=== PATIENT | male | born 1945 | race African-American/Black ===

== ENCOUNTER 2016-09-11 10:28 | Emergency (ER) | payer MEDICARE, OTHER ==
[~2016-09-11] VITALS: Ht 182.9 cm; Wt 79.4 kg
[~2016-09-11 10:28] MED LIST: AMLO5TAB2 PO; NAPR-243 PO; TRM50T PO
--- NOTE | 2016-09-11 12:51 | Diagnostic Imaging Report ---
COMPARISON: None. INDICATION: Right testicular swelling and pain. TECHNIQUE: Real-time ultrasound is performed. Color Doppler is also performed. FINDINGS: RIGHT TESTICLE: The right testicle measures 4.3 cm x 2.7 cm x 3.9 cm and appears fairly homogenous without focal mass. Doppler imaging demonstrates normal blood flow to the right testicle. The right epididymis is enlarged, heterogeneous and hypervascular consistent with epididymitis. There is a 10 mm simple extratesticular cyst likely benign. There is a small right hydrocele. LEFT TESTICLE: Left testicle measures 5.1 cm x 2.8 cm x 2.9 cm and is slightly heterogeneous, however, no focal mass is seen. Doppler imaging demonstrates normal blood flow to the left testicle. There is a small left hydrocele. ADDITIONAL FINDINGS: None. IMPRESSION: Small bilateral hydroceles. There are findings consistent with right epididymitis. There is no evidence of testicular torsion or intratesticular abnormality. Dictated by: Dictated on workstation # [id number]
--- NOTE | 2016-09-11 13:20 | ED GU-Male ---
General Chief Complaint: -Male Stated Complaint: GENITAL PAIN Nursing Triage Note: pt c/o testicle pain starting 2-3 days ago. swelling starting yesterday. Source: patient Exam Limitations: no limitations History of Present Illness Time seen by provider: 13:09 Initial Comments 71-year-old male patient presents to the emergency department complains of right testicular pain for approximately 2-3 days. Reports increased swelling and pain today. Denies fever, difficulty with urination, or blood in the urine. Timing/Duration: getting worse, other (2-3 days) Severity/Quality: throbbing Location: scrotal (right testicle) Radiation: none Activities at Onset: none Prior Genitourinary Problems: none Modifying Factors: Worsens With Movement, Worsens With Palpation Allergies and Home Medications Allergies Coded Allergies: NKANo Known Allergies (Unverified Allergy, Mild, 03/14/09) Home Medications Amlodipine Besylate 5 Mg Tab, 10 MG PO DAILY, (Reported) Hydrocodone/Acetaminophen 1 Each Tablet, 1 EACH PO Q4H PRN for PAIN, #14 Ref 0 Prescribed by: MARIA M BALDERAS on 09/11/16 1329 Levofloxacin 500 Mg Tablet, 500 MG PO DAILY, #10 Ref 0 Prescribed by: MARIA M BALDERAS on 09/11/16 1329 Constitutional: No chills, No fever, No malaise Respiratory: no symptoms reported Cardiovascular: no symptoms reported Gastrointestinal: No abdominal pain, No constipation, No diarrhea, No loss of appetite, No nausea, No vomiting Genitourinary: see HPI, denies burning, denies discharge, denies dysuria, denies frequency, denies flank pain, denies hematuria, pain (right testicular pain and swelling) Musculoskeletal: no symptoms reported Skin: no symptoms reported Psychiatric/Neurological: No Symptoms Reported All Other Systemes Reviewed Negative Unless Noted: Yes (Negative excepted noted.) Past Imrhjtu-Fifawf-Fkftbd Hx Patient Social History Alcohol Use: Denies Use Recreational Drug Use: No Smoking Status: Never a Smoker 2nd Hand Smoke Exposure: No Recent Foreign Travel: No Contact w/Someone Who Travel: No Recent Infectious Disease Expo: No Recent Hopitalizations: No Immunizations Up To Date Tetanus Booster (TDap): Unknown Seasonal Allergies Seasonal Allergies: No Surgeries HX Surgeries: Yes (HAND) Surgeries: Orthopedic Respiratory Hx Respiratory Disorders: No Cardiovascular Hx Cardiac Disorders: Yes Cardiac Disorders: Hypertension Neurological Hx Neurological Disorders: No Genitourinary Hx Genitourinary Disorders: No Gastrointestinal Hx Gastrointestinal Disorders: No Musculoskeletal Hx Musculoskeletal Disorders: No Endocrine Hx Endocrine Disorders: No HEENT HX ENT Disorders: No Cancer Hx Cancer: No Psychosocial Hx Psychiatric Problems: No Reviewed Nursing Assessment Reviewed/Agree w Nursing PMH: Yes Family Medical History Significant Family History: No Pertinent Family Hx Physical Exam Vital Signs Vital Sign - Last 12Hours 09/11/16 09/11/16 10:50 13:36 Temp 97.8 Pulse 57 Resp 18 B/P (MAP) 113/58 Pulse Ox 99 Capillary Refill : Less Than 3 Seconds General Appearance: WD/WN, no apparent distress HEENT: PERRL/EOMI, pharynx normal Neck: supple, normal inspection Cardiovascular: regular rate, rhythm, no murmur Respiratory: lungs clear, normal breath sounds, no respiratory distress Gastrointestinal: normal bowel sounds, non tender, soft, no organomegaly, No distended Male: no hernia, No erythema, No inguinal tenderness, testicular tenderness ( right testicular swelling. tenderness over the right epididymis) Back: normal inspection, no CVA tenderness Extremities: no pedal edema, normal capillary refill Neurologic/Psychiatric: alert, normal mood/affect, oriented x 3 Skin: normal color, warm/dry Progress/Results/Core Measures Results/Orders My Orders Orders - MARIA M BALDERAS Us Scrotum (Testicle) [id number] (09/11/16 12:04) Vital Signs/I&O Vital Sign - Last 12Hours 09/11/16 09/11/16 10:50 13:36 Temp 97.8 98.0 Pulse 57 56 Resp 18 18 B/P (MAP) 113/58 Pulse Ox 99 Blood Pressure Mean: 76 Diagnostic Imaging Diagonstic Imaging: Ultrasound Plain Films/CT/US/NM/MRI: other (scrotal) Comments US SCROTUM (Testicle) [id number] COMPARISON: None. INDICATION: Right testicular swelling and pain. TECHNIQUE: Real-time ultrasound is performed. Color Doppler is also performed. FINDINGS: RIGHT TESTICLE: The right testicle measures 4.3 cm x 2.7 cm x 3.9 cm and appears fairly homogenous without focal mass. Doppler imaging demonstrates normal blood flow to the right testicle. The right epididymis is enlarged, heterogeneous and hypervascular consistent with epididymitis. There is a 10 mm simple extratesticular cyst likely benign. There is a small right hydrocele. LEFT TESTICLE: Left testicle measures 5.1 cm x 2.8 cm x 2.9 cm and is slightly heterogeneous, however, no focal mass is seen. Doppler imaging demonstrates normal blood flow to the left testicle. There is a small left hydrocele. ADDITIONAL FINDINGS: None. IMPRESSION: Small bilateral hydroceles. There are findings consistent with right epididymitis. There is no evidence of testicular torsion or intratesticular abnormality. Dictated by: Dictated on workstation # [id number] Reviewed: Reviewed by Me (radiology report reviewed by me) Departure Communication Progress Notes Diagnostic findings discussed with the patient. Plan for discharge to home. Patient follow-up with his primary care physician this week for recheck. All return precautions were discussed with the patient as described in the discharge instructions of this report. Patient voices understanding and agrees with the treatment plan. Impression Impression: Primary Impression: Acute epididymitis Disposition: HOME, SELF-CARE Condition: Improved Departure-Patient Inst. Decision time for Depature: 13:28 Referrals: LEONEL ORTEZ APRN (PCP) Primary Care Physician Patient Instructions: Epididymitis (DC) Add. Discharge Instructions: All discharge instructions reviewed with patient and/or family. Voiced understanding. Medications as instructed. Ibuprofen 800 mg by mouth every 8 hours as needed for pain. Follow-up with your family practitioner for recheck call for appointment time to see morning. Return to the emergency department for worsened pain, swelling, fever, inability to urinate, blood in the urine, or any other concerns. Scripts Levofloxacin (Levofloxacin) 500 Mg Tablet 500 MG PO DAILY, #10 TAB 0 Refills Prov: MARIA M BALDERAS 09/11/16 Hydrocodone/Acetaminophen (Hydrocodon -Acetaminophen 5-325) 1 Each Tablet 1 EACH PO Q4H Y for PAIN, #14 TAB 0 Refills Prov: MARIA M BALDERAS 09/11/16 MARIA M BALDERAS September 11, 2016 13:20
[2016-09-11] MEDS ORDERED: LEVO500T80 PO (13:29)
[2016-09-11] MEDS ORDERED: HYDR-3812 PO (13:29)
[2016-09-11 13:36] VITALS: BP 111/56
== END 2016-09-11 13:36 | disposition home or self-care (01) ==
LOC: EDUNIT# 10:28 → ER 10:31
DX: N45.1 Epididymitis (principal); N43.3 Hydrocele, unspecified; I10 Essential (primary) hypertension; Z79.899 Other long term (current) drug therapy
CPT/HCPCS: 76870; 99282

== ENCOUNTER → 2016-11-15 | Outpatient (CLI) | payer MEDICARE, OTHER ==
[~2016-11-15] MED LIST changes: +AMLO10TA2 PO; +DOCU-143 PO; +HYDR-3812 PO; +LEVO500T80 PO
--- NOTE | 2016-11-15 11:51 | Diagnostic Imaging Report ---
EXAM: LUMBAR SPINE - 2-3 VIEWS. INDICATION: Low back pain with lt leg radiculopathy. COMPARISON: None. FINDINGS: There are five lumbar type vertebral bodies. There is mild left apex lumbar curvature. The alignment is otherwise unremarkable. The vertebral body heights are maintained. There are moderate to advanced degenerative endplate changes, most marked from L3 through L5. There is mild lower lumbar facet arthropathy with a nonspecific bowel gas pattern. IMPRESSION: Moderate to advanced spondylotic changes in the lumbar spine. No acute radiographic findings. Dictated by: Dictated on workstation # [id number]
== END ==
LOC: RAD 11:16
PROVIDERS: ATTEND Family Medicine
DX: M47.816 Spondylosis without myelopathy or radiculopathy, lumbar region (principal)
CPT/HCPCS: 72100

== ENCOUNTER 2016-11-21 11:13 | Inpatient (IN) | payer MEDICARE, OTHER ==
[~2016-11-21] VITALS: Ht 182.9 cm; Wt 73.5 kg
[~2016-11-21 11:13] MED LIST changes: -AMLO10TA2 PO; -DOCU-143 PO
[2016-11-21] MEDS ORDERED: ONDANSETRON 4 MG/2 ML (SDV) Z0FRAN IVP ONE (12:00)
[2016-11-21] MEDS ORDERED: NS IV 1000 ML 1,000 ML IV ONE (12:00)
--- NOTE | 2016-11-21 12:16 | ED Abdominal Pain ---
General Chief Complaint: Abdominal/GI Problems Stated Complaint: STOMACH PAIN Nursing Triage Note: AMB TO ROOM REPORTS ONSET OF ABD CRAMPING SINCE YESTERDAY. LAST BM TUESDAY ABD DISTENDED. VOMITING GREEN BROWN EMESIS PER . Sepsis Screen: No Definite Risk History of Present Illness Time Seen By Provider: 12:00 Initial Comments Patient has been vomiting since yesterday. Last bowel movement 11/19/16. No history of previous abdominal problems. Unable to keep any liquid or solid foods in. Mild nausea and no diarrhea. Timing/Duration: 12-24 Hours Severity/Quality: Mild Location: Generalized Abdomen Radiation: No Radiation Activities at Onset: None Modifying Factors: Improves With Vomiting Associated Symptoms: No Back Pain, No Chest Pain, No Fever/Chills, Fatigue, No Headache, Heartburn, Nausea/Vomiting, No Rash, No Shortness of Air, Swelling/ Mass in Abdomen, No Syncope, Weakness Allergies and Home Medications Allergies Coded Allergies: NKANo Known Allergies (Unverified Allergy, Mild, 03/14/09) Home Medications Amlodipine Besylate 5 Mg Tab, 10 MG PO DAILY, (Reported) Review of Systems Constitutional: no symptoms reported, see HPI Respiratory: No Symptoms Reported, See HPI Cardiovascular: No Symptoms Reported, See HPI Gastrointestinal: See HPI, Abdomen Distended, Abdominal Pain, Nausea, Poor Appetite, Poor Fluid Intake, Vomiting Genitourinary: No Symptoms Reported, See HPI All Other Systems Reviewed Negative Unless Noted: Yes Past Ifymvlm-Byxjjl-Jeykav Hx Patient Social History Alcohol Use: Denies Use Recreational Drug Use: No Smoking Status: Current Everyday Smoker 2nd Hand Smoke Exposure: No Recent Foreign Travel: No Contact w/Someone Who Travel: No Recent Infectious Disease Expo: No Recent Hopitalizations: No Immunizations Up To Date Tetanus Booster (TDap): Unknown Seasonal Allergies Seasonal Allergies: No Surgeries HX Surgeries: Yes (HAND) Surgeries: Orthopedic Respiratory Hx Respiratory Disorders: No Cardiovascular Hx Cardiac Disorders: Yes Cardiac Disorders: Hypertension Neurological Hx Neurological Disorders: No Genitourinary Hx Genitourinary Disorders: No Gastrointestinal Hx Gastrointestinal Disorders: No Musculoskeletal Hx Musculoskeletal Disorders: No Endocrine Hx Endocrine Disorders: No HEENT HX ENT Disorders: No Cancer Hx Cancer: No Psychosocial Hx Psychiatric Problems: No Reviewed Nursing Assessment Reviewed/Agree w Nursing PMH: Yes Family Medical History Significant Family History: No Pertinent Family Hx Physical Exam Vital Signs VS - Last 72 Hours, by Label 11/21/16 11:15 Temp 96.9 Pulse 68 Resp 18 B/P (MAP) 154/68 Pulse Ox 97 Capillary Refill : Less Than 3 Seconds General Appearance: WD/WN, no apparent distress HEENT: normal ENT inspection, TMs normal, pharynx normal Neck: non-tender, full range of motion, supple, normal inspection Respiratory: chest non-tender, lungs clear, normal breath sounds Cardiovascular: normal peripheral pulses, regular rate, rhythm Gastrointestinal: abnormal bowel sounds (hypoactive, present on right upper and lower quadrant. Absent on left upper and lower quadrant.), distended, No rebound, tenderness (generalized) Back: no CVA tenderness, no vertebral tenderness Neurologic/Psychiatric: no motor/sensory deficits, alert, normal mood/affect, oriented x 3 Skin: normal color, warm/dry, No jaundice Lymphatic: no adenopathy Focused Exam Lactic Acid Level Laboratory Tests Test 11/21/16 14:10 Lactic Acid Level 1.68 MMOL/L (0.50-2.00) Progress/Results/Core Measures Results/Orders Lab Results Laboratory Tests Test 11/21/16 12:15 11/21/16 13:15 11/21/16 14:10 Range/Units White Blood Count 11.5 H 4.3-11.0 10^3/uL Red Blood Count 6.44 H 4.35-5.85 10^6/uL Hemoglobin 19.0 H 13.3-17.7 G/DL Hematocrit 55 H 40-54 % Mean Corpuscular Volume 86 80-99 FL Mean Corpuscular Hemoglobin 30 25-34 PG Mean Corpuscular Hemoglobin Concent 34 32-36 G/DL Red Cell Distribution Width 14.5 10.0-14.5 % Platelet Count 222 130-400 10^3/uL Mean Platelet Volume 10.1 7.4-10.4 FL Neutrophils (%) (Auto) 76 H 42-75 % Lymphocytes (%) (Auto) 16 12-44 % Monocytes (%) (Auto) 8 0-12 % Eosinophils (%) (Auto) 0 0-10 % Basophils (%) (Auto) 0 0-10 % Neutrophils # (Auto) 8.7 H 1.8-7.8 X 10^3 Lymphocytes # (Auto) 1.9 1.0-4.0 X 10^3 Monocytes # (Auto) 0.9 0.0-1.0 X 10^3 Eosinophils # (Auto) 0.0 0.0-0.3 10^3/uL Basophils # (Auto) 0.0 0.0-0.1 10^3/uL Sodium Level 141 135-145 MMOL/L Potassium Level 3.9 3.6-5.0 MMOL/L Chloride Level 97 L 98-107 MMOL/L Carbon Dioxide Level 25 21-32 MMOL/L Anion Gap 19 H 5-14 MMOL/L Blood Urea Nitrogen 17 7-18 MG/DL Creatinine 1.19 0.60-1.30 MG/DL Estimat Glomerular Filtration Rate > 60 BUN/Creatinine Ratio 14 Glucose Level 140 H 70-105 MG/DL Calcium Level 10.1 8.5-10.1 MG/DL Total Bilirubin 1.2 H 0.1-1.0 MG/DL Aspartate Amino Transf (AST/SGOT) 14 5-34 U/L Alanine Aminotransferase (ALT/SGPT) 13 0-55 U/L Alkaline Phosphatase 80 40-136 U/L Total Protein 8.5 H 6.4-8.2 GM/DL Albumin 4.6 H 3.2-4.5 GM/DL Amylase Level 39 25-125 U/L Lipase 8 8-78 U/L Serum Alcohol < 10 <10 MG/DL Urine Color ELIGIO H Urine Clarity SLIGHTLY CLOUDY Urine pH 5 5-9 Urine Specific [place] 1.025 H 1.016-1.022 Urine Protein 3+ H NEGATIVE Urine Glucose (UA) 1+ H NEGATIVE Urine Ketones 2+ H NEGATIVE Urine Nitrite POSITIVE H NEGATIVE Urine Bilirubin 2+ H NEGATIVE Urine Urobilinogen 4 H NORMAL MG/DL Urine Leukocyte Esterase 2+ H NEGATIVE Urine RBC (Auto) 2+ H NEGATIVE Urine RBC 2-5 H /HPF Urine WBC 2-5 /HPF Urine Squamous Epithelial Cells 10-25 H /HPF Urine Crystals NONE /LPF Urine Bacteria NEGATIVE /HPF Urine Casts PRESENT /LPF Urine Hyaline Casts 5-10 H /LPF Urine Mucus LARGE H /LPF Urine Culture Indicated YES Urine Opiates Screen NEGATIVE NEGATIVE Urine Oxycodone Screen NEGATIVE NEGATIVE Urine Methadone Screen NEGATIVE NEGATIVE Urine Propoxyphene Screen NEGATIVE NEGATIVE Urine Barbiturates Screen NEGATIVE NEGATIVE Ur Tricyclic Antidepressants Screen NEGATIVE NEGATIVE Urine Phencyclidine Screen NEGATIVE NEGATIVE Urine Amphetamines Screen NEGATIVE NEGATIVE Urine Methamphetamines Screen NEGATIVE NEGATIVE Urine Benzodiazepines Screen NEGATIVE NEGATIVE Urine Cocaine Screen POSITIVE H NEGATIVE Urine Cannabinoids Screen NEGATIVE NEGATIVE Lactic Acid Level 1.68 0.50-2.00 MMOL/L My Orders Orders - SYLWIA TREVINO Cbc With Automated Diff (11/21/16 11:59) Comprehensive Metabolic Panel (11/21/16 11:59) Ua Culture If Indicated (11/21/16 11:59) Abdomen/Kub 1view (11/21/16 11:59) Saline Lock/Iv-Start (11/21/16 12:00) Ns Iv 1000 Ml (Sodium Chloride 0.9%) (11/21/16 12:00) Ondansetron Injection (Zofran Injectio (11/21/16 12:00) Alcohol (11/21/16 12:18) Drug Screen Stat (Urine) (11/21/16 12:18) Amylase (11/21/16 12:18) Lipase (11/21/16 12:18) Lactic Acid Analyzer (11/21/16 12:23) Ct Abdomen/Pelvis W (11/21/16 13:17) Urine Culture (11/21/16 13:15) Medications Given in ED Current Medications Medications Dose Ordered Sig/Erwin Route Start Time Stop Time Status Last Admin Dose Admin Ondansetron HCl 4 mg ONCE ONCE IVP 11/21/16 12:00 11/21/16 12:01 DC 11/21/16 13:16 4 MG Sodium Chloride 1,000 ml @ 0 mls/hr Q0M ONCE IV 11/21/16 12:00 11/21/16 12:01 DC 11/21/16 13:16 1,000 MLS/HR Vital Signs/I&O Vital Sign - Last 12Hours 11/21/16 11:15 Temp 96.9 Pulse 68 Resp 18 B/P (MAP) 154/68 Pulse Ox 97 Blood Pressure Mean: 96 Progress Note : Time: 12:00 Progress Note Initial evaluation completed, will obtain labs, KUB, normal saline 1 L IV and Zofran 4 mg IV. Instructed patient to remain nothing by mouth. 1300 patient reports improvement in his nausea. KUB inconclusive with possibility of bowel obstruction present, recommended CT abdomen and pelvis. 1400 CT results discussed with patient and his . Discussed results with Dr. ELIZONDO, agreed with plans for admission. Will begin Rocephin 1 g IV every [address] Zavaleta for bowel obstruction, recommended ice chips otherwise nothing by mouth. No injury at this time indicated. He will reevaluate the patient. Discussed plans for admission with the patient and his , they agreed with this. Diagnostic Imaging Diagonstic Imaging: CT Plain Films/CT/US/NM/MRI: abdomen, pelvis Comments NAME: DEEDEE [facility]ISHOL[facility] REC#: [id number] PT STATUS: REG ER : 1945 PHYSICIAN: SYLWIA TREVINO ADMIT DATE: 11/21/16/ER Draft Date of Exam:11/21/16 CT ABDOMEN/PELVIS W PROCEDURE: CT abdomen and pelvis with contrast. TECHNIQUE: Multiple contiguous axial images were obtained through the abdomen and pelvis after administration of intravenous contrast. INDICATION: Abdominal pain. There are no previous CT examinations available for comparison. The plain film examination of the abdomen performed earlier today did note a few dilated segments of small bowel present. On this study there are numerous dilated fluid-filled segments of small bowel. This appearance does suggest a small bowel obstruction. There are a few nondilated portions of the ileum identified, and I suspect that the obstruction is in the proximal ileum. The stomach is also markedly distended by fluid and gas. There is no mass, abscess, or pneumoperitoneum identified; however, there is a small amount of free fluid about both the liver and spleen. The fluid about the liver measures approximately 2.0 cm in maximum depth. The fluid about the spleen measures only 0.8 cm. The liver does not appear to be enlarged. The spleen, pancreas, adrenals, kidneys, gallbladder, aorta, and inferior vena cava show no sign of an acute abnormality. The appendix was visualized and is not abnormally thickened. The urinary bladder is only partially filled and consequently difficult to assess. The prostate gland is enlarged measuring 5.5 cm maximum transverse diameter (normal 5.0 cm or less.) As noted on the plain film exam there are numerous phleboliths low in the pelvis. The bone windows show no sign of a fracture or of a destructive lesion. The lung bases are clear. IMPRESSION: 1. The findings do suggest a small bowel obstruction. The stomach is also distended by fluid and gas. There is also a small amount of fluid about the liver and the spleen. 2. There is no acute abnormality of the abdomen and pelvis otherwise. 3. The prostate gland is enlarged. 4. These results were discussed with BETY Womack, at time of dictation. CRITICAL FINDINGS. Dictated on workstation # [id number] Dict: 11/21/16 1354 Trans: 11/21/16 1408 [id number] Interpreted by: CRYSTAL ALAN MD Electronically signed by: Departure Impression Impression: Primary Impression: Small bowel obstruction Additional Impressions: Urinary tract infection Qualified Codes: N30.01 - Acute cystitis with hematuria Abdominal pain Qualified Codes: R10.84 - Generalized abdominal pain Disposition: ADMITTED INPATIENT Condition: Stable Decision to Admit Reason: Admit from ER (General) Decision to Admit/Date: Nov 21, 2016 Time/Decision to Admit Time: 14:00 Departure-Patient Inst. Referrals: BRETT ELIZONDO DO (PCP/Family) Primary Care Physician Copy Copies To 1: BRETT ELIZONDO DO Copies To 2: ZACARIAS ZAVALETA MD, AMY ARNP Nov 21, 2016 12:16
[2016-11-21 12:20] LABS: BASOPHILS % (AUTO) 0 % (0-10); EOSINOPHILS % (AUTO) 0 % (0-10); LYMPHOCYTES # (AUTO) 1.9 X 10^3 (1.0-4.0); LYMPHOCYTES % (AUTO) 16 % (12-44); MEAN CORPUSCULAR HEMOGLOBIN 30 PG (25-34); MEAN CORPUSCULAR HGB CONC 34 G/DL (32-36); MEAN CORPUSCULAR VOLUME 86 FL (80-99); MEAN PLATELET VOLUME 10.1 FL (7.4-10.4); MONOCYTES # (AUTO) 0.9 X 10^3 (0.0-1.0); MONOCYTES % (AUTO) 8 % (0-12); NEUTROPHILS # (AUTO) 8.7 X 10^3 (1.8-7.8); NEUTROPHILS % (AUTO) 76 % (42-75); PLATELET COUNT 222 10^3/uL (130-400); RED BLOOD COUNT 6.44 10^6/uL (4.35-5.85); RED CELL DISTRIBUTION WIDTH 14.5 % (10.0-14.5); WHITE BLOOD COUNT 11.5 10^3/uL (4.3-11.0)
[2016-11-21 12:38] LABS: ALANINE AMINOTRANSFERASE 13 U/L (0-55); ALBUMIN 4.6 GM/DL (3.2-4.5); ANION GAP 19 MMOL/L (5-14); ASPARTATE AMINO TRANSFERASE 14 U/L (5-34); BILIRUBIN,TOTAL 1.2 MG/DL (0.1-1.0); BLOOD UREA NITROGEN 17 MG/DL (7-18); BUN/CREATININE RATIO 14; CALCIUM 10.1 MG/DL (8.5-10.1); CARBON DIOXIDE 25 MMOL/L (21-32); CHLORIDE 97 MMOL/L (98-107); CREATININE SERUM 1.19 MG/DL (0.60-1.30); GFR ESTIMATED > 60; GLUCOSE 140 MG/DL (70-105); POTASSIUM 3.9 MMOL/L (3.6-5.0); SODIUM 141 MMOL/L (135-145); TOTAL PROTEIN 8.5 GM/DL (6.4-8.2)
[2016-11-21 12:41] LABS: ALCOHOL < 10 MG/DL (<10); AMYLASE 39 U/L (25-125); LIPASE 8 U/L (8-78)
--- NOTE | 2016-11-21 13:13 | Diagnostic Imaging Report ---
Abdomen supine at 1:05 PM. INDICATION: Abdominal pain. Single supine view of the abdomen and pelvis was obtained. There is gas in both the large and small bowel. This appearance is nonspecific but similar to the lumbar spine exam of 11/15/2016. There are few dilated gas-filled segments of small bowel near midline. The possibility of partial small bowel obstruction should be considered. There is a moderate amount of fecal material throughout the colon. The numerous phleboliths on each side of the pelvis seen previously are again evident and no different. There is no mass or organomegaly appreciated. The osseous structures are intact. IMPRESSION: 1. The bowel gas pattern is nonspecific but similar to the prior exam. The possibility of partial small bowel obstruction should be considered. 2. If further study is desired, then CT of the abdomen and pelvis would be recommended. Dictated by: Dictated on workstation # [id number]
[2016-11-21 13:26] LABS: KETONES,URINE 2+ (NEGATIVE); LEUKOCYTE ESTERASE ,URINE 2+ (NEGATIVE); NITRITE,URINE POSITIVE (NEGATIVE); PH,URINE 5 (5-9); PROTEIN,URINE 3+ (NEGATIVE); UROBILINOGEN,URINE 4 MG/DL (NORMAL)
[2016-11-21] MEDS ORDERED: IOHEXOL 350 MG/ML 100 ML (OMNIPAQUE 350) VIAL IV ONE (13:30)
[2016-11-21 13:46] LABS: BILIRUBIN,URINE 2+ (NEGATIVE)
--- NOTE | 2016-11-21 14:08 | Diagnostic Imaging Report ---
PROCEDURE: CT abdomen and pelvis with contrast. TECHNIQUE: Multiple contiguous axial images were obtained through the abdomen and pelvis after administration of intravenous contrast. INDICATION: Abdominal pain. There are no previous CT examinations available for comparison. The plain film examination of the abdomen performed earlier today did note a few dilated segments of small bowel present. On this study there are numerous dilated fluid-filled segments of small bowel. This appearance does suggest a small bowel obstruction. There are a few nondilated portions of the ileum identified, and I suspect that the obstruction is in the proximal ileum. The stomach is also markedly distended by fluid and gas. There is no mass, abscess, or pneumoperitoneum identified; however, there is a small amount of free fluid about both the liver and spleen. The fluid about the liver measures approximately 2.0 cm in maximum depth. The fluid about the spleen measures only 0.8 cm. The liver does not appear to be enlarged. The spleen, pancreas, adrenals, kidneys, gallbladder, aorta, and inferior vena cava show no sign of an acute abnormality. The appendix was visualized and is not abnormally thickened. The urinary bladder is only partially filled and consequently difficult to assess. The prostate gland is enlarged measuring 5.5 cm maximum transverse diameter (normal 5.0 cm or less.) As noted on the plain film exam there are numerous phleboliths low in the pelvis. The bone windows show no sign of a fracture or of a destructive lesion. The lung bases are clear. IMPRESSION: 1. The findings do suggest a small bowel obstruction. The stomach is also distended by fluid and gas. There is a small amount of fluid about the liver and the spleen, as well. 2. There is no acute abnormality of the abdomen and pelvis otherwise. 3. The prostate gland is enlarged. 4. These results were discussed with BETY Womack, at time of dictation. CRITICAL FINDINGS. Dictated by: Dictated on workstation # [id number]
[2016-11-21] MEDS ORDERED: ONDANSETRON 4 MG/2 ML (SDV) Z0FRAN IV PRN (15:45)
[2016-11-21] MEDS ORDERED: CATHETER FLUSH 10 ML SYR IV PRN (15:45)
[2016-11-21] MEDS: NS IV 1000 ML 1,000 ML IV SCH (16:11)
[2016-11-21] MEDS: cefTRIAXone 1 GM/NS 50 ML IVPB IV SCH ×2 (16:11)
[2016-11-21 16:37] VITALS: BP 144/81
[2016-11-21] MEDS ORDERED: RT-ALBUTEROL SULF 2.5 MG/3 ML PRE-MIX VIAL IH PRN (17:00)
[2016-11-21 20:31] VITALS: BP 135/69
[2016-11-21] MEDS: fentaNYL INJECTION 100 MCG/2 ML AMP IVP PRN (21:36)
[2016-11-21] MEDS: HYDROcodone/APAP 7.5 MG/325 MG (LORTAB, LORCET PLUS) TABLET PO PRN (22:01)
[2016-11-22] VITALS (8 sets, daily range): BP systolic 140–182; BP diastolic 71–84
[2016-11-22] MEDS: NS IV 1000 ML 1,000 ML IV SCH ×2 (05:14→18:11)
[2016-11-22 05:29] LABS: BASOPHILS % (AUTO) 0 % (0-10); EOSINOPHILS # (AUTO) 0.1 10^3/uL (0.0-0.3); EOSINOPHILS % (AUTO) 2 % (0-10); LYMPHOCYTES # (AUTO) 2.1 X 10^3 (1.0-4.0); LYMPHOCYTES % (AUTO) 30 % (12-44); MEAN CORPUSCULAR HEMOGLOBIN 30 PG (25-34); MEAN CORPUSCULAR HGB CONC 34 G/DL (32-36); MEAN CORPUSCULAR VOLUME 88 FL (80-99); MEAN PLATELET VOLUME 10.5 FL (7.4-10.4); MONOCYTES % (AUTO) 14 % (0-12); NEUTROPHILS # (AUTO) 3.9 X 10^3 (1.8-7.8); NEUTROPHILS % (AUTO) 55 % (42-75); PLATELET COUNT 230 10^3/uL (130-400); RED BLOOD COUNT 5.21 10^6/uL (4.35-5.85); RED CELL DISTRIBUTION WIDTH 13.8 % (10.0-14.5); WHITE BLOOD COUNT 7.1 10^3/uL (4.3-11.0)
[2016-11-22 06:04] LABS: ALANINE AMINOTRANSFERASE 12 U/L (0-55); ALBUMIN 3.3 GM/DL (3.2-4.5); ANION GAP 11 MMOL/L (5-14); ASPARTATE AMINO TRANSFERASE 13 U/L (5-34); BILIRUBIN,TOTAL 0.8 MG/DL (0.1-1.0); BLOOD UREA NITROGEN 23 MG/DL (7-18); BUN/CREATININE RATIO 21; CALCIUM 8.5 MG/DL (8.5-10.1); CARBON DIOXIDE 26 MMOL/L (21-32); CHLORIDE 103 MMOL/L (98-107); CREATININE SERUM 1.07 MG/DL (0.60-1.30); GFR ESTIMATED > 60; GLUCOSE 103 MG/DL (70-105); SODIUM 140 MMOL/L (135-145)
[2016-11-22] MEDS ORDERED: PANTOPRAZOLE 40 MG/10 ML (PROTONIX) VIAL IV NR (10:45)
[2016-11-22] MEDS ORDERED: AMLO10TA2 PO (10:48)
[2016-11-22] MEDS ORDERED: DIATRIZOATE MEGLUM/SODIUM 37% 120 ML (GASTROGRAFIN) PO ONE (11:30)
[2016-11-22] MEDS: meTOprolol 5 MG/5 ML (LOPRESSOR) VIAL IV SCH ×2 (14:06→18:11)
--- NOTE | 2016-11-22 15:30 | History & Physicial ---
History of Present Illness History of Present Illness Reason for visit/HPI This is a 71 year old male who presented to the emergency room with a 2 day history of abdominal cramping. He started having greenish brown emesis the day of presentation. He was found to have a proximal small bowel obstruction as well as a UTI. Zofran did control his nausea in the emergency room so it was decided to hold on inserting an NG tube per surgery. He will be admitted to the medical floor with IVF, gut rest, pain control, antiemetics, surgical consult and rocephin for his UTI. Date of Admission Nov 22, 2016 at 10:34 am Date Seen by Provider: Nov 22, 2016 Time Seen by Provider: 10:30 I consulted on this patient on 11/22/16 15:24 Attending Physician Carolina Arredondo DO Admitting Physician Carolina Arredondo DO Consult Allergies and Home Medications Allergies Coded Allergies: NKANo Known Allergies (Unverified Allergy, Mild, 03/14/09) Home Medications Amlodipine Besylate 10 Mg Tablet, 10 MG PO DAILY, (Reported) Past Tqzfdkk-Uhhulj-Trzybw Hx Patient Social History Alcohol Use: Regular Use Recreational Drug Use: No Smoking Status: Current Everyday Smoker Type Used: Cigars 2nd Hand Smoke Exposure: No Physical Abuse Screen: No Sexual Abuse: No Recent Foreign Travel: No Contact w/other who traveled: No Recent Hopitalizations: No Recent Infectious Disease Expo: No Immunizations Up To Date Tetanus Booster (TDap): Unknown Seasonal Allergies Seasonal Allergies: No Surgeries HX Surgeries: Yes (HAND) Surgeries: Orthopedic Respiratory Hx Respiratory Disorders: No Cardiovascular Hx Cardiovascular Disorders: Yes Cardiac Disorders: Hypertension Neurological Hx Neurological Disorders: No Genitourinary Hx Genitourinary Disorders: No Gastrointestinal Hx Gastrointestinal Disorders: No Musculoskeletal Hx Musculoskeletal Disorders: No Musculoskeletal Disorders: Arthritis, Chronic Back Pain Endocrine Hx Endocrine Disorders: No HEENT HX ENT Disorders: No Loss of Vision: Denies Hearing Impairment: Denies Cancer Hx Cancer: No Psychosocial Hx Psychiatric Problems: No Blood Transfusions Adverse Reaction to a Blood Tr: No Reviewed Nursing Assessment Reviewed/Agree w Nursing PMH: Yes Family Medical History Significant Family History: No Pertinent Family Hx Family Hx: Hypertension 19 MOTHER Neoplasm 19 FATHER Constitutional: No no symptoms reported, No see HPI, No chills, No diaphoresis , No dizziness, No fever, No malaise, No weakness, No weight gain, No weight loss, No other EENTM: No blurred vision, No dental problems, No double vision, No ear discharge, No ear pain, No epistaxis, No eye pain, No hearing loss, No hoarseness, No mouth pain, No mouth swelling, No no symptoms reported, No nose congestion, No nose pain, No other, No see HPI, No tearing, No throat pain, No throat swelling, No vision loss Respiratory: No no symptoms reported, No see HPI, No cough, No dyspnea on exertion, No hemoptysis, No orthopnea, No phlegm, No short of breath, No stridor , No wheezing, No other Cardiovascular: No no symptoms reported, No see HPI, No chest pain, No edema, No Hx of Intervention, No palpitations, No syncope, No vascular heart diseas, No other Gastrointestinal: abdominal pain, loss of appetite, nausea, vomiting Genitourinary: No no symptoms reported, No see HPI, No decreased output, No discharge, No dysuria, No frequency, No hematuria, No hesitancy, No incontinence , No nocturia, No pain, No other Musculoskeletal: back pain Skin: No no symptoms reported, No see HPI, No change in color, No change in hair/nails, No dryness, No hx of skin cancer, No lesions, No lumps, No pruritus , No rash, No other Psychiatric/Neurological: Numbness (recent left leg sciatica) Physical Exam Vital Signs Vital Sign - Last 12Hours 11/21/16 11/21/16 11/21/16 11:15 16:37 18:47 Temp 96.9 Pulse 68 Resp 18 B/P (MAP) 154/68 Pulse Ox 97 O2 Delivery Room Air FiO2 0 Capillary Refill : Less Than 3 SecondsLess Than 3 Seconds General Appearance: No Apparent Distress HEENT: Normal ENT Inspection Neck: Supple Respiratory: Lungs Clear Cardiovascular: Regular Rate, Rhythm, Systolic Murmur Gastrointestinal: Soft, Abnormal Bowel Sounds (hypoactive), Distended, Tenderness (generalized) Rectal: Deferred Back: No CVA Tenderness Extremity: Non Tender, No Calf Tenderness, No Pedal Edema Neurologic/Psychiatric: Alert, Oriented x3 Skin: Normal Color Comments Laboratory Tests 11/22/16 04:58: White Blood Count 7.1, Red Blood Count 5.21, Hemoglobin 15.6, Hematocrit 46, Mean Corpuscular Volume 88, Mean Corpuscular Hemoglobin 30, Mean Corpuscular Hemoglobin Concent 34, Red Cell Distribution Width 13.8, Platelet Count 230, Mean Platelet Volume 10.5H, Neutrophils (%) (Auto) 55, Lymphocytes (%) (Auto) 30 , Monocytes (%) (Auto) 14H, Eosinophils (%) (Auto) 2, Basophils (%) (Auto) 0, Neutrophils # (Auto) 3.9, Lymphocytes # (Auto) 2.1, Monocytes # (Auto) 1.0, Eosinophils # (Auto) 0.1, Basophils # (Auto) 0.0, Sodium Level 140, Potassium Level 4.0, Chloride Level 103, Carbon Dioxide Level 26, Anion Gap 11, Blood Urea Nitrogen 23H, Creatinine 1.07, Estimat Glomerular Filtration Rate > 60, BUN /Creatinine Ratio 21, Glucose Level 103, Calcium Level 8.5, Total Bilirubin 0.8 , Aspartate Amino Transf (AST/SGOT) 13, Alanine Aminotransferase (ALT/SGPT) 12, Alkaline Phosphatase 54, Total Protein 6.0L, Albumin 3.3 Microbiology 11/21/16 Urine Culture - Preliminary, Resulted Assessment/Plan Assessment and Plan 1. Small Bowel Obstruction--admit for pain control, IV antiemetics, IVF, gut rest, surgical consultation 2. Hypertension--cover with lopressor IV 3. Lumbar Herniated Disc with left leg radiculopathy--stable 4. Positive drug screen for cocaine Problems: Clinical Quality Measures DVT/VTE Risk/Contraindication: Risk Factor Score Per Nursin RFS Level Per Nursing on Admit: 4+=Very High CAROLINA ARREDONDO DO Nov 22, 2016 3:30 pm
[2016-11-22] MEDS: cefTRIAXone 1 GM/NS 50 ML IVPB IV SCH ×2 (15:58)
[2016-11-22] MEDS: fentaNYL INJECTION 100 MCG/2 ML AMP IVP PRN (15:58)
--- NOTE | 2016-11-22 16:55 | Diagnostic Imaging Report ---
EXAMINATION: Gastrografin small bowel follow through. INDICATION: Small bowel obstruction. TECHNIQUE: Hairspring Adjuster image of the abdomen was performed. Subsequently, the patient was given Gastrografin orally and serial images of the abdomen were obtained. FINDINGS: Hairspring Adjuster image of the abdomen demonstrates small amount of fecal material in the rectum and the mildly dilated small bowel loops. There is prompt gastric emptying into the small bowel loops which are mildly dilated. There is a transient time through the small bowel of 4 hours and 30 minutes hours. The small bowel fold pattern and thickness are normal. The terminal ileum appears normal. There are no filling defects seen. IMPRESSION: Mildly dilated small bowel loops with transient time to the colon of 4-1/2 hours. This is suggestive of low-grade partial small bowel obstruction. Dictated by: Dictated on workstation # [id number]
[2016-11-23] MEDS: meTOprolol 5 MG/5 ML (LOPRESSOR) VIAL IV SCH ×4 (00:09→17:44)
[2016-11-23] MEDS: fentaNYL INJECTION 100 MCG/2 ML AMP IVP PRN (00:09)
[2016-11-23 05:10] LABS: BASOPHILS % (AUTO) 0 % (0-10); EOSINOPHILS # (AUTO) 0.2 10^3/uL (0.0-0.3); EOSINOPHILS % (AUTO) 2 % (0-10); LYMPHOCYTES # (AUTO) 1.9 X 10^3 (1.0-4.0); LYMPHOCYTES % (AUTO) 22 % (12-44); MEAN CORPUSCULAR HEMOGLOBIN 30 PG (25-34); MEAN CORPUSCULAR HGB CONC 34 G/DL (32-36); MEAN CORPUSCULAR VOLUME 89 FL (80-99); MONOCYTES # (AUTO) 0.8 X 10^3 (0.0-1.0); MONOCYTES % (AUTO) 9 % (0-12); NEUTROPHILS # (AUTO) 5.6 X 10^3 (1.8-7.8); NEUTROPHILS % (AUTO) 67 % (42-75); PLATELET COUNT 210 10^3/uL (130-400); RED BLOOD COUNT 5.08 10^6/uL (4.35-5.85); RED CELL DISTRIBUTION WIDTH 13.7 % (10.0-14.5); WHITE BLOOD COUNT 8.5 10^3/uL (4.3-11.0)
[2016-11-23 05:27] LABS: ALANINE AMINOTRANSFERASE 11 U/L (0-55); ALBUMIN 3.7 GM/DL (3.2-4.5); ANION GAP 14 MMOL/L (5-14); ASPARTATE AMINO TRANSFERASE 15 U/L (5-34); BILIRUBIN,TOTAL 0.8 MG/DL (0.1-1.0); BLOOD UREA NITROGEN 20 MG/DL (7-18); BUN/CREATININE RATIO 24; CALCIUM 8.9 MG/DL (8.5-10.1); CARBON DIOXIDE 25 MMOL/L (21-32); CHLORIDE 102 MMOL/L (98-107); CREATININE SERUM 0.83 MG/DL (0.60-1.30); GFR ESTIMATED > 60; GLUCOSE 73 MG/DL (70-105); POTASSIUM 3.8 MMOL/L (3.6-5.0); SODIUM 141 MMOL/L (135-145); TOTAL PROTEIN 6.7 GM/DL (6.4-8.2)
[2016-11-23 05:45] VITALS: BP 142/66
[2016-11-23 07:30] VITALS: BP 155/76
[2016-11-23] MEDS: PANTOPRAZOLE 40 MG/10 ML (PROTONIX) VIAL IV SCH (08:41)
[2016-11-23] MEDS: NS IV 1000 ML 1,000 ML IV SCH ×2 (08:41→12:04)
[2016-11-23 11:44] VITALS: BP 176/99
[2016-11-23] MEDS: HYDROcodone/APAP 7.5 MG/325 MG (LORTAB, LORCET PLUS) TABLET PO PRN ×2 (12:23→20:35)
--- NOTE | 2016-11-23 12:35 | CONSULTATION REPORT ---
DATE OF SERVICE: 11/22/2016 ATTENDING PHYSICIAN: Carolina Arredondo DO HISTORY OF PRESENT ILLNESS: The patient is a 71-year-old male who presented to [facility] Emergency Department yesterday afternoon for crampy abdominal pain, nausea and vomiting. He reported that this had occurred the day before and persisted and decided to come to the Emergency Department. He does not report ever having these symptoms before in the past. A CT scan was performed, which did show dilated loops of small bowel consistent with a small bowel obstruction. Upon further questioning, he reports again that he has not had these types of symptoms before. He also has not had any previous surgeries in the past. Upon examination of the abdomen, there were no hernias palpable. Since being admitted and placed on IV fluids as well as antiemetics, he states he has not had any issues with nausea or vomiting. An upper GI contrast and small bowel follow through is in process right now. PAST MEDICAL HISTORY: Hypertension and degenerative joint disease. PAST SURGICAL HISTORY: Hand surgery. ALLERGIES: No known drug allergies. MEDICATIONS: Amlodipine 10 mg daily. SOCIAL HISTORY: Positive smoker, [id number]. He does drink alcohol on a daily basis and states anywhere from 3-6 beers daily. FAMILY HISTORY: Mother hypertension, father some form of neoplasm. VITAL SIGNS: Temperature 97.4, blood pressure 173/84, pulse 75, respirations 20, pulse ox 92% on room air. REVIEW OF SYSTEMS: This is a well-nourished male currently in no acute distress. He is not experiencing shortness of breath or difficulty breathing. No chest pain, palpitations or diaphoresis. Previous nausea and vomiting; however, none since admission with a slightly distended abdomen. Mild discomfort in the upper abdominal quadrant upon deep palpation, no peritoneal signs. Has not had any bowel function since admission; however, states that his bowel movements were normal before. No red blood per rectum, no dark tarry stools. No fever or chills. No recent inadvertent weight loss. All other review of systems negative. PHYSICAL EXAMINATION: CHEST: Scattered wheezes bilaterally with good breath sounds. HEART: Regular. No murmurs. EXTREMITIES: No lower extremity edema. Negative Homans sign. HEENT: No scleral icterus. NECK: No cervical lymphadenopathy. ABDOMEN: Soft with yxid-mg-ojlfsbry distention and mild discomfort in the upper abdominal quadrant upon deep palpation. No peritoneal signs. SKIN: Warm and dry. ASSESSMENT AND PLAN: A 71-year-old male with a small bowel obstruction of unknown etiology. He does have some ctgq-jy-tpwaitlb risk factors including alcohol consumption, enlarged prostate identified on CT scan as well as age. He has not had any previous surgeries or any hernias identified by physical examination nor CT scan. There is some fluid within the abdomen, which may indicate some level of ascites due to his potential underlying liver disease and mild ascites. We will continue conservative management for now with bowel rest, IV fluids as well as to follow the results of the upper GI contrast study with small bowel follow through. Job ID: [id number] DocumentID: [id number] Dictated Date: 11/22/2016 16:35:25 Gun Numberer Date: 11/23/2016 01:40:27 Dictated By: ZACARIAS BAPTISTE MD
--- NOTE | 2016-11-23 12:48 | Progress Note (SOAP) ---
Subjective Date Seen by Provider: Nov 23, 2016 Time Seen by Provider: 12:45 Subjective/Events-last exam Fwup small bowel obstruction, hypertension. SBFT showed partial small bowel obstruction. Is passing some flatus and had small BM this AM. No further nausea. Abdomen little more distended today. Objective Exam Vital Signs Date Time Temp Pulse Resp B/P (MAP) Pulse Ox O2 Delivery O2 Flow Rate FiO2 11/23/16 12:27 60 11/23/16 11:44 97.8 58 20 176/99 94 Room Air 11/23/16 07:42 89 Room Air 11/23/16 07:30 98.2 59 22 155/76 91 Room Air 11/23/16 07:00 58 11/23/16 05:45 97.6 56 20 142/66 Nasal Cannula 2.00 11/23/16 01:00 55 11/22/16 23:50 98.1 64 18 182/80 96 Room Air 11/22/16 20:33 88 Room Air 11/22/16 20:18 97.6 64 20 155/79 92 Room Air 11/22/16 19:00 62 11/22/16 18:16 63 165/81 11/22/16 16:55 99.1 72 20 153/75 91 Room Air I & O 11/23/16 07:00 Intake Total 0 ml Output Total 650 ml Balance -650 ml Capillary Refill : Less Than 3 SecondsLess Than 3 Seconds General Appearance: No Apparent Distress Neck: Supple Respiratory: Lungs Clear Cardiovascular: Regular Rate, Rhythm Gastrointestinal: soft, abnormal bowel sounds, distended, tenderness ( generalized) Extremity: Non Tender, No Calf Tenderness, No Pedal Edema Neurologic/Psychiatric: Alert, Oriented x3 Results Lab Laboratory Tests 11/23/16 04:34: White Blood Count 8.5, Red Blood Count 5.08, Hemoglobin 15.2, Hematocrit 45, Mean Corpuscular Volume 89, Mean Corpuscular Hemoglobin 30, Mean Corpuscular Hemoglobin Concent 34, Red Cell Distribution Width 13.7, Platelet Count 210, Mean Platelet Volume 10.0, Neutrophils (%) (Auto) 67, Lymphocytes (%) (Auto) 22 , Monocytes (%) (Auto) 9, Eosinophils (%) (Auto) 2, Basophils (%) (Auto) 0, Neutrophils # (Auto) 5.6, Lymphocytes # (Auto) 1.9, Monocytes # (Auto) 0.8, Eosinophils # (Auto) 0.2, Basophils # (Auto) 0.0, Sodium Level 141, Potassium Level 3.8, Chloride Level 102, Carbon Dioxide Level 25, Anion Gap 14, Blood Urea Nitrogen 20H, Creatinine 0.83, Estimat Glomerular Filtration Rate > 60, BUN /Creatinine Ratio 24, Glucose Level 73, Calcium Level 8.9, Total Bilirubin 0.8, Aspartate Amino Transf (AST/SGOT) 15, Alanine Aminotransferase (ALT/SGPT) 11, Alkaline Phosphatase 55, Total Protein 6.7, Albumin 3.7 Microbiology 11/21/16 Urine Culture - Final, Complete Assessment/Plan Assessment/Plan Assess & Plan/Chief Complaint 1. Partial Small Bowel Obstruction--increase activity, up to chair and ambulate , on clear liquids, await surgery recommendations 2. Hypertension--on lopressor, will restart lisinopril Clinical Quality Measures DVT/VTE Risk/Contraindication: Risk Factor Score Per Nursin RFS Level Per Nursing on Admit: 4+=Very High BRETT ELIZONDO DO Nov 23, 2016 12:48
--- NOTE | 2016-11-23 13:51 | Progress Note (SOAP) ---
Subjective Date Seen by Provider: Nov 23, 2016 Time Seen by Provider: 13:00 Subjective/Events-last exam doing better. large bowel movement today. less abd distention. Objective Exam Vital Signs Date Time Temp Pulse Resp B/P (MAP) Pulse Ox O2 Delivery O2 Flow Rate FiO2 11/23/16 12:27 60 11/23/16 11:44 97.8 58 20 176/99 94 Room Air 11/23/16 07:42 89 Room Air 11/23/16 07:30 98.2 59 22 155/76 91 Room Air 11/23/16 07:00 58 11/23/16 05:45 97.6 56 20 142/66 Nasal Cannula 2.00 11/23/16 01:00 55 11/22/16 23:50 98.1 64 18 182/80 96 Room Air 11/22/16 20:33 88 Room Air 11/22/16 20:18 97.6 64 20 155/79 92 Room Air 11/22/16 19:00 62 11/22/16 18:16 63 165/81 11/22/16 16:55 99.1 72 20 153/75 91 Room Air I & O 11/23/16 07:00 Intake Total 0 ml Output Total 650 ml Balance -650 ml Capillary Refill : Less Than 3 SecondsLess Than 3 Seconds General Appearance: No Apparent Distress HEENT: PERRL/EOMI Neck: Full Range of Motion Respiratory: Chest Non Tender, Lungs Clear Cardiovascular: Regular Rate, Rhythm Gastrointestinal: normal bowel sounds Extremity: Normal Capillary Refill Neurologic/Psychiatric: Alert, Oriented x3 Skin: Normal Color Lymphatic: No Adenopathy Results Lab Laboratory Tests 11/23/16 04:34: White Blood Count 8.5, Red Blood Count 5.08, Hemoglobin 15.2, Hematocrit 45, Mean Corpuscular Volume 89, Mean Corpuscular Hemoglobin 30, Mean Corpuscular Hemoglobin Concent 34, Red Cell Distribution Width 13.7, Platelet Count 210, Mean Platelet Volume 10.0, Neutrophils (%) (Auto) 67, Lymphocytes (%) (Auto) 22 , Monocytes (%) (Auto) 9, Eosinophils (%) (Auto) 2, Basophils (%) (Auto) 0, Neutrophils # (Auto) 5.6, Lymphocytes # (Auto) 1.9, Monocytes # (Auto) 0.8, Eosinophils # (Auto) 0.2, Basophils # (Auto) 0.0, Sodium Level 141, Potassium Level 3.8, Chloride Level 102, Carbon Dioxide Level 25, Anion Gap 14, Blood Urea Nitrogen 20H, Creatinine 0.83, Estimat Glomerular Filtration Rate > 60, BUN /Creatinine Ratio 24, Glucose Level 73, Calcium Level 8.9, Total Bilirubin 0.8, Aspartate Amino Transf (AST/SGOT) 15, Alanine Aminotransferase (ALT/SGPT) 11, Alkaline Phosphatase 55, Total Protein 6.7, Albumin 3.7 Microbiology 11/21/16 Urine Culture - Final, Complete Assessment/Plan Assessment/Plan Assess & Plan/Chief Complaint PSBO. resolving. continue ambulation. advance to DYS3 diet. Clinical Quality Measures DVT/VTE Risk/Contraindication: Risk Factor Score Per Nursin RFS Level Per Nursing on Admit: 4+=Very High ZACARIAS BAPTISTE MD Nov 23, 2016 1:50 pm
[2016-11-23 15:30] VITALS: BP 103/64
[2016-11-23] MEDS: cefTRIAXone 1 GM/NS 50 ML IVPB IV SCH ×2 (16:07)
[2016-11-23 20:20] VITALS: BP 153/80
[2016-11-24] MEDS: meTOprolol 5 MG/5 ML (LOPRESSOR) VIAL IV SCH ×3 (00:17→11:34)
[2016-11-24 00:33] VITALS: BP 151/72
[2016-11-24] MEDS: NS IV 1000 ML 1,000 ML IV SCH (02:54)
[2016-11-24 04:30] VITALS: BP 132/71
[2016-11-24 07:12] VITALS: BP 132/71
[2016-11-24] MEDS: PANTOPRAZOLE 40 MG/10 ML (PROTONIX) VIAL IV SCH (07:21)
[2016-11-24] MEDS: HYDROcodone/APAP 7.5 MG/325 MG (LORTAB, LORCET PLUS) TABLET PO PRN (07:22)
[2016-11-24 08:00] VITALS: BP 135/74
[2016-11-24] MEDS ORDERED: amLODIPine 10 MG (NORVASC) TAB PO SCH (09:00)
[2016-11-24 11:30] VITALS: BP 105/69
[2016-11-24] MEDS ORDERED: DOCU-143 PO (12:49)
--- NOTE | 2016-11-24 12:52 | Discharge Inst-Simple/Standard ---
Discharge Inst-Standard Discharge Medications New, Converted or Re-Newed RX: Transmitted to Pharmacy Patient Instructions/Follow Up Plan of Care/Instructions/FU: Fwup 2 weeks Activity as Tolerated: Yes Discharge Diet: Low Residue Planned Outpatient Orders/Ref. Pneu Vac Indicated: Yes BRETT ELIZONDO DO Nov 24, 2016 12:52 pm
[2016-11-25] MEDS ORDERED: PANTOPRAZOLE 40 MG (PROTONIX) TAB PO SCH (07:00)
== END 2016-11-24 16:18 | disposition home or self-care (01) | DRG 389 ==
LOC: EDUNIT# 11:13 → ER 11:14 → 4TH 14:50 → UNDOADMOB 14:50 → 4TH 15:35 → OBSVTOIN 11-22 09:59 → INTOOBSV 11-22 09:59 → OBSVTOIN 11-22 10:34 → INTOOBSV 11-22 10:34 → UNDOADMOB 11-22 10:34 → 4TH 11-22 10:34 → UNDODISIN 11-24 16:18
PROVIDERS: ADMIT Family Medicine; ATTEND Family Medicine
DX: K56.60 Unspecified intestinal obstruction (principal); N39.0 Urinary tract infection, site not specified; I10 Essential (primary) hypertension; F17.290 Nicotine dependence, other tobacco product, uncomplicated; M19.91 Primary osteoarthritis, unspecified site; M54.9 Dorsalgia, unspecified; M51.16 Intervertebral disc disorders with radiculopathy, lumbar region; R78.2 Finding of cocaine in blood; N40.0 Benign prostatic hyperplasia without lower urinary tract symptoms
CPT/HCPCS: 36415; 74000; 74177; 74250; 80053; 80306; 80320; 81000; 82150; 83605; 83690; 85025; 87088; 94760; 94761; 96361; 96374; G0378

== ENCOUNTER → 2018-04-22 | Outpatient (CLI) | payer MEDICARE, OTHER ==
[~2018-04-22] MED LIST changes: +ACHD5005 PO; +AMLO10TA6 PO; +DOCU-143 PO; -HYDR-3812 PO
[2018-04-22 09:42] LABS: BASOPHILS % (AUTO) 0 % (0-10); EOSINOPHILS % (AUTO) 0 % (0-10); HEMATOCRIT 42 % (40-54); HEMOGLOBIN 14.2 G/DL (13.3-17.7); LYMPHOCYTES # (AUTO) 2.3 X 10^3 (1.0-4.0); LYMPHOCYTES % (AUTO) 35 % (12-44); MEAN CORPUSCULAR HEMOGLOBIN 29 PG (25-34); MEAN CORPUSCULAR HGB CONC 34 G/DL (32-36); MEAN CORPUSCULAR VOLUME 86 FL (80-99); MEAN PLATELET VOLUME 9.7 FL (7.4-10.4); MONOCYTES # (AUTO) 0.4 X 10^3 (0.0-1.0); MONOCYTES % (AUTO) 6 % (0-12); NEUTROPHILS % (AUTO) 59 % (42-75); PLATELET COUNT 213 10^3/uL (130-400); RED BLOOD COUNT 4.86 10^6/uL (4.35-5.85); RED CELL DISTRIBUTION WIDTH 13.1 % (10.0-14.5); WHITE BLOOD COUNT 6.7 10^3/uL (4.3-11.0)
[2018-04-22 10:05] LABS: ALANINE AMINOTRANSFERASE 10 U/L (0-55); ALBUMIN 4.4 GM/DL (3.2-4.5); ALKALINE PHOSPHATASE 76 U/L (40-136); BILIRUBIN,TOTAL 0.4 MG/DL (0.1-1.0); BUN/CREATININE RATIO 12; CALCIUM 9.2 MG/DL (8.5-10.1); CARBON DIOXIDE 25 MMOL/L (21-32); CHLORIDE 104 MMOL/L (98-107); CREATININE SERUM 0.99 MG/DL (0.60-1.30); GFR ESTIMATED > 60; GLUCOSE 114 MG/DL (70-105); POTASSIUM 4.2 MMOL/L (3.6-5.0); SODIUM 137 MMOL/L (135-145); TOTAL PROTEIN 7.6 GM/DL (6.4-8.2)
== END ==
LOC: LAB 09:14
PROVIDERS: ATTEND Family Medicine
DX: I10 Essential (primary) hypertension (principal); R53.83 Other fatigue; M89.9 Disorder of bone, unspecified
CPT/HCPCS: 36415; 80053; 83883; 84155; 84165; 84166; 84443; 85025

== ENCOUNTER → 2018-04-27 | Outpatient (CLI) | payer OTHER, MEDICARE ==
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
== END ==
LOC: RAD 08:16
PROVIDERS: ATTEND Family Medicine
DX: M48.061 Spinal stenosis, lumbar region without neurogenic claudication (principal); M47.27 Other spondylosis with radiculopathy, lumbosacral region; M51.17 Intervertebral disc disorders with radiculopathy, lumbosacral region; M25.78 Osteophyte, vertebrae; M89.9 Disorder of bone, unspecified; V89.0XXA Person injured in unspecified motor-vehicle accident, nontraffic, initial encounter
CPT/HCPCS: 72148

== ENCOUNTER 2018-05-25 20:39 | Emergency (ER) | payer MEDICARE, OTHER ==
[~2018-05-25] VITALS: Ht 182.9 cm; Wt 74.8 kg
[~2018-05-25 20:39] MED LIST changes: -AMLO10TA6 PO; +AMLO10TA7 PO
--- OUTSIDE RECORDS SUMMARY | 2018-05-25 20:44 | XMS REPORT | Clinical Summary ---
Author Author [facility] Organization [facility] Address Unknown Phone Unavailable Care Team Providers Care Interior Plant Caretaker Name Role Phone Prasanna Sullivan MD PCP Allergies No Known Allergies Current Medications Prescription Sig. Disp. Refills Start End Date Status Date amLODIPine (NORVASC) 10 Take 10 mg by mouth Active MG tablet daily. dorzolamide-timolol Instill one drop into the 10 mL 20 Active (COSOPT) 22.3-6.8 mg/mL left eye 2 (two) times a 15 ophthalmic solution day. apraclonidine (IOPIDINE) Instill one drop into the 10 mL 0 10/20 Active 0.5 % ophthalmic solution left eye 4 (four) times a 15 day. Active Problems Not on file Resolved Problems Problem Noted Date Resolved Date Recent retinal detachment of left eye with multiple defects 10/23/201401/2015 Social History Tobacco Use Types Packs/Day Years Used Date Current Every Day Smoker Cigarettes 1 40 Smokeless Tobacco: Never Used Alcohol Use Drinks/Week oz/Week Comments No Sex Assigned at Date Recorded Not on file Last Filed Vital Signs Vital Sign Reading Time Taken Blood Pressure 132/78 10/25/2014 7:32 AM CDT Pulse 51 10/25/2014 7:32 AM CDT Temperature 36.7 C (98 F) 10/25/2014 7:32 AM CDT Respiratory Rate 18 10/25/2014 7:32 AM CDT Oxygen Saturation 95% 10/25/2014 7:32 AM CDT Inhaled Oxygen - - Concentration Weight 79.4 kg (175 lb) 10/23/2014 12:43 PM CDT Height 172.7 cm (5' 8") 10/23/2014 12:43 PM CDT Body Mass Index 26.61 10/23/2014 12:43 PM CDT Plan of Treatment Not on file Implants Implanted Type Area Pig Breeder Device Expiration Model / Identifier Date Serial / Lot Implant Eye Scleral Buckle Band Non-Tissue Left: Eye HONDURAN 2018 92-09 / Silicone Style 41 92-09 - Implant OPHTHALMIC / [id number] Implanted: Qty: 1 on 10/24/2014 by Ti Ceballos MD Results Not on filefrom Last 3 Months
--- OUTSIDE RECORDS SUMMARY | 2018-05-25 20:45 | XMS REPORT | Continuity of Care Document ---
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 08:16:00 04/27/2018 23:59:59 [facility] Outpatient BRETT ARREDONDO DO [facility] RAD LUMBAR DEG DISEASE [id number] 04/22/2018 09:14:00 04/22/2018 23:59:59 [facility] Outpatient BRETT ARREDONDO DO [facility] LAB HTN,FATIGUE,L ILIAC BONE LESIONS [id number] 11/24/2016 09:29:00 11/24/2016 23:59:59 CLS Preadmit VANDA ARREDONDO DOQUELINE S [facility] REHAB LUMBAR SPINE NARROWING ARTHRITIS [id number] 11/22/2016 09:59:00 11/24/2016 16:18:00 DIS Inpatient VANDA ARREDONDO DOQUELINE S [facility] 4TH SMALL BOWEL OBSTRUCTION, N/V, DEHYDRATION, UTI [id number] 11/15/2016 11:16:00 11/15/2016 23:59:59 CLS Outpatient BRETT ARREDONDO DO S [facility] RAD LOW BACK PAIN [id number] 09/11/2016 10:31:00 09/11/2016 13:36:00 DIS Emergency MARIA M SIM [facility] ER GENITAL PAIN [id number] 04/02/2014 07:48:00 04/02/2014 10:55:00 DIS Outpatient JEFRY FREIDMAN MD [facility] SDC SCREENING CONSTIPATION [id number] 03/27/2014 06:12:00 03/27/2014 23:59:59 CLS Outpatient JEFRY FRIEDMAN MD [facility] PREOP SCREENING CONSTIPATION [id number] 03/01/2014 09:34:00 03/01/2014 11:50:00 DIS Emergency JANEE MCKEON IVORY POLISHER [facility] ER CONSTIPATION [id number] 06/02/2018 10:21:00 PEN Preadmit LESVIA SIDDIQI MD [facility] ONC [id number] 05/25/2018 20:40:00 ACT Emergency POLO GARCES MD [facility] ER ABD PAIN [id number] 05/25/2018 09:46:00 ACT Outpatient BRETT ARREDONDO DO S [facility] REHAB LUMBAR DDD; CERVICAL DDD [id number] 12/23/2009 13:07:00 Document Registration [id number] 01/30/2016 09:53:27 01/30/2016 23:59:59 CLS Outpatient 01/201705/24/2018 13:26:50 ACT Outpatient Brett Arredondo
--- NOTE | 2018-05-25 20:55 | ED General ---
General Stated Complaint: ABD PAIN Source of Information: Patient Exam Limitations: No Limitations History of Present Illness Date Seen by Provider: May 25, 2018 Time Seen by Provider: 20:53 Initial Comments To ER with reports of rectal pain and inability to have a bowel movement. He denies nausea or vomiting or actual abdominal pain. He states that the pain that he's having his very low abdomen and he believes that he has a fecal impaction. He's not had a bowel movement in 3-4 days. He has been passing gas. Timing/Duration: 1-2 Days Severity: Moderate Associated Systoms: No Nausea/Vomiting Allergies and Home Medications Allergies Coded Allergies: NKANo Known Allergies (Unverified Allergy, Mild, 03/14/09) Home Medications Amlodipine Besylate 10 Mg Tablet, 10 MG PO DAILY, (Reported) Docusate Sodium 100 Mg Capsule, 100 MG PO BID Prescribed by: BRETT ELIZONDO on 11/24/16 1249 Patient Home Medication List Home Medication List Reviewed: Yes Review of Systems Review of Systems Constitutional: see HPI EENTM: see HPI Respiratory: no symptoms reported Cardiovascular: no symptoms reported Genitourinary: no symptoms reported Musculoskeletal: no symptoms reported Skin: no symptoms reported Psychiatric/Neurological: No Symptoms Reported Hematologic/Lymphatic: No Symptoms Reported (when I look) Past Lkcqdph-Efmfdc-Apiepz Hx Patient Social History Alcohol Beverage of Choice: Beer Type Used: Cigars 2nd Hand Smoke Exposure: No Recent Foreign Travel: No Contact w/Someone Who Travel: No Recent Hopitalizations: No Immunizations Up To Date Tetanus Booster (TDap): Unknown Seasonal Allergies Seasonal Allergies: No Past Medical History Surgeries: Yes (HAND) Orthopedic Respiratory: No Currently Using CPAP: No Currently Using BIPAP: No Cardiac: Yes Hypertension Neurological: No Genitourinary: No Gastrointestinal: No Musculoskeletal: No Arthritis, Chronic Back Pain Endocrine: No HEENT: No Loss of Vision: Denies Hearing Impairment: Denies Cancer: No Psychosocial: No Integumentary: No Blood Disorders: No Adverse Reaction/Blood Tranf: No Family Medical History Hypertension 19 MOTHER Neoplasm 19 FATHER No Pertinent Family Hx Physical Exam Vital Signs Vital Signs - First Documented 05/25/18 20:48 Temp 96.5 Pulse 51 Resp 16 B/P (MAP) 153/85 (107) Pulse Ox 98 O2 Delivery Room Air Capillary Refill : Height, Weight, BMI Height: 6'0.00" Weight: 162lbs. 1.0oz. 73.405640yb; 22.0 BMI Method:Stated General Appearance: No Apparent Distress, WD/WN Eyes: Bilateral Eye Normal Inspection, Bilateral Eye PERRL, Bilateral Eye EOMI HEENT: PERRL/EOMI, TMs Normal Respiratory: No Accessory Muscle Use, No Respiratory Distress Gastrointestinal: Normal Bowel Sounds, Non Tender, Soft; No Tenderness Extremity: Normal Capillary Refill, Normal Inspection Neurologic/Psychiatric: Alert, Oriented x3, No Motor/Sensory Deficits Skin: Normal Color, Warm/Dry Progress/Results/Core Measures Suspected Sepsis SIRS Temperature: Pulse: Respiratory Rate: Laboratory Tests 05/25/18 20:55: White Blood Count 6.8 Blood Pressure / Mean: Laboratory Tests 05/25/18 20:55: Creatinine 1.03, Platelet Count 215, Total Bilirubin 0.4 Results/Orders Lab Results Laboratory Tests Test 05/25/18 20:55 Range/Units White Blood Count 6.8 4.3-11.0 10^3/uL Red Blood Count 5.04 4.35-5.85 10^6/uL Hemoglobin 14.9 13.3-17.7 G/DL Hematocrit 43 40-54 % Mean Corpuscular Volume 86 80-99 FL Mean Corpuscular Hemoglobin 30 25-34 PG Mean Corpuscular Hemoglobin Concent 35 32-36 G/DL Red Cell Distribution Width 13.6 10.0-14.5 % Platelet Count 215 130-400 10^3/uL Mean Platelet Volume 9.4 7.4-10.4 FL Neutrophils (%) (Auto) 43 42-75 % Lymphocytes (%) (Auto) 45 H 12-44 % Monocytes (%) (Auto) 5 0-12 % Eosinophils (%) (Auto) 6 0-10 % Basophils (%) (Auto) 0 0-10 % Neutrophils # (Auto) 2.9 1.8-7.8 X 10^3 Lymphocytes # (Auto) 3.1 1.0-4.0 X 10^3 Monocytes # (Auto) 0.4 0.0-1.0 X 10^3 Eosinophils # (Auto) 0.4 H 0.0-0.3 10^3/uL Basophils # (Auto) 0.0 0.0-0.1 10^3/uL Sodium Level 138 135-145 MMOL/L Potassium Level 4.4 3.6-5.0 MMOL/L Chloride Level 101 98-107 MMOL/L Carbon Dioxide Level 27 21-32 MMOL/L Anion Gap 10 5-14 MMOL/L Blood Urea Nitrogen 15 7-18 MG/DL Creatinine 1.03 0.60-1.30 MG/DL Estimat Glomerular Filtration Rate > 60 BUN/Creatinine Ratio 15 Glucose Level 107 H 70-105 MG/DL Calcium Level 9.3 8.5-10.1 MG/DL Corrected Calcium 9.0 8.5-10.1 MG/DL Total Bilirubin 0.4 0.1-1.0 MG/DL Aspartate Amino Transf (AST/SGOT) 17 5-34 U/L Alanine Aminotransferase (ALT/SGPT) 12 0-55 U/L Alkaline Phosphatase 70 40-136 U/L Total Protein 7.6 6.4-8.2 GM/DL Albumin 4.4 3.2-4.5 GM/DL Lipase 39 8-78 U/L My Orders Orders - JANEE MCKEON FISHER EEL SPEAR Cbc With Automated Diff (05/25/18 20:45) Comprehensive Metabolic Panel (05/25/18 20:45) Lipase (05/25/18 20:45) Ua Culture If Indicated (05/25/18 20:45) Iv Heplock-Insert (Order) (05/25/18 20:45) Ct Abdomen/Pelvis Wo (05/25/18 20:52) Na Phos/Na Biphos Enema (Fleet Enema Ramon (05/25/18 21:24) Medications Given in ED Current Medications Medications Dose Ordered Sig/Erwin Route Start Time Stop Time Status Last Admin Dose Admin Sodium Biphosphate/ Sodium Phosphate 1 ea STK-MED ONCE .ROUTE 05/25/18 21:24 05/25/18 21:29 DC 05/25/18 21:35 1 EA Vital Signs/I&O 05/25/18 20:48 Temp 96.5 Pulse 51 Resp 16 B/P (MAP) 153/85 (107) Pulse Ox 98 O2 Delivery Room Air Capillary Refill : Diagnostic Imaging Diagonstic Imaging: CT Comments NAME: DEEDEE CHISHOLM Jovan MED REC#: [id number] PT STATUS: REG ER : 1945 PHYSICIAN: JANEE MCKEON APRN ADMIT DATE: 05/25/18/ER Draft Date of Exam:05/25/18 CT ABDOMEN/PELVIS WO PROCEDURE: CT abdomen and pelvis without contrast. TECHNIQUE: Multiple contiguous axial images were obtained through the abdomen and pelvis without the use of intravenous contrast. INDICATION: Rectal pain. FINDINGS: The previous CT abdomen/pelvis exam of 11/21/2016 noted a small bowel obstruction. On this study, there is gas in both large and small bowel in a nonspecific fashion. There is no evidence for a recurrent small bowel obstruction. However, in the interval since the prior study, a fecal impaction has developed. There is a considerable amount of fecal material throughout the rectosigmoid portion of the colon. There is also moderate amount of fecal material throughout the remainder of the colon. The appendix was visualized and is not abnormally thickened. There is no pelvic mass or free fluid collection noted. The prostate gland is enlarged and similar to the prior study. The urinary bladder is grossly unremarkable. There is diverticulosis of the sigmoid and descending colon but there is no sign of acute diverticulitis. The liver, spleen, pancreas, adrenals, kidneys, gallbladder, aorta and inferior vena cava are unremarkable for an acute abnormality. The stomach is filled with particulate matter and difficult to assess. The lung bases are clear. The bone windows show no sign of a fracture or destructive lesion. IMPRESSION: 1. There is gas in both large and small bowel in a nonspecific fashion. There is no evidence for recurrent bowel obstruction. 2. In the interval since the prior study, a fecal impaction has developed. There is a considerable amount of fecal material throughout the rectosigmoid portion of the colon. 3. There is no acute abnormality of the abdomen or pelvis noted otherwise. 4. There is persistent enlargement of prostate gland. Dictated on workstation # [id number] Dict: 05/25/182127 Trans: 05/25/182135 [id number] Interpreted by: CRYSTAL ALAN MD Electronically signed by: Departure Communication (Admissions) 2137-attempted digital disimpaction. Was able to get a small amount of stool out , then gave a fleets enema. 2210- he had a large bowel movement. States he feels "100% better". We will discharge to home. I discussed with him the need to take either Colace or MiraLAX daily Impression Primary Impression: Fecal impaction in rectum Disposition: ADMITTED INPATIENT Condition: Stable Admissions Decision to Admit Reason: Admit from ER (General) Decision to Admit/Date: May 25, 2018 Time/Decision to Admit Time: 22:12 Departure-Patient Inst. Decision time for Depature: 22:11 Referrals: BRETT ELIZONDO DO (PCP/Family) Primary Care Physician Patient Instructions: Fecal Impaction Add. Discharge Instructions: 1. Take either one cap full of MiraLAX daily or 1 packet of MiraLAX daily depending on which type U by. Or you may take the Colace stool softener daily. You should also increase your activity and increase fiber intake and increase water intake. These things will help to prevent constipation and future episodes like this. Return to ER for any concerns. JANEE MCKEON APRN May 25, 2018 20:55
[2018-05-25 21:04] LABS: BASOPHILS % (AUTO) 0 % (0-10); EOSINOPHILS # (AUTO) 0.4 10^3/uL (0.0-0.3); EOSINOPHILS % (AUTO) 6 % (0-10); HEMATOCRIT 43 % (40-54); HEMOGLOBIN 14.9 G/DL (13.3-17.7); LYMPHOCYTES # (AUTO) 3.1 X 10^3 (1.0-4.0); LYMPHOCYTES % (AUTO) 45 % (12-44); MEAN CORPUSCULAR HEMOGLOBIN 30 PG (25-34); MEAN CORPUSCULAR HGB CONC 35 G/DL (32-36); MEAN CORPUSCULAR VOLUME 86 FL (80-99); MEAN PLATELET VOLUME 9.4 FL (7.4-10.4); MONOCYTES # (AUTO) 0.4 X 10^3 (0.0-1.0); MONOCYTES % (AUTO) 5 % (0-12); NEUTROPHILS # (AUTO) 2.9 X 10^3 (1.8-7.8); NEUTROPHILS % (AUTO) 43 % (42-75); PLATELET COUNT 215 10^3/uL (130-400); RED CELL DISTRIBUTION WIDTH 13.6 % (10.0-14.5); WHITE BLOOD COUNT 6.8 10^3/uL (4.3-11.0)
[2018-05-25 21:24] LABS: ALANINE AMINOTRANSFERASE 12 U/L (0-55); ALBUMIN 4.4 GM/DL (3.2-4.5); ALKALINE PHOSPHATASE 70 U/L (40-136); BILIRUBIN,TOTAL 0.4 MG/DL (0.1-1.0); BUN/CREATININE RATIO 15; CALCIUM 9.3 MG/DL (8.5-10.1); CARBON DIOXIDE 27 MMOL/L (21-32); CHLORIDE 101 MMOL/L (98-107); CREATININE SERUM 1.03 MG/DL (0.60-1.30); GFR ESTIMATED > 60; GLUCOSE 107 MG/DL (70-105); LIPASE 39 U/L (8-78); POTASSIUM 4.4 MMOL/L (3.6-5.0); SODIUM 138 MMOL/L (135-145); TOTAL PROTEIN 7.6 GM/DL (6.4-8.2)
[2018-05-25] MEDS ORDERED: FLEET ENEMA ADULT 1 EA BTL ONE (21:24)
--- NOTE | 2018-05-25 21:35 | NUR ---
JERSON [facility]OTEN ADM BY JANEE MCKEON APRN.
--- NOTE | 2018-05-25 21:36 | Diagnostic Imaging Report ---
PROCEDURE: CT abdomen and pelvis without contrast. TECHNIQUE: Multiple contiguous axial images were obtained through the abdomen and pelvis without the use of intravenous contrast. INDICATION: Rectal pain. FINDINGS: The previous CT abdomen/pelvis exam of 11/21/2016 noted a small bowel obstruction. On this study, there is gas in both large and small bowel in a nonspecific fashion. There is no evidence for a recurrent small bowel obstruction. However, in the interval since the prior study, a fecal impaction has developed. There is a considerable amount of fecal material throughout the rectosigmoid portion of the colon. There is also moderate amount of fecal material throughout the remainder of the colon. The appendix was visualized and is not abnormally thickened. There is no pelvic mass or free fluid collection noted. The prostate gland is enlarged and similar to the prior study. The urinary bladder is grossly unremarkable. There is diverticulosis of the sigmoid and descending colon but there is no sign of acute diverticulitis. The liver, spleen, pancreas, adrenals, kidneys, gallbladder, aorta and inferior vena cava are unremarkable for an acute abnormality. The stomach is filled with particulate matter and difficult to assess. The lung bases are clear. The bone windows show no sign of a fracture or destructive lesion. IMPRESSION: 1. There is gas in both large and small bowel in a nonspecific fashion. There is no evidence for recurrent bowel obstruction. 2. In the interval since the prior study, a fecal impaction has developed. There is now a considerable amount of fecal material throughout the rectosigmoid portion of the colon. 3. There is no acute abnormality of the abdomen or pelvis noted otherwise. 4. There is persistent enlargement of prostate gland. Dictated by: Dictated on workstation # [id number]
[2018-05-25 22:28] VITALS: BP 122/101
== END 2018-05-25 22:28 | disposition other institution (70) ==
LOC: EDUNIT# 20:39 → ER 20:40
DX: K56.41 Fecal impaction (principal); I10 Essential (primary) hypertension; Z82.49 Family history of ischemic heart disease and other diseases of the circulatory system
CPT/HCPCS: 36415; 74176; 80053; 83690; 85025

== ENCOUNTER 2018-06-22 10:27 | Outpatient (RCR) | payer MEDICARE, OTHER ==
[2018-06-08 09:12] LABS: ABSOLUTE RETIC # 29 10e9/L (24-90); BASOPHILS % (AUTO) 1 % (0-10); EOSINOPHILS # (AUTO) 0.5 10^3/uL (0.0-0.3); EOSINOPHILS % (AUTO) 8 % (0-10); HEMATOCRIT 41 % (40-54); HEMOGLOBIN 14.2 G/DL (13.3-17.7); LYMPHOCYTES # (AUTO) 3.5 X 10^3 (1.0-4.0); LYMPHOCYTES % (AUTO) 53 % (12-44); MEAN CORPUSCULAR HEMOGLOBIN 30 PG (25-34); MEAN CORPUSCULAR HGB CONC 35 G/DL (32-36); MEAN CORPUSCULAR VOLUME 85 FL (80-99); MEAN PLATELET VOLUME 9.3 FL (7.4-10.4); MONOCYTES # (AUTO) 0.4 X 10^3 (0.0-1.0); MONOCYTES % (AUTO) 6 % (0-12); NEUTROPHILS # (AUTO) 2.2 X 10^3 (1.8-7.8); NEUTROPHILS % (AUTO) 34 % (42-75); PLATELET COUNT 214 10^3/uL (130-400); RED CELL DISTRIBUTION WIDTH 13.3 % (10.0-14.5); RETICULOCYTE % 0.61 % (0.50-2.40); WHITE BLOOD COUNT 6.6 10^3/uL (4.3-11.0)
[2018-06-08 09:54] LABS: BAND NEUTROPHILS 0 %; BASOPHILS % (MANUAL) 0 %; EOSINOPHILS % (MANUAL) 5 %; LYMPHOCYTES % (MANUAL) 54 %; MONOCYTES % (MANUAL) 5 %; NEUTROPHILS % (MANUAL) 36 %; RBC MORPH NORMAL
[~2018-06-22 10:27] MED LIST changes: +LIDOCAINE 1% 20 ML (XYLOCAINE) VIAL CANCER CTR ONE
== END 2018-08-31 | disposition home or self-care (01) ==
LOC: ONC 10:27
PROVIDERS: ATTEND Internal Medicine Hematology & Oncology
DX: D47.2 Monoclonal gammopathy (principal); I10 Essential (primary) hypertension; Z79.899 Other long term (current) drug therapy
CPT/HCPCS: 36415; 38221; 85007; 85027; 85045; 88184; 88185; 88305; 88313; 99213; 99214

== ENCOUNTER 2018-07-20 12:49 | Outpatient (RCR) | payer OTHER, MEDICARE ==
[~2018-07-20 12:49] MED LIST changes: -LIDOCAINE 1% 20 ML (XYLOCAINE) VIAL CANCER CTR ONE
== END 2018-08-08 | disposition home or self-care (01) ==
PROVIDERS: ATTEND Family Medicine
DX: M51.36 Other intervertebral disc degeneration, lumbar region (principal); M50.30 Other cervical disc degeneration, unspecified cervical region

== ENCOUNTER 2018-12-21 10:22 | Outpatient (RCR) | payer OTHER, MEDICARE ==
[2018-12-14 10:31] LABS: BASOPHILS % (AUTO) 0 % (0-10); EOSINOPHILS # (AUTO) 0.2 10^3/uL (0.0-0.3); EOSINOPHILS % (AUTO) 3 % (0-10); HEMATOCRIT 46 % (40-54); HEMOGLOBIN 15.3 G/DL (13.3-17.7); LYMPHOCYTES # (AUTO) 3.2 X 10^3 (1.0-4.0); LYMPHOCYTES % (AUTO) 40 % (12-44); MEAN CORPUSCULAR HEMOGLOBIN 30 PG (25-34); MEAN CORPUSCULAR HGB CONC 34 G/DL (32-36); MEAN CORPUSCULAR VOLUME 90 FL (80-99); MEAN PLATELET VOLUME 9.5 FL (7.4-10.4); MONOCYTES # (AUTO) 0.6 X 10^3 (0.0-1.0); MONOCYTES % (AUTO) 8 % (0-12); NEUTROPHILS # (AUTO) 3.9 X 10^3 (1.8-7.8); NEUTROPHILS % (AUTO) 49 % (42-75); PLATELET COUNT 205 10^3/uL (130-400)
[2018-12-14 10:48] LABS: ALANINE AMINOTRANSFERASE 11 U/L (0-55); ALBUMIN 4.2 GM/DL (3.2-4.5); ALKALINE PHOSPHATASE 63 U/L (40-136); BILIRUBIN,TOTAL 0.8 MG/DL (0.1-1.0); BUN/CREATININE RATIO 11; CALCIUM 9.4 MG/DL (8.5-10.1); CARBON DIOXIDE 27 MMOL/L (21-32); CHLORIDE 102 MMOL/L (98-107); CREATININE SERUM 1.05 MG/DL (0.60-1.30); GFR ESTIMATED > 60; GLUCOSE 119 MG/DL (70-105); POTASSIUM 4.4 MMOL/L (3.6-5.0); SODIUM 140 MMOL/L (135-145); TOTAL PROTEIN 7.3 GM/DL (6.4-8.2)
== END 2019-03-14 | disposition home or self-care (01) ==
LOC: ONC 10:22
PROVIDERS: ATTEND Internal Medicine Hematology & Oncology
DX: D47.2 Monoclonal gammopathy (principal); I10 Essential (primary) hypertension; Z79.899 Other long term (current) drug therapy
CPT/HCPCS: 36415; 80053; 82784; 83883; 84155; 84165; 84166; 85025; 99213

== ENCOUNTER → 2019-02-09 | Outpatient (CLI) | payer MEDICARE, OTHER ==
--- NOTE | 2019-02-09 17:38 | Diagnostic Imaging Report ---
INDICATION: Neck mass. FINDINGS: Sonographic interrogation of area of palpable abnormality in the posterior neck was performed. There is a circumscribed ovoid hyperechoic mass measuring 2.7 x 0.9 x 2.4 cm. No internal vascularity is seen. Features are most consistent with a lipoma. IMPRESSION: Probable lipoma at the area of palpable abnormality in the posterior neck. Dictated by: Dictated on workstation # [id number]
== END ==
LOC: RAD 13:34
PROVIDERS: ATTEND Nurse Practitioner Family
DX: R22.1 Localized swelling, mass and lump, neck (principal)
CPT/HCPCS: 76999

== ENCOUNTER 2019-03-25 01:14 | Emergency (ER) | payer MEDICARE, OTHER ==
[~2019-03-25] VITALS: Ht 167.7 cm; Wt 77.2 kg
--- NOTE | 2019-03-25 02:11 | ED General ---
General Chief Complaint: General Problems/Pain Stated Complaint: BOWEL PROBLEMS Nursing Triage Note: AMBULATORY TO ED ROOM 10 WITH C/O CONSTIPATION. HX OF CONSTIPATION, TAKES MIRALAX PRN BUT DID NOT TAKE ANY MIRALAX AFTER CURRENT CONSTIPATION SYMPTOMS. Nursing Sepsis Screen: No Definite Risk Source of Information: Patient Exam Limitations: No Limitations (FARHAT DELAROSA MED STUDENT) History of Present Illness Date Seen by Provider: Mar 25, 2019 Time Seen by Provider: 01:58 Initial Comments Pt complains of 2 days of constipation that was not relieved with his usually routine of miralax and coffee. Denies any abdominal pain but thinks feels like there is an obstruction preventing forward flow. States he normally is regular with his bowel movements but occasionally comes into the ED to get "cleaned out." Denies fever, chills, nausea, vomiting. Timing/Duration: 1-2 Days Severity: Mild Modifying Factors: worse with Eating Associated Systoms: Denies Symptoms; No Chest Pain, No Cough, No Fever/Chills, No Loss of Appetite, No Nausea/Vomiting, No Shortness of Air, No Syncope (FAHRAT DELAROSA MED STUDENT) Allergies and Home Medications Allergies Coded Allergies: NKANo Known Allergies (Unverified Allergy, Mild, 03/14/09) Home Medications Amlodipine Besylate 10 Mg Tablet, 10 MG PO DAILY, (Reported) Docusate Sodium 100 Mg Capsule, 100 MG PO BID Prescribed by: BRETT ELIZONDO on 11/24/16 1249 Patient Home Medication List Home Medication List Reviewed: Yes (FARHAT DELAROSA MED STUDENT) Home Medication List Reviewed: Yes (EJ KAY MD) Review of Systems Review of Systems Constitutional: No chills, No diaphoresis, No malaise, No weakness EENTM: No hearing loss, No ear pain, No eye pain, No vision loss, No mouth pain, No nose pain, No throat pain Respiratory: No cough, No dyspnea on exertion, No short of breath Cardiovascular: No chest pain, No edema Gastrointestinal: see HPI; No abdominal pain; constipation; No diarrhea, No dysphagia, No loss of appetite, No melena, No nausea, No vomiting Genitourinary: decreased output, other ( dribbles, retention ) Musculoskeletal: No back pain, No joint pain Skin: No lesions, No lumps, No rash (FARHAT DELAROSA MED STUDENT) All Other Systems Reviewed Negative Unless Noted: Yes (EJ KAY MD) Past Fsosugf-Htpmrr-Jlqosn Hx Past Med/Social Hx: Reviewed Nursing Past Med/Soc Hx (EJ KAY MD) Patient Social History Alcohol Use: Denies Use Number of Drinks Today: AA Alcohol Beverage of Choice: Beer Recreational Drug Use: No Smoking Status: Current Everyday Smoker Type Used: Cigars 2nd Hand Smoke Exposure: No Recent Foreign Travel: No Contact w/Someone Who Travel: No Recent Infectious Disease Expo: No Recent Hopitalizations: No Physical Abuse: No Sexual Abuse: No Mistreated: No Fear: No (FARHAT DELAROSA MED STUDENT) Immunizations Up To Date Tetanus Booster (TDap): Unknown (FARHAT DELAROSA MED STUDENT) Seasonal Allergies Seasonal Allergies: No (FARHAT DELAROSA MED STUDENT) Past Medical History Surgeries: Yes (HAND) Orthopedic Respiratory: No Currently Using CPAP: No Currently Using BIPAP: No Cardiac: Yes Hypertension Neurological: No Genitourinary: No Gastrointestinal: No Musculoskeletal: No Arthritis, Chronic Back Pain Endocrine: No HEENT: No Loss of Vision: Denies Hearing Impairment: Denies Cancer: No Psychosocial: No Integumentary: No Blood Disorders: No Adverse Reaction/Blood Tranf: No (FARHAT DELAROSA MED STUDENT) Family Medical History Reviewed Nursing Family Hx (EJ KAY MD) Hypertension 19 MOTHER Neoplasm 19 FATHER Cancer (father), CAD Over 55 Years Old (mother) (FARHAT DELAROSA MED STUDENT) Physical Exam Vital Signs Vital Signs - First Documented 03/25/19 01:44 Temp 36.3 Pulse 60 Resp 24 B/P (MAP) 135/81 (99) (EJ KAY MD) Vital Signs Capillary Refill : Less Than 3 Seconds (FARHAT DELAROSA MED STUDENT) Height, Weight, BMI Height: 6'0" Weight: 165lbs. 1.0oz. 74.081920nl; 27.00 BMI Method:Stated General Appearance: No Apparent Distress, WD/WN Eyes: Bilateral Eye Normal Inspection, Bilateral Eye PERRL, Bilateral Eye EOMI HEENT: TMs Normal, Normal ENT Inspection, Pharynx Normal Neck: Non Tender, Supple Respiratory: Chest Non Tender, Lungs Clear, Normal Breath Sounds, No Accessory Muscle Use, No Respiratory Distress Cardiovascular: Regular Rate, Rhythm, No Edema, No Gallop, No JVD, No Murmur, Normal Peripheral Pulses Gastrointestinal: Distended (states this is his norm ), Guarding (voluntary to deep palpation ), Tenderness (suprabupic, LLQ, RLQ with palpation) Back: No CVA Tenderness, No Vertebral Tenderness Extremity: Non Tender, No Calf Tenderness, No Pedal Edema Neurologic/Psychiatric: Alert, Oriented x3 Skin: Normal Color, Warm/Dry (FARHAT DELAROSA,MED STUDENT) General Appearance: No Apparent Distress, WD/WN Neck: Non Tender, Supple Respiratory: Lungs Clear, Normal Breath Sounds Cardiovascular: Regular Rate, Rhythm, No Murmur Gastrointestinal: Soft, Other (mild left lateral tenderness but otherwise no significant tenderness to palpation.) Back: No CVA Tenderness, No Vertebral Tenderness Neurologic/Psychiatric: Alert, Oriented x3 Skin: Normal Color, Warm/Dry (EJ KAY MD) Progress/Results/Core Measures Suspected Sepsis Recent Fever Within 48 Hours: No Infection Criteria Present: None New/Unexplained Altered Menta: No Sepsis Screen: No Definite Risk SIRS Temperature: Pulse: 60 Respiratory Rate: 24 Blood Pressure 135 /81 Mean: 99 (FARHAT DELAROSA,MED STUDENT) Results/Orders My Orders Orders - EJ KAY MD Acute Abd Series (03/25/19 02:03) Bisacodyl Suppository (Dulcolax Supposit (03/25/19 02:45) Glycerin Adult Suppository (Glycerin Ramon (03/25/19 02:45) (EJ KAY MD) Medications Given in ED Current Medications Medications Dose Ordered Sig/Erwin Route Start Time Stop Time Status Last Admin Dose Admin Bisacodyl [address] 03/25/19 02:45 03/25/19 02:46 DC 03/25/19 02:54 20 MG Glycerin [address] 03/25/19 02:45 03/25/19 02:46 DC 03/25/19 02:54 1 EA (EJ KAY MD) Vital Signs/I&O 03/25/19 01:44 Temp 36.3 Pulse 60 Resp 24 B/P (MAP) 135/81 (99) (EJ KAY MD) Vital Signs/I&O Capillary Refill : Less Than 3 Seconds (FARHAT DELAROSAMED STUDENT) Blood Pressure Mean: 99 POS Progress Note : Time: 02:15 Progress Note Seen and evaluated. Will evaluate potential obstruction with KUB xray before administering doculax suppositories. Pt agrees with this plan. (FARHAT DELAROSA MED STUDENT) Progress Note : Progress Note Seen and evaluated patient and agree with above except as indicated. I have directed the plan of care. Patient is here with lower abdominal discomfort and constipation and states that he has problems with constipation. Last bowel movement 2 days ago. He feels impacted states when he feels like this he usually has to get cleaned out. Rectal exam performed by me Didn't show distal stool ball. This was done after x-ray. Glycerin suppository placed. We will place Dulcolax suppository 2 and see if we can get reasonable bowel movement. Monitor patient. 0415: Patient had large bowel movement and feels much better. Discharged home with return precautions. Patient verbalize understanding instructions and agreement with plan. (EJ KAY MD) Diagnostic Imaging Diagonstic Imaging: Xray Plain Films/CT/US/NM/MRI: chest, abdomen Comments Moderate constipation noted. (EJ KAY MD) Departure Impression Primary Impression: Constipation Qualified Codes: K59.00 - Constipation, unspecified Additional Impression: Fecal impaction in rectum Disposition: ADMITTED INPATIENT Condition: Stable Departure-Patient Inst. Decision time for Depature: 04:22 (EJ KAY MD) Referrals: BRETT ELIZONDO DO (PCP/Family) Primary Care Physician Patient Instructions: Constipation, Adult (DC) Add. Discharge Instructions: All discharge instructions reviewed with patient and/or family. Voiced understanding. You should take MiraLAX or the generic one capful daily. You may increase or decrease the dose to keep stools soft and a normal range. Increase fiber in your diet. Return for worse pain, swelling, weakness, breathing problems or other concerns as needed. FARHAT DELAROSA MED STUDENT Mar 25, 2019 02:11 EJ RINCON MD Mar 25, 2019 03:27 POS
[2019-03-25] MEDS ORDERED: BISACODYL 10 MG SUPP (DULCOLAX) PR ONE (02:45)
[2019-03-25] MEDS ORDERED: GLYCERIN ADULT SUPPOSITORY PR ONE (02:45)
[2019-03-25 04:28] VITALS: BP 130/80
--- NOTE | 2019-03-25 06:50 | Diagnostic Imaging Report ---
Clinical indication: Patient with constipation. EXAMS: X-ray of the chest PA view and x-ray of the abdomen supine and upright views. COMPARISONS: Small bowel follow-through study dated 11/22/2016. FINDINGS: LUNGS/ PLEURA: Lungs are clear. There is no pneumothorax. There is no pleural effusion. MEDIASTINUM: Unremarkable. PULMONARY VASCULATURE: Unremarkable. HEART: Unremarkable. BONES/ EXTRATHORACIC SOFT TISSUE: There are degenerative spurs involving the visualized thoracic and lumbar spine. There is spurring in both hips. ABDOMEN AND PELVIS: Unremarkable x-ray of the abdomen with nonobstructed bowel gas pattern. There is no evidence of abdominal free air. There is a small to moderate amount of stool involving the right colon and small amount of stool in the left colon. There is moderate amount of stool in the rectum. Multiple phleboliths are again seen overlying the pelvis. IMPRESSION: 1: There is no radiographic evidence of acute cardiopulmonary process. 2: There is a small to moderate amount of stool within the colon with most noted in the rectum region. 3: Nonobstructive bowel gas pattern. Dictated by: Dictated on workstation # [id number]
--- OUTSIDE RECORDS SUMMARY | 2019-04-19 16:32 | XMS REPORT | Clinical Summary ---
Author Author [facility] Organization [facility] Address Unknown Phone Unavailable Care Team Providers Care Sash Repairer Name Role Phone Prasanna Sullivan PCP Allergies No Known Allergies Medications End Date Status Medication Sig Dispensed Refills Start Date Active amLODIPine (NORVASC) 10 Take 10 mg by 0 MG tablet mouth daily. Active dorzolamide-timolol Instill one 10 mL 0 (COSOPT) 22.3-6.8 mg/mL drop into the 5 ophthalmic solution left eye 2 (two) times a day. Active apraclonidine (IOPIDINE) Instill one 10 mL 0 0 0.5 % ophthalmic solution drop into the 5 left eye 4 (four) times a day. 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 Last Filed Vital Signs Reading Time Taken Comments Vital Sign 132/78 10/25/2014 7:32 AM CDT Blood Pressure 51 10/25/2014 7:32 AM CDT Pulse 36.7 C (98 F) 10/25/2014 7:32 AM CDT Temperature 18 10/25/2014 7:32 AM CDT Respiratory Rate 95% 10/25/2014 7:32 AM CDT Oxygen Saturation - - Inhaled Oxygen Concentration 79.4 kg (175 lb) 10/23/2014 12:43 PM CDT Weight 172.7 cm (5' 8") 10/23/2014 12:43 PM CDT Height 26.61 10/23/2014 12:43 PM CDT Body Mass Index Plan of Treatment Not on file Implants Device Identifier Shelf Expiration Date Model / Serial / L ot Implanted Type Area Manufactur er 04/17/2019 92-09 / / [id number] Implant Eye Scleral Buckle Band Non-Tissue Left: Eye GABONESE Silicone Style 41 92-09 - Implant OPHTHALMIC [id number] Implanted: Qty: 1 on 10/24/2014 by Ti Ceballos MD at [facility] Results Not on filefrom Last 3 Months Advance Directives For more information, please contact: [phone] Date Inactivated Comments Code Status Date Activated 10/25/2014 12:03 PM Full Code 10/24/2014 6:50 PM
--- OUTSIDE RECORDS SUMMARY | 2019-04-19 16:32 | XMS REPORT | Encounter Summary ---
Author Author [facility] Organization [facility] Address Unknown Phone Unavailable Care Team Providers Care [employer] Science Teacher Name Role Phone Prasanna Sullivan PCP Encounter Details Care Team Description [place] [address] [address] [phone] VITRECTOMY EYE 20 GAUGE, SCLERAL BUCKLE, MEMBRANE PEELING,ENDOLASER, RETINAL CRYOPEXY, AIR- FLUID- GAS EXCHANGE, SUBCONJUNCTIVAL INJECTION OS 10/24/2014 Surgery [facility] [address] [place] [address] Social History Date Tobacco Use Types Packs/Day Years Used Current Every Day Smoker Cigarettes 1 40 Smokeless Tobacco: Never Used Drinks/Week oz/Week Comments Alcohol Use No Sex Assigned at Date Recorded Not on file Industry Job Start Date Occupation Not on file Not on file Not on file Travel End Travel History Travel Start No recent travel history available. documented as of this encounter Last Filed Vital Signs Reading Time Taken [...] 10/23/2014 12:43 PM CDT Body Mass Index documented in this encounter Medications at Time of Discharge Start Date End Date Medication Sig Dispensed Refills amLODIPine (NORVASC) 10 Take 10 mg by 0 MG tablet mouth daily. 10/25/2014 apraclonidine (IOPIDINE) Instill one 10 mL 0 0.5 % ophthalmic solution drop into the left eye 4 (four) times a day. 10/25/2014 dorzolamide-timolol Instill one 10 mL 0 (COSOPT) 22.3-6.8 mg/mL drop into the ophthalmic solution left eye 2 (two) times a day. 10/25/2014 10/28/2014 homatropine (ISOPTO Instill one 15 mL 0 HOMATROPINE) 5 % drop into the ophthalmic solution left eye 2 (two) times a day. 10/25/2014 11/04/2014 ofloxacin (OCUFLOX) 0.3 % Instill one 5 mL 0 ophthalmic solution drop into the left eye 4 (four) times a day. 10/25/2014 11/04/2014 prednisoLONE acetate Instill one 5 mL 0 (PRED FORTE) 1 % drop into the ophthalmic suspension left eye 4 (four) times a day. documented as of this encounter Progress Notes * Yojana Seals RN - 10/25/2014 9:39 AM CDT Pt d/c home self care with . To family vehicle via w/c and pt transport. 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 Social History Main Topics Smoking status: Never Smoker Smokeless tobacco: Never Used Alcohol Use: No Drug Use: No Sexual Activity: Not on file Other Topics Concern Not on file Social History Narrative No narrative on file Family History: History reviewed. No pertinent family history. No Known Allergies Medications: No current facility-administered medications for this encounter. OCULAR EXAMINATION: VISUAL ACUITY: with correction OD: 20/25 OS: 20/100 APPLANATION TONOMETRY: OD: 13 mmHg OS: 15 mmHg LIDS: ? 1+ blepharoptosis OU SLIT-LAMP BIOMICROSCOPY: ? Conjunctiva/Sclera o Nasal and temporal pinguecula, 2+ injection OU ? Cornea o Clear OU o Peripheral arcus senilis 2+ OU ? Anterior Chamber o Deep and quiet OU ? Iris o Normal contours and configurations OU ? Lens o PCIOL open capsule OU ? Anterior Vitreous o Clear OD o 2+ Strand OS FUNDUS BIOMICROSCOPY: ? Optic Nerve o Cup-to-disc ratio of 0.2 OD o Cup-to-disc ratio of 0.3 OS ? Vascular o Normal OU ? Macula o Dry OD o Shallow macular off retinal detachment OS ? Periphery o No holes or tears OD o Inferior retinal detachment with vitreous organization OS Impressions: Patient Active Problem List Diagnosis SNOMED CT(R) Recent retinal detachment of left eye with multiple defects PARTIAL RECENT R ETINAL DETACHMENT WITH MULTIPLE DEFECTS Plan: Mr. Chisholm will undergo a 20 gauge vitrectomy, scleral buckle, endolaser, cryope xy, air fluid gas exchange OS under general anesthesia. 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 STATES HE UNDER STANDS PREOP INSTRUCTIONS, BUT IT SEEMS QUESTIONABLE. WHEN ASKED PT FOR HIS 'S CELL NUMBER, PT GAVE AN INCORRECT NUMBER. CALLED DR CEBALLOS'S OFFICE FOR MO RE INFORMATION AND RECEIVED PHONE NUMBER FOR REFERRING OPTHAMOLOGIST. REFERRING DR DID HAVE THE NAME OF [facility] FOR OUR RECORDS. documented in this encounter Miscellaneous Notes * Operative Note - iT Ceballos MD - 06/02/2015 5:30 PM HEDDLER Name: DEEDEE CHISHOLM _[id number] Date of : 1945 Attending Physician: Ti Ceballos MD Date of Procedure: 10/24/2014 PREOPERATIVE DIAGNOSIS: 1. Recent retinal detachment, left eye. POSTOPERATIVE DIAGNOSES: 1. Recent retinal detachment with multiple defects, left eye. 2. Proliferative vitreoretinopathy, left eye. 3. Vitreous membranes and strands, left eye. 4. Retinal edema, left eye. OPERATIVE PROCEDURES: 1. A 20-gauge pars plana vitrectomy. 2. Scleral buckle. 3. Membrane peeling. 4. Endolaser photocoagulation. 5. Retinal cryopexy. 6. Air-fluid gas exchange. 7. Subconjunctival injection, all left eye. SURGEON: Ti Ceballos MD ANESTHESIA: General endotracheal. COMPLICATIONS: None. OPERATIVE PROCEDURE IN DETAIL: After obtaining the proper informed consent, the patient was premedicated and was transported to the operating room. The patient was placed in the supine position and with the appropriate cardiac monitoring and intravenous infusion lines, a general endotracheal anesthetic was induced by the department of anesthesia without difficulty. The patient was then prepped and draped in the usual sterile fashion for vitreoretinal surgery. Sendy lid sp eculums were inserted in left eye, and with loupe magnification, a 360-degree co njunctival peritomy was created with Angelica scissors and careful blunt and sha rp dissection. Blunt dissection in each of the 4 oblique quadrants was carried out with Yoder tenotomy scissors. Relaxing incisions were then created in the inferotemporal and superonasal quadrants. The relaxing incisions were marked w ith 6-0 silk suture material. Nato muscle hooks were then used to identify a nd isolate the horizontal and vertical recti muscles. A 2-0 silk sutures were p assed beneath the muscles with Milagros muscle hooks for traction purposes. Careful inspection of the globe demonstrated healthy sclera throughout. A #41 silicone band was then passed circumferentially about the eye beneath the recti muscles and was tied in the superonasal quadrant with 4-0 green Mersilene suture materia l. A 5-0 Dacron mattress sutures were positioned about the encircling element w ith one suture per quadrant at the equatorial zone. Following completion of scl eral buckling, attention was directed to the intraocular component of the proced ure. The operative microscope was positioned above the patient's left eye. Residual Tenon's fascia was removed with Angelica scissors. Hemostasis was maintained wi th the Wet-Field bipolar cautery. A jacob was then positioned exactly 3.5 mm pos terior to the corneoscleral limbus in the inferior temporal quadrant. A 5-0 Bg ryl suture material was placed about the jacob in mattress fashion. The anterior vitreous cavity was then incised with a 20-gauge MVR blade. A 4.0 mm cannulated infusion was placed in the inferior temporal sclerotomy site and was secured w ith the preplaced 5-0 Vicryl suture. Appropriate placement of the cannula in th e vitreous cavity was confirmed by direct observation prior to opening the infus ion line at 30 mmHg pressure. Similar sclerotomies were then created in the sup erior nasal and superotemporal quadrants exactly 3.5 mm posterior to the corneos cleral limbus with the same 20-gauge MVR blade. The BIOM wide field microscopic viewing system was then rotated into position. With the intraocular light pipe in superior temporal sclerotomy site and the high-speed vitrectomy instrument in the superior nasal site, a central core vitrectomy was initiated. The vitrect nicole was carried posteriorly until the posterior hyaloidal face was identified salgado perior to the optic nerve. The hyaloid was engaged and was carefully delaminate d to the mid vitreous cavity. Peripheral vitrectomy was then accomplished using extensive 360-degree scleral depression. It was noted that multiple peripheral retinal tears were present. Preretinal fibrotic membrane was identified operator and truck driver iorly. At completion of vitrectomy, the end gripping intraocular forceps were i ntroduced via the superior nasal sclerotomy site. Delamination of preretinal fi brotic membranes was then performed. The fixed retinal folds were mobilized and no residual vitreoretinal traction was evident. A spike cautery was introduced and a posterior retinotomy was created. Air-fluid exchange via the retinotomy site was carried out. The retina flattened in its entirety and good scleral buc kle was noted. The directional endolaser probe was introduced and a total of 55 1 applications were delivered with good uptake. It was felt that additional ret inopexy would be required at the superior quadrants. Therefore, the intraocular instruments were removed and the superior sclerotomies were plugged. Using ind irect ophthalmoscopic control, retinal cryopexy was delivered with good retinal uptake. The scleral buckle was then tightened and tied in permanent position an d a 4-0 green Mersilene tie was placed about the encircling element in the super onasal quadrant. The operating microscope was then again positioned above the p atient's left eye. The superior sclerotomies were sutured with 6-0 Vicryl sutur e material. The superior temporal site was left slightly open. Air gas exchang e using 15% perfluoropropane (C3F8) gas was delivered. The superior temporal si te was then closed securely and the infusion cannula was removed as the preplace d 5-0 Vicryl suture was closed inferotemporally. Indirect ophthalmoscopy showed good optic nerve perfusion with early laser and cryo reaction. The eye was then cultured and copiously irrigated with Garamycin and Neosporin ophthalmic solut ions. The traction marking sutures were removed and the conjunctiva was reappro ximated and was sutured with 7-0 Vicryl suture material. Depo-Medrol 40 mg per mL was injected in the subconjunctival space. The eye was then patched with top ical apraclonidine solution and TobraDex ointment. The anesthetic agent was rev ersed without difficulty, and the patient was extubated and was transported to [facility] recovery room in good condition. Ti Ceballos [place] [id number] CC: LER * Plan of Care - Yojana Seals RN - 10/25/2014 9:06 AM CDT Problem: Knowledge Deficit Goal: Patient/family/caregiver demonstrates understanding of disease process, tr eatment plan, medications, and discharge instructions Outcome: Progressing Goal: Patient/Family/Caregiver sets realistic goals Outcome: Progressing Problem: Pain Goal: Patients pain/discomfort is manageable Outcome: Progressing Problem: Skin Integrity Goal: Skin integrity is maintained or improved Outcome: Progressing Problem: Safety Goal: Patient will be injury free during hospitalization Outcome: Progressing Problem: Nutrition Goal: Patients nutritional intake is adequate Outcome: Progressing Problem: Risk for Falls Goal: Patient will not fall during their Inpatient stay Outcome: Progressing * Discharge Planning - Ti Ceballos MD - 10/25/2014 8:09 AM CDT [facility] DISCHARGE NOTE Patient: Deedee Chisholm : 1945 Age: 69 y.o. SUBJECTIVE: Patient comfortable. EXAM: Vital signs stable, afebrile IOP: 17 Lids: 1-2+ edema Conjunctiva: 3+ injection Cornea: 1+ endothelial striae Anterior Chamber: Quiet \\ Lens: PICOL, in good position Media: Gas fill Optic Nerve - Cup-to-disc: Good perfusion Macula: Retina attached Peripheral Retina: Retina in good position Procedure(s): VITRECTOMY EYE 20 GAUGE, SCLERAL BUCKLE, MEMBRANE PEELING,ENDOLASER, RETINAL CRY OPEXY, AIR- FLUID- GAS EXCHANGE, SUBCONJUNCTIVAL INJECTION OS FINAL DIAGNOSIS: Post-Op Diagnosis Codes: * Proliferative vitreoretinopathy of left eye [362.29] * Vitreous membranes and strands of left eye [379.25] * Retinal edema [362.83] * Recent retinal detachment of left eye with multiple defects [361.02] ASSESSMENT: Stable. PLAN: Discharge and follow as an outpatient. Electronically signed by: Ti Ceballos 10/25/2014 8:09 AM * Plan of Care - Felisha Verdin RN - 10/25/2014 2:45 AM CDT Problem: Knowledge Deficit Goal: Patient/family/caregiver demonstrates understanding of disease process, tr eatment plan, medications, and discharge instructions Outcome: Progressing Goal: Patient/Family/Caregiver sets realistic goals Outcome: Progressing Problem: Pain Goal: Patients pain/discomfort is manageable Outcome: Progressing Problem: Skin Integrity Goal: Skin integrity is maintained or improved Outcome: Progressing Problem: Safety Goal: Patient will be injury free during hospitalization Outcome: Progressing Problem: Nutrition Goal: Patients nutritional intake is adequate Outcome: Progressing Problem: Risk for Falls Goal: Patient will not fall during their Inpatient stay Outcome: Progressing * Brief Operative Note - Ti Ceballos MD - 10/24/2014 6:39 PM CDT VITRECTOMY EYE 20 GAUGE, SCLERAL BUCKLE, MEMBRANE PEELING,ENDOLASER, RETINAL CRY OPEXY, AIR- FLUID- GAS EXCHANGE, SUBCONJUNCTIVAL INJECTION OS Procedure Note Deedee Aldana Julito 10/24/2014 Pre-op Diagnosis: RECENT RETINAL DETACHMENT 361.032 MULTIPLE DEFECTS Post-op Diagnosis: Post-Op Diagnosis Codes: * Proliferative vitreoretinopathy of left eye [362.29] * Vitreous membranes and strands of left eye [379.25] * Retinal edema [362.83] * Recent retinal detachment of left eye with multiple defects [361.02] Procedure(s): VITRECTOMY EYE 20 GAUGE, SCLERAL BUCKLE, MEMBRANE PEELING,ENDOLASER, RETINAL CRY OPEXY, AIR- FLUID- GAS EXCHANGE, SUBCONJUNCTIVAL INJECTION OS Surgeon(s) and Role: * Ti Ceballos MD - Primary Anesthesia Type: General Staff: Salesperson Automobiles: Damaris Gan RN Relief Salesperson Automobiles: Estrella Curiel RN Scrub Person: Dorie Aragon Anesthesiologist: Sirena Cuellar MD; Theresa Burton MD SENIOR FINANCIAL ACCOUNTANT: Richard Das RN SENIOR FINANCIAL ACCOUNTANT; Sabrina Richardson RN SENIOR FINANCIAL ACCOUNTANT Anesthesiologist Technical Analyst: BRENDA Coleman Stove Refinisher: Darya Velazquez MD Findings: Macula off retinal detachment with multiple peripheral tears, Endolase r # [id number] Conditions: Good Estimated Blood Loss: Minimal Specimens: Order Name Source Comment Collection Info Order Time CULTURE, EYE Left Eye B. INTRAOCULAR SOLUTION 10/24/2014 5:42 PM CULTURE, EYE Left Eye A. LEFT EYE AND ORBIT 10/24/2014 5:42 PM OR SPECIMEN LABEL Left Eye Collected By: Ti Ceballos MD 10/24/2014 5:48 PM Implants: Implant Name Type Inv. Item Serial No. Laboratory Specialist Lot No. LRB No. Used Action IMPLANT EYE SCLERAL BUCKLE BAND SILICONE STYLE 41 92-09 - [id number] Non-Tissue Implant IMPLANT EYE SCLERAL BUCKLE BAND SILICONE STYLE 41 92- [facility] [id number] Left 1 Implanted Complications: None Disposition: To PACU in good condition Ti Ceballos Date: 10/24/2014 Time: 6:39 PM documented in this encounter Plan of Treatment Not on filedocumented as of this encounter Procedures Comments Procedure Name Priority Date/Time Associated Diag nosis LAB SUMMARY 11/09/2014 2:25 AM CDT LAB SUMMARY 11/04/2014 2:20 AM CDT LAB SUMMARY 11/03/2014 2:36 AM CDT LAB SUMMARY 11/02/2014 2:40 AM CDT LAB SUMMARY 11/01/2014 2:40 AM CDT LAB SUMMARY 10/31/2014 2:40 AM CDT LAB SUMMARY 10/30/2014 2:30 AM CDT LAB SUMMARY 10/29/2014 2:30 AM CDT LAB SUMMARY 10/28/2014 2:21 AM CDT LAB SUMMARY 10/27/2014 2:20 AM CDT LAB SUMMARY 10/26/2014 2:36 AM CDT CULTURE, EYE Routine 10/24/2014 5:38 PM CDT CULTURE, EYE Routine 10/24/2014 5:37 PM CDT VITRECTOMY, USING 20 10/24/2014 Proliferative GAUGE CUTTER SYSTEM 3:22 PM CDT vitreoretinopathy of left eye Vitreous membranes and strands of left eye Retinal edema Recent retinal detachment of left eye with multiple defects Special Needs IRIS [employer] documented in this encounter Results * LAB SUMMARY (11/09/2014 2:25 AM CDT) Only the most recent of 11 results within the time period is included. Narrative Performed At This result has an attachment that is n ot available. Ordered by an unspecified provider. * Culture, Eye (10/24/2014 5:38 PM CDT) Only the most recent of 2 results within the time period is included. Culture Result No growth at 2 weeks [facility] Specimen Left Eye Performing Organization Address City/State/Zipcode Ph one Number [facility] [address] [place] [address] [facility] documented in this encounter Visit Diagnoses Diagnosis Proliferative vitreoretinopathy of left eye Other nondiabetic proliferative retinop athy Vitreous membranes and strands of left eye Retinal edema Recent retinal detachment of left eye w ith multiple defects documented in this encounter Administered Medications Action Date Dose Rate Site Medication Order MAR Action 10/25/2014 6:27 AM CDT 2 tablets acetaminophen-codeine (TYLENOL #3) Given 300-30 mg per tablet 1-2 tablet 1-2 tablet, Oral, Every 4 hours PRN, moderate pain (pain score 4-6), Startin g Sayda 10/24/14 at 2020, Do not exceed 4 GM/DAY of acetaminophen. If 65 or olde r do not exceed 3 GM/DAY. If chronic alcoholic do not exceed 2 GM/DAY. , 2 tablets Given 10/24/2014 8:36 PM CDT 10/25/2014 6:22 AM CDT 250 mg acetaZOLAMIDE (DIAMOX) injection 250 mg Given 250 mg, Intravenous, Every 6 hours, First dose on Tue10/24/14 at 2044, switc h to 250 mg immediate release tablets PO q. 6 hrs when tolerating fluids well (Avoid acetazolamide if patient allergi c to sulfa) Dilute with 5 mL sterile wate r for injection, 250 mg Given 10/25/2014 12:37 AM CDT 10/25/2014 8:59 AM CDT 10 mg amLODIPine (NORVASC) tablet 10 mg Given 10 mg, Oral, Daily, First dose on Sayda 10/24/14 at 2044 10 mg Given 10/24/2014 8:36 PM CDT 10/25/2014 9:00 AM CDT 1 drop apraclonidine (IOPIDINE) 0.5 % Given ophthalmic solution 1 drop 1 drop, Left Eye, 4 times daily, First dose on Tue10/25/14 at 0030 1 drop Given 10/25/2014 12:37 AM CDT 10/24/2014 5:54 PM CDT 1 drop apraclonidine (IOPIDINE) 0.5 % Given ophthalmic solution As needed, Starting Sayda 10/24/14 at 1754, Intra-op 10/24/2014 4:19 PM CDT 15 mL balanced salt irrig (BSS) solution Given As needed, Starting Sayda 10/24/14 at 1619, Intra-op 10/24/2014 4:20 PM CDT BSS PLUS intraocular solution (500 mL) Given w/epinephrine 0.3 mg and dextrose 50% 3 mL Left Eye, As Needed in OR, per intra op , Starting Sayda 10/24/14 at 1425, Intra-op 10/24/2014 5:54 PM CDT 1.5 mL carbachol (MIOSTAT) 0.01 % ophthalmic Given solution As needed, Starting Sayda 10/24/14 at 1754, Intra-op 10/25/2014 9:00 AM CDT 1 drop dorzolamide-timolol (COSOPT) 22.3-6.8 Given mg/mL ophthalmic solution 1 drop 1 drop, Left Eye, 2 times daily, First dose on Tue10/25/14 at 0030 1 drop Given 10/25/2014 12:35 AM CDT 10/24/2014 7:27 PM CDT 50 mcg fentaNYL (SUBLIMAZE) 50 mcg/mL injection Given 25-50 mcg 25-50 mcg, Intravenous, Every 5 min PRN , pain, Starting Sayda 10/24/14 at 1839, PACU (only), Give only if RR is greater than 8 breaths/min. Maximum of 200 mcg in 2 hours., 10/24/2014 1:36 PM CDT 1 drop flurbiprofen (OCUFEN) 0.03 % ophthalmic Given solution 1 drop 1 drop, Left Eye, Every 5 min, First dose on Sayda 10/24/14 at 1330, For 3 doses , Pre-op, Start medications in Pre-op Admissions 45 minutes prior to surgery, 1 drop Given 10/24/2014 1:29 PM CDT 1 drop Given 10/24/2014 1:24 PM CDT 10/24/2014 3:57 PM CDT 2 drops gentamicin (GARAMYCIN) 0.3 % ophthalmic Given solution As needed, Starting Sayda 10/24/14 at 1557, Intra-op 10/24/2014 1:36 PM CDT 1 drop homatropine (ISOPTO HOMATROPINE) 5 % Given ophthalmic solution 1 drop 1 drop, Both Eyes, Every 5 min, First dose on Sayda 10/24/14 at 1330, For 3 doses , Pre-op, Start medications in Pre-op Admissions 45 minutes prior to surgery, 1 drop Given 10/24/2014 1:28 PM CDT 1 drop Given 10/24/2014 1:23 PM CDT 10/24/2014 4:45 PM CDT 1 drop hydroxypropyl methylcellulose (GONAK) Given 2.5 % ophthalmic solution As needed, Starting Sayda 10/24/14 at 1645, Intra-op 10/24/2014 6:40 PM CDT lactated ringers infusion New Bag 50 mL/hr, Intravenous, Continuous, Starting Sayda 10/24/14 at 1315 New Bag 10/24/2014 3:55 PM CDT 50 mL/hr 50 mL/hr New Bag 10/24/2014 1:23 PM CDT 10/24/2014 6:13 PM CDT 40 mg Left Eye methylPREDNISolone acetate (DEPO-MEDROL) Given 40 mg/mL injection As needed, Starting Sayda 10/24/14 at 1813, Intra-op 10/24/2014 4:18 PM CDT 1,000 mL multiple electrolyte (pH 7.4) (NORMOSOL) Given solution As needed, Starting Sayda 10/24/14 at 1618, Intra-op 10/24/2014 6:13 PM CDT 1 drop jpegammh-pnxpsdoof-jepcmrvbst Given (NEOSPORIN) ophthalmic solution As needed, Starting Sayda 10/24/14 at 1813, Intra-op 10/24/2014 1:36 PM CDT 1 drop ofloxacin (OCUFLOX) 0.3 % ophthalmic Given solution 1 drop 1 drop, Left Eye, Every 5 min, First dose on Sayda 10/24/14 at 1330, For 3 doses , Pre-op, Number of drops 3 spaced 5 minutes apart., 1 drop Given 10/24/2014 1:29 PM CDT 1 drop Given 10/24/2014 1:23 PM CDT 10/25/2014 9:00 AM CDT 1 drop ofloxacin (OCUFLOX) 0.3 % ophthalmic Given solution 1 drop 1 drop, Left Eye, 4 times daily, First dose on Tue10/25/14 at 0030 1 drop Given 10/25/2014 12:39 AM CDT 10/24/2014 1:36 PM CDT 1 drop phenylephrine (MYDFRIN) 2.5 % ophthalmic Given solution 1 drop 1 drop, Both Eyes, Every 5 min, First dose on Tue10/24/14 at 1330, For 3 doses , Pre-op, Start medications in Pre-op Admissions 45 minutes prior to surgery, 1 drop Given 10/24/2014 1:28 PM CDT 1 drop Given 10/24/2014 1:23 PM CDT 10/25/2014 9:00 AM CDT 1 drop prednisoLONE acetate (PRED FORTE) 1 % Given ophthalmic suspension 1 drop 1 drop, Left Eye, 4 times daily, First dose on Tue10/25/14 at 0030, SHAKE WELL BEFORE USING, 1 drop Given 10/25/2014 12:43 AM CDT 10/24/2014 5:11 PM CDT 0.4 mL sodium hyaluronate (PROVISC) ophthalmic Given injection As needed, Starting Tue10/24/14 at 1711, Intra-op 10/24/2014 4:17 PM CDT 1,000 mL sterile water irrigation irrigation Given solution As needed, Starting Tue10/24/14 at 1617, Intra-op 10/24/2014 3:55 PM CDT 1 application tobramycin-dexamethasone (TOBRADEX) Given ophthalmic ointment As needed, Starting Tue10/24/14 at 1555, Intra-op 10/24/2014 1:36 PM CDT 1 drop tropicamide (MYDRIACYL) 1 % ophthalmic Given solution 1 drop 1 drop, Both Eyes, Every 5 min, First dose on Tue10/24/14 at 1330, For 3 doses , Pre-op, Start medications in Pre-op Admissions 45 minutes prior to surgery, 1 drop Given 10/24/2014 1:28 PM CDT 1 drop Given 10/24/2014 1:23 PM CDT documented in this encounter
--- OUTSIDE RECORDS SUMMARY | 2019-04-19 16:32 | XMS REPORT | Encounter Summary ---
Author Author [facility] Organization [facility] Address Unknown Phone Unavailable Care Team Providers Care Stem Shaper Name Role Phone Prasanna Sullivan PCP Encounter Details Care Team Description Date Type Department Theresa Burton MD [address] [place] [address] [phone] Mary Kay Zavala DO [address] [place] [address] [phone] 10/24/2014 [facility] [address] [place] [address] Anesthesia Record Responsible Anesthesiologist Anesthesia Start Time Anesthesi a Stop Time Procedure Name Theresa Burton MD 10/24/14 1522 10/24/14 1849 VITRECTOMY EYE 20 GAUGE, SCLERAL BUCKLE, MEMBRANE PEELING,ENDOLASER, RETINAL CRYOPEXY, AIR- FLUID- GAS EXCHANGE, SUBCONJUNCTIVAL INJECTION OS (Left ) Date Time Event Comment 1303 AN Equip Check 2015 1311 1522 In room 1522 An Start 1522 An Start Data 1522 Pt eval immediately prior to anesthesia 1522 Preoxygenated Prior to Induction 1527 An Induction 1529 An Intubation 1529 Atraumatic intubation/LMA 1530 ETCO2 wavefrom present 1530 Bilat/= breath sounds 1532 Anesthesia Ready 1545 PreOp Abx complete 1559 Time out complete 1600 Procedure start - Primary Case 1612 Anesthesiologis t Present 1745 Anesthesiologis t Present 1827 Anesthesiologis t Present 1832 Procedure stop - Primary case 1836 Spontaneous respirations 183 Adequate Tidal Volume 183 FiO2 to 100% Prior to Suctioning 183 Suction 183 An Extubation 183 Oxygen per nasal cannula 184 an stop data 1841 Transported with O2 184 Out of Room 184 Handoff I completed my SBAR handoff to the receiving nurse in the PACU. Pt awake, talking, airway patent, vss, report giv en to GIACOMO Gonzalez. 184 An Stop Meds Name Total midazolam 1mg/mL 2 mg fentaNYL (SUBLIMAZE) injection 50 mcg/mL 175 mcg lidocaine 2% (PF) 80 mg propofol 10mg/mL 200 mg rocuronium 10mg/mL 40 mg ondansetron 2mg/mL 4 mg ephedrine 10mg/mL 25 mg neostigmine 0.5mg/mL 3 mg glycopyrrolate 0.2mg/mL 0.6 mg ceFAZolin (ANCEF) injection 1 g 2 g labetalol 5mg/mL 5 mg lactated ringers infusion 2,300 mL * Name O2 N2O Air EtSEVO EtN2O * No blood administrations on file. Removal Type Details Placement 10/25/14910 by Yojana Seals RN Peripheral Date: 10/24/14; Time: 1344; Size 10/24 1344 by Brianna Dunbar IV (gauge): 20 G; Orientation: Right; Janki pacheco RN Location: Arm; Site Prep: Chlorhexidine ; Local Anesthetic: Intradermal; Insertio n Attempts: 1; Removal Date: 10/25/14; Removal Time: 91010/24/14 183 by Sabrina Richardson RN ADDRESSER Non-Surgic Date: 10/24/14; Time: 1529; Placed By: 10/24/14 1529 by Darshan barroso Airway Automobile Brake Bonder; Site: Oral; Device: ETT - Thiago ADDRESSER Cuffed; Size: 7.5; Units: Centimeters; Method: Laryngoscope; Blade Type: MAC; Blade Size: 3; Attempts: 1; Grade View: II; Misc: External Laryngeal Manipulation; Cuff Volume: 7; Placement Verified By: Ausculation, Capnometry; Removal Date: 10/24/14; Removal Time: 183511/05/18 0836 by User [email or web address] (Retired 10/24/14; 1641; Eye; Left; tobradex 0 10/24/14 1641 by Damaris 05/10/18; ointment, benzoin; 11/05/18 (This LDA GIACOMO Gan search has been removed & complete d via "wound" if automated utility); 0836 (T his LDA has placing been removed & completed vi a automated new) utility) Wound - Incision Assessment documented in this encounter Social History Date Tobacco Use Types Packs/Day [...] history available. documented as of this encounter Miscellaneous Notes * Anesthesia Postprocedure Evaluation - Sirena Oquendo MD - 10/24/2014 8:09 PM CDT Patient: Girma Aldana Julito Procedure(s): VITRECTOMY EYE 20 GAUGE, SCLERAL BUCKLE, MEMBRANE PEELING,ENDOLASER, RETINAL CRY OPEXY, AIR- FLUID- GAS EXCHANGE, SUBCONJUNCTIVAL INJECTION OS Final Anesthesia Type Performed: general *Block Type (if peripheral regional or epidural used): No value filed. Patient location: PACU Last Vitals: ANE Post Eval Vitals Most Recent Value BP 158/77 mmHg Pulse 61 Temp 36.8 C (98.2 F) Resp 19 SpO2 97 % Level of consciousness: awake, alert and oriented Post-anesthesia pain: adequate analgesia Airway patency: patent Respiratory: unassisted Cardiovascular: stable and blood pressure at baseline Hydration: adequate PostOp Nausea/Vomiting: controlled Difficult Airway: no Anesthetic complications: no Discharge from anesthesia care: Appropriate for discharge from anesthesia care, no apparent anesthesia related complications * Anesthesia Preprocedure Evaluation - Theresa Burton MD - 10/24/2014 12:46 PM CDT Anesthesia Evaluation History of tobacco (Patient smokes 1-1.5 pack per day) use. Airway Mallampati: III TM distance: >3 FB Neck ROM: full Dental Comment: Very poor dentition Pulmonary breath sounds clear to auscultation Cardiovascular Exercise tolerance: good (+) hypertension, Rhythm: regular Rate: normal Neuro/Psych (+) CVA (Patient notes stroke several years ago, no residual weakness), GI/Hepatic/Renal Endo/Other Abdominal Obstetrics HEENT HEENT comment: Retinal detachment Musculoskeletal Anesthesia Plan ASA 2 Type: general () Plan to include: ETT ETT: oral Anesthetic plan and risks discussed with patient. Plan discussed with ADDRESSER. Post-operative analgesia: routine analgesia and antiemetics Recovery plan: PACU PONV risk level: low Notes 69 yo male with retinal detachment scheduled to undergo vitrectomy documented in this encounter Plan of Treatment Not on filedocumented as of this encounter Visit Diagnoses Not on filedocumented in this encounter Administered Medications Action Date Dose Rate Site Medication Order MAR Action 10/24/2014 3:41 PM CDT 2 g ceFAZolin (ANCEF) injection Given As needed, Starting Sayda 10/24/14 at 1541, Anesthesia Intra-op 10/24/2014 3:56 PM CDT 10 mg EPHEDrine 10 mg/mL syringe Given As needed, Starting Sayda 10/24/14 at 1547, Anesthesia Intra-op 15 mg Given 10/24/2014 3:47 PM CDT 10/24/2014 5:29 PM CDT 25 mcg fentaNYL (SUBLIMAZE) injection Given As needed, Starting Sayda 10/24/14 at 1525, Anesthesia Intra-op 50 mcg Given 10/24/2014 4:02 PM CDT 100 mcg Given 10/24/2014 3:25 PM CDT 10/24/2014 6:26 PM CDT 0.4 mg glycopyrrolate (ROBINUL) injection Given As needed, secretions, Starting Sayda 10/24/14 at 1557, Anesthesia Intra-op 0.2 mg Given 10/24/2014 3:57 PM CDT 10/24/2014 6:38 PM CDT 5 mg labetalol (NORMODYNE,TRANDATE) injection Given As needed, Starting Sayda 10/24/14 at 1838, Anesthesia Intra-op 10/24/2014 6:40 PM CDT lactated ringers infusion New Bag 50 mL/hr, Intravenous, Continuous, Starting Sayda 10/24/14 at 1315 New Bag 10/24/2014 3:55 PM CDT 50 mL/hr 50 mL/hr New Bag 10/24/2014 1:23 PM CDT 10/24/2014 3:26 PM CDT 80 mg lidocaine (pf) (XYLOCAINE-MPF) 20 mg/mL Given (2 %) injection As needed, Starting Sayda 10/24/14 at 1526, Anesthesia Intra-op 10/24/2014 3:22 PM CDT 2 mg midazolam (VERSED) injection Given As needed, Starting Sayda 10/24/14 at 1522, Anesthesia Intra-op 10/24/2014 6:26 PM CDT 3 mg neostigmine (PROSTIGMIN) injection Given As needed, Starting Sayda 10/24/14 at 1826, Anesthesia Intra-op 10/24/2014 6:24 PM CDT 4 mg ondansetron (ZOFRAN) 4 mg/2 mL injection Given As needed, nausea, vomiting, Starting Sayda 10/24/14 at 1824, Anesthesia Intra-op 10/24/2014 4:02 PM CDT 20 mg propofol (DIPRIVAN) injection Given As needed, Starting Sayda 10/24/14 at 1527, Anesthesia Intra-op 180 mg Given 10/24/2014 3:27 PM CDT 10/24/2014 3:27 PM CDT 40 mg rocuronium (ZEMURON) injection Given As needed, Starting Sayda 10/24/14 at 1527, Anesthesia Intra-op documented in this encounter
--- OUTSIDE RECORDS SUMMARY | 2019-04-19 16:32 | XMS REPORT | Encounter Summary ---
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; Retinal edema; Recent [facility] with multiple [facility] [address] 10/25/2014 [place] [address] Social History Date Tobacco Use Types Packs/Day [...] Ceballos MD - 10/23/2014 9:49 AM CDT [facility] History & Physical Date: 10/24/2014 PCP: Prasanna Sullivan MD (General) HPI: recent retinal detachment with multiple defects OS Past Medical History: Past Medical History Diagnosis Date Visual impairment WEARS READING GLASSES HL (hearing loss) LEFT EAR [place]/LEFT EAR HEARING AIDE Exercise tolerance finding ABLE [...] encounter Miscellaneous Notes * Operative Note - Ti Ceballos MD - 06/02/2015 5:30 PM PURCHASING SPECIALIST Name: DEEDEE CHISHOLM _[id number] Date of : [...] were present. Preretinal fibrotic membrane was identified counselling psychologist iorly. At completion of vitrectomy, the end [...] patient was extubated and was transported to [facility] recovery room in good condition. Ti Ceballos MD [id number] CC: HASING SPECIALIST * Plan of Care - Yojana Seals [...] Ceballos MD - 10/25/2014 8:09 AM CDT [facility] DISCHARGE NOTE Patient: Deedee Chisholm : 1945 [...] MD - Primary Anesthesia Type: General Staff: Channel Sales Manager: Damaris Gan RN Relief Channel Sales Manager: Estrella Curiel RN Scrub Person: Dorie Aragon Anesthesiologist: Sirena Cuellar MD; Theresa Burton MD GAS COMBUSTION ENGINEER: Richard Das RN GAS COMBUSTION ENGINEER; Sabrina Richardson RN GAS COMBUSTION ENGINEER Anesthesiologist Weaving Supervisor: BRENDA Coleman Chief Embalmer: Darya Velazquez MD Findings: Macula off retinal [...] Implant Name Type Inv. Item Serial No. Automobile Assembly Supervisor Lot No. LRB No. Used Action IMPLANT EYE SCLERAL BUCKLE BAND SILICONE STYLE 41 - [id number] Non-Tissue Implant IMPLANT EYE SCLERAL BUCKLE BAND SILICONE STYLE 41 [facility] [id number] Left 1 Implanted Complications: None Disposition: To [...] Culture Result No growth at 2 weeks [facility] Specimen Left Eye Performing Organization Address City/State/Zipcode Ph one Number [facility] [address] [place] [address] LABOR[facility]IES documented in this encounter Visit Diagnoses [...] moderate pain (pain score 4-6), Startin g Tue10/24/14 at 2020, Do not exceed 4 GM/DAY [...] 10 mg, Oral, Daily, First dose on Tue10/24/14 at 2044 10 mg Given 10/24/2014 8:36 PM CDT 10/25/2014 9:00 AM CDT 1 drop apraclonidine (IOPIDINE) 0.5 % Given ophthalmic solution 1 drop 1 drop, Left Eye, 4 times daily, First dose on Tue10/25/14 at 0030 1 drop Given 10/25/2014 12:37 AM CDT 10/25/2014 9:00 AM CDT 1 drop dorzolamide-timolol [...] drop Given 10/24/2014 1:24 PM CDT 10/24/2014 1:36 PM CDT 1 drop homatropine (ISOPTO HOMATROPINE) 5 % Given ophthalmic solution 1 drop 1 drop, Both Eyes, Every 5 min, First dose on Sayda 10/24/14 at 1330, For 3 doses , Pre-op, Start medications in Pre-op Admissions 45 minutes prior to surgery, 1 drop Given 10/24/2014 1:28 PM CDT 1 drop Given 10/24/2014 1:23 PM CDT 10/24/2014 6:40 PM CDT lactated ringers infusion New Bag 50 mL/hr, Intravenous, Continuous, Starting Sayda 10/24/14 at 1315 New Bag 10/24/2014 3:55 PM CDT 50 mL/hr 50 mL/hr New Bag 10/24/2014 1:23 PM CDT 10/24/2014 1:36 PM CDT 1 drop ofloxacin (OCUFLOX) 0.3 % ophthalmic Given solution 1 drop 1 drop, Left Eye, Every 5 min, First dose on Tue10/24/14 [...] drop Given 10/25/2014 12:43 AM CDT 10/24/2014 1:36 PM CDT 1 drop tropicamide [...]
--- OUTSIDE RECORDS SUMMARY | 2019-04-19 16:33 | XMS REPORT | CCD ---
Author Author Girma Cantu Organization BRETT ARREDONDO DO [facility] Address [address] [place] [address] Phone Unavailable Care Team Providers Care Family Centered Specialist Name Role Phone Brett Arredondo D.O., PP Unavailable CCM Unavailable Summary Purpose Interface Exchange Insurance Providers Payer name Policy type / Coverage type Covered libertarian ID Effective Begin Date Effective End Date WPS MEDIC[place] Medicare Part B [id number] Unknown [place] Medicare Part B [id number] 2018 200 Unknown Family History Family History data not found Social History Social History Element Codes Description Effective Dates Marital status Unknown 02/02/2016 Number of children Unknown 4 02/02/2016 Employment Unknown Currently employed [employer] 02/02/[address]: 79855548 Current every day smoker Number of cigarettes/day Unknown 20 (One Pack) [address]: 092189 Currently drinks alcohol 02/01 Frequency of drinks SNOMED CT: 798333945 7 drinks per week 02/01 Allergies, Adverse Reactions, Alerts Substance Reaction Codes Entered Date Inactivated Date Status * NO KNOWN ENVIRONMENTAL ALLERGIES Unknown 02/02/2016 N o Inactive Date Active * NO KNOWN FOOD ALLERGIES Unknown 02/02/2016 No Inactiv e Date Active * NO KNOWN DRUG ALLERGIES Unknown 02/02/2016 No Inactiv e Date Active Problems Condition Codes Effective Dates Condition Status Constipation ICD-9: 564.00 ICD-10: K59.00 03/27/2019 Active Mass of right side of neck ICD-9: 784.2 ICD-10: R22.1 02/07/2019 Active URI, ACUTE ICD-9: 465.9 ICD-10: J06.9 10/24/2018 Active Intervertebral disc disorders with myelopathy, lumbar region ICD-9: 722.73 ICD-10: M51.06 04/26/2018 Active Lumbago with sciatica, left side ICD-9: 724.3 ICD-10: M54.42 04/18/2016 Active Cervical disc disorder with myelopathy, unspecified ce rvical region ICD-9: 722.71 ICD-10: M50.00 04/26/2018 Active Slow transit constipation ICD-9: 564.01 ICD-10: K59.01 05/30/2018 Active Abnormality of plasma protein, unspecified ICD-9: 790. 99 ICD-10: R77.9 05/10/2018 Active Essential (primary) hypertension ICD-9: 401.9 ICD-10: I10 02/05/2016 Active Other fatigue ICD-9: 780.79 ICD-10: R53.83 02/05/2016 Active Hypertension Unknown 12/14/2016 Active Other intestinal obstruction ICD-9: 560.9 ICD-10: K56.69 12/14/2016 Active Epididymitis ICD-9: 604.99 ICD-10: N45.1 09/27/2016 Active Encounter for screening for malignant neoplasm of pros [place] ICD-9: V76.44 ICD-10: Z12.5 02/05/2016 Active FLU VACCINE ICD-9: V04.81 ICD-10: Z23 02/01/2016 Active Medications Medication Codes Instructions Start Date Stop Date Status Fill Instructions amlodipine 10 mg tablet RxNorm: 060370 1 Tablet(s) Oral QD 03/27/20 19 03/27/2019 Inactive amlodipine 10 mg tablet RxNorm: 235812 1 Tablet(s) Oral QD 02/02/20 19 02/01/2019 Inactive prednisone 20 mg tablet RxNorm: 459299 1 Tablet(s) PO BID 11/23/2018 12/06/2018 Inactive amlodipine 10 mg tablet RxNorm: 537071 1 Tablet(s) PO QD 11/20/2018 0 11/19/2018 Inactive doxycycline hyclate 100 mg capsule RxNorm: 3922218 1 Capsule(s) PO BID 10/24/2018 10/30/2018 Inactive prednisone 20 mg tablet RxNorm: 740871 1 Tablet(s) PO BID 10/24/2018 10/30/2018 Inactive diclofenac ER 100 mg tablet,extended release 24 hr RxNorm: 8 25909 1 Tablet(s) PO BID for back pain 09/27/2018 10/23/2018 Inactive famotidine 20 mg tablet RxNorm: 795624 1 Tablet(s) PO QHS for s tomach 09/27/2018 10/23/2018 Inactive Celebrex 200 mg capsule RxNorm: 537170 1 Capsule(s) PO BID 09/14/19 19 09/26/2018 Inactive Lyrica 50 mg capsule RxNorm: 422209 1 Capsule(s) PO QHS 09/13/2018 Inactive Ultram 50 mg tablet RxNorm: 313868 1 Tablet(s) PO TID t linda with 1 extra strength Tylenol as needed for pain 07/25/2018 No Stop Date Active Mobic 7.5 mg tablet RxNorm: 621899 1 Tablet(s) PO QD for neck/b ack pain 07/25/2018 08/23/2018 Inactive meloxicam 7.5 mg tablet RxNorm: 071519 1 Tablet(s) PO QD in AM for pain 07/25/2018 09/12/2018 Inactive baclofen 10 mg tablet RxNorm: 091836 1 Tablet(s) PO QHS for spasm 0 07/25/2018 09/22/2018 Inactive Miralax 17 gram oral powder packet RxNorm: 174058 1 Uni t Dose PO QD for constipation 05/30/2018 No Stop Date Active Mobic 7.5 mg tablet RxNorm: 573913 1 Tablet(s) PO QD for neck/b ack pain 05/24/2018 07/22/2018 Inactive Ultram 50 mg tablet RxNorm: 945061 1 Tablet(s) PO TID t linda with 1 extra strength Tylenol as needed for pain 05/09/2018 07/24/2018 Inactive Ultram 50 mg tablet RxNorm: 259500 1 Tablet(s) PO TID t linda with 1 extra strength Tylenol as needed for pain 04/26/2018 05/08/2018 Inactive Mobic 7.5 mg tablet RxNorm: 960559 1 Tablet(s) PO QD for neck/b ack pain 04/26/2018 05/23/2018 Inactive amlodipine 10 mg tablet RxNorm: 227748 TAKE 1 TABLET BY MOUTH O NCE DAILY 04/25/2018 11/20/2018 Inactive prednisone 20 mg tablet RxNorm: 984135 1 Tablet(s) PO B ID for 4 days then 1 po daily for 4 days 04/19/2018 04/25/2018 Inactive amlodipine 10 mg tablet RxNorm: 714043 1 Tablet(s) PO QD 09/26/2017 1 05/25/2017 Inactive prednisone 20 mg tablet RxNorm: 148727 1 Tablet(s) PO BID 06/23/2017 06/29/2017 Inactive amlodipine 10 mg tablet RxNorm: 804699 1 Tablet(s) PO QD 02/28/2017 0 09/26/2017 Inactive Cipro 500 mg tablet RxNorm: 437312 1 Tablet(s) PO BID 09/27/201609/17 Inactive amlodipine 10 mg tablet RxNorm: 603071 1 Tablet(s) PO QD 08/02/2016 1 Inactive Mobic 7.5 mg tablet RxNorm: 777635 1 Tablet(s) PO QD fo r 2weeks with food then go to every other day for 2 weeks then stop 04/19/2016 11/14/2016 Inac tive prednisone 20 mg tablet RxNorm: 606829 1 Tablet(s) PO BID 04/05/2016 04/11/2016 Inactive amlodipine 10 mg tablet RxNorm: 508452 1 Tablet(s) PO QD 02/02/2016 0 08/02/2016 Inactive Ultram 50 mg tablet RxNorm: 011888 1 Tablet(s) PO TID t linda with 1 extra strength Tylenol as needed for pain No Start Date 04/25/2018 Inactive amlodipine 10 mg tablet RxNorm: 642051 1 Tablet(s) PO QD No Start D ate 02/01/2016 Inactive meloxicam 7.5 mg tablet RxNorm: 336726 1 Tablet(s) PO QD No Start D ate 07/24/2018 Inactive tramadol 50 mg tablet RxNorm: 908464 1 Tablet(s) PO TID as needed for pain (take with one Tylenol Extra Strength) No Start Date 05/09/2018 Inactive Medication Administered No Medication Administered data Immunizations No Immunization data Results Observation Observation Code Item Item Code Result Date S ervice Location CT/GC Urine 85459 Chlamydia Ur Not Detected 09/29/[address]/GC Urine 87737 Gonorrhea Ur Not Detected 09/29/2016 Unknown COMPLETE BLOOD COUNT [id number] WBC 7.7 10e9/L 09/29/19 17 Unknown COMPLETE BLOOD COUNT 8368164 RBC 4.70 10e12/L 2016 Unknown COMPLETE BLOOD COUNT 9290302 HEMOGLOBIN 14.3 g/dL 09/29/19 17 Unknown COMPLETE BLOOD COUNT 4178006 HEMATOCRIT 41.9 % 09/29/19 17 Unknown COMPLETE BLOOD COUNT 9406552 MCV 89.1 fL 7 Unknown COMPLETE BLOOD COUNT 8726992 MCH 30.4 pg 7 Unknown COMPLETE BLOOD COUNT 2437276 MCHC 34.1 g/dL 7 Unknown COMPLETE BLOOD COUNT 4987521 PLATELET COUNT 279 10e9/L Unknown COMPLETE BLOOD COUNT 2469243 Mean Plt Volume 10.6 fL Unknown COMPLETE BLOOD COUNT 3946571 Neut Auto 47.1 % 7 Unknown COMPLETE BLOOD COUNT 7974237 Lymph Auto 40.6 % 09/29/19 17 Unknown COMPLETE BLOOD COUNT 0806954 [place]royo Auto 5.8 % 7 Unknown COMPLETE BLOOD COUNT 2509806 RDW 13.2 % 7 Unknown COMPLETE BLOOD COUNT 7831808 Eos Auto 6.2 % 7 Unknown COMPLETE BLOOD COUNT 6354689 Baso Auto 0.3 % 7 Unknown COMPLETE BLOOD COUNT 2991190 Neutrophil Abs 3.63 10e9/L Unknown COMPLETE BLOOD COUNT 6594147 Lymphocyte Abs 3.13 10e9/L Unknown COMPLETE BLOOD COUNT 1815333 Monocyte Abs 0.45 10e9/L 09/16 Unknown COMPLETE BLOOD COUNT 4434966 Eosinophil Abs 0.48 10e9/L Unknown COMPLETE BLOOD COUNT 3605483 RDW-SD 42.4 fL 7 Unknown COMPLETE BLOOD COUNT 9208240 Basophil Abs 0.02 10e9/L 09/16 Unknown GFR CALC 2890563 GFR Non Afr Amr >60 mL/min 09/28/2016 Un known GFR CALC 4868839 GFR Afr Amr >60 mL/min 09/28/2016 Unknow n COMPREHENSIVE METABOLIC 61482 AST 12 U/L 2016 Unknown COMPREHENSIVE METABOLIC 28744 ALT 8 U/L 2016 Unknown COMPREHENSIVE METABOLIC 13223 BUN 11 mg/dL 2016 Unknown COMPREHENSIVE METABOLIC 90913 ALBUMIN 4.0 g/dL 2016 Unknown COMPREHENSIVE METABOLIC 15343 CHLORIDE 102 mmol/L 09/28 Unknown COMPREHENSIVE METABOLIC 98569 Bili Total 0.3 mg/dL 09/28 Unknown COMPREHENSIVE METABOLIC 77333 ALK PHOS 63 U/L 2016 Unknown COMPREHENSIVE METABOLIC 21622 SODIUM 140 mmol/L 09/28 Unknown COMPREHENSIVE METABOLIC 21818 CREATININE 1.00 mg/dL 09/16 Unknown COMPREHENSIVE METABOLIC 31194 CALCIUM 8.8 mg/dL 2016 Unknown COMPREHENSIVE METABOLIC 56652 POTASSIUM 3.8 mmol/L 09/28 Unknown COMPREHENSIVE METABOLIC 76940 Total Protein 6.9 g/dL Unknown COMPREHENSIVE METABOLIC 41540 Glucose 111 mg/dL 2016 Unknown COMPREHENSIVE METABOLIC 01446 Bicarbonate 29 mmol/L 09/16 Unknown COMPREHENSIVE METABOLIC 03022 AGAP 9 mmol/L 2016 Unknown GC/CHLAMYDIA DNA 12177|74634 Chl trach DNA TNP:Wrong Test 0 09/28/2016 Unknown GC/CHLAMYDIA DNA 26105|82900 GC PROBE TNP:Wrong Test 09/28 Unknown FREE T4 53535 T4 Free 1.34 ng/dL 02/06/2016 Unknown COMPREHENSIVE METABOLIC 16091 AST 14 U/L 2015 Unknown COMPREHENSIVE METABOLIC 79700 ALT 9 U/L 2015 Unknown COMPREHENSIVE METABOLIC 30957 BUN 9 mg/dL 2015 Unknown COMPREHENSIVE METABOLIC 06230 ALBUMIN 4.2 g/dL 2015 Unknown COMPREHENSIVE METABOLIC 85965 CHLORIDE 103 mmol/L 02/05 Unknown COMPREHENSIVE METABOLIC 31457 Bili Total 0.5 mg/dL 02/05 Unknown COMPREHENSIVE METABOLIC 24919 ALK PHOS 51 U/L 2015 Unknown COMPREHENSIVE METABOLIC 10329 SODIUM 140 mmol/L 02/05 Unknown COMPREHENSIVE METABOLIC 86682 CREATININE 0.97 mg/dL 01/17 Unknown COMPREHENSIVE METABOLIC 22846 CALCIUM 9.2 mg/dL 2015 Unknown COMPREHENSIVE METABOLIC 00110 POTASSIUM 4.1 mmol/L 02/05 Unknown COMPREHENSIVE METABOLIC 14836 Total Protein 6.9 g/dL Unknown COMPREHENSIVE METABOLIC 85450 Glucose 97 mg/dL 2015 Unknown COMPREHENSIVE METABOLIC 66122 Bicarbonate 31 mmol/L 01/17 Unknown COMPREHENSIVE METABOLIC 36714 AGAP 6 mmol/L 2015 Unknown PSA EQUIMOLAR MANJEET 21331 PSA Total 2.71 ng/mL 6 Unknown LIPID GROUP 12155 Cholesterol 141 mg/dL 02/06/2016 Unkno wn LIPID GROUP 93059 Triglyceride 81 mg/dL 02/06/2016 Unkn own LIPID GROUP 84612 HDL CHOLESTEROL 59 mg/dL 02/06/2016 U nknown LIPID GROUP 07750 Chol/HDL Ratio 2.39 ratio 02/06/2016 U nknown LIPID GROUP 82593 NON-HDL Chol 82 mg/dL 02/06/2016 Unkn own LIPID GROUP 62671 LDL Cholesterol 66 mg/dL 02/06/2016 U nknown THYROID STIMULATING HORMONE 39044 TSH 1.220 uIU/mL 02/06/2016 Unknown COMPLETE BLOOD COUNT 3440856 WBC 4.2 10e9/L 02/06/20 16 Unknown COMPLETE BLOOD COUNT 8968117 RBC 4.91 10e12/L 2015 Unknown COMPLETE BLOOD COUNT 5126605 HEMOGLOBIN 15.0 g/dL 02/06/20 16 Unknown COMPLETE BLOOD COUNT 4259939 HEMATOCRIT 43.9 % 02/06/20 16 Unknown COMPLETE BLOOD COUNT 8154019 MCV 89.4 fL 6 Unknown COMPLETE BLOOD COUNT 6240019 MCH 30.5 pg 6 Unknown COMPLETE BLOOD COUNT 2826314 MCHC 34.2 g/dL 6 Unknown COMPLETE BLOOD COUNT 2837997 PLATELET COUNT 224 10e9/L Unknown COMPLETE BLOOD COUNT 8480398 Mean Plt Volume 10.1 fL Unknown COMPLETE BLOOD COUNT 7760233 Neut Auto 46.6 % 6 Unknown COMPLETE BLOOD COUNT 5415336 Lymph Auto 39.2 % 02/06/20 16 Unknown COMPLETE BLOOD COUNT 3143237 [place]royo Auto 8.8 % 6 Unknown COMPLETE BLOOD COUNT 6852461 RDW 13.3 % 6 Unknown COMPLETE BLOOD COUNT 6660825 Eos Auto 5.2 % 6 Unknown COMPLETE BLOOD COUNT 3676292 Baso Auto 0.2 % 6 Unknown COMPLETE BLOOD COUNT 3022424 Neutrophil Abs 1.96 10e9/L Unknown COMPLETE BLOOD COUNT 3054487 Lymphocyte Abs 1.65 10e9/L Unknown COMPLETE BLOOD COUNT 4913645 Monocyte Abs 0.37 10e9/L 01/17 Unknown COMPLETE BLOOD COUNT 7103870 Eosinophil Abs 0.22 10e9/L Unknown COMPLETE BLOOD COUNT 9771950 RDW-SD 42.8 fL 6 Unknown COMPLETE BLOOD COUNT 2796634 Basophil Abs 0.01 10e9/L 01/17 Unknown GFR CALC 0658963 GFR Non Afr Amr >60 mL/min 02/06/2016 Un known GFR CALC 3534387 GFR Afr Amr >60 mL/min 02/06/2016 Unknow n Procedures Procedure Codes Date THER/PROPH/DIAG INJ SC/IM CPT-4: 76874 06/23/2017 TRIAMCINOLONE ACET INJ NOS CPT-4: J3301 06/23/2017 DEXAMETHASONE SODIUM PHOS CPT-4: J1100 06/23/2017 URINALYSIS NONAUTO W/O SCOPE CPT-4: 36125 09/27/2016 URINE CULTURE/ COLONY COUNT CPT-4: 25536 09/27/2016 GC/CHLAMYDIA DNA (BD-[employer]) CPT-4: 93845|40181 7 ROUTINE VENIPUNCTURE CPT-4: 11596 09/27/2016 COMPREHEN METABOLIC PANEL CPT-4: 53311 09/27/2016 COMPLETE CBC W/AUTO DIFF WBC CPT-4: 76877 09/27/2016 CEFTRIAXONE SODIUM INJECTION CPT-4: J0696 09/27/2016 THER/PROPH/DIAG INJ SC/IM CPT-4: 61402 09/27/2016 ROUTINE VENIPUNCTURE CPT-4: 91509 02/06/2016 ASSAY OF FREE THYROXINE CPT-4: 27563 02/06/2016 ASSAY THYROID STIM HORMONE CPT-4: 21815 02/06/2016 COMPREHEN METABOLIC PANEL CPT-4: 49683 02/06/2016 COMPLETE CBC W/AUTO DIFF WBC CPT-4: 91413 02/06/2016 LIPID PANEL CPT-4: 57936 02/06/2016 ASSAY OF PSA TOTAL CPT-4: 99865 02/06/2016 ADMIN INFLUENZA VIRUS VAC CPT-4: G0008 02/02/2016 FLUZONE, 5ML (Medicare) CPT-4: Q2038 02/02/2016 CURRENT TOBACCO SMOKER CPT-4: G8455 02/02/2016 TOBACCO USE TXMNT COUNSELING CPT-4: 4000F 02/02/2016 Vital Signs Date Vital 03/27/2019 Blood Pressure 1: 124/70 Code: 8480-6 Heart Rate 1: 60 bpm Respiratory Rate: 16 bpm Temperature: 37.0 (C) / 98.6 (F) Weight: 168 lbs 02/07/2019 Blood Pressure 1: 124/70 Code: 8480-6 Heart Rate 1: 75 bpm SpO2: 100% Temperature: 36.3 (C) / 97.3 (F) Weight: 167 lbs 10/24/2018 Blood Pressure 1: 114/64 Code: 8480-6 Heart Rate 1: 60 bpm Respiratory Rate: 20 bpm SpO2: 94% Temperature: 36.8 (C) / 98.2 (F) We ight: 167 lbs 09/27/2018 Blood Pressure 1: 136/82 Code: 8480-6 Heart Rate 1: 64 bpm Respiratory Rate: 20 bpm Temperature: 36.7 (C) / 98.1 (F) Weight: 166 lbs 09/13/2018 Blood Pressure 1: 142/78 Code: 8480-6 Heart Rate 1: 59 bpm Respiratory Rate: 18 bpm SpO2: 95% Temperature: 36.5 (C) / 97.7 (F) We ight: 165 lbs 07/25/2018 Blood Pressure 1: 126/78 Code: 8480-6 BMI: 22.8 Code: 36574-3 Heart Rate 1: 52 bpm Height: 6' Respiratory Rate: 20 bpm SpO2: 94% Tempera ture: 36.9 (C) / 98.4 (F) Weight: 168 lbs 05/30/2018 Blood Pressure 1: 124/68 Code: 8480-6 BMI: 22.8 Code: 30488-6 Heart Rate 1: 56 bpm Height: 6' Respiratory Rate: 20 bpm SpO2: 94% Tempera ture: 36.7 (C) / 98.0 (F) Weight: 168 lbs 05/10/2018 Blood Pressure 1: 112/60 Code: 8480-6 Heart Rate 1: 56 bpm Height: 6' Respiratory Rate: 20 bpm SpO2: 94% Temperature: 36 .9 (C) / 98.4 (F) 04/26/2018 Blood Pressure 1: 110/68 Code: 8480-6 Heart Rate 1: 55 bpm Respiratory Rate: 20 bpm SpO2: 95% Temperature: 36.8 (C) / 98.2 (F) We ight: 169 lbs 8 oz 04/19/2018 Blood Pressure 1: 126/64 Code: 8480-6 BMI: 23.1 Code: 38848-3 Heart Rate 1: 56 bpm Height: 6' Respiratory Rate: 20 bpm Temperature: 36 .7 (C) / 98.1 (F) Weight: 170 lbs 06/23/2017 Blood Pressure 1: 138/80 Code: 8480-6 BMI: 22.4 Code: 68000-7 Heart Rate 1: 84 bpm Height: 6' Respiratory Rate: 20 bpm Temperature: 37 .2 (C) / 98.9 (F) Weight: 165 lbs 12/14/2016 Blood Pressure 1: 126/80 Code: 8480-6 BMI: 21.4 Code: 92527-3 Heart Rate 1: 72 bpm Height: 6' Respiratory Rate: 20 bpm SpO2: 96% Tempera ture: 37.0 (C) / 98.6 (F) Weight: 158 lbs 11/15/2016 Blood Pressure 1: 122/68 Code: 8480-6 BMI: 22.9 Code: 96048-2 Heart Rate 1: 68 bpm Height: 6' Respiratory Rate: 20 bpm SpO2: 95% Tempera ture: 36.9 (C) / 98.4 (F) Weight: 169 lbs 09/27/2016 Blood Pressure 1: 148/88 Code: 8480-6 BMI: 23.9 Code: 07721-4 Heart Rate 1: 72 bpm Height: 6' Respiratory Rate: 22 bpm SpO2: 98% Tempera ture: 36.7 (C) / 98.0 (F) Weight: 176 lbs 04/19/2016 Blood Pressure 1: 126/58 Code: 8480-6 BMI: 23.9 Code: 68109-2 Heart Rate 1: 80 bpm Height: 6' Respiratory Rate: 20 bpm SpO2: 94% Tempera ture: 36.6 (C) / 97.8 (F) Weight: 176 lbs 04/05/2016 Blood Pressure 1: 126/70 Code: 8480-6 BMI: 23.6 Code: 82366-9 Heart Rate 1: 56 bpm Height: 6' Respiratory Rate: 20 bpm Temperature: 36 .8 (C) / 98.2 (F) Weight: 174 lbs 02/02/2016 Blood Pressure 1: 136/88 Code: 8480-6 BMI: 23.5 Code: 50402-7 Heart Rate 1: 60 bpm Height: 6' Respiratory Rate: 20 bpm SpO2: 96% Tempera ture: 37.0 (C) / 98.6 (F) Weight: 173 lbs Functional Status No Functional Status data Reason For Visit Reason For Visit Effective Dates Notes follow up 03/27/2019 ER fwup neck pain 02/07/2019 cough 10/24/2018 follow up 09/27/2018 low back pain 09/13/2018 back pain 07/25/2018 follow up 05/30/2018 ER fwup follow up 05/10/2018 Discuss recent MRI. Patient had first therapy session this morning follow up 04/26/2018 back pain 04/19/2018 Patient had negative xray and CT scan hip pain 06/23/2017 follow up 12/14/2016 Hospital fwup follow up 11/15/2016 from Urgent Care follow up 09/27/2016 ER Visit from follow up 04/19/2016 leg pain/sciatica 04/05/2016 lab draw 02/06/2016 ~generic 02/02/2016 New Patient----estab lishing visit Encounters Encounter Performer Location Codes Date () OFFICE/OUTPATIENT VISIT EST Diagnosis: Constipation[ICD10: K59.00] Brett WE[facility] S[employer] [facility] [employer] [employer] CPT-4: 31570 03/27/2019 ([id number]) OFFICE/OUTPATIENT VISIT EST Diagnosis: Mass of right side of neck[ICD10: R22.1] Taylor Christian SANDRA [facility] S[employer] CPT-4: 07982 02/07/2019 ([id number]) OFFICE/OUTPATIENT VISIT EST Diagnosis: URI, ACUTE[ICD10: J06.9] Brett WEST S. ONEYDA DOTTY DO [employer] CPT-4: 91991 10/24/2018 ([id number]) OFFICE/OUTPATIENT VISIT EST Diagnosis: Intervertebral disc disorders with myelopathy, 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] Diagnosis: Lumbago with sciatica, left side[ICD10: M54.42] Brett ARREDONDO DO [facility] CPT-4: 11766 09/27/2018 ([id number]) OFFICE/OUTPATIENT VISIT EST Diagnosis: Intervertebral disc disorders with myelopathy, 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] Taylor ARREDONDO DO [facility] CPT-4: 97094 ([id number]) OFFICE/OUTPATIENT VISIT EST Diagnosis: Intervertebral disc disorders with myelopathy, 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] Brett ARREDONDO DO [facility] CPT-4: 17862 07/25/2018 ([id number]) OFFICE/OUTPATIENT VISIT EST Diagnosis: Slow transit constipation[ICD10: K59.01] Brett ARREDONDO DO [facility] CPT-4: 77831 05/30/2018 ([id number]) OFFICE/OUTPATIENT VISIT EST Diagnosis: Intervertebral disc disorders with myelopathy, 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] Diagnosis: Abnormality of plasma protein, unspecified[ICD10: R77.9] Brett ARREDONDO DO [facility] CPT-4: 06934 05/10/2018 ([id number]) OFFICE/OUTPATIENT VISIT EST Diagnosis: Lumbago with sciatica, left side[ICD10: M54.42] Diagnosis: Intervertebral disc disorders with myelopathy, 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] Diagnosis: Cervical disc disorder with myelopathy, unspecified cervical region[ICD10: M50.00] Brett ARREDONDO DO [facility] CPT-4: 63148 04/26/2018 ([id number]) OFFICE/OUTPATIENT VISIT EST Diagnosis: Lumbago with sciatica, left side[ICD10: M54.42] Brett ARREDONDO DO [facility] CPT-4: 79279 04/19/2018 ([id number]) OFFICE/OUTPATIENT VISIT EST Diagnosis: Lumbago with sciatica, left side[ICD10: M54.42] Brett ARREDONDO DO [facility] CPT-4: 72659 06/23/2017 ([id number]) OFFICE/OUTPATIENT VISIT EST Diagnosis: Other intestinal obstruction[ICD10: K56.69] Diagnosis: Essential (primary) hypertension[ICD10: I10] Brett ARREDONDO DO [facility] CPT-4: 00133 12/14/2016 ([id number]) OFFICE/OUTPATIENT VISIT EST Diagnosis: Lumbago with sciatica, left side[ICD10: M54.42] Brett ARREDONDO DO [facility] CPT-4: 48303 11/15/2016 OFFICE/OUTPATIENT VISIT EST Diagnosis: Epididymitis[ICD10: N45.1] Judy SanchezWade BRETT HUI [employer] [facility] CPT-4: 53810 09/27/2016 ([id number]) OFFICE/OUTPATIENT VISIT EST Diagnosis: Lumbago with sciatica, left side[ICD10: M54.42] Brett ARREDONDO DO [facility] CPT-4: 90734 04/19/2016 ([id number]) OFFICE/OUTPATIENT VISIT EST Diagnosis: Lumbago with sciatica, left side[ICD10: M54.42] Brett ARREDONDO DO [facility] CPT-4: 31390 04/05/2016 ([id number]) OFFICE/OUTPATIENT VISIT EST Diagnosis: Essential (primary) hypertension[ICD10: I10] Diagnosis: Encounter for screening for malignant neoplasm of prostate[ICD10: Z12.5] Diagnosis: Other fatigue[ICD10: R53.83] Brett ARREDONDO DO [facility] CPT-4: 82450 02/06/2016 ([id number]) OFFICE/OUTPATIENT VISIT NEW Diagnosis: Essential (primary) hypertension[ICD10: I10] Diagnosis: FLU VACCINE[ICD10: Z23] Rubi ARREDONDO DO [facility] CPT-4: 51710 02/02/2016 Plan of Care Planned Activity Notes Codes Status Date Visit Diagnosis Plan: Constipation Discussion: Continu e miralax at BID and hot coffee ICD-9 : 564.00 ICD-10 : K59.00 03/27/2019 Visit Diagnosis Plan: Mass of right side of neck Discu ssion: ultrasound ordered to rule out lymph node vs cyst. informed patient that if r/t cyst, will refer to surgeon due to size of area. patient verbalized understanding. if lymph node, will proceed with additional testing. ICD-9 : 784.2 ICD-10 : R22.1 02/07/2019 Appointment: Taylor Christian [address] [place], [place] [address] 02/07/2019 Visit Diagnosis Plan: URI, ACUTE Discussion: Doxycycli ne and prednisone Notify if persists/worsening ICD-9 : 465.9 ICD-10 : J06.9 10/24/2018 Appointment: Brett Arredondo WPtel: [address] [place], [place] [id number] 10/24/2018 Patient Education: doxycycline hyclate- [employer] Cou dagmar [phone] https://www.[employer]/resources/getResource/61/[email or web address] Completed 10/24/2018 Patient Education: prednisone- [employer] Coupon [phone] https://www.[employer]/resources/getResource/61/[email or web address]-[email or web address] Completed 10/24/2018 Visit Diagnosis Plan: Intervertebral dis c disorders with myelopathy, lumbar region Discussion: Add lyrica 150mg q HS Add di clofenac ER 100mg po BID and pepcid for stomach protection Does not want surgery Recheck 1month ICD-9 : 722.73 ICD-10 : M51.06 09/27/2018 Appointment: Brett Arredondo WPtel: [address] [place], [place] [phone] FOLLOW UP 09/27/2018 Patient Education: famotidine- [employer] Coupon [phone] https://www.[employer]/resources/getResource/61/[email or web address] Completed 09/27/2018 Visit Diagnosis Plan: Intervertebral dis c disorders with myelopathy, lumbar region Discussion: discussed with patient that pain will not be completely eradicated but other options will be implemented. instructed to dc mobic and gabapentin if he had at home. started on celebrex bid as well as lyrica at hs. instructed to rtc in 2 weeks for medication efficacy but to call before then with any new or worsening issues. ICD-9 : 722.73 ICD-10 : M51.06 09/13/2018 Appointment: Taylor Christian [address] [facility] [place] FOLLOW UP 09/13/2018 Patient Education: Celebrex- [employer] Coupon [phone] [id number] https://www.[employer]/resources/getResource/61/[email or web address] Completed 09/13/2018 Patient Education: Lyrica- [employer] Coupon [phone] https://www.[employer]/resources/getResource/61/[email or web address].pdf Completed 09/13/2018 Visit Diagnosis Plan: Intervertebral dis c disorders with myelopathy, lumbar region Discussion: Proceed with epidural Add lo w dose baclofen q HS for spasm/pain Continue mobic Tramadol prn ICD-9 : 722.73 ICD-10 : M51.06 07/25/2018 Appointment: Brett Arredondo WPtel: [facility] FOLLOW UP 07/25/2018 Patient Education: meloxicam- [employer] Coupon [phone] https://www.[employer]/resources/getResource/61/[email or web address] Completed 07/25/2018 Patient Education: baclofen- [email or web address] [id number] [email or web address] Completed 07/25/2018 Care Plan: Referral Order SNOMED-CT : 30 [id number] Pending 07/25/2018 Visit Diagnosis Plan: Slow transit constipation Discus alverto: Warm prune juice daily Start miralax daily Notify if worsening or above regimen not effective ICD-9 : 564.01 ICD-10 : K59.05/30/2018 Appointment: Brett Arredondo WPtel: [address] [place], [place] [id number] ACUTE ILLNESS 05/30/2018 Visit Diagnosis Plan: Intervertebral dis c disorders with myelopathy, lumbar region Discussion: Started PT this morning Will refill tramadol at 100mg po TID prn with tylenol ICD-9 : 722.73 ICD-10 : M51.06 05/10/2018 Visit Diagnosis Plan: Abnormality of plasma protein, u nspecified Discussion: Referral to oncology for futher workup of abnormal serum electrophoresis ICD-9 : 790.99 ICD-10 : R77.9 05/10/2018 Appointment: Brett Arredondo WPtel: [address] [place] [address] FOLLOW UP 05/10/2018 Visit Diagnosis Plan: Lumbago with sciatica, left side Discussion: Check MRI of L/S spine Start PT Low dose Mobic and tramadol 50mg with tylenol XS TID prn May need PET scan to further assess left iliac lesion--will await MRI results ICD-9 : 724.3 ICD-10 : M54.42 04/26/2018 Appointment: Brett Arredondo WPtel: [address] [place] [address] FOLLOW UP 04/26/2018 Visit Diagnosis Plan: Lumbago with sciatica, left side Discussion: Obtain ER records from [facility] Prednisone taper Topical muscle rub Recheck 1 week May need PT ICD-9 : 724.3 ICD-10 : M54.42 04/19/2018 Appointment: Brett Arredondo WPtel: [address] [place], [place] [id number] ACUTE ILLNESS 04/19/2018 Patient Education: prednisone- [employer] Coupon [id number] [email or web address] Completed 04/19/2018 Visit Diagnosis Plan: Lumbago with sciatica, left side Discussion: Kenalog/Dexamethasone now and then prednisone tomorrow Call in 1 week on how doing Will need MRI of L/S spine if persists or worsens ICD-9 : 724.3 ICD-10 : M54.42 06/23/2017 App[facility]ment[facility] [phone] [id number] [facility] 06/23/2017 Patient Education: Patient Medication Summary Completed 06/23/2017 Visit Diagnosis Plan: Essential (primary) hypertension Discussion: Stable ICD-9 : 401.9 ICD-10 : I10 12/14/2016 Visit Diagnosis Plan: Other intestinal obstruction Dis cussion: Continue on stool softener and observe Will hold on colonoscopy as last one was end of 2013 and normal ICD-9 : 560.9 ICD-10 : K56.69 12/14/2016 Appointment: [facility] [phone] [id number] [facility] Follow UP 12/14/2016 Patient Education: Patient Medication Summary Completed 12/14/2016 Patient Education: Patient Medication Summary Completed 11/17/2016 Visit Diagnosis Plan: Lumbago with sciatica, left side Discussion: Finish prednisone Check L/S spine x-ray Will likely start PT after above results obtained ICD-9 : 724.3 ICD-10 : M54.42 11/15/2016 Appointment: [facility]ondo [facility]el[facility] [phone] [id number] 11/11 confirmed`sl Urgent/Quick Care Follow Up Patient Education: Patient Medication Summary Completed 11/15/2016 Care Plan: X-RAY EXAM L-S SPINE 2/ VWS LOINC : 65514-9 Pending 11/15/2016 Visit Plan: CBC, CMP, UA with C&S and GC /Chlamy Rocephin 500mg IM now, Written Rx for Hydrocodone 5mg with APAP 325mg 1 po q 4-6 hour prn pain #30. Reviewed U/S from ER visit... hold imaging for now since not as bad as when he went to ER Try another quinolone (Cipro) for 14 days. RTC if no improvement or any worsening. Consider urology referral if this does not resolve. 09/27/2016 Appointment: Judy Cheung WPtel: [address] [place] [address] ER Follow UP 09/27/2016 Patient Education: Patient Medication Summary Completed 09/27/2016 Visit Plan: Will do low dose mobic daily for 2 weeks with food then every other day for 2 weeks then stop Continue daily back stretches If pain returns will check L/S spine x-rays 04/19/2016 Appointment: Brett Arredondo WPtel: [address] [place], [place] [id number] 04/15 confirmed `sl FOLLOW UP 04/19/2016 Patient Education: Patient Medication Summary Completed 04/19/2016 Visit Plan: Daily back stretches, moist heat, Biofreeze prn Prednisone Recheck 1 week If pain persists then will need x-rays and PT 04/05/2016 Appointment: Brett Arredondo WPtel: [address] [place] [address] ACUTE ILLNESS 04/05/2016 Patient Education: Patient Medication Summary Completed 04/05/2016 Appointment: Brett Arredondo WPtel: [address] [place] [address] LAB 02/06/2016 Patient Education: Patient Medication Summary Completed 02/06/2016 Visit Plan: Refill given Flu shot update d Will try to find records of other vaccines but likely needs tdap, shingles and pneumonia vaccines as well Records release for colonoscopy to review report Return for routine fasting labs - cbc, cmp, lipids, tsh, free t4, psa Follow up with Dr Arredondo in 3 months 02/02/2016 Appointment: Rubi Cantu [address] [place] [address] 02/01 confirmed ~sl NEW PATIENT 02/02/2016 Patient Education: Patient Medication Summary Completed 02/02/2016 Referral: Cassius Jaquez WPtel: [facility] [address], [id number] Referral Completed Referral: Cassius Jaquez WPtel: [facility] [address] [facility], [facility] [id number] [place] Referral Appointment Requested Referral: Dr. Daryl WPtel: Referral Initiated Referral: Ted Zavaleta [facility]Ptel[facility] [phone] [id number] [place] Referral Initiated Instructions Comment . CBC, CMP, UA with C&S and GC/Chlamy Rocephin 500mg IM now, Written Rx for Hydrocodone 5mg with APAP 325mg 1 po q 4- 6 hour prn pain #30. Reviewed U/S from ER visit... hold imaging for now since not as bad as when he went to ER Try another quinolone (Cipro) for 14 days. RTC if no improvement or any worsening. Consider urology referral if this does not resolve. . Will do low dose mobic daily for 2 wee ks with food then every other day for 2 weeks then stop Continue daily back stretches If pain returns will check L/S spine x-rays . Daily back stretches, moist heat, Biof reeze prn Prednisone Recheck 1 week If pain persists then will need x-rays and PT . Refill given Flu shot updated Will try to find records of other vaccines but likely needs tdap, shingles and pneumonia vaccines as well Records release for colonoscopy to review report Return for routine fasting labs - cbc, cmp, lipids, tsh, free t4, psa Follow up with Dr Arredondo in 3 months Medical Equipment No Medical Equipment data Health Concerns Section Health Concerns data not found Goals Section Goals data not found Interventions Section Interventions data not found Health Status Evaluations/Outcomes Section Health Status Evaluations/Outcomes data not found Advance Directives No Advance Directive data"
--- OUTSIDE RECORDS SUMMARY | 2019-04-19 16:33 | XMS REPORT | CCD ---
Author Author Girma Cantu Organization BRETT ARREDONDO DO [facility] Address [address] [place] [address] Phone Unavailable Care Team Providers Care Sales And Business Development Manager Name Role Phone Brett Arredondo D.O., PP Unavailable CCM Unavailable Summary Purpose Interface Exchange Insurance Providers Payer name Policy type / Coverage type Covered democrat ID Effective Begin Date Effective End Date WPS MEDIC[place] PART B [place] Medicare Part B [id number] Unknown InhibOx Medicare Part B [id number] 2018 200 Unknown Family History Family History data not found Social History Social History Element Codes Description Effective Dates Marital status Unknown 02/02/2016 Number of children Unknown 4 02/02/2016 Employment Unknown Currently employed [employer] 02/02/[address]: 31093102 Current every day smoker Number of cigarettes/day Unknown 20 (One Pack) [address]: 247295 Currently drinks alcohol 02/01 Frequency of drinks SNOMED CT: 070411926 7 drinks per week 02/01 Allergies, Adverse [...] Fill Instructions amlodipine 10 mg tablet RxNorm: 948924 1 Tablet(s) Oral QD 03/27/20 19 03/27/2019 Inactive amlodipine 10 mg tablet RxNorm: 073887 1 Tablet(s) Oral QD 02/02/20 19 02/01/2019 Inactive prednisone 20 mg tablet RxNorm: 742224 1 Tablet(s) PO BID 11/23/2018 12/06/2018 Inactive amlodipine 10 mg tablet RxNorm: 532961 1 Tablet(s) PO QD 11/20/2018 0 11/19/2018 Inactive doxycycline hyclate 100 mg capsule RxNorm: 5169673 1 Capsule(s) PO BID 10/24/2018 10/30/2018 Inactive prednisone 20 mg tablet RxNorm: 123488 1 Tablet(s) PO BID 10/24/2018 10/30/2018 Inactive diclofenac ER 100 mg tablet,extended release 24 hr RxNorm: 8 83121 1 Tablet(s) PO BID for back pain 09/27/2018 10/23/2018 Inactive famotidine 20 mg tablet RxNorm: 035026 1 Tablet(s) PO QHS for s tomach 09/27/2018 10/23/2018 Inactive Celebrex 200 mg capsule RxNorm: 830942 1 Capsule(s) PO BID 09/14/19 19 09/26/2018 Inactive Lyrica 50 mg capsule RxNorm: 696933 1 Capsule(s) PO QHS 09/13/2018 Inactive Ultram 50 mg tablet RxNorm: 845514 1 Tablet(s) PO TID t linda with 1 extra strength Tylenol as needed for pain 07/25/2018 No Stop Date Active Mobic 7.5 mg tablet RxNorm: 990918 1 Tablet(s) PO QD for neck/b ack pain 07/25/2018 08/23/2018 Inactive meloxicam 7.5 mg tablet RxNorm: 681794 1 Tablet(s) PO QD in AM for pain 07/25/2018 09/12/2018 Inactive baclofen 10 mg tablet RxNorm: 624341 1 Tablet(s) PO QHS for spasm 0 07/25/2018 09/22/2018 Inactive Miralax 17 gram oral powder packet RxNorm: 058483 1 Uni t Dose PO QD for constipation 05/30/2018 No Stop Date Active Mobic 7.5 mg tablet RxNorm: 420501 1 Tablet(s) PO QD for neck/b ack pain 05/24/2018 07/22/2018 Inactive Ultram 50 mg tablet RxNorm: 622686 1 Tablet(s) PO TID t linda with 1 extra strength Tylenol as needed for pain 05/09/2018 07/24/2018 Inactive Ultram 50 mg tablet RxNorm: 390930 1 Tablet(s) PO TID t linda with 1 extra strength Tylenol as needed for pain 04/26/2018 05/08/2018 Inactive Mobic 7.5 mg tablet RxNorm: 910081 1 Tablet(s) PO QD for neck/b ack pain 04/26/2018 05/23/2018 Inactive amlodipine 10 mg tablet RxNorm: 277187 TAKE 1 TABLET BY MOUTH O NCE DAILY 04/25/2018 11/20/2018 Inactive prednisone 20 mg tablet RxNorm: 149147 1 Tablet(s) PO B ID for 4 days then 1 po daily for 4 days 04/19/2018 04/25/2018 Inactive amlodipine 10 mg tablet RxNorm: 837389 1 Tablet(s) PO QD 09/26/2017 1 05/25/2017 Inactive prednisone 20 mg tablet RxNorm: 270828 1 Tablet(s) PO BID 06/23/2017 06/29/2017 Inactive amlodipine 10 mg tablet RxNorm: 682625 1 Tablet(s) PO QD 02/28/2017 0 09/26/2017 Inactive Cipro 500 mg tablet RxNorm: 471595 1 Tablet(s) PO BID 09/27/201609/17 Inactive amlodipine 10 mg tablet RxNorm: 505105 1 Tablet(s) PO QD 08/02/2016 1 Inactive Mobic 7.5 mg tablet RxNorm: 521678 1 Tablet(s) PO QD fo r 2weeks with food then go to every other day for 2 weeks then stop 04/19/2016 11/14/2016 Inac tive prednisone 20 mg tablet RxNorm: 472132 1 Tablet(s) PO BID 04/05/2016 04/11/2016 Inactive amlodipine 10 mg tablet RxNorm: 319406 1 Tablet(s) PO QD 02/02/2016 0 08/02/2016 Inactive Ultram 50 mg tablet RxNorm: 455900 1 Tablet(s) PO TID t linda with 1 extra strength Tylenol as needed for pain No Start Date 04/25/2018 Inactive amlodipine 10 mg tablet RxNorm: 675744 1 Tablet(s) PO QD No Start D ate 02/01/2016 Inactive meloxicam 7.5 mg tablet RxNorm: 116211 1 Tablet(s) PO QD No Start D ate 07/24/2018 Inactive tramadol 50 mg tablet RxNorm: 126638 1 Tablet(s) PO TID as needed for pain (take with one Tylenol Extra Strength) No Start Date 05/09/2018 Inactive Medication Administered No Medication Administered data Immunizations No Immunization data Results Observation Observation Code Item Item Code Result Date S ervice Location CT/GC Urine 36568 Chlamydia Ur Not Detected 09/29/[address]/GC Urine 24947 Gonorrhea Ur Not Detected 09/29/2016 Unknown COMPLETE BLOOD COUNT [id number] WBC 7.7 10e9/L 09/29/19 17 Unknown COMPLETE BLOOD COUNT 5610212 RBC 4.70 10e12/L 2016 Unknown COMPLETE BLOOD COUNT 7518056 HEMOGLOBIN 14.3 g/dL 09/29/19 17 Unknown COMPLETE BLOOD COUNT 5106523 HEMATOCRIT 41.9 % 09/29/19 17 Unknown COMPLETE BLOOD COUNT 0744076 MCV 89.1 fL 7 Unknown COMPLETE BLOOD COUNT 6479012 MCH 30.4 pg 7 Unknown COMPLETE BLOOD COUNT 3952221 MCHC 34.1 g/dL 7 Unknown COMPLETE BLOOD COUNT 0112691 PLATELET COUNT 279 10e9/L Unknown COMPLETE BLOOD COUNT 1005756 Mean Plt Volume 10.6 fL Unknown COMPLETE BLOOD COUNT 8693036 Neut Auto 47.1 % 7 Unknown COMPLETE BLOOD COUNT 7195217 Lymph Auto 40.6 % 09/29/19 17 Unknown COMPLETE BLOOD COUNT 4397590 [place] Auto 5.8 % 7 Unknown COMPLETE BLOOD COUNT 2794138 RDW 13.2 % 7 Unknown COMPLETE BLOOD COUNT 6656031 Eos Auto 6.2 % 7 Unknown COMPLETE BLOOD COUNT 3253574 Baso Auto 0.3 % 7 Unknown COMPLETE BLOOD COUNT 9873463 Neutrophil Abs 3.63 10e9/L Unknown COMPLETE BLOOD COUNT 0563542 Lymphocyte Abs 3.13 10e9/L Unknown COMPLETE BLOOD COUNT 3072107 Monocyte Abs 0.45 10e9/L 09/16 Unknown COMPLETE BLOOD COUNT 8880495 Eosinophil Abs 0.48 10e9/L Unknown COMPLETE BLOOD COUNT 0750474 RDW-SD 42.4 fL 7 Unknown COMPLETE BLOOD COUNT 3083023 Basophil Abs 0.02 10e9/L 09/16 Unknown GFR CALC 1016066 GFR Non Afr Amr >60 mL/min 09/28/2016 Un known GFR CALC 0501164 GFR Afr Amr >60 mL/min 09/28/2016 Unknow n COMPREHENSIVE METABOLIC 43676 AST 12 U/L 2016 Unknown COMPREHENSIVE METABOLIC 29997 ALT 8 U/L 2016 Unknown COMPREHENSIVE METABOLIC 81247 BUN 11 mg/dL 2016 Unknown COMPREHENSIVE METABOLIC 63361 ALBUMIN 4.0 g/dL 2016 Unknown COMPREHENSIVE METABOLIC 04368 CHLORIDE 102 mmol/L 09/28 Unknown COMPREHENSIVE METABOLIC 89608 Bili Total 0.3 mg/dL 09/28 Unknown COMPREHENSIVE METABOLIC 68448 ALK PHOS 63 U/L 2016 Unknown COMPREHENSIVE METABOLIC 14355 SODIUM 140 mmol/L 09/28 Unknown COMPREHENSIVE METABOLIC 34952 CREATININE 1.00 mg/dL 09/16 Unknown COMPREHENSIVE METABOLIC 96460 CALCIUM 8.8 mg/dL 2016 Unknown COMPREHENSIVE METABOLIC 39508 POTASSIUM 3.8 mmol/L 09/28 Unknown COMPREHENSIVE METABOLIC 90248 Total Protein 6.9 g/dL Unknown COMPREHENSIVE METABOLIC 42545 Glucose 111 mg/dL 2016 Unknown COMPREHENSIVE METABOLIC 85588 Bicarbonate 29 mmol/L 09/16 Unknown COMPREHENSIVE METABOLIC 90658 AGAP 9 mmol/L 2016 Unknown GC/CHLAMYDIA DNA 67765|87268 Chl trach DNA TNP:Wrong Test 0 09/28/2016 Unknown GC/CHLAMYDIA DNA 13277|97013 GC PROBE TNP:Wrong Test 09/28 Unknown FREE T4 74778 T4 Free 1.34 ng/dL 02/06/2016 Unknown COMPREHENSIVE METABOLIC 11768 AST 14 U/L 2015 Unknown COMPREHENSIVE METABOLIC 54113 ALT 9 U/L 2015 Unknown COMPREHENSIVE METABOLIC 05143 BUN 9 mg/dL 2015 Unknown COMPREHENSIVE METABOLIC 03206 ALBUMIN 4.2 g/dL 2015 Unknown COMPREHENSIVE METABOLIC 46091 CHLORIDE 103 mmol/L 02/05 Unknown COMPREHENSIVE METABOLIC 86883 Bili Total 0.5 mg/dL 02/05 Unknown COMPREHENSIVE METABOLIC 41401 ALK PHOS 51 U/L 2015 Unknown COMPREHENSIVE METABOLIC 98908 SODIUM 140 mmol/L 02/05 Unknown COMPREHENSIVE METABOLIC 39782 CREATININE 0.97 mg/dL 01/17 Unknown COMPREHENSIVE METABOLIC 91123 CALCIUM 9.2 mg/dL 2015 Unknown COMPREHENSIVE METABOLIC 18879 POTASSIUM 4.1 mmol/L 02/05 Unknown COMPREHENSIVE METABOLIC 22918 Total Protein 6.9 g/dL Unknown COMPREHENSIVE METABOLIC 14267 Glucose 97 mg/dL 2015 Unknown COMPREHENSIVE METABOLIC 34552 Bicarbonate 31 mmol/L 01/17 Unknown COMPREHENSIVE METABOLIC 95080 AGAP 6 mmol/L 2015 Unknown PSA EQUIMOLAR MANJEET 27245 PSA Total 2.71 ng/mL 6 Unknown LIPID GROUP 51347 Cholesterol 141 mg/dL 02/06/2016 Unkno wn LIPID GROUP 97003 Triglyceride 81 mg/dL 02/06/2016 Unkn own LIPID GROUP 97577 HDL CHOLESTEROL 59 mg/dL 02/06/2016 U nknown LIPID GROUP 19826 Chol/HDL Ratio 2.39 ratio 02/06/2016 U nknown LIPID GROUP 81908 NON-HDL Chol 82 mg/dL 02/06/2016 Unkn own LIPID GROUP 96327 LDL Cholesterol 66 mg/dL 02/06/2016 U nknown THYROID STIMULATING HORMONE 70335 TSH 1.220 uIU/mL 02/06/2016 Unknown COMPLETE BLOOD COUNT 6892989 WBC 4.2 10e9/L 02/06/20 16 Unknown COMPLETE BLOOD COUNT 4565588 RBC 4.91 10e12/L 2015 Unknown COMPLETE BLOOD COUNT 4899773 HEMOGLOBIN 15.0 g/dL 02/06/20 16 Unknown COMPLETE BLOOD COUNT 1888145 HEMATOCRIT 43.9 % 02/06/20 16 Unknown COMPLETE BLOOD COUNT 7764449 MCV 89.4 fL 6 Unknown COMPLETE BLOOD COUNT 2258739 MCH 30.5 pg 6 Unknown COMPLETE BLOOD COUNT 6188769 MCHC 34.2 g/dL 6 Unknown COMPLETE BLOOD COUNT 1088944 PLATELET COUNT 224 10e9/L Unknown COMPLETE BLOOD COUNT 2299803 Mean Plt Volume 10.1 fL Unknown COMPLETE BLOOD COUNT 0366386 Neut Auto 46.6 % 6 Unknown COMPLETE BLOOD COUNT 0246420 Lymph Auto 39.2 % 02/06/20 16 Unknown COMPLETE BLOOD COUNT 8943738 [place] Auto 8.8 % 6 Unknown COMPLETE BLOOD COUNT 7657975 RDW 13.3 % 6 Unknown COMPLETE BLOOD COUNT 2428875 Eos Auto 5.2 % 6 Unknown COMPLETE BLOOD COUNT 1433568 Baso Auto 0.2 % 6 Unknown COMPLETE BLOOD COUNT 7860741 Neutrophil Abs 1.96 10e9/L Unknown COMPLETE BLOOD COUNT 7667047 Lymphocyte Abs 1.65 10e9/L Unknown COMPLETE BLOOD COUNT 2527854 Monocyte Abs 0.37 10e9/L 01/17 Unknown COMPLETE BLOOD COUNT 6145418 Eosinophil Abs 0.22 10e9/L Unknown COMPLETE BLOOD COUNT 2427814 RDW-SD 42.8 fL 6 Unknown COMPLETE BLOOD COUNT 2158463 Basophil Abs 0.01 10e9/L 01/17 Unknown GFR CALC 7676391 GFR Non Afr Amr >60 mL/min 02/06/2016 Un known GFR CALC 1088255 GFR Afr Amr >60 mL/min 02/06/2016 Unknow n Procedures Procedure Codes Date THER/PROPH/DIAG INJ SC/IM CPT-4: 76187 06/23/2017 TRIAMCINOLONE ACET INJ NOS CPT-4: J3301 06/23/2017 DEXAMETHASONE SODIUM PHOS CPT-4: J1100 06/23/2017 URINALYSIS NONAUTO W/O SCOPE CPT-4: 22560 09/27/2016 URINE CULTURE/ COLONY COUNT CPT-4: 47842 09/27/2016 GC/CHLAMYDIA DNA (BD-ProbeTec) CPT-4: 59855|97854 7 ROUTINE VENIPUNCTURE CPT-4: 92711 09/27/2016 COMPREHEN METABOLIC PANEL CPT-4: 29106 09/27/2016 COMPLETE CBC W/AUTO DIFF WBC CPT-4: 15223 09/27/2016 CEFTRIAXONE SODIUM INJECTION CPT-4: J0696 09/27/2016 THER/PROPH/DIAG INJ SC/IM CPT-4: 90398 09/27/2016 ROUTINE VENIPUNCTURE CPT-4: 69595 02/06/2016 ASSAY OF FREE THYROXINE CPT-4: 26184 02/06/2016 ASSAY THYROID STIM HORMONE CPT-4: 09071 02/06/2016 COMPREHEN METABOLIC PANEL CPT-4: 51528 02/06/2016 COMPLETE CBC W/AUTO DIFF WBC CPT-4: 58527 02/06/2016 LIPID PANEL CPT-4: 04884 02/06/2016 ASSAY OF PSA TOTAL CPT-4: 78634 02/06/2016 ADMIN INFLUENZA VIRUS VAC CPT-4: G0008 [...] 1: 126/78 Code: 8480-6 BMI: 22.8 Code: 75851-0 Heart Rate 1: 52 bpm Height: 6' Respiratory Rate: 20 bpm SpO2: 94% Tempera ture: 36.9 (C) / 98.4 (F) Weight: 168 lbs 05/30/2018 Blood Pressure 1: 124/68 Code: 8480-6 BMI: 22.8 Code: 03730-4 Heart Rate 1: 56 bpm Height: 6' [...] 1: 126/64 Code: 8480-6 BMI: 23.1 Code: 23343-6 Heart Rate 1: 56 bpm Height: 6' Respiratory Rate: 20 bpm Temperature: 36 .7 (C) / 98.1 (F) Weight: 170 lbs 06/23/2017 Blood Pressure 1: 138/80 Code: 8480-6 BMI: 22.4 Code: 64777-4 Heart Rate 1: 84 bpm Height: 6' Respiratory Rate: 20 bpm Temperature: 37 .2 (C) / 98.9 (F) Weight: 165 lbs 12/14/2016 Blood Pressure 1: 126/80 Code: 8480-6 BMI: 21.4 Code: 31163-8 Heart Rate 1: 72 bpm Height: 6' Respiratory Rate: 20 bpm SpO2: 96% Tempera ture: 37.0 (C) / 98.6 (F) Weight: 158 lbs 11/15/2016 Blood Pressure 1: 122/68 Code: 8480-6 BMI: 22.9 Code: 90674-9 Heart Rate 1: 68 bpm Height: 6' Respiratory Rate: 20 bpm SpO2: 95% Tempera ture: 36.9 (C) / 98.4 (F) Weight: 169 lbs 09/27/2016 Blood Pressure 1: 148/88 Code: 8480-6 BMI: 23.9 Code: 20322-9 Heart Rate 1: 72 bpm Height: 6' Respiratory Rate: 22 bpm SpO2: 98% Tempera ture: 36.7 (C) / 98.0 (F) Weight: 176 lbs 04/19/2016 Blood Pressure 1: 126/58 Code: 8480-6 BMI: 23.9 Code: 46781-7 Heart Rate 1: 80 bpm Height: 6' Respiratory Rate: 20 bpm SpO2: 94% Tempera ture: 36.6 (C) / 97.8 (F) Weight: 176 lbs 04/05/2016 Blood Pressure 1: 126/70 Code: 8480-6 BMI: 23.6 Code: 24385-8 Heart Rate 1: 56 bpm Height: 6' Respiratory Rate: 20 bpm Temperature: 36 .8 (C) / 98.2 (F) Weight: 174 lbs 02/02/2016 Blood Pressure 1: 136/88 Code: 8480-6 BMI: 23.5 Code: 95746-1 Heart Rate 1: 60 bpm Height: 6' [...] Constipation[ICD10: K59.00] Brett WEST S. O RENDER [facility] CPT-4: 07212 03/27/2019 ([id number]) OFFICE/OUTPATIENT VISIT EST Diagnosis: Mass of right side of neck[ICD10: R22.1] Taylor Christian SANDRA CHINO S. ORENDER [facility] CPT-4: 27991 02/07/2019 ([id number]) OFFICE/OUTPATIENT VISIT EST Diagnosis: URI, ACUTE[ICD10: J06.9] Brett WEST S. 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] Brett ARREDONDO DO [facility] CPT-4: 44722 07/25/2018 ([id number]) OFFICE/OUTPATIENT VISIT EST Diagnosis: Slow transit constipation[ICD10: K59.01] Brett ARREDONDO DO [facility] CPT-4: 10401 05/30/2018 ([id number]) OFFICE/OUTPATIENT VISIT EST Diagnosis: Intervertebral disc disorders with myelopathy, 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] Diagnosis: Abnormality of plasma protein, unspecified[ICD10: R77.9] Brett ARREDONDO DO [facility] CPT-4: 43584 05/10/2018 ([id number]) OFFICE/OUTPATIENT VISIT EST Diagnosis: Lumbago with sciatica, left side[ICD10: M54.42] Diagnosis: Intervertebral disc disorders with myelopathy, 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] Diagnosis: Cervical disc disorder with myelopathy, unspecified cervical region[ICD10: M50.00] Brett ARREDONDO DO [facility] CPT-4: 05892 04/26/2018 ([id number]) OFFICE/OUTPATIENT VISIT EST Diagnosis: Lumbago with sciatica, left side[ICD10: M54.42] Brett ARREDONDO DO [facility] CPT-4: 57233 04/19/2018 ([id number]) OFFICE/OUTPATIENT VISIT EST Diagnosis: Lumbago with sciatica, left side[ICD10: M54.42] Brett ARREDONDO DO [facility] CPT-4: 94699 06/23/2017 ([id number]) OFFICE/OUTPATIENT VISIT EST Diagnosis: Other intestinal obstruction[ICD10: K56.69] Diagnosis: Essential (primary) hypertension[ICD10: I10] Brett ARREDONDO DO [facility] CPT-4: 98142 12/14/2016 ([id number]) OFFICE/OUTPATIENT VISIT EST Diagnosis: Lumbago with sciatica, left side[ICD10: M54.42] Brett ARREDONDO DO [facility] CPT-4: 50444 11/15/2016 OFFICE/OUTPATIENT VISIT EST Diagnosis: Epididymitis[ICD10: N45.1] Judy SanchezWade BRETT HUI [email or web address] CPT-4: 97645 09/27/2016 ([id number]) OFFICE/OUTPATIENT VISIT EST Diagnosis: Lumbago with sciatica, left side[ICD10: M54.42] Brett ARREDONDO DO [facility] CPT-4: 44660 04/19/2016 ([id number]) OFFICE/OUTPATIENT VISIT EST Diagnosis: Lumbago with sciatica, left side[ICD10: M54.42] Brett ARREDONDO DO [facility] CPT-4: 11540 04/05/2016 ([id number]) OFFICE/OUTPATIENT VISIT EST Diagnosis: Essential (primary) hypertension[ICD10: I10] Diagnosis: Encounter for screening for malignant neoplasm of prostate[ICD10: Z12.5] Diagnosis: Other fatigue[ICD10: R53.83] Brett ARREDONDO DO [facility] CPT-4: 28449 02/06/2016 ([id number]) OFFICE/OUTPATIENT VISIT NEW Diagnosis: Essential (primary) hypertension[ICD10: I10] Diagnosis: FLU VACCINE[ICD10: Z23] Rubi ARREDONDO DO [facility] CPT-4: 46732 02/02/2016 Plan of Care Planned Activity Notes [...] ICD-10 : R22.1 02/07/2019 Appointment: Taylor Christian [address] [place], [place] [address] ACUTE ILLNESS 02/07/2019 Visit Diagnosis Plan: URI, ACUTE Discussion: Doxycycli ne and prednisone Notify if persists/worsening ICD-9 : 465.9 ICD-10 : J06.9 10/24/2018 Appointment: Brett Arredondo WPtel: [address] [place], [place] [address] ACUTE ILLNESS 10/24/2018 Patient Education: doxycycline hyclate- [employer] Cou dagmar [id number] https://www.[employer]/resources/getResource/61/[email or web address]-nt Completed 10/24/2018 Patient Education: prednisone- [employer] Coupon 45013 133 https://www.[employer]/resources/getResource/61/7991j580-p187-1125-0w Completed 10/24/2018 Visit Diagnosis Plan: Intervertebral dis c disorders with myelopathy, lumbar region Discussion: Add lyrica 150mg q HS Add di clofenac ER 100mg po BID and pepcid for stomach protection Does not want surgery Recheck 1month ICD-9 : 722.73 ICD-10 : M51.06 09/27/2018 Appointment: Brett Arredondo WPtel: [address] [place], [place] [phone] FOLLOW UP 09/27/2018 Patient Education: famotidine- [employer] Coupon [id number] https://www.[employer]/resources/getResource/61/[email or web address]-87q7-6sk3-v7 Completed 09/27/2018 Visit Diagnosis Plan: Intervertebral dis [...] : M51.06 09/13/2018 Appointment: Taylor Christian [address] [facility] [place] FOLLOW UP 09/13/2018 Patient Education: Celebrex- [employer] Coupon [id number] https://www.[employer]/resources/getResource/61/04v3mv2g-m240-95h9-o1 Completed 09/13/2018 Patient Education: Lyrica- [employer] Coupon [id number] https://www.[employer]/resources/getResource/61/3m9e5p9s-1rbd-864o-1h [email or web address].pdf Completed 09/13/2018 Visit Diagnosis Plan: Intervertebral dis c disorders with myelopathy, lumbar region Discussion: Proceed with epidural Add lo w dose baclofen q HS for spasm/pain Continue mobic Tramadol prn ICD-9 : 722.73 ICD-10 : M51.06 07/25/2018 Appointment: Brett Arredondo WPtel: [facility] FOLLOW UP 07/25/2018 Patient Education: meloxicam- [employer] Coupon [id number] https://www.[employer]/resources/getResource/61/9951r948-57q2-9u87-y2 Completed 07/25/2018 Patient Education: baclofen- [employer] Coupon [id number] https://www.[employer]/resources/getResource/61/4x641a9q-xov5-7h96-0w Completed 07/25/2018 Care Plan: Referral Order SNOMED-CT : 30 4906826 Pending 07/25/2018 Visit Diagnosis Plan: Slow transit constipation Discus alverto: Warm prune juice daily Start miralax daily Notify if worsening or above regimen not effective ICD-9 : 564.01 ICD-10 : K59.05/30/2018 Appointment: Brett Arredondo WPtel: [address] [place], [place] [phone] ACUTE ILLNESS 05/30/2018 Visit Diagnosis Plan: Intervertebral [...] : R77.9 05/10/2018 Appointment: Brett Arredondo WPtel: [address] [place] [address] FOLLOW UP 05/10/2018 Visit Diagnosis Plan: Lumbago with sciatica, left side Discussion: Check MRI of L/S spine Start PT Low dose Mobic and tramadol 50mg with tylenol XS TID prn May need PET scan to further assess left iliac lesion--will await MRI results ICD-9 : 724.3 ICD-10 : M54.42 04/26/2018 Appointment: Brett Arredondo WPtel: [address] [place] [address] FOLLOW UP 04/26/2018 Visit Diagnosis Plan: Lumbago with sciatica, left side Discussion: Obtain ER records from [facility] Prednisone taper Topical muscle rub Recheck 1 week May need PT ICD-9 : 724.3 ICD-10 : M54.42 04/19/2018 Appointment: Brett Arredondo WPtel: [address] [place], [place] [phone] ACUTE ILLNESS 04/19/2018 Patient Education: prednisone- [employer] Coupon [phone] https://www.[employer].com/samplemd/resources/getResource/61/34634e96-w744-60v8-0o Completed 04/19/2018 Visit Diagnosis Plan: Lumbago with sciatica, left side Discussion: Kenalog/Dexamethasone now and then prednisone tomorrow Call in 1 week on how doing Will need MRI of L/S spine if persists or worsens ICD-9 : 724.3 ICD-10 : M54.42 06/23/2017 Appointment: Brett Arredondo [facility]Ptel[facility] [phone] [facility] [facility] 06/23/2017 Patient Education: Patient Medication [...] K56.69 12/14/2016 Appointment: Brett Arredondo WPtel: [phone] [facility] [place] Follow UP 12/14/2016 Patient Education: Patient Medication Summary Completed 12/14/2016 Patient Education: Patient Medication Summary Completed 11/17/2016 Visit Diagnosis Plan: Lumbago with sciatica, left side Discussion: Finish prednisone Check L/S spine x-ray Will likely start PT after above results obtained ICD-9 : 724.3 ICD-10 : M54.42 11/15/2016 Appointment: Brett Arredondo WPtel: [phone] [facility] 11/11 confirmed`sl Urgent/Quick Care Follow Up Patient Education: Patient Medication Summary Completed 11/15/2016 Care Plan: X-RAY EXAM L-S SPINE 2/ VWS LOINC : 32795-3 Pending 11/15/2016 Visit Plan: CBC, CMP, UA [...] not resolve. 09/27/2016 Appointment: Judy Cheung WPtel: [address] [place] [address] ER Follow UP 09/27/2016 Patient Education: Patient Medication Summary Completed 09/27/2016 Visit Plan: Will do low dose mobic daily for 2 weeks with food then every other day for 2 weeks then stop Continue daily back stretches If pain returns will check L/S spine x-rays 04/19/2016 Appointment: Brett Arredondo WPtel: [address] [place], [place] [address] 04/15 confirmed `sl FOLLOW UP 04/19/2016 Patient Education: Patient Medication Summary Completed 04/19/2016 Visit Plan: Daily back stretches, moist heat, Biofreeze prn Prednisone Recheck 1 week If pain persists then will need x-rays and PT 04/05/2016 Appointment: Brett Arredondo WPtel: [address] [place] [address] ACUTE ILLNESS 04/05/2016 Patient Education: Patient Medication Summary Completed 04/05/2016 Appointment: Brett Arredondo WPtel: [address] [place] [address] LAB 02/06/2016 Patient Education: Patient Medication Summary [...] in 3 months 02/02/2016 Appointment: Rubi Cantu [address] [place] [address] 02/01 confirmed ~sl NEW PATIENT 02/02/2016 Patient Education: Patient Medication Summary Completed 02/02/2016 Referral: Cassius Jaquez WPtel: [facility] [address], [address] Referral Completed Referral: Cassius Jaquez WPtel: [facility] [address] [facility], [facility] [address] [place] [place] Referral Appointment Requested Referral: Dr. Daryl WPtel: Referral Initiated Referral: Ted Zavaleta WPtel: [address] [facility] [place] Referral Initiated Instructions Comment . CBC, [...]
--- OUTSIDE RECORDS SUMMARY | 2019-04-19 16:33 | XMS REPORT | CCD ---
Author Author Girma Cantu Organization BRETT ARREDONDO DO [facility] Address [address] [place] [address] Phone Unavailable Care Team Providers Care Assembler Convertible Top Name Role Phone Brett Arredondo D.O., PP Unavailable CCM Unavailable Summary Purpose Interface Exchange Insurance Providers Payer name Policy type / Coverage type Covered republican ID Effective Begin Date Effective End Date WPS MEDICARE PART B [place] Medicare Part B [id number] Unknown Infor Medicare Part B [id number] 2018 200 Unknown Family History Family History data not found Social History Social History Element Codes Description Effective Dates Marital status Unknown 02/02/2016 Number of children Unknown 4 02/02/2016 Employment Unknown Currently employed [employer] 02/02/[address]: 38303380 Current every day smoker Number of cigarettes/day Unknown 20 (One Pack) [address]: 378429 Currently drinks alcohol 02/01 Frequency of drinks SNOMED CT: 339429272 7 drinks per week 02/01 Allergies, Adverse [...] Fill Instructions amlodipine 10 mg tablet RxNorm: 248724 1 Tablet(s) Oral QD 03/27/20 19 03/27/2019 Inactive amlodipine 10 mg tablet RxNorm: 636196 1 Tablet(s) Oral QD 02/02/20 19 02/01/2019 Inactive prednisone 20 mg tablet RxNorm: 601746 1 Tablet(s) PO BID 11/23/2018 12/06/2018 Inactive amlodipine 10 mg tablet RxNorm: 462864 1 Tablet(s) PO QD 11/20/2018 0 11/19/2018 Inactive doxycycline hyclate 100 mg capsule RxNorm: 1542542 1 Capsule(s) PO BID 10/24/2018 10/30/2018 Inactive prednisone 20 mg tablet RxNorm: 494627 1 Tablet(s) PO BID 10/24/2018 10/30/2018 Inactive diclofenac ER 100 mg tablet,extended release 24 hr RxNorm: 8 40745 1 Tablet(s) PO BID for back pain 09/27/2018 10/23/2018 Inactive famotidine 20 mg tablet RxNorm: 875621 1 Tablet(s) PO QHS for s tomach 09/27/2018 10/23/2018 Inactive Celebrex 200 mg capsule RxNorm: 654133 1 Capsule(s) PO BID 09/14/19 19 09/26/2018 Inactive Lyrica 50 mg capsule RxNorm: 669514 1 Capsule(s) PO QHS 09/13/2018 Inactive Ultram 50 mg tablet RxNorm: 938734 1 Tablet(s) PO TID t linda with 1 extra strength Tylenol as needed for pain 07/25/2018 No Stop Date Active Mobic 7.5 mg tablet RxNorm: 488789 1 Tablet(s) PO QD for neck/b ack pain 07/25/2018 08/23/2018 Inactive meloxicam 7.5 mg tablet RxNorm: 370687 1 Tablet(s) PO QD in AM for pain 07/25/2018 09/12/2018 Inactive baclofen 10 mg tablet RxNorm: 131748 1 Tablet(s) PO QHS for spasm 0 07/25/2018 09/22/2018 Inactive Miralax 17 gram oral powder packet RxNorm: 342822 1 Uni t Dose PO QD for constipation 05/30/2018 No Stop Date Active Mobic 7.5 mg tablet RxNorm: 360929 1 Tablet(s) PO QD for neck/b ack pain 05/24/2018 07/22/2018 Inactive Ultram 50 mg tablet RxNorm: 181748 1 Tablet(s) PO TID t linda with 1 extra strength Tylenol as needed for pain 05/09/2018 07/24/2018 Inactive Ultram 50 mg tablet RxNorm: 212525 1 Tablet(s) PO TID t linda with 1 extra strength Tylenol as needed for pain 04/26/2018 05/08/2018 Inactive Mobic 7.5 mg tablet RxNorm: 362610 1 Tablet(s) PO QD for neck/b ack pain 04/26/2018 05/23/2018 Inactive amlodipine 10 mg tablet RxNorm: 343639 TAKE 1 TABLET BY MOUTH O NCE DAILY 04/25/2018 11/20/2018 Inactive prednisone 20 mg tablet RxNorm: 870523 1 Tablet(s) PO B ID for 4 days then 1 po daily for 4 days 04/19/2018 04/25/2018 Inactive amlodipine 10 mg tablet RxNorm: 311865 1 Tablet(s) PO QD 09/26/2017 1 05/25/2017 Inactive prednisone 20 mg tablet RxNorm: 167223 1 Tablet(s) PO BID 06/23/2017 06/29/2017 Inactive amlodipine 10 mg tablet RxNorm: 392988 1 Tablet(s) PO QD 02/28/2017 0 09/26/2017 Inactive Cipro 500 mg tablet RxNorm: 449888 1 Tablet(s) PO BID 09/27/201609/17 Inactive amlodipine 10 mg tablet RxNorm: 881008 1 Tablet(s) PO QD 08/02/2016 1 Inactive Mobic 7.5 mg tablet RxNorm: 809346 1 Tablet(s) PO QD fo r 2weeks with food then go to every other day for 2 weeks then stop 04/19/2016 11/14/2016 Inac tive prednisone 20 mg tablet RxNorm: 491919 1 Tablet(s) PO BID 04/05/2016 04/11/2016 Inactive amlodipine 10 mg tablet RxNorm: 330782 1 Tablet(s) PO QD 02/02/2016 0 08/02/2016 Inactive Ultram 50 mg tablet RxNorm: 232941 1 Tablet(s) PO TID t linda with 1 extra strength Tylenol as needed for pain No Start Date 04/25/2018 Inactive amlodipine 10 mg tablet RxNorm: 795509 1 Tablet(s) PO QD No Start D ate 02/01/2016 Inactive meloxicam 7.5 mg tablet RxNorm: 923741 1 Tablet(s) PO QD No Start D ate 07/24/2018 Inactive tramadol 50 mg tablet RxNorm: 765965 1 Tablet(s) PO TID as needed for pain (take with one Tylenol Extra Strength) No Start Date 05/09/2018 Inactive Medication Administered No Medication Administered data Immunizations No Immunization data Results Observation Observation Code Item Item Code Result Date S ervice Location CT/GC Urine 99417 Chlamydia Ur Not Detected 09/29/[address]/GC Urine 82820 Gonorrhea Ur Not Detected 09/29/2016 Unknown COMPLETE BLOOD COUNT 6372453 WBC 7.7 10e9/L 09/29/19 17 Unknown COMPLETE BLOOD COUNT 9462442 RBC 4.70 10e12/L 2016 Unknown COMPLETE BLOOD COUNT 3800370 HEMOGLOBIN 14.3 g/dL 09/29/19 17 Unknown COMPLETE BLOOD COUNT 1743101 HEMATOCRIT 41.9 % 09/29/19 17 Unknown COMPLETE BLOOD COUNT 0468780 MCV 89.1 fL 7 Unknown COMPLETE BLOOD COUNT 0286058 MCH 30.4 pg 7 Unknown COMPLETE BLOOD COUNT 0661682 MCHC 34.1 g/dL 7 Unknown COMPLETE BLOOD COUNT 3583413 PLATELET COUNT 279 10e9/L Unknown COMPLETE BLOOD COUNT 0798409 Mean Plt Volume 10.6 fL Unknown COMPLETE BLOOD COUNT 0880771 Neut Auto 47.1 % 7 Unknown COMPLETE BLOOD COUNT 6645376 Lymph Auto 40.6 % 09/29/19 17 Unknown COMPLETE BLOOD COUNT 4248967 Slope Auto 5.8 % 7 Unknown COMPLETE BLOOD COUNT 3235864 RDW 13.2 % 7 Unknown COMPLETE BLOOD COUNT 2487522 Eos Auto 6.2 % 7 Unknown COMPLETE BLOOD COUNT 9181486 Baso Auto 0.3 % 7 Unknown COMPLETE BLOOD COUNT 2306351 Neutrophil Abs 3.63 10e9/L Unknown COMPLETE BLOOD COUNT 6224902 Lymphocyte Abs 3.13 10e9/L Unknown COMPLETE BLOOD COUNT 0574370 Monocyte Abs 0.45 10e9/L 09/16 Unknown COMPLETE BLOOD COUNT 0881955 Eosinophil Abs 0.48 10e9/L Unknown COMPLETE BLOOD COUNT 0885216 RDW-SD 42.4 fL 7 Unknown COMPLETE BLOOD COUNT 7162866 Basophil Abs 0.02 10e9/L 09/16 Unknown GFR CALC 4777570 GFR Non Afr Amr >60 mL/min 09/28/2016 Un known GFR CALC 7456855 GFR Afr Amr >60 mL/min 09/28/2016 Unknow n COMPREHENSIVE METABOLIC 56591 AST 12 U/L 2016 Unknown COMPREHENSIVE METABOLIC 01026 ALT 8 U/L 2016 Unknown COMPREHENSIVE METABOLIC 45165 BUN 11 mg/dL 2016 Unknown COMPREHENSIVE METABOLIC 15635 ALBUMIN 4.0 g/dL 2016 Unknown COMPREHENSIVE METABOLIC 24466 CHLORIDE 102 mmol/L 09/28 Unknown COMPREHENSIVE METABOLIC 32010 Bili Total 0.3 mg/dL 09/28 Unknown COMPREHENSIVE METABOLIC 68041 ALK PHOS 63 U/L 2016 Unknown COMPREHENSIVE METABOLIC 41383 SODIUM 140 mmol/L 09/28 Unknown COMPREHENSIVE METABOLIC 78319 CREATININE 1.00 mg/dL 09/16 Unknown COMPREHENSIVE METABOLIC 97958 CALCIUM 8.8 mg/dL 2016 Unknown COMPREHENSIVE METABOLIC 82759 POTASSIUM 3.8 mmol/L 09/28 Unknown COMPREHENSIVE METABOLIC 34995 Total Protein 6.9 g/dL Unknown COMPREHENSIVE METABOLIC 30645 Glucose 111 mg/dL 2016 Unknown COMPREHENSIVE METABOLIC 07101 Bicarbonate 29 mmol/L 09/16 Unknown COMPREHENSIVE METABOLIC 14351 AGAP 9 mmol/L 2016 Unknown GC/CHLAMYDIA DNA 65091|09677 Chl trach DNA TNP:Wrong Test 0 09/28/2016 Unknown GC/CHLAMYDIA DNA 91921|38878 GC PROBE TNP:Wrong Test 09/28 Unknown FREE T4 28060 T4 Free 1.34 ng/dL 02/06/2016 Unknown COMPREHENSIVE METABOLIC 39731 AST 14 U/L 2015 Unknown COMPREHENSIVE METABOLIC 60281 ALT 9 U/L 2015 Unknown COMPREHENSIVE METABOLIC 23904 BUN 9 mg/dL 2015 Unknown COMPREHENSIVE METABOLIC 92858 ALBUMIN 4.2 g/dL 2015 Unknown COMPREHENSIVE METABOLIC 71938 CHLORIDE 103 mmol/L 02/05 Unknown COMPREHENSIVE METABOLIC 09922 Bili Total 0.5 mg/dL 02/05 Unknown COMPREHENSIVE METABOLIC 84666 ALK PHOS 51 U/L 2015 Unknown COMPREHENSIVE METABOLIC 15701 SODIUM 140 mmol/L 02/05 Unknown COMPREHENSIVE METABOLIC 76650 CREATININE 0.97 mg/dL 01/17 Unknown COMPREHENSIVE METABOLIC 73196 CALCIUM 9.2 mg/dL 2015 Unknown COMPREHENSIVE METABOLIC 06227 POTASSIUM 4.1 mmol/L 02/05 Unknown COMPREHENSIVE METABOLIC 51974 Total Protein 6.9 g/dL Unknown COMPREHENSIVE METABOLIC 82520 Glucose 97 mg/dL 2015 Unknown COMPREHENSIVE METABOLIC 98431 Bicarbonate 31 mmol/L 01/17 Unknown COMPREHENSIVE METABOLIC 20426 AGAP 6 mmol/L 2015 Unknown PSA EQUIMOLAR AMNJEET 63989 PSA Total 2.71 ng/mL 6 Unknown LIPID GROUP 85248 Cholesterol 141 mg/dL 02/06/2016 Unkno wn LIPID GROUP 23368 Triglyceride 81 mg/dL 02/06/2016 Unkn own LIPID GROUP 97748 HDL CHOLESTEROL 59 mg/dL 02/06/2016 U nknown LIPID GROUP 49267 Chol/HDL Ratio 2.39 ratio 02/06/2016 U nknown LIPID GROUP 62718 NON-HDL Chol 82 mg/dL 02/06/2016 Unkn own LIPID GROUP 60675 LDL Cholesterol 66 mg/dL 02/06/2016 U nknown THYROID STIMULATING HORMONE 58559 TSH 1.220 uIU/mL 02/06/2016 Unknown COMPLETE BLOOD COUNT 7379554 WBC 4.2 10e9/L 02/06/20 16 Unknown COMPLETE BLOOD COUNT 1628802 RBC 4.91 10e12/L 2015 Unknown COMPLETE BLOOD COUNT 7817129 HEMOGLOBIN 15.0 g/dL 02/06/20 16 Unknown COMPLETE BLOOD COUNT 4360033 HEMATOCRIT 43.9 % 02/06/20 16 Unknown COMPLETE BLOOD COUNT 5657942 MCV 89.4 fL 6 Unknown COMPLETE BLOOD COUNT 7282557 MCH 30.5 pg 6 Unknown COMPLETE BLOOD COUNT 0558308 MCHC 34.2 g/dL 6 Unknown COMPLETE BLOOD COUNT 3237170 PLATELET COUNT 224 10e9/L Unknown COMPLETE BLOOD COUNT 2328869 Mean Plt Volume 10.1 fL Unknown COMPLETE BLOOD COUNT 0786372 Neut Auto 46.6 % 6 Unknown COMPLETE BLOOD COUNT 4356177 Lymph Auto 39.2 % 02/06/20 16 Unknown COMPLETE BLOOD COUNT 3859781 Slope Auto 8.8 % 6 Unknown COMPLETE BLOOD COUNT 5960908 RDW 13.3 % 6 Unknown COMPLETE BLOOD COUNT 8090273 Eos Auto 5.2 % 6 Unknown COMPLETE BLOOD COUNT 1782777 Baso Auto 0.2 % 6 Unknown COMPLETE BLOOD COUNT 1561852 Neutrophil Abs 1.96 10e9/L Unknown COMPLETE BLOOD COUNT 0671394 Lymphocyte Abs 1.65 10e9/L Unknown COMPLETE BLOOD COUNT 8156615 Monocyte Abs 0.37 10e9/L 01/17 Unknown COMPLETE BLOOD COUNT 6905641 Eosinophil Abs 0.22 10e9/L Unknown COMPLETE BLOOD COUNT 1781544 RDW-SD 42.8 fL 6 Unknown COMPLETE BLOOD COUNT 2191823 Basophil Abs 0.01 10e9/L 01/17 Unknown GFR CALC 9666107 GFR Non Afr Amr >60 mL/min 02/06/2016 Un known GFR CALC 7161997 GFR Afr Amr >60 mL/min 02/06/2016 Unknow n Procedures Procedure Codes Date THER/PROPH/DIAG INJ SC/IM CPT-4: 58612 06/23/2017 TRIAMCINOLONE ACET INJ NOS CPT-4: J3301 06/23/2017 DEXAMETHASONE SODIUM PHOS CPT-4: J1100 06/23/2017 URINALYSIS NONAUTO W/O SCOPE CPT-4: 79517 09/27/2016 URINE CULTURE/ COLONY COUNT CPT-4: 30366 09/27/2016 GC/CHLAMYDIA DNA (BD-ProbeTec) CPT-4: 81954|16754 7 ROUTINE VENIPUNCTURE CPT-4: 38347 09/27/2016 COMPREHEN METABOLIC PANEL CPT-4: 77375 09/27/2016 COMPLETE CBC W/AUTO DIFF WBC CPT-4: 57105 09/27/2016 CEFTRIAXONE SODIUM INJECTION CPT-4: J0696 09/27/2016 THER/PROPH/DIAG INJ SC/IM CPT-4: 88512 09/27/2016 ROUTINE VENIPUNCTURE CPT-4: 62098 02/06/2016 ASSAY OF FREE THYROXINE CPT-4: 09033 02/06/2016 ASSAY THYROID STIM HORMONE CPT-4: 10635 02/06/2016 COMPREHEN METABOLIC PANEL CPT-4: 91161 02/06/2016 COMPLETE CBC W/AUTO DIFF WBC CPT-4: 48658 02/06/2016 LIPID PANEL CPT-4: 87021 02/06/2016 ASSAY OF PSA TOTAL CPT-4: 91872 02/06/2016 ADMIN INFLUENZA VIRUS VAC CPT-4: G0008 [...] 1: 126/78 Code: 8480-6 BMI: 22.8 Code: 84093-9 Heart Rate 1: 52 bpm Height: 6' Respiratory Rate: 20 bpm SpO2: 94% Tempera ture: 36.9 (C) / 98.4 (F) Weight: 168 lbs 05/30/2018 Blood Pressure 1: 124/68 Code: 8480-6 BMI: 22.8 Code: 10197-3 Heart Rate 1: 56 bpm Height: 6' [...] 1: 126/64 Code: 8480-6 BMI: 23.1 Code: 46374-9 Heart Rate 1: 56 bpm Height: 6' Respiratory Rate: 20 bpm Temperature: 36 .7 (C) / 98.1 (F) Weight: 170 lbs 06/23/2017 Blood Pressure 1: 138/80 Code: 8480-6 BMI: 22.4 Code: 28683-4 Heart Rate 1: 84 bpm Height: 6' Respiratory Rate: 20 bpm Temperature: 37 .2 (C) / 98.9 (F) Weight: 165 lbs 12/14/2016 Blood Pressure 1: 126/80 Code: 8480-6 BMI: 21.4 Code: 38621-2 Heart Rate 1: 72 bpm Height: 6' Respiratory Rate: 20 bpm SpO2: 96% Tempera ture: 37.0 (C) / 98.6 (F) Weight: 158 lbs 11/15/2016 Blood Pressure 1: 122/68 Code: 8480-6 BMI: 22.9 Code: 06440-6 Heart Rate 1: 68 bpm Height: 6' Respiratory Rate: 20 bpm SpO2: 95% Tempera ture: 36.9 (C) / 98.4 (F) Weight: 169 lbs 09/27/2016 Blood Pressure 1: 148/88 Code: 8480-6 BMI: 23.9 Code: 23157-7 Heart Rate 1: 72 bpm Height: 6' Respiratory Rate: 22 bpm SpO2: 98% Tempera ture: 36.7 (C) / 98.0 (F) Weight: 176 lbs 04/19/2016 Blood Pressure 1: 126/58 Code: 8480-6 BMI: 23.9 Code: 73140-4 Heart Rate 1: 80 bpm Height: 6' Respiratory Rate: 20 bpm SpO2: 94% Tempera ture: 36.6 (C) / 97.8 (F) Weight: 176 lbs 04/05/2016 Blood Pressure 1: 126/70 Code: 8480-6 BMI: 23.6 Code: 44994-2 Heart Rate 1: 56 bpm Height: 6' Respiratory Rate: 20 bpm Temperature: 36 .8 (C) / 98.2 (F) Weight: 174 lbs 02/02/2016 Blood Pressure 1: 136/88 Code: 8480-6 BMI: 23.5 Code: 83109-3 Heart Rate 1: 60 bpm Height: 6' [...] Constipation[ICD10: K59.00] Brett WEST S. O RENDER Flud CPT-4: 49155 03/27/2019 ([id number]) OFFICE/OUTPATIENT VISIT EST Diagnosis: Mass of right side of neck[ICD10: R22.1] Taylor Christian SANDRA CHINO S. ORENDER Flud CPT-4: 14130 02/07/2019 ([id number]) OFFICE/OUTPATIENT VISIT EST Diagnosis: URI, ACUTE[ICD10: J06.9] Brett WEST S. 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 CPT-4: 71676 07/25/2018 ([id number]) OFFICE/OUTPATIENT VISIT EST Diagnosis: Slow transit constipation[ICD10: K59.01] Brett ARREDONDO DO 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 CPT-4: 13179 04/26/2018 ([id number]) OFFICE/OUTPATIENT VISIT EST Diagnosis: Lumbago with sciatica, left side[ICD10: M54.42] Brett ARREDONDO DO [facility] CPT-4: 56595 04/19/2018 ([id number]) OFFICE/OUTPATIENT VISIT EST Diagnosis: Lumbago with sciatica, left side[ICD10: M54.42] Brett ARREDONDO DO [facility] CPT-4: 63164 06/23/2017 ([id number]) OFFICE/OUTPATIENT VISIT EST Diagnosis: Other intestinal obstruction[ICD10: K56.69] Diagnosis: Essential (primary) hypertension[ICD10: I10] Brett ARREDONDO DO [facility] CPT-4: 42749 12/14/2016 ([id number]) OFFICE/OUTPATIENT VISIT EST Diagnosis: Lumbago with sciatica, left side[ICD10: M54.42] Brett ARREDONDO DO [facility] CPT-4: 84102 11/15/2016 OFFICE/OUTPATIENT VISIT EST Diagnosis: Epididymitis[ICD10: N45.1] Judy SanchezWade BRETT HUI [employer] [facility] CPT-4: 27853 09/27/2016 ([id number]) OFFICE/OUTPATIENT VISIT EST Diagnosis: Lumbago with sciatica, left side[ICD10: M54.42] Brett ARREDONDO DO [facility] CPT-4: 47844 04/19/2016 ([id number]) OFFICE/OUTPATIENT VISIT EST Diagnosis: Lumbago with sciatica, left side[ICD10: M54.42] Brett ARREDONDO DO [facility] CPT-4: 90794 04/05/2016 ([id number]) OFFICE/OUTPATIENT VISIT EST Diagnosis: Essential (primary) hypertension[ICD10: I10] Diagnosis: Encounter for screening for malignant neoplasm of prostate[ICD10: Z12.5] Diagnosis: Other fatigue[ICD10: R53.83] Brett ARREDONDO DO [facility] CPT-4: 40058 02/06/2016 ([id number]) OFFICE/OUTPATIENT VISIT NEW Diagnosis: Essential (primary) hypertension[ICD10: I10] Diagnosis: FLU VACCINE[ICD10: Z23] Rubi ARREDONDO DO [facility] CPT-4: 86066 02/02/2016 Plan of Care Planned Activity Notes [...] ICD-10 : R22.1 02/07/2019 Appointment: Taylor Christian [address] [place], [place] [address] ACUTE ILLNESS 02/07/2019 Visit Diagnosis Plan: URI, ACUTE Discussion: Doxycycli ne and prednisone Notify if persists/worsening ICD-9 : 465.9 ICD-10 : J06.9 10/24/2018 Appointment: Brett Arredondo WPtel: [address] [place], [place] [address] ACUTE ILLNESS 10/24/2018 Patient Education: doxycycline hyclate- [employer] Cou dagmar [id number] https://www.[employer]/resources/getResource/61/[email or web address] Completed 10/24/2018 Patient Education: prednisone- [employer] Coupon [id number] https://www.[employer]/resources/getResource/61/3288b239-[email or web address] Completed 10/24/2018 Visit Diagnosis Plan: Intervertebral dis c disorders with myelopathy, lumbar region Discussion: Add lyrica 150mg q HS Add di clofenac ER 100mg po BID and pepcid for stomach protection Does not want surgery Recheck 1month ICD-9 : 722.73 ICD-10 : M51.06 09/27/2018 Appointment: Brett Arredondo WPtel: [address] [place], [place] [phone] FOLLOW UP 09/27/2018 Patient Education: famotidine- [employer] Coupon [id number] https://www.[employer]/resources/getResource/[email or web address] Completed 09/27/2018 Visit Diagnosis Plan: Intervertebral dis [...] : M51.06 09/13/2018 Appointment: Taylor Christian [address] [facility] [place] FOLLOW UP 09/13/2018 Patient Education: Celebrex- [employer] Coupon [id number] https://www.[employer]/resources/getResource/61/[email or web address] Completed 09/13/2018 Patient Education: Lyrica- [employer] Coupon [id number] https://www.[employer]/resources/getResource/61/[email or web address].pdf Completed 09/13/2018 Visit Diagnosis Plan: Intervertebral dis c disorders with myelopathy, lumbar region Discussion: Proceed with epidural Add lo w dose baclofen q HS for spasm/pain Continue mobic Tramadol prn ICD-9 : 722.73 ICD-10 : M51.06 07/25/2018 Appointment: Brett Arredondo WPtel: [facility] FOLLOW UP 07/25/2018 Patient Education: meloxicam- [employer] Coupon [id number] https://www.[employer]/resources/getResource/61/[email or web address]-[email or web address] Completed 07/25/2018 Patient Education: baclofen- [employer] Coupon [id number] https://www.[employer]/resources/getResource/61/[email or web address] Completed 07/25/2018 Care Plan: Referral Order SNOMED-CT : 30 [id number] Pending 07/25/2018 Visit Diagnosis Plan: Slow transit constipation Discus alverto: Warm prune juice daily Start miralax daily Notify if worsening or above regimen not effective ICD-9 : 564.01 ICD-10 : K59.05/30/2018 Appointment: Brett Arredondo WPtel: [address] [place], [place] [phone] ACUTE ILLNESS 05/30/2018 Visit Diagnosis Plan: Intervertebral [...] : R77.9 05/10/2018 Appointment: Brett Arredondo WPtel: [address] [place] [address] FOLLOW UP 05/10/2018 Visit Diagnosis Plan: Lumbago with sciatica, left side Discussion: Check MRI of L/S spine Start PT Low dose Mobic and tramadol 50mg with tylenol XS TID prn May need PET scan to further assess left iliac lesion--will await MRI results ICD-9 : 724.3 ICD-10 : M54.42 04/26/2018 Appointment: Brett Arredondo WPtel: [address] [place] [address] FOLLOW UP 04/26/2018 Visit Diagnosis Plan: Lumbago with sciatica, left side Discussion: Obtain ER records from [facility] Prednisone taper Topical muscle rub Recheck 1 week May need PT ICD-9 : 724.3 ICD-10 : M54.42 04/19/2018 Appointment: Brett Arredondo WPtel: [address] [place], [place] [phone] ACUTE ILLNESS 04/19/2018 Patient Education: prednisone- [employer] Coupon [id number] https://[email or web address].com/[email or web address]/resources/getResource/61/[email or web address] Completed 04/19/2018 Visit Diagnosis Plan: Lumbago with sciatica, left side Discussion: Kenalog/Dexamethasone now and then prednisone tomorrow Call in 1 week on how doing Will need MRI of L/S spine if persists or worsens ICD-9 : 724.3 ICD-10 : M54.42 06/23/2017 [facility]ment: [facility] [phone] [facility] [facility] 06/23/2017 Patient Education: Patient Medication Summary Completed 06/23/2017 Visit Diagnosis Plan: Other intestinal obstruction Dis cussion: Continue on stool softener and observe Will hold on colonoscopy as last one was end of 2013 and normal ICD-9 : 560.9 ICD-10 : K56.69 12/14/2016 Visit Diagnosis Plan: Essential (primary) hypertension Discussion: Stable ICD-9 : 401.9 ICD-10 : I10 12/14/2016 Appointment: Brett [facility] [phone] [facility] [facility] 12/14/2016 Patient Education: Patient Medication Summary Completed 12/14/2016 Patient Education: Patient Medication Summary Completed 11/17/2016 Visit Diagnosis Plan: Lumbago with sciatica, left side Discussion: Finish prednisone Check L/S spine x-ray Will likely start PT after above results obtained ICD-9 : 724.3 ICD-10 : M54.42 11/15/2016 Appointment: Brett [facility] [phone] [facility] 11/11 confirmed`sl Urgent/Quick Care Follow Up Patient Education: Patient Medication Summary Completed 11/15/2016 Care Plan: X-RAY EXAM L-S SPINE 2/ VWS LOINC : 68516-0 Pending 11/15/2016 Visit Plan: CBC, CMP, UA [...] not resolve. 09/27/2016 Appointment: Judy Cheung WPtel: [address] [place] [address] ER Follow UP 09/27/2016 Patient Education: Patient Medication Summary Completed 09/27/2016 Visit Plan: Will do low dose mobic daily for 2 weeks with food then every other day for 2 weeks then stop Continue daily back stretches If pain returns will check L/S spine x-rays 04/19/2016 Appointment: Brett Arredondo WPtel: [address] [place], [place] [phone] 04/15 confirmed `sl FOLLOW UP 04/19/2016 Patient Education: Patient Medication Summary Completed 04/19/2016 Visit Plan: Daily back stretches, moist heat, Biofreeze prn Prednisone Recheck 1 week If pain persists then will need x-rays and PT 04/05/2016 Appointment: Brett Arredondo WPtel: [address] [place] [address] ACUTE ILLNESS 04/05/2016 Patient Education: Patient Medication Summary Completed 04/05/2016 Appointment: Brett Arredondo WPtel: [address] [place] [address] LAB 02/06/2016 Patient Education: Patient Medication Summary [...] in 3 months 02/02/2016 Appointment: Rubi Cantu [address] [place] [address] 02/01 confirmed ~sl NEW PATIENT 02/02/2016 Patient Education: Patient Medication Summary Completed 02/02/2016 Referral: Cassius Jaquez WPtel: [facility] [address], [address] Referral Completed Referral: Cassius Jaquez WPtel: [facility] [place] [address] [facility], [facility] [address] [id number] [place] Referral Appointment Requested Referral: Dr. Daryl WPtel: Referral Initiated Referral: Ted Zavaleta [facility] [address] [facility] [place] Referral Initiated Instructions Comment . CBC, [...]
--- OUTSIDE RECORDS SUMMARY | 2019-04-19 16:33 | XMS REPORT | CCD ---
Author Author Girma Cantu Organization BRETT ARREDONDO DO [facility] Address [address] [place] [address] Phone Unavailable Care Team Providers Care Media Relations Coordinator Name Role Phone Brett Arredondo D.O., PP Unavailable CCM Unavailable Summary Purpose Interface Exchange Insurance Providers Payer name Policy type / Coverage type Covered libertarian ID Effective Begin Date Effective End Date WPS MEDIC[place] PART [place] Part B [id number] Unknown [place] Medicare Part B [id number] 2018 200 Unknown Family History Family History data not found Social History Social History Element Codes Description Effective Dates Marital status Unknown 02/02/2016 Number of children Unknown 4 02/02/2016 Employment Unknown Currently employed [employer] 02/02/[address]: 00655566 Current every day smoker Number of cigarettes/day Unknown 20 (One Pack) [address]: 023781 Currently drinks alcohol 02/01 Frequency of drinks SNOMED CT: 356917604 7 drinks per week 02/01 Allergies, Adverse [...] Fill Instructions amlodipine 10 mg tablet RxNorm: 240562 1 Tablet(s) Oral QD 03/27/20 19 03/27/2019 Inactive amlodipine 10 mg tablet RxNorm: 380995 1 Tablet(s) Oral QD 02/02/20 19 02/01/2019 Inactive prednisone 20 mg tablet RxNorm: 471691 1 Tablet(s) PO BID 11/23/2018 12/06/2018 Inactive amlodipine 10 mg tablet RxNorm: 583933 1 Tablet(s) PO QD 11/20/2018 0 11/19/2018 Inactive doxycycline hyclate 100 mg capsule RxNorm: 8203475 1 Capsule(s) PO BID 10/24/2018 10/30/2018 Inactive prednisone 20 mg tablet RxNorm: 393777 1 Tablet(s) PO BID 10/24/2018 10/30/2018 Inactive diclofenac ER 100 mg tablet,extended release 24 hr RxNorm: 8 24420 1 Tablet(s) PO BID for back pain 09/27/2018 10/23/2018 Inactive famotidine 20 mg tablet RxNorm: 421765 1 Tablet(s) PO QHS for s tomach 09/27/2018 10/23/2018 Inactive Celebrex 200 mg capsule RxNorm: 393083 1 Capsule(s) PO BID 09/14/19 19 09/26/2018 Inactive Lyrica 50 mg capsule RxNorm: 261432 1 Capsule(s) PO QHS 09/13/2018 Inactive Ultram 50 mg tablet RxNorm: 582544 1 Tablet(s) PO TID t linda with 1 extra strength Tylenol as needed for pain 07/25/2018 No Stop Date Active Mobic 7.5 mg tablet RxNorm: 932089 1 Tablet(s) PO QD for neck/b ack pain 07/25/2018 08/23/2018 Inactive meloxicam 7.5 mg tablet RxNorm: 924789 1 Tablet(s) PO QD in AM for pain 07/25/2018 09/12/2018 Inactive baclofen 10 mg tablet RxNorm: 687776 1 Tablet(s) PO QHS for spasm 0 07/25/2018 09/22/2018 Inactive Miralax 17 gram oral powder packet RxNorm: 204000 1 Uni t Dose PO QD for constipation 05/30/2018 No Stop Date Active Mobic 7.5 mg tablet RxNorm: 183807 1 Tablet(s) PO QD for neck/b ack pain 05/24/2018 07/22/2018 Inactive Ultram 50 mg tablet RxNorm: 627907 1 Tablet(s) PO TID t linda with 1 extra strength Tylenol as needed for pain 05/09/2018 07/24/2018 Inactive Ultram 50 mg tablet RxNorm: 381526 1 Tablet(s) PO TID t linda with 1 extra strength Tylenol as needed for pain 04/26/2018 05/08/2018 Inactive Mobic 7.5 mg tablet RxNorm: 655460 1 Tablet(s) PO QD for neck/b ack pain 04/26/2018 05/23/2018 Inactive amlodipine 10 mg tablet RxNorm: 854756 TAKE 1 TABLET BY MOUTH O NCE DAILY 04/25/2018 11/20/2018 Inactive prednisone 20 mg tablet RxNorm: 052548 1 Tablet(s) PO B ID for 4 days then 1 po daily for 4 days 04/19/2018 04/25/2018 Inactive amlodipine 10 mg tablet RxNorm: 071251 1 Tablet(s) PO QD 09/26/2017 1 05/25/2017 Inactive prednisone 20 mg tablet RxNorm: 154796 1 Tablet(s) PO BID 06/23/2017 06/29/2017 Inactive amlodipine 10 mg tablet RxNorm: 679083 1 Tablet(s) PO QD 02/28/2017 0 09/26/2017 Inactive Cipro 500 mg tablet RxNorm: 445673 1 Tablet(s) PO BID 09/27/201609/17 Inactive amlodipine 10 mg tablet RxNorm: 734836 1 Tablet(s) PO QD 08/02/2016 1 Inactive Mobic 7.5 mg tablet RxNorm: 474836 1 Tablet(s) PO QD fo r 2weeks with food then go to every other day for 2 weeks then stop 04/19/2016 11/14/2016 Inac tive prednisone 20 mg tablet RxNorm: 936485 1 Tablet(s) PO BID 04/05/2016 04/11/2016 Inactive amlodipine 10 mg tablet RxNorm: 573519 1 Tablet(s) PO QD 02/02/2016 0 08/02/2016 Inactive Ultram 50 mg tablet RxNorm: 191334 1 Tablet(s) PO TID t linda with 1 extra strength Tylenol as needed for pain No Start Date 04/25/2018 Inactive amlodipine 10 mg tablet RxNorm: 230467 1 Tablet(s) PO QD No Start D ate 02/01/2016 Inactive meloxicam 7.5 mg tablet RxNorm: 732895 1 Tablet(s) PO QD No Start D ate 07/24/2018 Inactive tramadol 50 mg tablet RxNorm: 955028 1 Tablet(s) PO TID as needed for pain (take with one Tylenol Extra Strength) No Start Date 05/09/2018 Inactive Medication Administered No Medication Administered data Immunizations No Immunization data Results Observation Observation Code Item Item Code Result Date S ervice Location CT/GC Urine 30465 Chlamydia Ur Not Detected 09/29/[address]/GC Urine 78445 Gonorrhea Ur Not Detected 09/29/2016 Unknown COMPLETE BLOOD COUNT 9092255 WBC 7.7 10e9/L 09/29/19 17 Unknown COMPLETE BLOOD COUNT [id number] RBC 4.70 10e12/L 2016 Unknown COMPLETE BLOOD COUNT 6465366 HEMOGLOBIN 14.3 g/dL 09/29/19 17 Unknown COMPLETE BLOOD COUNT 3479418 HEMATOCRIT 41.9 % 09/29/19 17 Unknown COMPLETE BLOOD COUNT [id number] MCV 89.1 fL 7 Unknown COMPLETE BLOOD COUNT 0532548 MCH 30.4 pg 7 Unknown COMPLETE BLOOD COUNT 1116550 MCHC 34.1 g/dL 7 Unknown COMPLETE BLOOD COUNT 7478222 PLATELET COUNT 279 10e9/L Unknown COMPLETE BLOOD COUNT 4510199 Mean Plt Volume 10.6 fL Unknown COMPLETE BLOOD COUNT 5120210 Neut Auto 47.1 % 7 Unknown COMPLETE BLOOD COUNT 6958705 Lymph Auto 40.6 % 09/29/19 17 Unknown COMPLETE BLOOD COUNT 6875477 [place] Auto 5.8 % 7 Unknown COMPLETE BLOOD COUNT 0771447 RDW 13.2 % 7 Unknown COMPLETE BLOOD COUNT 0826343 Eos Auto 6.2 % 7 Unknown COMPLETE BLOOD COUNT 7219282 Baso Auto 0.3 % 7 Unknown COMPLETE BLOOD COUNT 2835134 Neutrophil Abs 3.63 10e9/L Unknown COMPLETE BLOOD COUNT 2765931 Lymphocyte Abs 3.13 10e9/L Unknown COMPLETE BLOOD COUNT 4816993 Monocyte Abs 0.45 10e9/L 09/16 Unknown COMPLETE BLOOD COUNT 5534857 Eosinophil Abs 0.48 10e9/L Unknown COMPLETE BLOOD COUNT 6417105 RDW-SD 42.4 fL 7 Unknown COMPLETE BLOOD COUNT 7543967 Basophil Abs 0.02 10e9/L 09/16 Unknown GFR CALC 0254386 GFR Non Afr Amr >60 mL/min 09/28/2016 Un known GFR CALC 6846709 GFR Afr Amr >60 mL/min 09/28/2016 Unknow n COMPREHENSIVE METABOLIC 80420 AST 12 U/L 2016 Unknown COMPREHENSIVE METABOLIC 78675 ALT 8 U/L 2016 Unknown COMPREHENSIVE METABOLIC 29523 BUN 11 mg/dL 2016 Unknown COMPREHENSIVE METABOLIC 27356 ALBUMIN 4.0 g/dL 2016 Unknown COMPREHENSIVE METABOLIC 46950 CHLORIDE 102 mmol/L 09/28 Unknown COMPREHENSIVE METABOLIC 90636 Bili Total 0.3 mg/dL 09/28 Unknown COMPREHENSIVE METABOLIC 61482 ALK PHOS 63 U/L 2016 Unknown COMPREHENSIVE METABOLIC 74279 SODIUM 140 mmol/L 09/28 Unknown COMPREHENSIVE METABOLIC 86803 CREATININE 1.00 mg/dL 09/16 Unknown COMPREHENSIVE METABOLIC 44550 CALCIUM 8.8 mg/dL 2016 Unknown COMPREHENSIVE METABOLIC 93251 POTASSIUM 3.8 mmol/L 09/28 Unknown COMPREHENSIVE METABOLIC 08491 Total Protein 6.9 g/dL Unknown COMPREHENSIVE METABOLIC 53438 Glucose 111 mg/dL 2016 Unknown COMPREHENSIVE METABOLIC 07465 Bicarbonate 29 mmol/L 09/16 Unknown COMPREHENSIVE METABOLIC 63462 AGAP 9 mmol/L 2016 Unknown GC/CHLAMYDIA DNA 37998|72888 Chl trach DNA TNP:Wrong Test 0 09/28/2016 Unknown GC/CHLAMYDIA DNA 50096|12466 GC PROBE TNP:Wrong Test 09/28 Unknown FREE T4 48512 T4 Free 1.34 ng/dL 02/06/2016 Unknown COMPREHENSIVE METABOLIC 73383 AST 14 U/L 2015 Unknown COMPREHENSIVE METABOLIC 40075 ALT 9 U/L 2015 Unknown COMPREHENSIVE METABOLIC 06798 BUN 9 mg/dL 2015 Unknown COMPREHENSIVE METABOLIC 22554 ALBUMIN 4.2 g/dL 2015 Unknown COMPREHENSIVE METABOLIC 25024 CHLORIDE 103 mmol/L 02/05 Unknown COMPREHENSIVE METABOLIC 84422 Bili Total 0.5 mg/dL 02/05 Unknown COMPREHENSIVE METABOLIC 90371 ALK PHOS 51 U/L 2015 Unknown COMPREHENSIVE METABOLIC 83292 SODIUM 140 mmol/L 02/05 Unknown COMPREHENSIVE METABOLIC 05836 CREATININE 0.97 mg/dL 01/17 Unknown COMPREHENSIVE METABOLIC 47059 CALCIUM 9.2 mg/dL 2015 Unknown COMPREHENSIVE METABOLIC 01506 POTASSIUM 4.1 mmol/L 02/05 Unknown COMPREHENSIVE METABOLIC 90307 Total Protein 6.9 g/dL Unknown COMPREHENSIVE METABOLIC 51840 Glucose 97 mg/dL 2015 Unknown COMPREHENSIVE METABOLIC 89821 Bicarbonate 31 mmol/L 01/17 Unknown COMPREHENSIVE METABOLIC 45546 AGAP 6 mmol/L 2015 Unknown PSA EQUIMOLAR MANJEET 51381 PSA Total 2.71 ng/mL 6 Unknown LIPID GROUP 14563 Cholesterol 141 mg/dL 02/06/2016 Unkno wn LIPID GROUP 08238 Triglyceride 81 mg/dL 02/06/2016 Unkn own LIPID GROUP 68368 HDL CHOLESTEROL 59 mg/dL 02/06/2016 U nknown LIPID GROUP 59542 Chol/HDL Ratio 2.39 ratio 02/06/2016 U nknown LIPID GROUP 11468 NON-HDL Chol 82 mg/dL 02/06/2016 Unkn own LIPID GROUP 10057 LDL Cholesterol 66 mg/dL 02/06/2016 U nknown THYROID STIMULATING HORMONE 01549 TSH 1.220 uIU/mL 02/06/2016 Unknown COMPLETE BLOOD COUNT 0705994 WBC 4.2 10e9/L 02/06/20 16 Unknown COMPLETE BLOOD COUNT 7349682 RBC 4.91 10e12/L 2015 Unknown COMPLETE BLOOD COUNT 4825786 HEMOGLOBIN 15.0 g/dL 02/06/20 16 Unknown COMPLETE BLOOD COUNT 1303963 HEMATOCRIT 43.9 % 02/06/20 16 Unknown COMPLETE BLOOD COUNT 0966815 MCV 89.4 fL 6 Unknown COMPLETE BLOOD COUNT 7826926 MCH 30.5 pg 6 Unknown COMPLETE BLOOD COUNT 2905208 MCHC 34.2 g/dL 6 Unknown COMPLETE BLOOD COUNT 3211781 PLATELET COUNT 224 10e9/L Unknown COMPLETE BLOOD COUNT 9541456 Mean Plt Volume 10.1 fL Unknown COMPLETE BLOOD COUNT 2375282 Neut Auto 46.6 % 6 Unknown COMPLETE BLOOD COUNT 5035209 Lymph Auto 39.2 % 02/06/20 16 Unknown COMPLETE BLOOD COUNT 5598344 [place] Auto 8.8 % 6 Unknown COMPLETE BLOOD COUNT 5424864 RDW 13.3 % 6 Unknown COMPLETE BLOOD COUNT 1948850 Eos Auto 5.2 % 6 Unknown COMPLETE BLOOD COUNT 1160282 Baso Auto 0.2 % 6 Unknown COMPLETE BLOOD COUNT 2508155 Neutrophil Abs 1.96 10e9/L Unknown COMPLETE BLOOD COUNT 7991117 Lymphocyte Abs 1.65 10e9/L Unknown COMPLETE BLOOD COUNT 9386807 Monocyte Abs 0.37 10e9/L 01/17 Unknown COMPLETE BLOOD COUNT 5329754 Eosinophil Abs 0.22 10e9/L Unknown COMPLETE BLOOD COUNT 8784163 RDW-SD 42.8 fL 6 Unknown COMPLETE BLOOD COUNT 9887316 Basophil Abs 0.01 10e9/L 01/17 Unknown GFR CALC 7582944 GFR Non Afr Amr >60 mL/min 02/06/2016 Un known GFR CALC 9394255 GFR Afr Amr >60 mL/min 02/06/2016 Unknow n Procedures Procedure Codes Date THER/PROPH/DIAG INJ SC/IM CPT-4: 25384 06/23/2017 TRIAMCINOLONE ACET INJ NOS CPT-4: J3301 06/23/2017 DEXAMETHASONE SODIUM PHOS CPT-4: J1100 06/23/2017 URINALYSIS NONAUTO W/O SCOPE CPT-4: 18835 09/27/2016 URINE CULTURE/ COLONY COUNT CPT-4: 47639 09/27/2016 GC/CHLAMYDIA DNA (BD-ProbeTec) CPT-4: 73816|72900 7 ROUTINE VENIPUNCTURE CPT-4: 57224 09/27/2016 COMPREHEN METABOLIC PANEL CPT-4: 72122 09/27/2016 COMPLETE CBC W/AUTO DIFF WBC CPT-4: 51826 09/27/2016 CEFTRIAXONE SODIUM INJECTION CPT-4: J0696 09/27/2016 THER/PROPH/DIAG INJ SC/IM CPT-4: 40142 09/27/2016 ROUTINE VENIPUNCTURE CPT-4: 03637 02/06/2016 ASSAY OF FREE THYROXINE CPT-4: 17884 02/06/2016 ASSAY THYROID STIM HORMONE CPT-4: 88233 02/06/2016 COMPREHEN METABOLIC PANEL CPT-4: 08621 02/06/2016 COMPLETE CBC W/AUTO DIFF WBC CPT-4: 38849 02/06/2016 LIPID PANEL CPT-4: 65752 02/06/2016 ASSAY OF PSA TOTAL CPT-4: 23395 02/06/2016 ADMIN INFLUENZA VIRUS VAC CPT-4: G0008 [...] 1: 126/78 Code: 8480-6 BMI: 22.8 Code: 29813-4 Heart Rate 1: 52 bpm Height: 6' Respiratory Rate: 20 bpm SpO2: 94% Tempera ture: 36.9 (C) / 98.4 (F) Weight: 168 lbs 05/30/2018 Blood Pressure 1: 124/68 Code: 8480-6 BMI: 22.8 Code: 73382-1 Heart Rate 1: 56 bpm Height: 6' [...] 1: 126/64 Code: 8480-6 BMI: 23.1 Code: 28070-4 Heart Rate 1: 56 bpm Height: 6' Respiratory Rate: 20 bpm Temperature: 36 .7 (C) / 98.1 (F) Weight: 170 lbs 06/23/2017 Blood Pressure 1: 138/80 Code: 8480-6 BMI: 22.4 Code: 50169-5 Heart Rate 1: 84 bpm Height: 6' Respiratory Rate: 20 bpm Temperature: 37 .2 (C) / 98.9 (F) Weight: 165 lbs 12/14/2016 Blood Pressure 1: 126/80 Code: 8480-6 BMI: 21.4 Code: 41501-0 Heart Rate 1: 72 bpm Height: 6' Respiratory Rate: 20 bpm SpO2: 96% Tempera ture: 37.0 (C) / 98.6 (F) Weight: 158 lbs 11/15/2016 Blood Pressure 1: 122/68 Code: 8480-6 BMI: 22.9 Code: 69983-2 Heart Rate 1: 68 bpm Height: 6' Respiratory Rate: 20 bpm SpO2: 95% Tempera ture: 36.9 (C) / 98.4 (F) Weight: 169 lbs 09/27/2016 Blood Pressure 1: 148/88 Code: 8480-6 BMI: 23.9 Code: 16455-6 Heart Rate 1: 72 bpm Height: 6' Respiratory Rate: 22 bpm SpO2: 98% Tempera ture: 36.7 (C) / 98.0 (F) Weight: 176 lbs 04/19/2016 Blood Pressure 1: 126/58 Code: 8480-6 BMI: 23.9 Code: 85783-2 Heart Rate 1: 80 bpm Height: 6' Respiratory Rate: 20 bpm SpO2: 94% Tempera ture: 36.6 (C) / 97.8 (F) Weight: 176 lbs 04/05/2016 Blood Pressure 1: 126/70 Code: 8480-6 BMI: 23.6 Code: 90607-2 Heart Rate 1: 56 bpm Height: 6' Respiratory Rate: 20 bpm Temperature: 36 .8 (C) / 98.2 (F) Weight: 174 lbs 02/02/2016 Blood Pressure 1: 136/88 Code: 8480-6 BMI: 23.5 Code: 36241-1 Heart Rate 1: 60 bpm Height: 6' [...] Constipation[ICD10: K59.00] Brett WEST S. O RENDER [employer] CPT-4: 81644 03/27/2019 ([id number]) OFFICE/OUTPATIENT VISIT EST Diagnosis: Mass of right side of neck[ICD10: R22.1] Taylor Christian SANDRA CHINO S. ORENDER [employer] CPT-4: 49045 02/07/2019 ([id number]) OFFICE/OUTPATIENT VISIT EST Diagnosis: URI, ACUTE[ICD10: J06.9] Brett WEST S. 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] Brett ARREDONDO DO [facility] CPT-4: 85207 07/25/2018 ([id number]) OFFICE/OUTPATIENT VISIT EST Diagnosis: Slow transit constipation[ICD10: K59.01] Brett ARREDONDO DO [facility] CPT-4: 26593 05/30/2018 ([id number]) OFFICE/OUTPATIENT VISIT EST Diagnosis: Intervertebral disc disorders with myelopathy, 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] Diagnosis: Abnormality of plasma protein, unspecified[ICD10: R77.9] Brett ARREDONDO DO [facility] CPT-4: 70077 05/10/2018 ([id number]) OFFICE/OUTPATIENT VISIT EST Diagnosis: Lumbago with sciatica, left side[ICD10: M54.42] Diagnosis: Intervertebral disc disorders with myelopathy, 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] Diagnosis: Cervical disc disorder with myelopathy, unspecified cervical region[ICD10: M50.00] Brett ARREDONDO DO [facility] CPT-4: 52824 04/26/2018 ([id number]) OFFICE/OUTPATIENT VISIT EST Diagnosis: Lumbago with sciatica, left side[ICD10: M54.42] Brett ARREDONDO DO [facility] CPT-4: 97209 04/19/2018 ([id number]) OFFICE/OUTPATIENT VISIT EST Diagnosis: Lumbago with sciatica, left side[ICD10: M54.42] Brett ARREDONDO DO [facility] CPT-4: 66569 06/23/2017 ([id number]) OFFICE/OUTPATIENT VISIT EST Diagnosis: Other intestinal obstruction[ICD10: K56.69] Diagnosis: Essential (primary) hypertension[ICD10: I10] Brett ARREDONDO DO [facility] CPT-4: 80229 12/14/2016 ([id number]) OFFICE/OUTPATIENT VISIT EST Diagnosis: Lumbago with sciatica, left side[ICD10: M54.42] Brett ARREDONDO DO [facility] CPT-4: 20654 11/15/2016 OFFICE/OUTPATIENT VISIT EST Diagnosis: Epididymitis[ICD10: N45.1] Judy SanchezWade BRETT HUI [employer] [facility] CPT-4: 11456 09/27/2016 ([id number]) OFFICE/OUTPATIENT VISIT EST Diagnosis: Lumbago with sciatica, left side[ICD10: M54.42] Brett ARREDONDO DO [facility] CPT-4: 11043 04/19/2016 ([id number]) OFFICE/OUTPATIENT VISIT EST Diagnosis: Lumbago with sciatica, left side[ICD10: M54.42] Brett ARREDONDO DO [facility] CPT-4: 03779 04/05/2016 ([id number]) OFFICE/OUTPATIENT VISIT EST Diagnosis: Essential (primary) hypertension[ICD10: I10] Diagnosis: Encounter for screening for malignant neoplasm of prostate[ICD10: Z12.5] Diagnosis: Other fatigue[ICD10: R53.83] Brett ARREDONDO DO [facility] CPT-4: 00661 02/06/2016 ([id number]) OFFICE/OUTPATIENT VISIT NEW Diagnosis: Essential (primary) hypertension[ICD10: I10] Diagnosis: FLU VACCINE[ICD10: Z23] Rubi ARREDONDO DO [facility] CPT-4: 83724 02/02/2016 Plan of Care Planned Activity Notes [...] ICD-10 : R22.1 02/07/2019 Appointment: Taylor Christian [address] [place], [place] [phone] ACUTE [facility] 02/07/2019 Visit Diagnosis Plan: URI, ACUTE Discussion: Doxycycli ne and prednisone Notify if persists/worsening ICD-9 : 465.9 ICD-10 : J06.9 10/24/2018 Appointment: Brett Arredondo WPtel: [address] [place], [place] [address] ACUTE [facility] 10/24/2018 Patient Education: doxycycline hyclate- [employer] Cou dagmar [id number] https://www.[employer]/resources/getResource/61/y1g4cng8-0cn2-3e80-dq Completed 10/24/2018 Patient Education: prednisone- [employer] Coupon [id number] https://www.[employer]/resources/getResource/61/7402r981-n528-9763-5i Completed 10/24/2018 Visit Diagnosis Plan: Intervertebral dis c disorders with myelopathy, lumbar region Discussion: Add lyrica 150mg q HS Add di clofenac ER 100mg po BID and pepcid for stomach protection Does not want surgery Recheck 1month ICD-9 : 722.73 ICD-10 : M51.06 09/27/2018 Appointment: Brett Arredondo WPtel: [address] [place], [place] [id number] FOLLOW UP 09/27/2018 Patient Education: famotidine- [employer] Coupon [id number] https://www.[employer]/resources/getResource/61/26b17k0u-77j5-3wb6-s5 Completed 09/27/2018 Visit Diagnosis Plan: Intervertebral dis [...] : M51.06 09/13/2018 Appointment: Taylor Christian [address] [facility] [place] FOLLOW UP 09/13/2018 Patient Education: Celebrex- [employer] Coupon [id number] https://www.[employer]/resources/getResource/61/03x8ux0p-b255-31u8-j0 Completed 09/13/2018 Patient Education: Lyrica- [employer] Coupon [id number] https://www.[employer]/resources/getResource/61/1s3a3e5d-3ion-237h-8n c6-87nt1v2d2j82.pdf Completed 09/13/2018 Visit Diagnosis Plan: Intervertebral dis c disorders with myelopathy, lumbar region Discussion: Proceed with epidural Add lo w dose baclofen q HS for spasm/pain Continue mobic Tramadol prn ICD-9 : 722.73 ICD-10 : M51.06 07/25/2018 Appointment: Brett Arredondo WPtel: [facility] FOLLOW UP 07/25/2018 Patient Education: meloxicam- [employer] Coupon [id number] https://www.[employer]/resources/getResource/61/5400w547-45y1-4n06-f0 Completed 07/25/2018 Patient Education: baclofen- [employer] Coupon [id number] https://www.[employer]/resources/getResource/61/4q824h5j-kfo0-8i69-6r Completed 07/25/2018 Care Plan: Referral Order SNOMED-CT : 30 [id number] Pending 07/25/2018 Visit Diagnosis Plan: Slow transit constipation Discus alverto: Warm prune juice daily Start miralax daily Notify if worsening or above regimen not effective ICD-9 : 564.01 ICD-10 : K59.05/30/2018 Appointment: Brett Arredondo WPtel: [address] [place], [place] [phone] ACUTE ILLNESS 05/30/2018 Visit Diagnosis Plan: Intervertebral [...] : R77.9 05/10/2018 Appointment: Brett Arredondo WPtel: [address] [place] [address] FOLLOW UP 05/10/2018 Visit Diagnosis Plan: Lumbago with sciatica, left side Discussion: Check MRI of L/S spine Start PT Low dose Mobic and tramadol 50mg with tylenol XS TID prn May need PET scan to further assess left iliac lesion--will await MRI results ICD-9 : 724.3 ICD-10 : M54.42 04/26/2018 Appointment: Brett Arredondo WPtel: [address] [place] [address] FOLLOW UP 04/26/2018 Visit Diagnosis Plan: Lumbago with sciatica, left side Discussion: Obtain ER records from [facility] Prednisone taper Topical muscle rub Recheck 1 week May need PT ICD-9 : 724.3 ICD-10 : M54.42 04/19/2018 Appointment: Brett Arredondo WPtel: [address] [place], [place] [phone] ACUTE ILLNESS 04/19/2018 Patient Education: prednisone- [employer] Coupon [phone] https://www.[employer].com/samplemd/resources/getResource/61/25394b16-t720-35i8-8j Completed 04/19/2018 Visit Diagnosis Plan: Lumbago with sciatica, left side Discussion: Kenalog/Dexamethasone now and then prednisone tomorrow Call in 1 week on how doing Will need MRI of L/S spine if persists or worsens ICD-9 : 724.3 ICD-10 : M54.42 06/23/2017 Appointment: Brett Arredondo WPtel[facility] [address] [facility] [place] [facility] 06/23/2017 Patient Education: Patient Medication [...] K56.69 12/14/2016 Appointment: Brett Arredondo WPtel: [address] [facility] [place] [place] Follow UP 12/14/2016 Patient Education: Patient Medication Summary Completed 12/14/2016 Patient Education: Patient Medication Summary Completed 11/17/2016 Visit Diagnosis Plan: Lumbago with sciatica, left side Discussion: Finish prednisone Check L/S spine x-ray Will likely start PT after above results obtained ICD-9 : 724.3 ICD-10 : M54.42 11/15/2016 Appointment: Brett Arredondo WPtel: [address] [facility] [place] 11/11 confirmed`sl Urgent/Quick Care Follow Up Patient Education: Patient Medication Summary Completed 11/15/2016 Care Plan: X-RAY EXAM L-S SPINE 2/ VWS LOINC : 24292-7 Pending 11/15/2016 Visit Plan: CBC, CMP, UA [...] not resolve. 09/27/2016 Appointment: Judy Cheung WPtel: [address] [place] [address] ER Follow UP 09/27/2016 Patient Education: Patient Medication Summary Completed 09/27/2016 Visit Plan: Will do low dose mobic daily for 2 weeks with food then every other day for 2 weeks then stop Continue daily back stretches If pain returns will check L/S spine x-rays 04/19/2016 Appointment: Brett Arredondo WPtel: [address] [place], [place] [phone] 04/15 confirmed `sl FOLLOW UP 04/19/2016 Patient Education: Patient Medication Summary Completed 04/19/2016 Visit Plan: Daily back stretches, moist heat, Biofreeze prn Prednisone Recheck 1 week If pain persists then will need x-rays and PT 04/05/2016 Appointment: Brett Arredondo WPtel: [address] [place] [address] ACUTE ILLNESS 04/05/2016 Patient Education: Patient Medication Summary Completed 04/05/2016 Appointment: Brett Arredondo WPtel: [address] [place] [address] LAB 02/06/2016 Patient Education: Patient Medication Summary [...] in 3 months 02/02/2016 Appointment: Rubi Cantu [address] [place] [address] 02/01 confirmed ~sl NEW PATIENT 02/02/2016 Patient Education: Patient Medication Summary Completed 02/02/2016 Referral: Cassius Jaquez WPtel: [facility] [address], [address] Referral Completed Referral: Cassius Jaquez WPtel: [facility] [place] [address] [facility], [facility] [address] [place] [place] Referral Appointment Requested Referral: Dr. Daryl WPtel: Referral Initiated Referral: Ted Zavaleta [facility]Ptel[facility] [address] [facility] [place] Referral Initiated Instructions Comment . [...]
--- OUTSIDE RECORDS SUMMARY | 2019-04-19 16:34 | XMS REPORT | CCD ---
Author Author Girma Cantu Organization [facility] Address [address] [place] [address] Phone Unavailable Care Team Providers Care Quilt Stuffer Name Role Phone Brett Arredondo D.O., PP Unavailable CCM Unavailable Summary Purpose Interface Exchange Insurance Providers Payer name Policy type / Coverage type Covered green party ID Effective Begin Date Effective End Date WPS MEDICARE [place] Medicare Part B [id number] Unknown [employer] Part B [id number] Unkn own Family History Family History data not found Social History Social History Element Codes Description Effective Dates Marital status Unknown M arried 02/02/2016 Number of children Unknown 4 02/02/2016 Employment Unknown 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 employed [employer] 02/02/[address]: 07179610 Current every day smoker 02/02/2016 Number of cigarettes/day Unknown 20 (One Pack) 02/02/[address]: 183663 Currently drinks alcohol 02/02/2016 Frequency of drinks SNOMED CT: 776129324 7 drinks per week 02/02/2016 Allergies, Adverse Reactions, Alerts Substance Reaction Codes Entered Date Inactivated Date Status * NO KNOWN FOOD MOHINI RGIES Unknown 02/02/2016 No Inactive Date Active * NO KNOWN ENVIRONME NTAL ALLERGIES Unknown 02/02/2016 No Inactive Date Active * NO KNOWN DRUG MOHINI RGIES Unknown 02/02/2016 No Inactive Date Active Past Medical History Illness Codes Condition Status Onset Date Resolved Date URI, ACUTE ICD-9: 465.9 ICD-10: J06.9 Active 10/24/2018 Unknown Intervertebral disc disorders with myelopathy, lumbar region ICD-9: 722.73 ICD-10: M51.06 Active 04/26/2018 Unknown Lumbago with sciatic a, left side ICD-9: 724.3 ICD-10: M54.42 Active 04/18/2016 Unknown Cervical disc disord er with myelopathy, unspecified cervical region ICD-9: 722.71 ICD-10: M50.00 Active 04/26/2018 Unknown Slow transit constip ation ICD-9: 564.01 ICD-10: K59.01 Active 05/30/2018 Unknown Abnormality of plasm a protein, unspecified ICD-9: 790.99 ICD-10: R77.9 Active 05/10/2018 Unknown Essential (primary) hypertension ICD-9: 401.9 ICD-10: I10 Active 02/05/2016 Unknown Other fatigue ICD-9: 780.79 ICD-10: R53.83 Active 02/05/2016 Unknown Hypertension Unknown Active 12/14/2016 Unknow n Other intestinal obs truction ICD-9: 560.9 ICD-10: K56.69 Active 12/14/2016 Unknown Epididymitis ICD-9: 604.99 ICD-10: N45.1 Active 09/27/2016 Unknown Encounter for screen ing for malignant neoplasm of prostate ICD-9: V76.44 ICD-10: Z12.5 Active 02/05/2016 Unknown FLU VACCINE ICD-9: V04.81 ICD-10: Z23 Active 02/01/2016 Unknown Problems Condition Codes Effectiv e Dates Condition Status URI, ACUTE ICD-9: 465.9 ICD-10: J06.9 10/24/2018 Active Intervertebral disc disorders with myelopathy, lumbar region ICD-9: 722.73 ICD-10: M51.06 04/26/2018 Active Lumbago with sciatic a, left side ICD-9: 724.3 ICD-10: M54.42 04/18/2016 Active Cervical disc disord er with myelopathy, unspecified cervical region ICD-9: 722.71 ICD-10: M50.00 04/26/2018 Active Slow transit constip ation ICD-9: 564.01 ICD-10: K59.01 05/30/2018 Active Abnormality of plasm a protein, unspecified ICD-9: 790.99 ICD-10: R77.9 05/10/2018 Active Essential (primary) hypertension ICD-9: 401.9 ICD-10: I10 02/05/2016 Active Other fatigue ICD-9: 780.79 ICD-10: R53.83 02/05/2016 Active Hypertension Unknown 12/14/2016 Active Other intestinal obs truction ICD-9: 560.9 ICD-10: K56.69 12/14/2016 Active Epididymitis ICD-9: 604.99 ICD-10: N45.1 09/27/2016 Active Encounter for screen ing for malignant neoplasm of prostate ICD-9: V76.44 ICD-10: Z12.5 02/05/2016 Active FLU VACCINE ICD-9: V04.81 ICD-10: Z23 02/01/2016 Active Medications Medication Codes Instruc tions Start Date Stop Date Sta tus Fill Instructions prednisone 20 mg tablet RxNorm: 308844 1 Tablet(s) PO BID 11/23/2018 12/06/2018 Active amlodipine 10 mg tablet RxNorm: 720550 1 Tablet(s) PO QD 11/20/2018 11/19/2018 Inactive doxycycline hyclate 100 mg capsule RxNorm: 6836234 1 Capsule(s) PO BID 10/24/2018 10/30/2018 In active prednisone 20 mg tablet RxNorm: 496538 1 Tablet(s) PO BID 10/24/2018 10/30/2018 Inactive diclofenac ER 100 mg tablet,extended release 24 hr RxNorm: 594300 1 Tablet(s) PO BID for back pain 09/27/2018 10/23/2018 Inactive famotidine 20 mg tablet RxNorm: 807964 1 Tablet(s) PO QHS for stomach 09/27/2018 10/23/2018 In active Celebrex 200 mg capsule RxNorm: 689304 1 Capsule(s) PO BID 09/13/2018 09/26/2018 Inactive Lyrica 50 mg capsule RxNorm: 475111 1 Capsule(s) PO QHS 09/13/2018 09/26/2018 Inactive Ultram 50 mg tablet RxNorm: 808211 1 Tablet(s) PO TID take with [address] ength Tylenol as needed for pain 07/25/2018 No Stop Date Active Mobic 7.5 mg tablet RxNorm: 050676 1 Tablet(s) PO QD for neck/back pain 07/25/2018 08/23/2018 In active meloxicam 7.5 mg tablet RxNorm: 717422 1 Tablet(s) PO QD in AM for pain 07/25/2018 09/12/2018 In active baclofen 10 mg tablet RxNorm: 200245 1 Tablet(s) PO QHS for spasm 07/25/2018 09/22/2018 Inactive Miralax 17 gram oral powder packet RxNorm: 421109 1 Unit Dose PO QD for constipation 05/30/2018 No Stop Date Active Mobic 7.5 mg tablet RxNorm: 919195 1 Tablet(s) PO QD for neck/back pain 05/24/2018 07/22/2018 In active Ultram 50 mg tablet RxNorm: 676947 1 Tablet(s) PO TID take with 1 extra [address] ength Tylenol as needed for pain 05/09/2018 07/24/2018 Inactive Ultram 50 mg tablet RxNorm: 054003 1 Tablet(s) PO TID take with 1 extra str ength Tylenol as needed for pain 04/26/2018 05/08/2018 Inactive Mobic 7.5 mg tablet RxNorm: 116576 1 Tablet(s) PO QD for neck/back pain 04/26/2018 05/23/2018 In active amlodipine 10 mg tablet RxNorm: 640570 TAKE 1 TABLET BY MOUTH ONCE DAILY 04/25/2018 11/20/2018 In active prednisone 20 mg tablet RxNorm: 117092 1 Tablet(s) PO BID for 4 days then 1 po daily for 4 days 04/19/2018 04/25/2018 Inactive amlodipine 10 mg tablet RxNorm: 153558 1 Tablet(s) PO QD 09/26/2017 03/24/2018 Inactive prednisone 20 mg tablet RxNorm: 228350 1 Tablet(s) PO BID 06/23/2017 06/29/2017 Inactive amlodipine 10 mg tablet RxNorm: 766783 1 Tablet(s) PO QD 02/28/2017 09/26/2017 Inactive Cipro 500 mg tablet RxNorm: 931954 1 Tablet(s) PO BID 09/27/2016 10/10/2016 Inactive amlodipine 10 mg tablet RxNorm: 404432 1 Tablet(s) PO QD 08/02/2016 01/28/2017 Inactive Mobic 7.5 mg tablet RxNorm: 129174 1 Tablet(s) PO QD for 2weeks with food t hen go to every other day for 2 weeks then stop 04/19/2016 11/14/2016 Inactive prednisone 20 mg tablet RxNorm: 607188 1 Tablet(s) PO BID 04/05/2016 04/11/2016 Inactive amlodipine 10 mg tablet RxNorm: 014237 1 Tablet(s) PO QD 02/02/2016 08/02/2016 Inactive Ultram 50 mg tablet RxNorm: 718438 1 Tablet(s) PO TID take with 1 extra str ength Tylenol as needed for pain No Start Date 04/25/2018 Inactive amlodipine 10 mg tablet RxNorm: 007950 1 Tablet(s) PO QD No Start Date 02/01/2016 Inactive meloxicam 7.5 mg tablet RxNorm: 215354 1 Tablet(s) PO QD No Start Date 07/24/2018 Inactive tramadol 50 mg tablet RxNorm: 088022 1 Tablet(s) PO TID as needed for pain (t linda with one Tylenol Extra Strength) No Start Date 05/09/2018 Inactive Medication Administered No Medication Administered data Immunizations No Immunization data Assessments Condition Codes Effectiv e Dates URI, ACUTE ICD-10: J06.9 ICD-9: 465.9 10/24/2018 Intervertebral disc disorders with myelopathy, lumbar region ICD-10: M51.06 ICD-9: 722.73 09/27/2018 Lumbago with sciatica, left side ICD -10: M54.42 ICD-9: 724.3 09/27/2018 Slow transit constipation ICD-10: K5 9.01 ICD-9: 564.01 05/30/2018 Abnormality of plasma protein, unspecified ICD-10: R77.9 ICD-9: 790.99 05/10/2018 Cervical disc disorder with myelopathy, unspecified cervical region ICD-10: M50.00 ICD-9: 722.71 04/26/2018 Essential (primary) hypertension ICD -10: I10 ICD-9: 401.9 04/21/2018 Other fatigue ICD-10: R53.83 ICD-9: 780.79 04/21/2018 Other intestinal obstruction ICD-10: K56.69 ICD-9: 560.9 12/14/2016 Epididymitis ICD-10: N45.1 ICD-9: 604.99 09/27/2016 Encounter for screening for malignant neoplasm of pros [place] ICD-10: Z12.5 ICD-9: V76.44 02/06/2016 FLU VACCINE ICD-10: Z23 ICD-9: V04.81 02/02/2016 Reason For Visit Reason For Visit Effective Dates Notes cough 10/24/2018 follow up 09/27/2018 low back pain 09/13/2018 back pain 07/25/2018 follow up 05/30/2018 ER fwup follow up 05/10/2018 Dis cuss recent MRI. Patient had first therapy session this morning follow up 04/26/2018 back pain 04/19/2018 Pat ient had negative xray and CT scan hip pain 06/23/2017 follow up 12/14/2016 Hos pital fwup follow up 11/15/2016 fro m Urgent Care follow up 09/27/2016 ER Visit from 09/11/16 follow up 04/19/2016 leg pain/sciatica 04/05/2016 lab draw 02/06/2016 ~generic 02/02/2016 New Patient----establishing visit Results Observation Observation Code Item Item Code Result Date CT/GC Urine 96891 Chlamy baldemar Ur Not Detected 09/30/19 CT/GC Urine 27497 Gonorr hea Ur Not Detected 09/30/19 17 COMPLETE BLOOD COUNT 2745437 WBC 7.7 10e9/L 09/28/2016 COMPLETE BLOOD COUNT 5399546 RBC 4.70 10e12/L 7 COMPLETE BLOOD COUNT 2202945 HEMOGLOBIN 14.3 g/dL 09/28/2016 COMPLETE BLOOD COUNT 0885369 HEMATOCRIT 41.9 % 09/28/2016 COMPLETE BLOOD COUNT 7931575 MCV 89.1 fL 09/28/2016 COMPLETE BLOOD COUNT 0471987 MCH 30.4 pg 09/28/2016 COMPLETE BLOOD COUNT 8972783 MCHC 34.1 g/dL 09/28/2016 COMPLETE BLOOD COUNT 4337185 PLATELET COUNT 279 10e9/L 09/28/2016 COMPLETE BLOOD COUNT 7025339 Mean Plt Volume 10.6 fL 09/28/2016 COMPLETE BLOOD COUNT 4315779 Neut Auto 47.1 % 09/28/2016 COMPLETE BLOOD COUNT 1217727 Lymph Auto 40.6 % 09/28/2016 COMPLETE BLOOD COUNT 0860412 Burnett Auto 5.8 % 09/28/2016 COMPLETE BLOOD COUNT 7262523 Eos Auto 6.2 % 09/28/2016 COMPLETE BLOOD COUNT 1088948 RDW 13.2 % 09/28/2016 COMPLETE BLOOD COUNT 4854434 Baso Auto 0.3 % 09/28/2016 COMPLETE BLOOD COUNT 5758929 Neutrophil Abs 3.63 10e9/L 09/28/2016 COMPLETE BLOOD COUNT 1962153 Lymphocyte Abs 3.13 10e9/L 09/28/2016 COMPLETE BLOOD COUNT 1447048 Monocyte Abs 0.45 10e9/L 09/28/2016 COMPLETE BLOOD COUNT 6888162 Eosinophil Abs 0.48 10e9/L 09/28/2016 COMPLETE BLOOD COUNT 0824632 RDW-SD 42.4 fL 09/28/2016 COMPLETE BLOOD COUNT 4619243 Basophil Abs 0.02 10e9/L 09/28/2016 GFR CALC 1910167 GFR Non Afr Amr >60 mL/min 09/28/2016 GFR CALC 0587380 GFR Afr Amr >60 mL/min 09/28/2016 COMPREHENSIVE METABOLIC 04194 AST 12 U/L 09/28/2016 COMPREHENSIVE METABOLIC 81195 ALT 8 U/L 09/28/2016 COMPREHENSIVE METABOLIC 88839 BUN 11 mg/dL 09/28/2016 COMPREHENSIVE METABOLIC 12531 ALBUMIN 4.0 g/dL 09/28/2016 COMPREHENSIVE METABOLIC 70087 CHLORIDE 102 mmol/L 09/28/2016 COMPREHENSIVE METABOLIC 90492 Bili Total 0.3 mg/dL 09/28/2016 COMPREHENSIVE METABOLIC 00079 ALK PHOS 63 U/L 09/28/2016 COMPREHENSIVE METABOLIC 78978 SODIUM 140 mmol/L 09/28/2016 COMPREHENSIVE METABOLIC 76797 CREATININE 1.00 mg/dL 09/28/2016 COMPREHENSIVE METABOLIC 52566 CALCIUM 8.8 mg/dL 09/28/2016 COMPREHENSIVE METABOLIC 23464 POTASSIUM 3.8 mmol/L 09/28/2016 COMPREHENSIVE METABOLIC 65096 Total Protein 6.9 g/dL 09/28/2016 COMPREHENSIVE METABOLIC 04133 Glucose 111 mg/dL 09/28/2016 COMPREHENSIVE METABOLIC 12350 Bicarbonate 29 mmol/L 09/28/2016 COMPREHENSIVE METABOLIC 64412 AGAP 9 mmol/L 09/28/2016 GC/CHLAMYDIA DNA 17551|83460 Chl trach DNA TNP:Wrong Test 2016 GC/CHLAMYDIA DNA 48152|77238 GC PROBE TNP:Wrong Test 2016 FREE T4 59238 T4 Free 1.34 ng/dL 02/06/2016 COMPREHENSIVE METABOLIC 51432 AST 14 U/L 02/06/2016 COMPREHENSIVE METABOLIC 35825 ALT 9 U/L 02/06/2016 COMPREHENSIVE METABOLIC 41292 BUN 9 mg/dL 02/06/2016 COMPREHENSIVE METABOLIC 20939 ALBUMIN 4.2 g/dL 02/06/2016 COMPREHENSIVE METABOLIC 09706 CHLORIDE 103 mmol/L 02/06/2016 COMPREHENSIVE METABOLIC 27842 Bili Total 0.5 mg/dL 02/06/2016 COMPREHENSIVE METABOLIC 05977 ALK PHOS 51 U/L 02/06/2016 COMPREHENSIVE METABOLIC 38962 SODIUM 140 mmol/L 02/06/2016 COMPREHENSIVE METABOLIC 62346 CREATININE 0.97 mg/dL 02/06/2016 COMPREHENSIVE METABOLIC 83737 CALCIUM 9.2 mg/dL 02/06/2016 COMPREHENSIVE METABOLIC 00498 POTASSIUM 4.1 mmol/L 02/06/2016 COMPREHENSIVE METABOLIC 05623 Total Protein 6.9 g/dL 02/06/2016 COMPREHENSIVE METABOLIC 98971 Glucose 97 mg/dL 02/06/2016 COMPREHENSIVE METABOLIC 12174 Bicarbonate 31 mmol/L 02/06/2016 COMPREHENSIVE METABOLIC 39373 AGAP 6 mmol/L 02/06/2016 PSA EQUIMOLAR MANJEET 44211 PSA Total 2.71 ng/mL 02/06/2016 LIPID GROUP 26843 Choles terol 141 mg/dL 02/06/2016 LIPID GROUP 16958 Trigly ceride 81 mg/dL 02/06/2016 LIPID GROUP 57233 HDL CH OLESTEROL 59 mg/dL 02/06/2016 LIPID GROUP 21846 Chol/H DL Ratio 2.39 ratio 02/06/2016 LIPID GROUP 16841 NON-HD L Chol 82 mg/dL 02/06/2016 LIPID GROUP 38056 LDL Ch olesterol 66 mg/dL 02/06/2016 THYROID STIMULATING HORMONE 88112 TSH 1.220 uIU/mL 6 COMPLETE BLOOD COUNT 6192634 WBC 4.2 10e9/L 02/06/2016 COMPLETE BLOOD COUNT 3029749 RBC 4.91 10e12/L 6 COMPLETE BLOOD COUNT 6585308 HEMOGLOBIN 15.0 g/dL 02/06/2016 COMPLETE BLOOD COUNT 7328115 HEMATOCRIT 43.9 % 02/06/2016 COMPLETE BLOOD COUNT 2093802 MCV 89.4 fL 02/06/2016 COMPLETE BLOOD COUNT 0873915 MCH 30.5 pg 02/06/2016 COMPLETE BLOOD COUNT 6834619 MCHC 34.2 g/dL 02/06/2016 COMPLETE BLOOD COUNT 2485080 PLATELET COUNT 224 10e9/L 02/06/2016 COMPLETE BLOOD COUNT 1611465 Mean Plt Volume 10.1 fL 02/06/2016 COMPLETE BLOOD COUNT 4073577 Neut Auto 46.6 % 02/06/2016 COMPLETE BLOOD COUNT 4205947 Lymph Auto 39.2 % 02/06/2016 COMPLETE BLOOD COUNT 9399842 Burnett Auto 8.8 % 02/06/2016 COMPLETE BLOOD COUNT 8896413 Eos Auto 5.2 % 02/06/2016 COMPLETE BLOOD COUNT 6245398 RDW 13.3 % 02/06/2016 COMPLETE BLOOD COUNT 9797690 Baso Auto 0.2 % 02/06/2016 COMPLETE BLOOD COUNT 6382174 Neutrophil Abs 1.96 10e9/L 02/06/2016 COMPLETE BLOOD COUNT 6958358 Lymphocyte Abs 1.65 10e9/L 02/06/2016 COMPLETE BLOOD COUNT 4852591 Monocyte Abs 0.37 10e9/L 02/06/2016 COMPLETE BLOOD COUNT 7104121 Eosinophil Abs 0.22 10e9/L 02/06/2016 COMPLETE BLOOD COUNT 9966511 Basophil Abs 0.01 10e9/L 02/06/2016 COMPLETE BLOOD COUNT 1878449 RDW-SD 42.8 fL 02/06/2016 GFR CALC 9606426 GFR Afr Amr >60 mL/min 02/06/2016 GFR CALC 4864490 GFR Non Afr Amr >60 mL/min 02/06/2016 Review of Systems System Result Effective Dates Respiratory cough 2018 Constitutional No night sweats 10/24/2018 Constitutional No fatigue 10/24/2018 Constitutional No fever 10/24/2018 Constitutional No insomnia 10/24/2018 Constitutional No weight loss 10/24/2018 Musculoskeletal back pain 10/24/2018 Musculoskeletal back pain 09/27/2018 Constitutional No fatigue 09/13/2018 Constitutional No fever 09/13/2018 Gastrointestinal No abdominal pain 09/13/2018 Gastrointestinal No constipation 09/13/2018 Gastrointestinal No diarrhea 09/13/2018 Gastrointestinal No nausea 09/13/2018 Genitourinary/Nephrology No dysuria 09/13/2018 Musculoskeletal low back pain 09/13/2018 Musculoskeletal back pain 07/25/2018 Musculoskeletal bone pain 07/25/2018 Gastrointestinal No hemorrhoids 05/30/2018 Gastrointestinal No hepatitis 05/30/2018 Gastrointestinal abdominal pain 05/30/2018 Gastrointestinal constipation 05/30/2018 Gastrointestinal No diarrhea 05/30/2018 Gastrointestinal No gastroesophageal reflu x 05/30/2018 Gastrointestinal No melena 05/30/2018 Gastrointestinal No nausea 05/30/2018 Gastrointestinal No vomiting 05/30/2018 Constitutional fatigue 0 05/10/2018 Musculoskeletal low back pain 05/10/2018 Constitutional diaphoresis 05/10/2018 Musculoskeletal low back pain 04/26/2018 Musculoskeletal neck pain 04/26/2018 Musculoskeletal No muscle weakness 04/19/2018 Musculoskeletal No myalgias 04/19/2018 Musculoskeletal No stiffness 04/19/2018 Musculoskeletal No swelling 04/19/2018 Musculoskeletal low back pain 04/19/2018 Neurologic pain, limb Cardiovascular No arrhythmia 12/14/2016 Cardiovascular No chest pain/pressure 12/14/2016 Cardiovascular No edema 12/14/2016 Cardiovascular No exercise intolerance 12/14/2016 Cardiovascular No orthopnea 12/14/2016 Cardiovascular No palpitations 12/14/2016 Respiratory No asthma Respiratory No cough Respiratory No dyspnea 0 12/14/2016 Respiratory No pleuritic pain 12/14/2016 Respiratory No productive sputum 12/14/2016 Respiratory No wheezing 12/14/2016 Gastrointestinal No hemorrhoids 12/14/2016 Gastrointestinal No hepatitis 12/14/2016 Gastrointestinal No abdominal pain 12/14/2016 Gastrointestinal No constipation 12/14/2016 Gastrointestinal No diarrhea 12/14/2016 Gastrointestinal No gastroesophageal reflu x 12/14/2016 Gastrointestinal No melena 12/14/2016 Gastrointestinal No nausea 12/14/2016 Gastrointestinal No vomiting 12/14/2016 Musculoskeletal No muscle weakness 12/14/2016 Musculoskeletal No myalgias 12/14/2016 Musculoskeletal No stiffness 12/14/2016 Musculoskeletal No swelling 12/14/2016 Musculoskeletal low back pain 11/15/2016 Musculoskeletal sciatica 11/15/2016 Constitutional No anorexia 09/27/2016 Constitutional No fever 09/27/2016 Constitutional No fatigue 09/27/2016 Constitutional No weight loss 09/27/2016 Gastrointestinal No constipation 09/27/2016 Gastrointestinal No diarrhea 09/27/2016 Genitourinary/Nephrology No dysuria 09/27/2016 Genitourinary/Nephrology testicular mass 09/27/2016 Musculoskeletal No low back pain 04/19/2016 Musculoskeletal No sciatica 04/19/2016 Musculoskeletal joint complaint 04/19/2016 Musculoskeletal No arthralgia(s) 04/19/2016 Musculoskeletal back pain 04/05/2016 Musculoskeletal sciatica 04/05/2016 Neurologic pain, limb Neurologic paresthesia 1 06/06/2015 Constitutional No night sweats 02/02/2016 Constitutional No recent illness 02/02/2016 Constitutional No fatigue 02/02/2016 Constitutional No fever 02/02/2016 Constitutional No insomnia 02/02/2016 Constitutional No weight loss 02/02/2016 Ears/Nose/Throat/Neck No hearing loss 02/02/2016 Ears/Nose/Throat/Neck No nasal discharge 02/02/2016 Ears/Nose/Throat/Neck No sinus congestion 02/02/2016 Ears/Nose/Throat/Neck No sore throat 02/02/2016 Cardiovascular No arrhythmia 02/02/2016 Cardiovascular No chest pain/pressure 02/02/2016 Cardiovascular No edema 02/02/2016 Cardiovascular No exercise intolerance 02/02/2016 Cardiovascular No orthopnea 02/02/2016 Cardiovascular No palpitations 02/02/2016 Respiratory No asthma Respiratory No cough Respiratory No dyspnea 1 Respiratory No pleuritic pain 02/02/2016 Respiratory No productive sputum 02/02/2016 Respiratory No wheezing 02/02/2016 Gastrointestinal No hemorrhoids 02/02/2016 Gastrointestinal No hepatitis 02/02/2016 Gastrointestinal No abdominal pain 02/02/2016 Gastrointestinal No constipation 02/02/2016 Gastrointestinal No diarrhea 02/02/2016 Gastrointestinal No gastroesophageal reflu x 02/02/2016 Gastrointestinal No melena 02/02/2016 Gastrointestinal No nausea 02/02/2016 Gastrointestinal No vomiting 02/02/2016 Genitourinary/Nephrology No dysuria 02/02/2016 Genitourinary/Nephrology No nocturia 02/02/2016 Genitourinary/Nephrology No urinary incontinence 02/02/2016 Dermatologic No rash Dermatologic No scar Psychiatric No anxiety 1 Psychiatric No depression 02/02/2016 Hematologic/Lymphatic No abnormal ec chymoses 02/02/2016 Hematologic/Lymphatic No petechiae 02/02/2016 Hematologic/Lymphatic No abnormal bl eeding and bruising 02/02/2016 Hematologic/Lymphatic No anemia 02/02/2016 Hematologic/Lymphatic No lymph node enlargement/mass 02/02/2016 Physical Exam Exam Name System Name It em Name Status Result Effective Dates Notes Full Exam - General Constitutional general appearance Overall: well nourished 10/24/2018 None Full Exam - General Constitutional general appearance Overall: well developed 10/24/2018 None Full Exam - General Constitutional general appearance Overall: in no acute distress 10/24/2018 None Full Exam - General Neurologic mental status Overall: alert 9 None Full Exam - General Neurologic mental status Overall: oriented 10/24/2018 None Full Exam - General Psychiatric mood and affect Overall: normal mood and affect 10/24/2018 None Full Exam - General Respiratory auscultation Basilar: diminished 10/24/2018 None Full Exam - General Respiratory auscultation Apical: clear 10/24/2018 None Full Exam - General Cardiovascular auscultation of heart Overall: regular rate 10/24/2018 None Full Exam - General Cardiovascular auscultation of heart Overall: normal heart sounds 10/24/2018 None Full Exam - General Constitutional general appearance Overall: well nourished 09/27/2018 None Full Exam - General Constitutional general appearance Overall: well developed 09/27/2018 None Full Exam - General Constitutional general appearance Overall: in no acute distress 09/27/2018 None Full Exam - General Neurologic mental status Overall: alert 9 None Full Exam - General Neurologic mental status Overall: oriented 09/27/2018 None Full Exam - General Psychiatric mood and affect Overall: normal mood and affect 09/27/2018 None Full Exam - General Musculoskeletal spine, ribs and pelvis Spine: tender @ lumbar spin e 09/27/2018 None Full Exam - General Constitutional general appearance Overall: well nourished 09/13/2018 None Full Exam - General Musculoskeletal gait and station Gait: antalgic 09/13/2018 None Full Exam - General Musculoskeletal spine, ribs and pelvis Spine: normal straight leg raise 09/13/2018 None Full Exam - General Musculoskeletal spine, ribs and pelvis Sacroiliac joints: tender right sacroiliac joint 09/13/2018 None Full Exam - General Musculoskeletal spine, ribs and pelvis Sacroiliac joints: tender left sacroiliac joint 09/13/2018 None Full Exam - General Constitutional general appearance Evidence of Distress: in distress secondary to pain 09/13/2018 acute. Full Exam - General Constitutional general appearance Overall: well nourished 07/25/2018 None Full Exam - General Constitutional general appearance Overall: well developed 07/25/2018 None Full Exam - General Constitutional general appearance Overall: in no acute distress 07/25/2018 None Full Exam - General Neurologic mental status Overall: alert 9 None Full Exam - General Neurologic mental status Overall: oriented 07/25/2018 None Full Exam - General Psychiatric mood and affect Overall: normal mood and affect 07/25/2018 None Full Exam - General Musculoskeletal spine, ribs and pelvis Spine: tender @ lumbar spin e 07/25/2018 None Full Exam - General Constitutional general appearance Overall: well nourished 05/30/2018 None Full Exam - General Constitutional general appearance Overall: well developed 05/30/2018 None Full Exam - General Constitutional general appearance Overall: in no acute distress 05/30/2018 None Full Exam - General Neurologic mental status Overall: alert 9 None Full Exam - General Neurologic mental status Overall: oriented 05/30/2018 None Full Exam - General Psychiatric mood and affect Overall: normal mood and affect 05/30/2018 None Full Exam - General Abdomen abdominal exam Overall: no masses 05/30/2018 None Full Exam - General Abdomen abdominal exam Overall: normal bowel sounds 05/30/2018 None Full Exam - General Abdomen abdominal exam Overall: soft 05/30/2018 None Full Exam - General Abdomen abdominal exam Left lower quadrant: tender to palpa tion 05/30/2018 None Full Exam - General Abdomen abdominal exam Right lower quadrant: tender to palp ation 05/30/2018 None Full Exam - General Constitutional general appearance Overall: well nourished 05/10/2018 None Full Exam - General Constitutional general appearance Overall: well developed 05/10/2018 None Full Exam - General Constitutional general appearance Overall: in no acute distress 05/10/2018 None Full Exam - General Neurologic mental status Overall: alert 9 None Full Exam - General Neurologic mental status Overall: oriented 05/10/2018 None Full Exam - General Psychiatric mood and affect Overall: normal mood and affect 05/10/2018 None Full Exam - General Constitutional general appearance Overall: well nourished 04/26/2018 None Full Exam - General Constitutional general appearance Overall: well developed 04/26/2018 None Full Exam - General Constitutional general appearance Overall: in no acute distress 04/26/2018 None Full Exam - General Neurologic mental status Overall: alert 9 None Full Exam - General Neurologic mental status Overall: oriented 04/26/2018 None Full Exam - General Psychiatric mood and affect Overall: normal mood and affect 04/26/2018 None Full Exam - General Musculoskeletal gait and station Gait: antalgic 04/26/2018 None Full Exam - General Musculoskeletal spine, ribs and pelvis Spine: tender @ lumbar spin e 04/26/2018 None Full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 Kenalog/Dexamethasone now and then prednisone tomorrow Call in 1 week on how doing Will need MRI of L/S spine if persists or worsens ICD-9 : 724.3 ICD-10 : M54.42 06/23/2017 Appointment: [id number] [facility] 06/23/2017 Patient Education: Patient Medication Summary Completed 06/23/2017 Visit Diagnosis Plan: Other intestinal obstruction Discussion: Continue on stool softener and observe Will hold on colonoscopy as last one was end of 2013 and normal ICD-9 : 560.9 ICD-10 : K56.69 12/14/2016 Visit Diagnosis Plan: Essential (primary) hypertension Discussion: Stable ICD-9 : 401.9 ICD-10 : I10 12/14/2016 Appointment: Brett Arredondo WPtel: [facility] ER Follow UP 12/14/2016 Patient Education: Patient Medication Summary Completed 12/14/2016 Patient Education: Patient Medication Summary Completed 11/17/2016 Visit Diagnosis Plan: Lumbago with sciatica, left side Discussion: Finish prednisone Check L/S spine x-ray Will likely start PT after above results obtained ICD-9 : 724.3 ICD-10 : M54.42 11/15/2016 Appointment: Brett Arredondo WPtel: [address] [place], [place] [id number] 11/11 confirmed`sl Urgent/Quick Care Follow Up 11/15/2016 Patient Education: Patient Medication Summary Completed 11/15/2016 Care Plan: X-RAY EXAM L-S SPINE 2/3 VWS LOINC : 97018-3 Pending 11/15/2016 Visit Plan: CBC, CMP, UA with C&S a nd GC/Chlamy Rocephin 500mg IM now, Written Rx for Hydrocodone 5mg with APAP 325mg 1 po q 4-6 hour prn pain #30. Reviewed U/S from ER visit... hold imaging for now since not as bad as when he went to ER Try another quinolone (Cipro) for 14 days. RTC if no improvement or any worsening. Consider urology referral if this does not resolve. 09/27/2016 Visit Plan: CBC, CMP, UA with C&S a nd GC/Chlamy Rocephin 500mg IM now, Written Rx for Hydrocodone 5mg with APAP 325mg 1 po q 4-6 hour prn pain #30. Reviewed U/S from ER visit... hold imaging for now since not as bad as when he went to ER Try another quinolone (Cipro) for 14 days. RTC if no improvement or any worsening. Consider urology referral if this does not resolve. 09/27/2016 Visit Plan: CBC, CMP, UA with C&S a nd GC/Chlamy Rocephin 500mg IM now, Written Rx [...] not resolve. 09/27/2016 Appointment: Judy Cheung WPtel: [address] [place] [address] ER Follow UP 09/27/2016 Patient Education: Patient Medication Summary Completed 09/27/2016 Visit Plan: Will do low dose mobic daily for 2 weeks with food then every other day for 2 weeks then stop Continue daily back stretches If pain returns will check L/S spine x-rays 04/19/2016 Appointment: Brett Arredondo WPtel: [address] [place], [place] [email or web address] 04/15 confirmed `sl FOLLOW UP 04/19/2016 Patient Education: Patient Medication Summary Completed 04/19/2016 Visit Plan: Daily back stretches, m oist heat, Biofreeze prn Prednisone Recheck 1 week If pain persists then will need x-rays and PT 04/05/2016 Appointment: Brett Arredondo WPtel: [address] [place] [address] ACUTE ILLNESS 04/05/2016 Patient Education: Patient Medication Summary Completed 04/05/2016 Appointment: Brett Arredondo WPtel: [address] [place] [address] LAB 02/06/2016 Patient Education: Patient Medication Summary Completed 02/06/2016 Visit Plan: Refill given Flu shot u pdated Will try to find records of other vaccines but likely needs tdap, shingles and pneumonia vaccines as well Records release for colonoscopy to review report Return for routine fasting labs - cbc, cmp, lipids, tsh, free t4, psa Follow up with Dr Arredondo in 3 months 02/02/2016 Visit Plan: Refill given Flu shot u pdated Will try to find records of other vaccines but likely needs tdap, shingles and pneumonia vaccines as well Records release for colonoscopy to review report Return for routine fasting labs - cbc, cmp, lipids, tsh, free t4, psa Follow up with Dr Arredondo in 3 months 02/02/2016 Visit Plan: Refill given Flu shot u pdated Will try to find records of other vaccines but likely needs tdap, shingles and pneumonia vaccines as well Records release for colonoscopy to review report Return for routine fasting labs - cbc, cmp, lipids, tsh, free t4, psa Follow up with Dr Arredondo in 3 months 02/02/2016 Visit Plan: Refill given Flu shot u pdated Will try to find records of other vaccines but likely needs tdap, shingles and pneumonia vaccines as well Records release for colonoscopy to review report Return for routine fasting labs - cbc, cmp, lipids, tsh, free t4, psa Follow up with Dr Arredondo in 3 months 02/02/2016 Appointment: Rubi Cantu [address] [place], [place] [id number] 02/01 confirmed ~sl NEW PATIENT 02/02/2016 Patient Education: Patient Medication Summary Completed 02/02/2016 Referral: Cassius Jaquez WPtel: [facility] [address] Referral Completed Referral: Cassius Jaquez WPtel: [facility] [address] Referral Appointment Requested Referral: Dr. Daryl WPtel: Referral Initiated Instructions Comment . CBC, CMP, [...] referral if this does not resolve. . CBC, CMP, UA with C&S and [...] referral if this does not resolve. . CBC, CMP, UA with C&S and [...] referral if this does not resolve. . Daily back stretch es, moist heat, Biofreeze prn Prednisone Recheck 1 [...] up with Dr Arredondo in 3 months . Refill given Flu shot updated Will try to find records of other vaccines but likely needs tdap, shingles and pneumonia vaccines as well Records release for colonoscopy to review report Return for routine fasting labs - cbc, cmp, lipids, tsh, free t4, psa Follow up with Dr Arredondo in 3 months . Refill given Flu shot updated Will try to find records of other vaccines but likely needs tdap, shingles and pneumonia vaccines as well Records release for colonoscopy to review report Return for routine fasting labs - cbc, cmp, lipids, tsh, free t4, psa Follow up with Dr Arredondo in 3 months . Refill given Flu shot updated Will try to find records of other vaccines but likely needs tdap, shingles and pneumonia vaccines as well Records release for colonoscopy to review report Return for routine fasting labs - cbc, cmp, lipids, tsh, free t4, psa Follow up with Dr Arredondo in 3 months . Will do low dose m obic daily for 2 weeks with food then every other day for 2 weeks then stop Continue daily back stretches If pain returns will check L/S spine x-rays"
--- OUTSIDE RECORDS SUMMARY | 2019-04-19 16:35 | XMS REPORT | CCD ---
Author Author Girma Cantu Organization BRETT ARREDONDO DO [facility] Address [address] [place] [address] Phone Unavailable Care Team Providers Care Fare Enforcement Officer Name Role Phone Brett Arredondo D.O., PP Unavailable CCM Unavailable Summary Purpose Interface Exchange Insurance Providers Payer name Policy type / Coverage type Covered libertarian ID Effective Begin Date Effective End Date WPS MEDICARE PART B [place] Medicare Part B [id number] Unknown [employer] Part B [id number] Unkn own Family History Family History data not found Social History Social History Element Codes Description Effective Dates Marital status Unknown M arried 02/02/2016 Number of children Unknown 4 02/02/2016 Employment Unknown 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 employed [employer] 02/02/[address]: 05866136 Current every day smoker 02/02/2016 Number of cigarettes/day Unknown 20 (One Pack) 02/02/[address]: 426517 Currently drinks alcohol 02/02/2016 Frequency of drinks SNOMED CT: 744326054 7 drinks per week 02/02/2016 Allergies, Adverse [...] Date Stop Date Sta tus Fill Instructions amlodipine 10 mg tablet RxNorm: 887124 1 Tablet(s) PO QD 11/20/2018 11/19/2018 Inactive doxycycline hyclate 100 mg capsule RxNorm: 2137209 1 Capsule(s) PO BID 10/24/2018 10/30/2018 In active prednisone 20 mg tablet RxNorm: 617312 1 Tablet(s) PO BID 10/24/2018 10/30/2018 Inactive diclofenac ER 100 mg tablet,extended release 24 hr RxNorm: 482059 1 Tablet(s) PO BID for back pain 09/27/2018 10/23/2018 Inactive famotidine 20 mg tablet RxNorm: 197146 1 Tablet(s) PO QHS for stomach 09/27/2018 10/23/2018 In active Celebrex 200 mg capsule RxNorm: 609657 1 Capsule(s) PO BID 09/13/2018 09/26/2018 Inactive Lyrica 50 mg capsule RxNorm: 728429 1 Capsule(s) PO QHS 09/13/2018 09/26/2018 Inactive Ultram 50 mg tablet RxNorm: 250588 1 Tablet(s) PO TID take with 1 [address] ength Tylenol as needed for pain 07/25/2018 No Stop Date Active Mobic 7.5 mg tablet RxNorm: 057777 1 Tablet(s) PO QD for neck/back pain 07/25/2018 08/23/2018 In active meloxicam 7.5 mg tablet RxNorm: 407057 1 Tablet(s) PO QD in AM for pain 07/25/2018 09/12/2018 In active baclofen 10 mg tablet RxNorm: 555394 1 Tablet(s) PO QHS for spasm 07/25/2018 09/22/2018 Inactive Miralax 17 gram oral powder packet RxNorm: 819340 1 Unit Dose PO QD for constipation 05/30/2018 No Stop Date Active Mobic 7.5 mg tablet RxNorm: 789974 1 Tablet(s) PO QD for neck/back pain 05/24/2018 07/22/2018 In active Ultram 50 mg tablet RxNorm: 286857 1 Tablet(s) PO TID take with 1 extra str ength Tylenol as needed for pain 05/09/2018 07/24/2018 Inactive Ultram 50 mg tablet RxNorm: 664027 1 Tablet(s) PO TID take with 1 extra str ength Tylenol as needed for pain 04/26/2018 05/08/2018 Inactive Mobic 7.5 mg tablet RxNorm: 642340 1 Tablet(s) PO QD for neck/back pain 04/26/2018 05/23/2018 In active amlodipine 10 mg tablet RxNorm: 762242 TAKE 1 TABLET BY MOUTH ONCE DAILY 04/25/2018 11/20/2018 In active prednisone 20 mg tablet RxNorm: 899643 1 Tablet(s) PO BID for 4 days then 1 po daily for 4 days 04/19/2018 04/25/2018 Inactive amlodipine 10 mg tablet RxNorm: 976032 1 Tablet(s) PO QD 09/26/2017 03/24/2018 Inactive prednisone 20 mg tablet RxNorm: 088737 1 Tablet(s) PO BID 06/23/2017 06/29/2017 Inactive amlodipine 10 mg tablet RxNorm: 112791 1 Tablet(s) PO QD 02/28/2017 09/26/2017 Inactive Cipro 500 mg tablet RxNorm: 697722 1 Tablet(s) PO BID 09/27/2016 10/10/2016 Inactive amlodipine 10 mg tablet RxNorm: 912713 1 Tablet(s) PO QD 08/02/2016 01/28/2017 Inactive Mobic 7.5 mg tablet RxNorm: 044045 1 Tablet(s) PO QD for 2weeks with food t hen go to every other day for 2 weeks then stop 04/19/2016 11/14/2016 Inactive prednisone 20 mg tablet RxNorm: 170407 1 Tablet(s) PO BID 04/05/2016 04/11/2016 Inactive amlodipine 10 mg tablet RxNorm: 122926 1 Tablet(s) PO QD 02/02/2016 08/02/2016 Inactive Ultram 50 mg tablet RxNorm: 654674 1 Tablet(s) PO TID take with 1 [address] ength Tylenol as needed for pain No Start Date 04/25/2018 Inactive amlodipine 10 mg tablet RxNorm: 877714 1 Tablet(s) PO QD No Start Date 02/01/2016 Inactive meloxicam 7.5 mg tablet RxNorm: 228797 1 Tablet(s) PO QD No Start Date 07/24/2018 Inactive tramadol 50 mg tablet RxNorm: 070158 1 Tablet(s) PO TID as needed for [...] Item Item Code Result Date CT/GC Urine 43471 Chlamy baldemar Ur Not Detected 09/30/19 CT/GC Urine 64941 Gonorr hea Ur Not Detected 09/30/19 17 COMPLETE BLOOD COUNT 3893843 WBC 7.7 10e9/L 09/28/2016 COMPLETE BLOOD COUNT 8563629 RBC 4.70 10e12/L 7 COMPLETE BLOOD COUNT 4492676 HEMOGLOBIN 14.3 g/dL 09/28/2016 COMPLETE BLOOD COUNT 1031238 HEMATOCRIT 41.9 % 09/28/2016 COMPLETE BLOOD COUNT 2833004 MCV 89.1 fL 09/28/2016 COMPLETE BLOOD COUNT 0679057 MCH 30.4 pg 09/28/2016 COMPLETE BLOOD COUNT 9014476 MCHC 34.1 g/dL 09/28/2016 COMPLETE BLOOD COUNT 8601563 PLATELET COUNT 279 10e9/L 09/28/2016 COMPLETE BLOOD COUNT 3679007 Mean Plt Volume 10.6 fL 09/28/2016 COMPLETE BLOOD COUNT 2068871 Neut Auto 47.1 % 09/28/2016 COMPLETE BLOOD COUNT 1794141 Lymph Auto 40.6 % 09/28/2016 COMPLETE BLOOD COUNT 7784280 Otero Auto 5.8 % 09/28/2016 COMPLETE BLOOD COUNT 7966304 RDW 13.2 % 09/28/2016 COMPLETE BLOOD COUNT 4591377 Eos Auto 6.2 % 09/28/2016 COMPLETE BLOOD COUNT 5183895 Baso Auto 0.3 % 09/28/2016 COMPLETE BLOOD COUNT 6902597 Neutrophil Abs 3.63 10e9/L 09/28/2016 COMPLETE BLOOD COUNT 9197439 Lymphocyte Abs 3.13 10e9/L 09/28/2016 COMPLETE BLOOD COUNT 3755068 Monocyte Abs 0.45 10e9/L 09/28/2016 COMPLETE BLOOD COUNT 6897552 Eosinophil Abs 0.48 10e9/L 09/28/2016 COMPLETE BLOOD COUNT 8878570 RDW-SD 42.4 fL 09/28/2016 COMPLETE BLOOD COUNT 3796137 Basophil Abs 0.02 10e9/L 09/28/2016 GFR CALC 5546141 GFR Non Afr Amr >60 mL/min 09/28/2016 GFR CALC 8371013 GFR Afr Amr >60 mL/min 09/28/2016 COMPREHENSIVE METABOLIC 59996 AST 12 U/L 09/28/2016 COMPREHENSIVE METABOLIC 97050 ALT 8 U/L 09/28/2016 COMPREHENSIVE METABOLIC 02464 BUN 11 mg/dL 09/28/2016 COMPREHENSIVE METABOLIC 27633 ALBUMIN 4.0 g/dL 09/28/2016 COMPREHENSIVE METABOLIC 87119 CHLORIDE 102 mmol/L 09/28/2016 COMPREHENSIVE METABOLIC 33015 Bili Total 0.3 mg/dL 09/28/2016 COMPREHENSIVE METABOLIC 28738 ALK PHOS 63 U/L 09/28/2016 COMPREHENSIVE METABOLIC 14546 SODIUM 140 mmol/L 09/28/2016 COMPREHENSIVE METABOLIC 72660 CREATININE 1.00 mg/dL 09/28/2016 COMPREHENSIVE METABOLIC 53002 CALCIUM 8.8 mg/dL 09/28/2016 COMPREHENSIVE METABOLIC 19118 POTASSIUM 3.8 mmol/L 09/28/2016 COMPREHENSIVE METABOLIC 41102 Total Protein 6.9 g/dL 09/28/2016 COMPREHENSIVE METABOLIC 52732 Glucose 111 mg/dL 09/28/2016 COMPREHENSIVE METABOLIC 83792 Bicarbonate 29 mmol/L 09/28/2016 COMPREHENSIVE METABOLIC 17561 AGAP 9 mmol/L 09/28/2016 GC/CHLAMYDIA DNA 69940|75121 Chl trach DNA TNP:Wrong Test 2016 GC/CHLAMYDIA DNA 21705|76467 GC PROBE TNP:Wrong Test 2016 FREE T4 07703 T4 Free 1.34 ng/dL 02/06/2016 COMPREHENSIVE METABOLIC 91563 AST 14 U/L 02/06/2016 COMPREHENSIVE METABOLIC 97817 ALT 9 U/L 02/06/2016 COMPREHENSIVE METABOLIC 87823 BUN 9 mg/dL 02/06/2016 COMPREHENSIVE METABOLIC 95511 ALBUMIN 4.2 g/dL 02/06/2016 COMPREHENSIVE METABOLIC 15122 CHLORIDE 103 mmol/L 02/06/2016 COMPREHENSIVE METABOLIC 13897 Bili Total 0.5 mg/dL 02/06/2016 COMPREHENSIVE METABOLIC 84539 ALK PHOS 51 U/L 02/06/2016 COMPREHENSIVE METABOLIC 36730 SODIUM 140 mmol/L 02/06/2016 COMPREHENSIVE METABOLIC 80839 CREATININE 0.97 mg/dL 02/06/2016 COMPREHENSIVE METABOLIC 94907 CALCIUM 9.2 mg/dL 02/06/2016 COMPREHENSIVE METABOLIC 77461 POTASSIUM 4.1 mmol/L 02/06/2016 COMPREHENSIVE METABOLIC 47599 Total Protein 6.9 g/dL 02/06/2016 COMPREHENSIVE METABOLIC 96240 Glucose 97 mg/dL 02/06/2016 COMPREHENSIVE METABOLIC 95882 Bicarbonate 31 mmol/L 02/06/2016 COMPREHENSIVE METABOLIC 72691 AGAP 6 mmol/L 02/06/2016 PSA EQUIMOLAR MANJEET 73497 PSA Total 2.71 ng/mL 02/06/2016 LIPID GROUP 30393 Choles terol 141 mg/dL 02/06/2016 LIPID GROUP 54071 Trigly ceride 81 mg/dL 02/06/2016 LIPID GROUP 80730 HDL CH OLESTEROL 59 mg/dL 02/06/2016 LIPID GROUP 61830 Chol/H DL Ratio 2.39 ratio 02/06/2016 LIPID GROUP 60457 NON-HD L Chol 82 mg/dL 02/06/2016 LIPID GROUP 28416 LDL Ch olesterol 66 mg/dL 02/06/2016 THYROID STIMULATING HORMONE 15380 TSH 1.220 uIU/mL 6 COMPLETE BLOOD COUNT 0270985 WBC 4.2 10e9/L 02/06/2016 COMPLETE BLOOD COUNT 5823961 RBC 4.91 10e12/L 6 COMPLETE BLOOD COUNT 2824088 HEMOGLOBIN 15.0 g/dL 02/06/2016 COMPLETE BLOOD COUNT 4183658 HEMATOCRIT 43.9 % 02/06/2016 COMPLETE BLOOD COUNT 0143164 MCV 89.4 fL 02/06/2016 COMPLETE BLOOD COUNT 6214041 MCH 30.5 pg 02/06/2016 COMPLETE BLOOD COUNT 9242447 MCHC 34.2 g/dL 02/06/2016 COMPLETE BLOOD COUNT 9733563 PLATELET COUNT 224 10e9/L 02/06/2016 COMPLETE BLOOD COUNT 3487185 Mean Plt Volume 10.1 fL 02/06/2016 COMPLETE BLOOD COUNT 5558487 Neut Auto 46.6 % 02/06/2016 COMPLETE BLOOD COUNT 8404431 Lymph Auto 39.2 % 02/06/2016 COMPLETE BLOOD COUNT 5003761 Otero Auto 8.8 % 02/06/2016 COMPLETE BLOOD COUNT 9499614 Eos Auto 5.2 % 02/06/2016 COMPLETE BLOOD COUNT 7626752 RDW 13.3 % 02/06/2016 COMPLETE BLOOD COUNT 4117722 Baso Auto 0.2 % 02/06/2016 COMPLETE BLOOD COUNT 3376703 Neutrophil Abs 1.96 10e9/L 02/06/2016 COMPLETE BLOOD COUNT 8231036 Lymphocyte Abs 1.65 10e9/L 02/06/2016 COMPLETE BLOOD COUNT 0253177 Monocyte Abs 0.37 10e9/L 02/06/2016 COMPLETE BLOOD COUNT 2918267 Eosinophil Abs 0.22 10e9/L 02/06/2016 COMPLETE BLOOD COUNT 2022940 RDW-SD 42.8 fL 02/06/2016 COMPLETE BLOOD COUNT 0739060 Basophil Abs 0.01 10e9/L 02/06/2016 GFR CALC 6034245 GFR Afr Amr >60 mL/min 02/06/2016 GFR CALC 4846128 GFR Non Afr Amr >60 mL/min 02/06/2016 [...] - General Neurologic mental status Overall: alert 07/09/201 9 None Full Exam - General Neurologic [...] Procedure Codes Date THER/PROPH/DIAG INJ SC/IM CPT-4: 49564 06/23/2017 TRIAMCINOLONE ACET I NJ NOS CPT-4: J3301 06/23/2017 DEXAMETHASONE SODIUM PHOS CPT-4: J1100 06/23/2017 URINALYSIS NONAUTO W /O SCOPE CPT-4: 42861 09/27/2016 URINE CULTURE/ COLON Y COUNT CPT-4: 48822 09/27/2016 GC/CHLAMYDIA DNA (BD -[employer]be[employer]ec) CPT-4: 89799|20593 09/27/2016 ROUTINE VENIPUNCTURE CPT-4: 51756 09/27/2016 COMPREHEN METABOLIC PANEL CPT-4: 85978 09/27/2016 COMPLETE CBC W/AUTO DIFF WBC CPT-4: 87693 09/27/2016 CEFTRIAXONE SODIUM I NJECTION CPT-4: J0696 09/27/2016 THER/PROPH/DIAG INJ SC/IM CPT-4: 02566 09/27/2016 ROUTINE VENIPUNCTURE CPT-4: 32819 02/06/2016 ASSAY OF FREE THYROXINE CPT-4: 28727 02/06/2016 ASSAY THYROID STIM H ORMONE CPT-4: 77473 02/06/2016 COMPREHEN METABOLIC PANEL CPT-4: 26489 02/06/2016 COMPLETE CBC W/AUTO DIFF WBC CPT-4: 58874 02/06/2016 LIPID PANEL CPT-4: 03662 02/06/2016 ASSAY OF PSA TOTAL CPT- 4: 88111 02/06/2016 ADMIN INFLUENZA VIRU S VAC CPT-4: [...] 1: 126/78 Code: 8480-6 BMI: 22.8 Code: 66638-9 Heart Rate 1: 52 bpm Height: 6' Respiratory Rate: 20 bpm SpO2: 94% Temperature: 36.9 (C ) / 98.4 (F) Weight: 168 lbs 05/30/2018 Blood Pressure 1: 124/68 Code: 8480-6 BMI: 22.8 Code: 36987-9 Heart Rate 1: 56 bpm Height: 6' [...] 1: 126/64 Code: 8480-6 BMI: 23.1 Code: 91942-2 Heart Rate 1: 56 bpm Height: 6' Respiratory Rate: 20 bpm Temperature: 36.7 (C ) / 98.1 (F) Weight: 170 lbs 06/23/2017 Blood Pressure 1: 138/80 Code: 8480-6 BMI: 22.4 Code: 06491-2 Heart Rate 1: 84 bpm Height: 6' Respiratory Rate: 20 bpm Temperature: 37.2 (C ) / 98.9 (F) Weight: 165 lbs 12/14/2016 Blood Pressure 1: 126/80 Code: 8480-6 BMI: 21.4 Code: 13896-1 Heart Rate 1: 72 bpm Height: 6' Respiratory Rate: 20 bpm SpO2: 96% Temperature: 37.0 (C ) / 98.6 (F) Weight: 158 lbs 11/15/2016 Blood Pressure 1: 122/68 Code: 8480-6 BMI: 22.9 Code: 09558-3 Heart Rate 1: 68 bpm Height: 6' Respiratory Rate: 20 bpm SpO2: 95% Temperature: 36.9 (C ) / 98.4 (F) Weight: 169 lbs 09/27/2016 Blood Pressure 1: 148/88 Code: 8480-6 BMI: 23.9 Code: 75608-0 Heart Rate 1: 72 bpm Height: 6' Respiratory Rate: 22 bpm SpO2: 98% Temperature: 36.7 (C ) / 98.0 (F) Weight: 176 lbs 04/19/2016 Blood Pressure 1: 126/58 Code: 8480-6 BMI: 23.9 Code: 50605-5 Heart Rate 1: 80 bpm Height: 6' Respiratory Rate: 20 bpm SpO2: 94% Temperature: 36.6 (C ) / 97.8 (F) Weight: 176 lbs 04/05/2016 Blood Pressure 1: 126/70 Code: 8480-6 BMI: 23.6 Code: 58017-9 Heart Rate 1: 56 bpm Height: 6' Respiratory Rate: 20 bpm Temperature: 36.8 (C ) / 98.2 (F) Weight: 174 lbs 02/02/2016 Blood Pressure 1: 136/88 Code: 8480-6 BMI: 23.5 Code: 77364-4 Heart Rate 1: 60 bpm Height: 6' [...] chr onic 12/14/2016 None hypertension Quality moriah juancarlos hypertension 12/14/2016 None hypertension Quality sta ble [...] Encounters Encounter Performer Loca tion Codes Date ([id number]) OFFICE/OUTPA TIENT VISIT EST Diagnosis: URI, ACUTE[ICD10: J06.9] Brett ARREDONDO DO [facility] CPT-4: 69047 10/24/2018 ([id number]) OFFICE/OUTPA TIENT VISIT EST Diagnosis: Intervertebral disc disorders with myelopathy, 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] Diagnosis: Lumbago with sciatica, left side[ICD10: M54.42] Brett [facility] CPT-4: 60210 09/27/2018 ([id number]) OFFICE/OUTPA TIENT VISIT EST Diagnosis: Intervertebral disc disorders with myelopathy, 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] Taylor ARREDONDO DO [facility] CPT-4: 27366 09/13/2018 ([id number]) OFFICE/OUTPA TIENT VISIT EST Diagnosis: Intervertebral disc disorders with myelopathy, 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] Brett [facility] CPT-4: 94042 07/25/2018 ([id number]) OFFICE/OUTPA TIENT VISIT EST Diagnosis: Slow transit constipation[ICD10: K59.01] Brett [facility] CPT-4: 61000 05/30/2018 ([id number]) OFFICE/OUTPA TIENT VISIT EST Diagnosis: Intervertebral disc disorders with myelopathy, 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] Diagnosis: Abnormality of plasma protein, unspecified[ICD10: R77.9] Brett [facility] CPT-4: 86572 05/10/2018 ([id number]) OFFICE/OUTPA TIENT VISIT EST Diagnosis: Lumbago with sciatica, left side[ICD10: M54.42] Diagnosis: Intervertebral disc disorders with myelopathy, 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] Diagnosis: Cervical disc disorder with myelopathy, unspecified cervical region[ICD10: M50.00] Brett ARREDONDO DO [facility] CPT-4: 91671 04/26/2018 ([id number]) OFFICE/OUTPA TIENT VISIT EST Diagnosis: Lumbago with sciatica, left side[ICD10: M54.42] Brett [facility] CPT-4: 44608 04/19/2018 ([id number]) OFFICE/OUTPA TIENT VISIT EST Diagnosis: Lumbago with sciatica, left side[ICD10: M54.42] Brett CARDENAS NDER Njini CPT-4: 73631 06/23/2017 ([id number]) OFFICE/OUTPA TIENT VISIT EST Diagnosis: Other intestinal obstruction[ICD10: K56.69] Diagnosis: Essential (primary) hypertension[ICD10: I10] Brett CARDENAS NDER Klood [facility] CPT-4: 77003 12/14/2016 ([id number]) OFFICE/OUTPA TIENT VISIT EST Diagnosis: Lumbago with sciatica, left side[ICD10: M54.42] Brett CARDENAS NDER Klood [facility] CPT-4: 00140 11/15/2016 OFFICE/OUTPATIENT SIT EST Diagnosis: Epididymitis[ICD10: N45.1] Judy Cheung BRETT ARREDONDO [facility] CPT-4: 65638 09/27/2016 ([id number]) OFFICE/OUTPA TIENT VISIT EST Diagnosis: Lumbago with sciatica, left side[ICD10: M54.42] Brett CARDENAS NDER Njini CPT-4: 34368 04/19/2016 ([id number]) OFFICE/OUTPA TIENT VISIT EST Diagnosis: Lumbago with sciatica, left side[ICD10: M54.42] Brett CARDENAS NDER Njini CPT-4: 86019 04/05/2016 ([id number]) OFFICE/OUTPA TIENT VISIT EST Diagnosis: Essential (primary) hypertension[ICD10: I10] Diagnosis: Encounter for screening for malignant neoplasm of prostate[ICD10: Z12.5] Diagnosis: Other fatigue[ICD10: R53.83] Brett ARREDONDO Njini CPT-4: 73731 02/06/2016 ([id number]) OFFICE/OUTPA TIENT VISIT NEW Diagnosis: Essential (primary) hypertension[ICD10: I10] Diagnosis: FLU VACCINE[ICD10: Z23] Rubi Cantu BRETT Ying ARREDONDO [facility] CPT-4: 60849 02/02/2016 Plan of Care Planned Activity Notes C odes Status Date Visit Diagnosis Plan: URI, ACUTE Dis cussion: Doxycycline and prednisone Notify if persists/worsening ICD-9 : 465.9 ICD-10 : J06.9 10/24/2018 Appointment: Brett Arredondo [facility]Ptel[facility] [phone] [facility] [facility] 10/24/2018 Patient Education: doxycycline hyclate- [employer] Coupon [id number] https://www.[employer]/sampleEdyn/resources/getResource/61/[email or web address]-lk [email or web address].pdf Completed 10/24/2018 Patient Education: prednisone- Opt[employer] Coupon [id number] https://www.[employer]/Ubookoo/resources/getResource/61/6876h180-n447-4962-8k Completed 10/24/2018 Visit Diagnosis Plan: Intervertebral dis c disorders with myelopathy, lumbar region Discussion: Add lyrica 150mg q HS Add di clofenac ER 100mg po BID and pepcid for stomach protection Does not want surgery Recheck 1month ICD-9 : 722.73 ICD-10 : M51.06 09/27/2018 Appointment: Brett Arredondo WPtel: [phone] [facility] FOLLOW UP 09/27/2018 Patient Education: famotidine- [employer] Coupon [id number] https://www.[employer]bookoo/resources/getResource/61/[email or web address]-[email or web address] Completed 09/27/2018 Visit Diagnosis Plan: Intervertebral dis [...] : M51.06 09/13/2018 [facility]ointment: [facility] [address] [facility] [facility] 09/13/2018 Patient Education: Celebrex- [employer] Coupon [id number] https://www.[employer]/resources/getResource/61/70l1sl9n-k587-92q5-d8 Completed 09/13/2018 Patient Education: Lyrica- [employer] Coupon [id number] https://www.[employer]/resources/getResource/61/7q1r1p0m-2suz-213k-5e Completed 09/13/2018 Visit Diagnosis Plan: Intervertebral dis c disorders with myelopathy, lumbar region Discussion: Proceed with epidural Add lo w dose baclofen q HS for spasm/pain Continue mobic Tramadol prn ICD-9 : 722.73 ICD-10 : M51.06 07/25/2018 Appointment: Brett Arredondo WPtel: [address] [place] [address] FOLLOW UP 07/25/2018 Patient Education: meloxicam- [employer] Coupon [id number] https://www.[employer]/resources/getResource/61/8187q243-40v1-1j68-f4 Completed 07/25/2018 Patient Education: baclofen- [employer] Coupon [id number] https://www.[employer]/resources/getResource/61/5n111p3s-jfw0-2a37-3f Completed 07/25/2018 Care Plan: Referral Order SNOMED-CT : [id number] Pending 07/25/2018 Visit Diagnosis Plan: Slow transit constipation Discussion: Warm prune juice daily Start miralax daily Notify if worsening or above regimen not effective ICD-9 : 564.01 ICD-10 : K59.01 05/30/2018 Appointment: Brett Arredondo WPtel: [address] [place], [place] [phone] ACUTE ILLNESS 05/30/2018 Visit Diagnosis Plan: Abnormality [...] : M51.06 05/10/2018 Appointment: Brett Arredondo WPtel: [address] [place], [place] [phone] US FOLLOW UP 05/10/2018 Visit Diagnosis Plan: Lumbago with sciatica, left side Discussion: Check MRI of L/S spine Start PT Low dose Mobic and tramadol 50mg with tylenol XS TID prn May need PET scan to further assess left iliac lesion--will await MRI results ICD-9 : 724.3 ICD-10 : M54.42 04/26/2018 Appointment: Brett Arredondo WPtel: [address] [place], [place] [phone] US FOLLOW UP 04/26/2018 Visit Diagnosis Plan: Lumbago with sciatica, left side Discussion: Obtain ER records from [facility] Prednisone taper Topical muscle rub Recheck 1 week May need PT ICD-9 : 724.3 ICD-10 : M54.42 04/19/2018 Appointment: Brett Arredondo WPtel: [address] [place], [place] [phone] ACUTE ILLNESS 04/19/2018 Patient Education: prednisone- Opt[employer]RX Coupon [id number] https://www.[employer]/samplemd/resources/getResource/61/[email or web address] Completed 04/19/2018 Visit Diagnosis Plan: Lumbago with sciatica, left side Discussion: Kenalog/Dexamethasone now and then prednisone tomorrow Call in 1 week on how doing Will need MRI of L/S spine if persists or worsens ICD-9 : 724.3 ICD-10 : M54.42 06/23/2017 Appointment: Brett Arredondo WPtel: [address] [place] [address] ACUTE ILL[place] 06/23/2017 Patient Education: Patient Medication Summary Completed 06/23/2017 Visit Diagnosis Plan: Other intestinal obstruction Discussion: Continue on stool softener and observe Will hold on colonoscopy as last one was end of 2013 and normal ICD-9 : 560.9 ICD-10 : K56.69 12/14/2016 Visit Diagnosis Plan: Essential (primary) hypertension Discussion: Stable ICD-9 : 401.9 ICD-10 : I10 12/14/2016 Appointment: Brett Arredondo WPtel: [phone] [facility] ER Follow UP 12/14/2016 Patient Education: Patient Medication Summary Completed 12/14/2016 Patient Education: Patient Medication Summary Completed 11/17/2016 Visit Diagnosis Plan: Lumbago with sciatica, left side Discussion: Finish prednisone Check L/S spine x-ray Will likely start PT after above results obtained ICD-9 : 724.3 ICD-10 : M54.42 11/15/2016 Appointment: Brett Arredondo WPtel: [facility] 11/11 confirmed`sl Urgent/Quick Care Follow Up 11/15/2016 Patient Education: Patient Medication Summary Completed 11/15/2016 Care Plan: X-RAY EXAM L-S SPINE 2/3 VWS LOINC : 11907-7 Pending 11/15/2016 Visit Plan: CBC, CMP, UA [...] not resolve. 09/27/2016 Appointment: Judy Cheung WPtel: [address] [place] [address] ER Follow UP 09/27/2016 Patient Education: Patient Medication Summary Completed 09/27/2016 Visit Plan: Will do low dose mobic daily for 2 weeks with food then every other day for 2 weeks then stop Continue daily back stretches If pain returns will check L/S spine x-rays 04/19/2016 Appointment: Brett Arredondo WPtel: [address] [place] [address] 04/15 confirmed `sl FOLLOW UP 04/19/2016 Patient Education: Patient Medication Summary Completed 04/19/2016 Visit Plan: Daily back stretches, m oist heat, Biofreeze prn Prednisone Recheck 1 week If pain persists then will need x-rays and PT 04/05/2016 Appointment: Brett Arredondo WPtel: [address] [place], [place] [phone] ACUTE ILLNESS 04/05/2016 Patient Education: Patient Medication Summary Completed 04/05/2016 Appointment: Brett Arredondo WPtel: [address] [place], [place] [phone] 02/06/2016 Patient Education: Patient Medication Summary [...] in 3 months 02/02/2016 Appointment: Rubi Cantu [address] [place], [place] [phone] 02/01 confirmed ~sl NEW PATIENT 02/02/2016 Patient Education: Patient Medication Summary Completed 02/02/2016 Referral: Cassius Jaquez WPtel: [facility] [address] Referral Completed Referral: Cassius Jaquez WPtel: [facility] [address] Referral Appointment Requested Referral: Dr. Daryl WPtel: [...]
--- OUTSIDE RECORDS SUMMARY | 2019-04-19 16:35 | XMS REPORT | Continuity of Care Document ---
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 narrative Complete [facility] Serum protein electrophoresis - 04/22/18 09:35 Serum or plasma protein measurement (mass/volume) 7.4 % 6.4- 8.1 Pathology consultation and report SEE PATH REPORT [facility] Quantitative urine kappa and lambda free light chains measurement - 04/22/18 09:35 Quantitative serum kappa light chain measurement 1 8.60 % 3.30-19.40 Quantitative serum lambda light chain measurement 15.95 % 5.71-26.30 Serum immunoglobulin free kappa light ch ains/immunoglobulin lambda light chains mass ratio 1.17 % 0.26-1.65 Complete blood count (CBC) with automate d white blood cell (WBC) differential - 05/25/18 20:55 Blood leukocytes automated count (number/volume) 6.8 10*3/uL 4.3-11.0 Blood erythrocytes automated count (number/volume) 5.04 10*6/uL 4.35-5.85 Venous blood hemoglobin measurement (mass/volume) 14.9 g/dL 13.3-17.7 Blood hematocrit (volume fraction) 43 % 40-54 Automated erythrocyte mean corpuscular volume 86 [ foz_us] 80-99 Automated erythrocyte mean corpuscular h emoglobin (mass per erythrocyte) 30 pg 25-34 Automated erythrocyte mean corpuscular h emoglobin concentration measurement (mass/volume) 35 g/dL 32-36 Automated erythrocyte distribution width ratio 13. 6 % 10.0- 14.5 Automated blood platelet count (count/volume) 215 10*3/uL 130-400 Automated blood platelet mean volume measurement 9.4 [foz_us] 7.4-10.4 Automated blood neutrophils/100 leukocytes 43 % 42-75 Automated blood lymphocytes/100 leukocytes 45 % 12-44 Blood monocytes/100 leukocytes 5 % 0-12 Automated blood eosinophils/100 leukocytes 6 % 0-10 Automated blood basophils/100 leukocytes 0 % 0-10 Blood neutrophils automated count (number/volume) 2.9 10*3 1.8-7.8 Blood lymphocytes automated count (number/volume) 3.1 10*3 1.0-4.0 Blood monocytes automated count (number/volume) 0. 4 10*3 0.0-1.0 Automated eosinophil count 0.4 10*3/uL 0 .0-0.3 Automated blood basophil count (count/volume) 0.0 10*3/uL 0.0-0.1 Comprehensive metabolic panel - 05/25/18 20:55 Serum or plasma sodium measurement (moles/volume) 138 mmol/L 135-145 Serum or plasma potassium measurement (moles/volume) 4.4 mmol/L 3.6-5.0 Serum or plasma chloride measurement (moles/volume) 101 mmol/L 98-107 Carbon dioxide 27 mmol/L 21-32 Serum or plasma anion gap determination (moles/volume) 10 mmol/L 5-14 Serum or plasma urea nitrogen measurement (mass/volume ) 15 mg/dL 7-18 Serum or plasma creatinine measurement (mass/volume) 1.03 mg/dL 0.60-1.30 Serum or plasma urea nitrogen/creatinine mass ratio 15 NRG Serum or plasma creatinine measurement w ith calculation of estimated glomerular filtration rate > NRG Serum or plasma glucose measurement (mass/volume) 107 mg/dL 70-105 Serum or plasma calcium measurement (mass/volume) 9.3 mg/dL 8.5-10.1 Serum or plasma total bilirubin measurement (mass/volu me) 0.4 mg/dL 0.1-1.0 Serum or plasma alkaline phosphatase con surement (enzymatic activity/volume) 70 U/L 40-136 Serum or plasma aspartate aminotransfera se measurement (enzymatic activity/volume) 17 U/L 5-34 Serum or plasma alanine aminotransferase measurement (enzymatic activity/volume) 12 U/L 0-55 Serum or plasma protein measurement (mass/volume) 7.6 g/dL 6.4-8.2 Serum or plasma albumin measurement (mass/volume) 4.4 g/dL 3.2-4.5 CALCIUM CORRECTED 9.0 mg/dL 8.5-10.1 Lipase - 02/07/19 20:55 Lipase 39 U/L 8-78 Complete blood count (CBC) with automate d white blood cell (WBC) differential - 12/14/18 10:12 Blood leukocytes automated count (number/volume) 8.0 10*3/uL 4.3-11.0 Blood erythrocytes automated count (number/volume) 5.07 10*6/uL 4.35-5.85 Venous blood hemoglobin measurement (mass/volume) 15.3 g/dL 13.3-17.7 Blood hematocrit (volume fraction) 46 % 40-54 Automated erythrocyte mean corpuscular volume 90 [ foz_us] 80-99 Automated erythrocyte mean corpuscular h emoglobin (mass per erythrocyte) 30 pg 25-34 Automated erythrocyte mean corpuscular h emoglobin concentration measurement (mass/volume) 34 g/dL 32-36 Automated erythrocyte distribution width ratio 14. 0 % 10.0- 14.5 Automated blood platelet count (count/volume) 205 10*3/uL 130-400 Automated blood platelet mean volume measurement 9.5 [foz_us] 7.4-10.4 Automated blood neutrophils/100 leukocytes 49 % 42-75 Automated blood lymphocytes/100 leukocytes 40 % 12-44 Blood monocytes/100 leukocytes 8 % 0-12 Automated blood eosinophils/100 leukocytes 3 % 0-10 Automated blood basophils/100 leukocytes 0 % 0-10 Blood neutrophils automated count (number/volume) 3.9 10*3 1.8-7.8 Blood lymphocytes automated count (number/volume) 3.2 10*3 1.0-4.0 Blood monocytes automated count (number/volume) 0. 6 10*3 0.0-1.0 Automated eosinophil count 0.2 10*3/uL 0 .0-0.3 Automated blood basophil count (count/volume) 0.0 10*3/uL 0.0-0.1 Comprehensive metabolic panel - 12/14/18 10:12 Serum or plasma sodium measurement (moles/volume) 140 mmol/L 135-145 Serum or plasma potassium measurement (moles/volume) 4.4 mmol/L 3.6-5.0 Serum or plasma chloride measurement (moles/volume) 102 mmol/L 98-107 Carbon dioxide 27 mmol/L 21-32 Serum or plasma anion gap determination (moles/volume) 11 mmol/L 5-14 Serum or plasma urea nitrogen measurement (mass/volume ) 12 mg/dL 7-18 Serum or plasma creatinine measurement (mass/volume) 1.05 mg/dL 0.60-1.30 Serum or plasma urea nitrogen/creatinine mass ratio 11 NRG Serum or plasma creatinine measurement w ith calculation of estimated glomerular filtration rate > NRG Serum or plasma glucose measurement (mass/volume) 119 mg/dL 70-105 Serum or plasma calcium measurement (mass/volume) 9.4 mg/dL 8.5-10.1 Serum or plasma total bilirubin measurement (mass/volu me) 0.8 mg/dL 0.1-1.0 Serum or plasma alkaline phosphatase con surement (enzymatic activity/volume) 63 U/L 40-136 Serum or plasma aspartate aminotransfera se measurement (enzymatic activity/volume) 13 U/L 5-34 Serum or plasma alanine aminotransferase measurement (enzymatic activity/volume) 11 U/L 0-55 Serum or plasma protein measurement (mass/volume) 7.3 g/dL 6.4-8.2 Serum or plasma albumin measurement (mass/volume) 4.2 g/dL 3.2-4.5 CALCIUM CORRECTED 9.2 mg/dL 8.5-10.1 [id number] - 12/14/18 10:17 [id number] 46 % 47-209 Serum IgA measurement (units/volume) 219 % 71-263 Serum protein electrophoresis - 12/14/18 10:17 Serum or plasma protein measurement (mass/volume) 6.6 % 6.4- 8.1 Pathology consultation and report SEE PATH REPORT [facility] Quantitative urine kappa and lambda free light chains measurement - 12/14/18 10:17 Quantitative serum kappa light chain measurement 2 0.02 % 3.30-19.40 Quantitative serum lambda light chain measurement 19.12 % 5.71-26.30 Serum immunoglobulin free kappa light ch ains/immunoglobulin lambda light chains mass ratio 1.05 % 0.26-1.65 Encounters ACCT No. Visit Date/Time Discharge Status Pt. Type Provider Facility Loc./Unit Complaint 01/201703/27/2019 15:46:27 03/27/2019 23:59 :59 [facility] Outpatient Brett Arredondo [id number] 01/30/2016 09:53:27 01/30/2016 23:59:5 9 CLS Outpatient [id number] 03/25/2019 01:16:00 04:29:00 DIS Emergency EJ KAY MD [facility] ER BOWEL PROBLEMS [id number] 03/15/2019 00:10:00 23:59:59 CLS Preadmit LESVIA SIDDIQI MD [facility] ONC [id number] 12/21/2018 10:22:00 00:01:00 DIS Outpatient LESVIA SIDDIQI MD, [facility] ONC [id number] 02/09/2019 13:34:00 23:59:59 CLS Outpatient RAISSA MCKINLEY MUSIC INSTRUCTOR [facility] RAD MASS ON NECK [id number] 06/22/2018 10:27:00 00:01:00 DIS Outpatient LESVIA SIDDIQI MD, V [facility] ONC [id number] 08/09/2018 00:09:00 23:59:59 CLS Preadmit BRETT ARREDONDO DO S [facility] REHAB LUMBAR DDD; CER VICAL DDD [id number] 07/20/2018 12:49:00 00:01:00 DIS Outpatient STEVE ARREDONDO DOLINE S [facility] REHAB LUMBAR DDD; CER VICAL DDD [id number] 05/25/2018 20:40:00 22:28:00 DIS Emergency JANEE MCKEON MUSIC INSTRUCTOR [facility] ER ABD PAIN [id number] 04/27/2018 08:16:00 23:59:59 CLS Outpatient BRETT ARREDONDO DO S [facility] RAD LUMBAR DEG DISE ASE [id number] 04/22/2018 09:14:00 23:59:59 CLS Outpatient STEVE ARREDONDO DOLINE S [facility] LAB HTN,FATIGUE,L I LIAC BONE LESIONS [id number] 11/24/2016 09:29:00 017 23:59:59 CLS Preadmit VANDA ARREDONDO DOQUELINE S [facility] REHAB LUMBAR SPINE NA RROWING ARTHRITIS [id number] 11/22/2016 09:59:00 017 16:18:00 DIS Inpatient VANDA ARREDONDO DOQUELINE S [facility] 4TH SMALL BOWEL OBS TRUCTION, N/V, DEHYDRATION, UTI [id number] 11/15/2016 11:16:00 017 23:59:59 CLS Outpatient STEVE ARREDONDO DOLINE S [facility] RAD LOW BACK PAIN [id number] 09/11/2016 10:31:00 13:36:00 DIS Emergency MARIA M SIM [facility] ER GENITAL PAIN [id number] 04/02/2014 07:48:00 014 10:55:00 DIS Outpatient JEFRY FRIEDMAN MD [facility] SDC SCREENING CONSTIPATIO N [id number] 03/27/2014 06:12:00 014 23:59:59 CLS Outpatient JEFRY FRIEDMAN MD [facility] PREOP SCREENING CONSTIPATIO N [id number] 03/01/2014 09:34:00 014 11:50:00 DIS Emergency JANEE MCKEON APRN [facility] ER CONSTIPATION [id number] 12/23/2009 13:07:00 Document Registration
== END 2019-03-25 04:29 | disposition other institution (70) ==
LOC: EDUNIT# 01:14 → ER 01:16
DX: K59.00 Constipation, unspecified (principal); I10 Essential (primary) hypertension; F17.290 Nicotine dependence, other tobacco product, uncomplicated; Z82.49 Family history of ischemic heart disease and other diseases of the circulatory system
CPT/HCPCS: 74022

== ENCOUNTER → 2019-05-07 | Outpatient (CLI) | payer MEDICARE, OTHER ==
--- NOTE | 2019-05-07 10:06 | Diagnostic Imaging Report ---
INDICATION: Cough, dyspnea. COMPARISON: 03/25/2019 TECHNIQUE: 2 radiographs of the chest dated 05/07/2019. FINDINGS: The cardiac silhouette is within normal limits in size. No significant pulmonary vascular congestion. The lungs are clear of focal pulmonary opacity. No pleural effusion. No pneumothorax. No acute osseous abnormality. IMPRESSION: No acute cardiopulmonary abnormality. Dictated by: Dictated on workstation # [id number]
== END ==
LOC: RAD 09:26
PROVIDERS: ATTEND Nurse Practitioner Family
DX: R05 Cough (principal); R06.00 Dyspnea, unspecified
CPT/HCPCS: 71046

== ENCOUNTER 2019-05-24 12:44 | Outpatient (RCR) | payer MEDICARE, OTHER ==
[2019-05-18 09:59] LABS: BASOPHILS % (AUTO) 0 % (0-10); EOSINOPHILS # (AUTO) 0.4 10^3/uL (0.0-0.3); EOSINOPHILS % (AUTO) 6 % (0-10); HEMATOCRIT 43 % (40-54); HEMOGLOBIN 14.5 G/DL (13.3-17.7); LYMPHOCYTES % (AUTO) 43 % (12-44); MEAN CORPUSCULAR HEMOGLOBIN 29 PG (25-34); MEAN CORPUSCULAR HGB CONC 34 G/DL (32-36); MEAN CORPUSCULAR VOLUME 87 FL (80-99); MONOCYTES # (AUTO) 0.4 X 10^3 (0.0-1.0); MONOCYTES % (AUTO) 6 % (0-12); NEUTROPHILS # (AUTO) 3.2 X 10^3 (1.8-7.8); NEUTROPHILS % (AUTO) 46 % (42-75); PLATELET COUNT 276 10^3/uL (130-400); RED CELL DISTRIBUTION WIDTH 13.3 % (10.0-14.5); WHITE BLOOD COUNT 7.1 10^3/uL (4.3-11.0)
[2019-05-18 10:19] LABS: ALANINE AMINOTRANSFERASE 13 U/L (0-55); ALBUMIN 4.1 GM/DL (3.2-4.5); ALKALINE PHOSPHATASE 66 U/L (40-136); BILIRUBIN,TOTAL 0.4 MG/DL (0.1-1.0); BUN/CREATININE RATIO 9; CALCIUM 9.2 MG/DL (8.5-10.1); CARBON DIOXIDE 27 MMOL/L (21-32); CHLORIDE 103 MMOL/L (98-107); CREATININE SERUM 0.89 MG/DL (0.60-1.30); GFR ESTIMATED > 60; GLUCOSE 92 MG/DL (70-105); POTASSIUM 4.4 MMOL/L (3.6-5.0); SODIUM 139 MMOL/L (135-145); TOTAL PROTEIN 7.1 GM/DL (6.4-8.2)
== END 2019-08-16 | disposition home or self-care (01) ==
LOC: ONC 12:44
PROVIDERS: ATTEND Internal Medicine Hematology & Oncology
DX: D47.2 Monoclonal gammopathy (principal); I10 Essential (primary) hypertension; Z79.899 Other long term (current) drug therapy
CPT/HCPCS: 80053; 82784; 83883; 84155; 84165; 84166; 85025; 99213

== ENCOUNTER 2019-11-14 09:09 | Emergency (ER) | payer MEDICARE, OTHER ==
[~2019-11-14] VITALS: Ht 182 cm; Wt 81.0 kg
--- NOTE | 2019-11-14 09:31 | ED Dyspnea ---
General Stated Complaint: WHEEZING,SOA History of Present Illness Date Seen by Provider: Nov 14, 2019 Time Seen by Provider: 09:20 Initial Comments 74-year-old male presents with some shortness of breath and wheezing. He reports his been going on about 3-4 days. They've been using his inhaler that was helping but now it is not helping as much. He denies any chest pain, he denies any fevers, chills, cough patient denies any loss of smell or taste, he denies any diarrhea. Patient with no other systemic complaints. Allergies and Home Medications Allergies Coded Allergies: FRANCEANo Known Allergies (Unverified Allergy, Mild, 03/14/09) Home Medications Amlodipine Besylate 10 Mg Tablet, 10 MG PO DAILY, (Reported) Docusate Sodium 100 Mg Capsule, 100 MG PO BID Prescribed by: BRETT ELIZONDO on 11/24/16 1249 Doxycycline Hyclate 100 Mg Tablet, 100 MG PO BID Prescribed by: HARPAL PARKS on 11/14/19 1027 Prednisone 20 Mg Tab, 40 MG PO DAILY Prescribed by: HARPAL PARKS on 11/14/19 1027 Patient Home Medication List Home Medication List Reviewed: Yes Review of Systems Review of Systems Constitutional: No chills, No dizziness, No fever, No weakness Respiratory: No cough, No orthopnea; short of breath, wheezing Cardiovascular: No chest pain, No palpitations Gastrointestinal: No abdominal pain, No nausea, No vomiting Musculoskeletal: no symptoms reported Skin: no symptoms reported Psychiatric/Neurological: No Symptoms Reported Past Djkpgod-Cdcqbn-Wydiex Hx Past Med/Social Hx: Reviewed Nursing Past Med/Soc Hx Patient Social History Alcohol Beverage of Choice: Beer Type Used: Cigars 2nd Hand Smoke Exposure: No Recent Hopitalizations: No Immunizations Up To Date Tetanus Booster (TDap): Unknown Seasonal Allergies Seasonal Allergies: No Past Medical History Surgeries: Yes (HAND) Orthopedic Respiratory: No Currently Using CPAP: No Currently Using BIPAP: No Cardiac: Yes Hypertension Neurological: No Genitourinary: No Gastrointestinal: No Musculoskeletal: No Arthritis, Chronic Back Pain Endocrine: No HEENT: No Loss of Vision: Denies Hearing Impairment: Denies Cancer: No Psychosocial: No Integumentary: No Blood Disorders: No Adverse Reaction/Blood Tranf: No Family Medical History Hypertension 19 MOTHER Neoplasm 19 FATHER Cancer, CAD Over 55 Years Old Physical Exam Vital Signs Vital Signs - First Documented 11/14/19 09:25 Temp 36.2 Pulse 54 Resp 16 B/P (MAP) 152/78 (102) Pulse Ox 99 O2 Delivery Room Air Capillary Refill : Height, Weight, BMI Height: 6'0" Weight: 165lbs. 1.0oz. 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 Norm as Tested Progress/Results/Core Measures Results/Orders Lab Results Laboratory Tests Test 11/14/19 09:30 Range/Units White Blood Count 6.5 4.3-11.0 10^3/uL Red Blood Count 4.70 4.35-5.85 10^6/uL Hemoglobin 13.9 13.3-17.7 G/DL Hematocrit 40 40-54 % Mean Corpuscular Volume 86 80-99 FL Mean Corpuscular Hemoglobin 30 25-34 PG Mean Corpuscular Hemoglobin Concent 34 32-36 G/DL Red Cell Distribution Width 13.1 10.0-14.5 % Platelet Count 223 130-400 10^3/uL Mean Platelet Volume 9.3 7.4-10.4 FL Neutrophils (%) (Auto) 39 L 42-75 % Lymphocytes (%) (Auto) 45 H 12-44 % Monocytes (%) (Auto) 7 0-12 % Eosinophils (%) (Auto) 9 0-10 % Basophils (%) (Auto) 0 0-10 % Neutrophils # (Auto) 2.5 1.8-7.8 X 10^3 Lymphocytes # (Auto) 3.0 1.0-4.0 X 10^3 Monocytes # (Auto) 0.5 0.0-1.0 X 10^3 Eosinophils # (Auto) 0.6 H 0.0-0.3 10^3/uL Basophils # (Auto) 0.0 0.0-0.1 10^3/uL Sodium Level 140 135-145 MMOL/L Potassium Level 4.2 3.6-5.0 MMOL/L Chloride Level 104 98-107 MMOL/L Carbon Dioxide Level 28 21-32 MMOL/L Anion Gap 8 5-14 MMOL/L Blood Urea Nitrogen 9 7-18 MG/DL Creatinine 1.03 0.60-1.30 MG/DL Estimat Glomerular Filtration Rate > 60 BUN/Creatinine Ratio 9 Glucose Level 89 70-105 MG/DL Calcium Level 8.8 8.5-10.1 MG/DL B-Type Natriuretic Peptide 27.3 <100.0 PG/ML My Orders Orders - HARPAL PARKS DO Chest 1 View, Ap/Pa Only (11/14/19 09:31) Basic Metabolic Panel (11/14/19 09:31) BNP (11/14/19 09:31) Cbc With Automated Diff (11/14/19 09:31) Albuterol/Ipratropium Inhaler (Combivent (11/14/19 13:00) Rt Request For Service (11/14/19 09:31) Methylprednisolone Sod Succ (Solu-Medrol (11/14/19 09:45) Albuterol/Ipratropium Inhaler (Combivent (11/14/19 09:46) Medications Given in ED Current Medications Medications Dose Ordered Sig/Erwin Route Start Time Stop Time Status Last Admin Dose Admin Albuterol/ Ipratropium 1 PUFF QID ONCE IH 11/14/19 13:00 11/14/19 13:01 11/14/19 09:56 4 GM Methylprednisolone Sodium Succinate 125 mg ONCE ONCE IM 11/14/19 09:45 11/14/19 09:46 DC 11/14/19 09:50 125 MG Vital Signs/I&O 11/14/19 09:25 Temp 36.2 Pulse 54 Resp 16 B/P (MAP) 152/78 (102) Pulse Ox 99 O2 Delivery Room Air Diagnostic Imaging Diagonstic Imaging: Xray Plain Films/CT/US/NM/MRI: chest Comments [facility] [place] NAME: DEEDEE CHISHOLM MED REC#: [id number] PT STATUS: REG ER : 1945 PHYSICIAN: HARPAL PARKS DO ADMIT DATE: 11/14/19/ER Draft Date of Exam:11/14/19 CHEST 1 VIEW, AP/PA ONLY CLINICAL INDICATION: Patient with wheezing and shortness of air. EXAM: Portable chest x-ray upright view. COMPARISONS: Chest x-ray dated 05/07/2019. FINDINGS: Lungs/pleura: Lungs are clear. There is no pneumothorax. There is no pleural effusion. Mediastinum: Unremarkable. Pulmonary vasculature: Unremarkable. Heart: Cardiac silhouette is upper limits of normal for portable projection. Bones/extrathoracic soft tissue: There are degenerative spurs involving the thoracic spine. IMPRESSION: There is no radiographic evidence of acute cardiopulmonary process. Departure Impression Primary Impression: COPD with acute exacerbation Disposition: HOME, SELF-CARE Condition: Stable Departure-Patient Inst. Referrals: BRETT ELIZONDO DO (PCP/Family) Primary Care Physician Patient Instructions: Chronic Obstructive Pulmonary Disease (COPD), Including Emphysema, Risk Factors for COPD Add. Discharge Instructions: Follow-up with your primary care provider in 3-4 days for recheck of today's symptoms Scripts Prednisone (Prednisone) 20 Mg Tab 40 MG PO DAILY, #6 TAB 0 Refills Prov: HARPAL PARKS DO 11/14/19 Doxycycline Hyclate (Doxycycline Hyclate) 100 Mg Tablet 100 MG PO BID, #20 TAB 0 Refills Prov: HARPAL PARKS DO 11/14/19 HARPAL PARKS DO Nov 14, 2019 09:31
[2019-11-14] MEDS ORDERED: methylPREDNISolone 125 MG (Solu-MEDROL) VIAL IM ONE (09:45)
[2019-11-14] MEDS ORDERED: ALBUTEROL/IPRATROP (COMBIVENT RESPIMAT) 4 GM INHALER ONE (09:46)
[2019-11-14 09:49] LABS: BASOPHILS % (AUTO) 0 % (0-10); EOSINOPHILS # (AUTO) 0.6 10^3/uL (0.0-0.3); EOSINOPHILS % (AUTO) 9 % (0-10); HEMATOCRIT 40 % (40-54); HEMOGLOBIN 13.9 G/DL (13.3-17.7); LYMPHOCYTES % (AUTO) 45 % (12-44); MEAN CORPUSCULAR HEMOGLOBIN 30 PG (25-34); MEAN CORPUSCULAR HGB CONC 34 G/DL (32-36); MEAN CORPUSCULAR VOLUME 86 FL (80-99); MEAN PLATELET VOLUME 9.3 FL (7.4-10.4); MONOCYTES # (AUTO) 0.5 X 10^3 (0.0-1.0); MONOCYTES % (AUTO) 7 % (0-12); NEUTROPHILS # (AUTO) 2.5 X 10^3 (1.8-7.8); NEUTROPHILS % (AUTO) 39 % (42-75); PLATELET COUNT 223 10^3/uL (130-400); RED CELL DISTRIBUTION WIDTH 13.1 % (10.0-14.5); WHITE BLOOD COUNT 6.5 10^3/uL (4.3-11.0)
[2019-11-14 09:57] LABS: CHLORIDE 104 MMOL/L (98-107); POTASSIUM 4.2 MMOL/L (3.6-5.0); SODIUM 140 MMOL/L (135-145)
[2019-11-14 09:58] LABS: CALCIUM 8.8 MG/DL (8.5-10.1); GLUCOSE 89 MG/DL (70-105)
[2019-11-14 10:00] LABS: CARBON DIOXIDE 28 MMOL/L (21-32)
[2019-11-14 10:02] LABS: CREATININE SERUM 1.03 MG/DL (0.60-1.30); GFR ESTIMATED > 60
[2019-11-14 10:03] LABS: BUN/CREATININE RATIO 9
[2019-11-14] MEDS ORDERED: DOXY100T2 PO (10:27)
[2019-11-14] MEDS ORDERED: PRD20T PO (10:27)
--- NOTE | 2019-11-14 10:34 | Diagnostic Imaging Report ---
CLINICAL INDICATION: Patient with wheezing and shortness of air. EXAM: Portable chest x-ray upright view. COMPARISONS: Chest x-ray dated 05/07/2019. FINDINGS: Lungs/pleura: Lungs are clear. There is no pneumothorax. There is no pleural effusion. Mediastinum: Unremarkable. Pulmonary vasculature: Unremarkable. Heart: Cardiac silhouette is upper limits of normal for portable projection. Bones/extrathoracic soft tissue: There are degenerative spurs involving the thoracic spine. IMPRESSION: There is no radiographic evidence of acute cardiopulmonary process. Dictated by: Dictated on workstation # [id number]
--- NOTE | 2019-11-14 10:45 | NUR ---
PT'S CONTACTED ET UPDATED AND READY FOR DISCHARGE .
[2019-11-14 10:52] VITALS: BP 137/82
[2019-11-14] MEDS ORDERED: ALBUTEROL/IPRATROP (COMBIVENT RESPIMAT) 4 GM INHALER IH ONE (13:00)
== END 2019-11-14 10:48 | disposition home or self-care (01) ==
LOC: EDUNIT# 09:09 → ER 09:12
DX: J44.1 Chronic obstructive pulmonary disease with (acute) exacerbation (principal); I10 Essential (primary) hypertension; Z82.49 Family history of ischemic heart disease and other diseases of the circulatory system
CPT/HCPCS: 36415; 71045; 80048; 83880; 85025

== ENCOUNTER 2020-03-03 08:46 | Emergency (ER) | payer MEDICARE, OTHER ==
[~2020-03-03] VITALS: Ht 182.8 cm; Wt 83.6 kg
[~2020-03-03 08:46] MED LIST changes: +AMLO-251 PO; -AMLO10TA7 PO; +DOXY100T2 PO; +PRD20T PO
--- NOTE | 2020-03-03 09:02 | ED Lower Extremity ---
General Chief Complaint: Lower Extremity Stated Complaint: L ANKLE PAIN Source: patient Exam Limitations: no limitations History of Present Illness Date Seen by Provider: Mar 03, 2020 Time Seen by Provider: 09:02 Initial Comments 75-year-old male presents with left ankle pain. Patient reports he had a misstep 2 days ago. Patient continued have some pain swelling and difficulty bearing weight. He presents to have it further evaluated. He denies any other injuries when he fell. Allergies and Home Medications Allergies Coded Allergies: Adarsh Known Allergies (Unverified Allergy, Mild, 03/14/09) Home Medications Amlodipine Besylate 10 Mg Tablet, 10 MG PO DAILY, (Reported) Docusate Sodium 100 Mg Capsule, 100 MG PO BID Prescribed by: BRETT ELIZONDO on 11/24/16 1249 Doxycycline Hyclate 100 Mg Tablet, 100 MG PO BID Prescribed by: HARPAL PARKS on 11/14/19 1027 Prednisone 20 Mg Tab, 40 MG PO DAILY Prescribed by: HARPAL PARKS on 11/14/19 1027 Patient Home Medication List Home Medication List Reviewed: Yes Review of Systems Constitutional: No chills, No fever EENTM: see HPI Respiratory: no symptoms reported Cardiovascular: no symptoms reported Gastrointestinal: no symptoms reported Musculoskeletal: see HPI Skin: see HPI Psychiatric/Neurological: No Symptoms Reported Past Yvekkvi-Jbdzis-Jvjrgm Hx Past Med/Social Hx: Reviewed Nursing Past Med/Soc Hx Patient Social History Alcohol Beverage of Choice: Beer Type Used: Cigars 2nd Hand Smoke Exposure: No Recent Foreign Travel: No Contact w/Someone Who Travel: No Recent Hopitalizations: No Immunizations Up To Date Tetanus Booster (TDap): Unknown Seasonal Allergies Seasonal Allergies: No Past Medical History Surgeries: Yes (HAND) Orthopedic Respiratory: Yes Pneumonia, Chronic Bronchitis, COPD Currently Using CPAP: No Currently Using BIPAP: No Cardiac: Yes Hypertension Neurological: No Genitourinary: No Gastrointestinal: No Musculoskeletal: No Arthritis, Chronic Back Pain Endocrine: No HEENT: No Loss of Vision: Denies Hearing Impairment: Denies Cancer: No Psychosocial: No Integumentary: No Blood Disorders: No Adverse Reaction/Blood Tranf: No Family Medical History Hypertension 19 MOTHER Neoplasm 19 FATHER Cancer, CAD Over 55 Years Old Physical Exam Vital Signs Vital Signs - First Documented 03/03/20 08:53 Temp 35.4 Pulse 58 Resp 18 B/P (MAP) 143/83 (103) Pulse Ox 98 Capillary Refill : Height, Weight, BMI Height: 6'0" Weight: 165lbs. 1.0oz. 74.464548wr; 24.00 BMI Method:Stated General Appearance: WD/WN Neck: full range of motion, supple Cardiovascular: normal peripheral pulses, regular rate, rhythm Respiratory: lungs clear, normal breath sounds Gastrointestinal: non tender, soft Hips: bilateral hip non-tender Legs: bilateral leg non-tender Knees: bilateral knee non-tender Ankles: right ankle non-tender, right ankle normal inspection, right ankle normal range of motion; left ankle limited range of motion, left ankle soft tissue tenderness, left ankle swelling Neurologic/Psychiatric: alert, normal mood/affect, oriented x 3 Progress/Results/Core Measures Results/Orders My Orders Orders - HARPAL PARKS DO Ankle, Left, 3 Views (03/03/20 09:04) Ortho Glass (03/03/20 09:26) Walker (03/03/20 09:26) Vital Signs/I&O 03/03/20 08:53 Temp 35.4 Pulse 58 Resp 18 B/P (MAP) 143/83 (103) Pulse Ox 98 Progress Progress Note : Progress Note Patient with distal fibular fracture. Patient was placed in a splint will have him follow-up with Dr. Arora for casting at a later date. Patient should call upon discharge from the ER for an appointment time Diagnostic Imaging Diagonstic Imaging: Xray Plain Films/CT/US/NM/MRI: ankle Comments [facility], [place] NAME: KATHRINEDEEDEE Jovan [facility] REC#: [id number] PT STATUS: REG ER : 1945 PHYSICIAN: HARPAL PARKS DO ADMIT DATE: 03/03/20/ER Draft Date of Exam:03/03/20 ANKLE, LEFT, 3 VIEWS Indication: Fall with pain and swelling to the left ankle. Time of exam 9:19 AM 3 views of the left ankle were obtained. There is an obliquely oriented fracture of the distal fibula. No significant displacement or angulation is seen. Ankle alignment is normal. Ankle mortise is well maintained. Talar dome is smooth. There is moderate soft tissue swelling laterally. IMPRESSION: Obliquely oriented distal fibular fracture, nondisplaced. There is moderate lateral soft tissue swelling. Dictated on workstation # [id number] Dict: 03/03/20921 Trans: 03/03/20923 [facility] [id number] Interpreted by: SABINA SMITH MD Electronically signed by: Reviewed: Reviewed by Me, Reviewed/Discussed Departure Impression Primary Impression: Fracture of distal end of fibula Qualified Codes: S82.832A - Other fracture of upper and lower end of left fibula, initial encounter for closed fracture Disposition: HOME, SELF-CARE Condition: Stable Departure-Patient Inst. Referrals: BRETT ELIZONDO DO (PCP/Family) Primary Care Physician CONCEPCION ARORA MD Patient Instructions: Fibula Fracture, Ankle Fracture (DC) Add. Discharge Instructions: Please use walker when ambulating Please call orthopedic surgeon to arrange for an appointment as soon as possible for recheck in today symptoms Do not bear weight on left foot All discharge instructions reviewed with patient and/or family. Voiced understanding. HARPAL PARKS DO Mar 03, 2020 09:02
--- NOTE | 2020-03-03 09:09 | NUR ---
TO X RAY PER W/C
--- NOTE | 2020-03-03 09:25 | Diagnostic Imaging Report ---
Indication: Fall with pain and swelling to the left ankle. Time of exam 9:19 AM 3 views of the left ankle were obtained. There is an obliquely oriented fracture of the distal fibula. No significant displacement or angulation is seen. Ankle alignment is normal. Ankle mortise is well maintained. Talar dome is smooth. There is moderate soft tissue swelling laterally. IMPRESSION: Obliquely oriented distal fibular fracture, nondisplaced. There is moderate lateral soft tissue swelling. Dictated by: Dictated on workstation # [id number]
--- NOTE | 2020-03-03 09:42 | NUR ---
SPLINT PLACED ON L LEG BY DR PARKS. CALLED DME FOR WALKER.
--- NOTE | 2020-03-03 09:53 | NUR ---
PATIENT INFORMED WAITING FOR DME TO BRING WALKER.
--- NOTE | 2020-03-03 10:49 | NUR ---
CALLED DME BACK TO CHECK ON MARIANA LOWRY. WILL SEND ONE.
--- NOTE | 2020-03-03 11:02 | NUR ---
Alvarez king in ED - 03/03/20 at 1211 by PMCCLURE MARIANA BATISTA PATIENT INSTRUCTION OF USE VOICED UNDERSTANDING. AND FOLLOW UP WITH NELSON LOZANO
[2020-03-03 11:19] VITALS: BP 143/83
--- NOTE | 2020-03-03 11:19 | NUR ---
MARIANA HERE PATIENT INSTRUCTION OF USE VOICED UNDERSTANDING. AND FOLLOW UP WITH ORTHO
== END 2020-03-03 11:19 | disposition home or self-care (01) ==
LOC: EDUNIT# 08:46 → ER 08:48
DX: S82.432A Displaced oblique fracture of shaft of left fibula, initial encounter for closed fracture (principal); I10 Essential (primary) hypertension; J44.9 Chronic obstructive pulmonary disease, unspecified; Z82.49 Family history of ischemic heart disease and other diseases of the circulatory system; Z80.9 Family history of malignant neoplasm, unspecified; Z79.52 Long term (current) use of systemic steroids; X50.1XXA Overexertion from prolonged static or awkward postures, initial encounter
CPT/HCPCS: 29515; 73610

== ENCOUNTER → 2020-03-10 | Outpatient (CLI) | payer MEDICARE, OTHER ==
--- NOTE | 2020-03-10 10:58 | Diagnostic Imaging Report ---
INDICATION: Pain. FINDINGS: There is an oblique fracture through the distal fibula. The plafond and talar dome intact. Ankle mortise is symmetric. Bones are partially encased within cast material. IMPRESSION: Minimally displaced oblique fracture through the distal fibular diaphysis. Fracture line appears to extend into the superolateral ankle mortise. Dictated by: Dictated on workstation # [id number]
== END ==
LOC: ORTHO 09:40
PROVIDERS: ATTEND Orthopaedic Surgery
DX: S82.65XD Nondisplaced fracture of lateral malleolus of left fibula, subsequent encounter for closed fracture with routine healing (principal); X58.XXXD Exposure to other specified factors, subsequent encounter
CPT/HCPCS: 73610

== ENCOUNTER → 2020-03-24 | Outpatient (CLI) | payer MEDICARE, OTHER ==
--- NOTE | 2020-03-24 09:19 | Diagnostic Imaging Report ---
INDICATION: Followup fracture. COMPARISON: 03/10/2020 FINDINGS: 3 radiographic views of the left ankle were obtained status post removal of radiopaque cast material. Nonacute obliquely oriented fracture of the distal fibula is again identified. Fibular fracture fragments are stable in alignment. There is small amount of adjacent soft tissue ossification consistent with early bridging callus formation. This is best visualized on the lateral view. No new acute fracture dislocation left ankle is seen. Joint spaces are maintained. No unexpected radiopaque foreign bodies are identified. IMPRESSION: 1. Early partial interval healing of previously described left fibular fracture. Dictated by: Dictated on workstation # [id number]
== END ==
LOC: ORTHO 08:33
PROVIDERS: ATTEND Orthopaedic Surgery
DX: S82.65XD Nondisplaced fracture of lateral malleolus of left fibula, subsequent encounter for closed fracture with routine healing (principal)
CPT/HCPCS: 73610

== ENCOUNTER → 2020-04-14 | Outpatient (CLI) | payer MEDICARE, OTHER ==
--- NOTE | 2020-04-14 12:42 | Diagnostic Imaging Report ---
INDICATION: Left ankle fracture followup. AP, oblique, and lateral views of the left ankle are obtained and compared with 03/24/2020 Comminuted oblique fracture distal fibula appears in near-anatomic alignment with no change in alignment compared to the prior study. There is some minimal callus formation. Remaining structures are intact IMPRESSION: Stable alignment of distal fibular fracture with some early callus formation. Remaining structures are intact. Dictated by: Dictated on workstation # [id number]
== END ==
LOC: ORTHO 09:57
PROVIDERS: ATTEND Orthopaedic Surgery
DX: S82.65XD Nondisplaced fracture of lateral malleolus of left fibula, subsequent encounter for closed fracture with routine healing (principal); X58.XXXD Exposure to other specified factors, subsequent encounter
CPT/HCPCS: 73610

== ENCOUNTER → 2020-05-05 | Outpatient (CLI) | payer MEDICARE, OTHER ==
--- NOTE | 2020-05-05 12:13 | Diagnostic Imaging Report ---
INDICATION: Follow-up left ankle fracture. Comparison with 04/14/2020. FINDINGS: 3 views. The minimally displaced oblique fracture of the distal metaphysis of the fibula is unchanged in alignment. There has been some early callus formation noted. Fracture line is still quite visible. Ankle mortise shows good alignment. IMPRESSION: Minimally displaced distal fibular fracture showing no significant change in alignment with early bony healing noted. Dictated by: Dictated on workstation # [id number]
== END ==
LOC: ORTHO 10:51
PROVIDERS: ATTEND Orthopaedic Surgery
DX: S82.65XD Nondisplaced fracture of lateral malleolus of left fibula, subsequent encounter for closed fracture with routine healing (principal); X58.XXXD Exposure to other specified factors, subsequent encounter
CPT/HCPCS: 73610

== ENCOUNTER → 2020-06-11 | Outpatient (CLI) | payer MEDICARE ==
--- NOTE | 2020-06-11 13:46 | Diagnostic Imaging Report ---
INDICATION: Follow-up fracture. COMPARISON: 05/05/2020. FINDINGS: Three radiographic views of the left ankle were obtained and again demonstrate nonacute nondisplaced oblique linear fracture of the distal fibula. Fracture line remains conspicuous. There is partial healing bridging callus formation. No new acute fracture or dislocation is identified. Joint spaces are maintained. No unexpected radiopaque foreign bodies are identified. IMPRESSION: 1. Redemonstration of stable-appearing nonacute fracture of the distal left fibula. Dictated by: Dictated on workstation # [id number]
== END ==
LOC: ORTHO 10:16
PROVIDERS: ATTEND Orthopaedic Surgery
DX: S82.65XD Nondisplaced fracture of lateral malleolus of left fibula, subsequent encounter for closed fracture with routine healing (principal)
CPT/HCPCS: 73610

== ENCOUNTER 2020-06-12 14:12 | Outpatient (RCR) | payer MEDICARE, OTHER ==
[2020-06-05 12:40] LABS: BASOPHILS % (AUTO) 0 % (0-10); EOSINOPHILS # (AUTO) 0.3 10^3/uL (0.0-0.3); EOSINOPHILS % (AUTO) 3 % (0-10); HEMATOCRIT 43 % (40-54); HEMOGLOBIN 14.4 g/dL (13.3-17.7); LYMPHOCYTES # (AUTO) 3.2 10^3/uL (1.0-4.0); LYMPHOCYTES % (AUTO) 43 % (12-44); MEAN CORPUSCULAR HEMOGLOBIN 30 pg (25-34); MEAN CORPUSCULAR HGB CONC 34 g/dL (32-36); MEAN CORPUSCULAR VOLUME 88 fL (80-99); MEAN PLATELET VOLUME 9.2 fL (9.0-12.2); MONOCYTES # (AUTO) 0.4 10^3/uL (0.0-1.0); MONOCYTES % (AUTO) 6 % (0-12); NEUTROPHILS # (AUTO) 3.5 10^3/uL (1.8-7.8); NEUTROPHILS % (AUTO) 47 % (42-75); PLATELET COUNT 245 10^3/uL (130-400); WHITE BLOOD COUNT 7.5 10^3/uL (4.3-11.0)
[2020-06-05 13:04] LABS: ALANINE AMINOTRANSFERASE 9 U/L (0-55); ALBUMIN 4.3 GM/DL (3.2-4.5); ALKALINE PHOSPHATASE 63 U/L (40-136); BILIRUBIN,TOTAL 0.5 MG/DL (0.1-1.0); BUN/CREATININE RATIO 10; CARBON DIOXIDE 28 MMOL/L (21-32); CHLORIDE 101 MMOL/L (98-107); CREATININE SERUM 1.07 MG/DL (0.60-1.30); GFR ESTIMATED > 60; GLUCOSE 94 MG/DL (70-105); POTASSIUM 3.8 MMOL/L (3.6-5.0); SODIUM 138 MMOL/L (135-145); TOTAL PROTEIN 7.7 GM/DL (6.4-8.2)
== END 2020-09-03 | disposition home or self-care (01) ==
LOC: ONC 14:12
PROVIDERS: ATTEND Internal Medicine Hematology & Oncology
DX: S82.65XD Nondisplaced fracture of lateral malleolus of left fibula, subsequent encounter for closed fracture with routine healing (principal)
CPT/HCPCS: 80053; 83883; 84155; 84165; 85025; 99213

== ENCOUNTER → 2020-07-01 | Outpatient (CLI) | payer MEDICARE ==
--- NOTE | 2020-07-01 14:10 | Diagnostic Imaging Report ---
EXAMINATION: CT Chest without contrast (lung screening). TECHNIQUE: Multiple contiguous axial images were obtained through the chest without the use of intravenous contrast according to lung cancer screening protocol. All CT scans use one or more of the following dose optimizing techniques: automated exposure control, MA and/or KvP adjustment based on a patient size and exam type, or iterative reconstruction. HISTORY: 55 pack year history of smoking. COMPARISON: None available. FINDINGS: Thyroid: The thyroid is normal. Mediastinum: Heart size is normal without significant pericardial effusion. The aorta is normal in caliber. No suspicious lymphadenopathy. There are calcified left hilar lymph nodes. Lungs and airways: Emphysematous changes of both lungs greatest within the apices and periphery. Linear atelectasis or scarring within both lungs. No consolidation, pleural effusion, or pneumothorax. There is a 0.5 x 0.3 cm pulmonary nodule within the subpleural right middle lobe (series 2 image 122). The airways are normal. Upper abdomen: The subphrenic structures are normal. Musculoskeletal: Degenerative changes of the spine without suspicious osseous lesion or compression fracture. IMPRESSION: 1. A 0.4 cm average pulmonary nodule within the subpleural right middle lobe. Recommend continued annual low-dose CT screening. 2. Emphysema. LUNG-RADS CATEGORY: 2 MODIFIER: S Dictated by: Dictated on workstation # [id number]
== END ==
LOC: RAD 12:03
PROVIDERS: ATTEND Internal Medicine
DX: Z12.2 Encounter for screening for malignant neoplasm of respiratory organs (principal); J43.9 Emphysema, unspecified; R91.1 Solitary pulmonary nodule; Z87.891 Personal history of nicotine dependence
CPT/HCPCS: 71271

== ENCOUNTER → 2020-10-22 | Outpatient (CLI) | payer MEDICARE ==
[~2020-10-22] MED LIST changes: +RT-ALBUTEROL SULF 2.5 MG/3 ML PRE-MIX VIAL INH ONE
== END ==
LOC: RT 13:00
PROVIDERS: ATTEND Nurse Practitioner Family
DX: J43.1 Panlobular emphysema (principal)
CPT/HCPCS: 94060; 94729

== ENCOUNTER 2020-10-24 06:54 | Outpatient (CLI) | payer MEDICARE ==
[~2020-10-24 06:54] MED LIST changes: -RT-ALBUTEROL SULF 2.5 MG/3 ML PRE-MIX VIAL INH ONE
[2020-10-27] MEDS ORDERED: TMSL.4C PO (14:06)
[2020-10-27] MEDS ORDERED: RT-ALBUINH IH (14:06)
[2020-10-27] MEDS ORDERED: FINA5TAB6 PO (14:06)
[2020-10-27] MEDS ORDERED: PRAM0.5T2 PO (14:06)
== END 2020-10-27 13:35 | disposition home or self-care (01) ==
LOC: PREOP 06:54
PROVIDERS: ATTEND Urology
DX: Z01.818 Encounter for other preprocedural examination (principal)

== ENCOUNTER 2020-10-29 05:58 | Inpatient (IN) | payer MEDICARE ==
[~2020-10-29] VITALS: Ht 182 cm; Wt 82.0 kg
[2020-10-29] VITALS (13 sets, daily range): BP systolic 84–145; BP diastolic 8–87
[~2020-10-29 05:58] MED LIST changes: +FINA5TAB6 PO; +PRAM0.5T2 PO; +RT-ALBUINH IH; +TMSL.4C PO
[2020-10-29] MEDS ORDERED: cefTRIAXone 1,000 MG in WATER (STERILE) FOR INJECTION 10 ML IV ONE (06:15)
[2020-10-29] MEDS ORDERED: LACTATED RINGERS 1,000 ML IV PRN (06:30)
[2020-10-29] MEDS ORDERED: RT-ALBUTEROL SULF 2.5 MG/3 ML PRE-MIX VIAL INH ONE (06:30)
[2020-10-29 06:35] LABS: BASOPHILS % (AUTO) 0 % (0-10); EOSINOPHILS # (AUTO) 0.3 10^3/uL (0.0-0.3); EOSINOPHILS % (AUTO) 5 % (0-10); HEMATOCRIT 40 % (40-54); HEMOGLOBIN 13.7 g/dL (13.3-17.7); LYMPHOCYTES # (AUTO) 3.3 10^3/uL (1.0-4.0); LYMPHOCYTES % (AUTO) 53 % (12-44); MEAN CORPUSCULAR HEMOGLOBIN 29 pg (25-34); MEAN CORPUSCULAR HGB CONC 34 g/dL (32-36); MEAN CORPUSCULAR VOLUME 86 fL (80-99); MONOCYTES # (AUTO) 0.4 10^3/uL (0.0-1.0); MONOCYTES % (AUTO) 7 % (0-12); NEUTROPHILS # (AUTO) 2.2 10^3/uL (1.8-7.8); NEUTROPHILS % (AUTO) 35 % (42-75); PLATELET COUNT 261 10^3/uL (130-400); WHITE BLOOD COUNT 6.3 10^3/uL (4.3-11.0)
--- NOTE | 2020-10-29 06:48 | Progress Note-Pre Operative ---
Pre-Operative Progress Note H&P Reviewed The H&P was reviewed, patient examined and no changes noted. Date Seen by Provider: Oct 29, 2020 Time Seen by Provider: 06:48 Date H&P Reviewed: Oct 29, 2020 Time H&P Reviewed: 06:48 Pre-Operative Diagnosis: BPH WITH PROSTATISM AND RETENTION REFRACTORY TO MEDICAL TREATMENT SOHAIL KAUFMAN MD Oct 29, 2020 06:48
[2020-10-29] MEDS ORDERED: GENTAMICIN 40 MG/ML 2 ML INJ SDV ONE (06:49)
--- NOTE | 2020-10-29 06:49 | Progress Note-Post Operative ---
Post-Operative Progess Note Surgeon (s)/Faculty Physician (s) Surgeon SOHAIL KAUFMAN MD Faculty Physician: DREA AGUSTIN DO Pre-Operative Diagnosis BPH WITH PROSTATISM AND RETENTION REFRACTORY TO MEDICAL TREATMENT Post-Operative Diagnosis SAME Procedure & Operative Findings Date of Procedure 10/29/20 Procedure Performed/Findings OPEN PROSTATECTOMY Anesthesia Type GENERAL Estimated Blood Loss Estimated blood loss (mL): 400cc Specimens/Packing Specimens Removed PROSTATIC ADENOMA Packing: NONE SOHAIL KAUFMAN MD Oct 29, 2020 06:49
[2020-10-29] MEDS: LACTATED RINGERS 1,000 ML IV SCH ×3 (07:00→20:41)
[2020-10-29] MEDS ORDERED: BELLADONNA ALK/OPIUM (B & O) 30 MG SUPP PR PRN (07:00)
[2020-10-29] MEDS ORDERED: ONDANSETRON 4 MG/2 ML (SDV) Z0FRAN ONE (07:01)
[2020-10-29] MEDS ORDERED: SEVOFLURANE (ULTANE) 15 ML INHAL SOLN ONE ×2 (07:01→08:55)
[2020-10-29] MEDS ORDERED: ROCURONIUM 10 MG/ML 5 ML SYRINGE IV ONE (07:01)
[2020-10-29] MEDS ORDERED: LIDOCAINE PF 2% 5 ML (XYLOCAINE) VIAL ONE (07:02)
[2020-10-29] MEDS ORDERED: MIDAZOLAM 2 MG/2 ML (VERSED) VIAL ONE (07:03)
[2020-10-29] MEDS ORDERED: fentaNYL INJ 100 MCG/2 ML AMP ONE (07:03)
[2020-10-29] MEDS ORDERED: proPOfol 200 MG/20 ML (DIPRIVAN) VIAL IV ONE (07:03)
--- NOTE | 2020-10-29 09:33 | Anesthesia-General Post-Op ---
General Patient Condition Mental Status/LOC: Same as Preop Cardiovascular: Satisfactory Nausea/Vomiting: Absent Respiratory: Satisfactory Pain: Controlled Complications: Absent Post Op Complications Complications None Follow Up Care/Instructions Patient Instructions None needed. Anesthesia/Patient Condition Patient Condition Patient is doing well, no complaints, stable vital signs, no apparent adverse anesthesia problems. No complications reported per nursing. AMANDA HU CRNA Oct 29, 2020 09:33
[2020-10-29] MEDS ORDERED: ONDANSETRON 4 MG/2 ML (SDV) Z0FRAN IVP PRN (09:45)
[2020-10-29] MEDS ORDERED: MEPERIDINE (DEMEROL) INJ 50 MG/ML IVP ONE (09:45)
[2020-10-29] MEDS ORDERED: morphine INJ 10 MG/ML 1ML (SYR OR VIAL) IVP ONE (09:45)
[2020-10-29] MEDS ORDERED: HYDROmorphone 2 MG/ML VIAL (DILAUDID) IV ONE (09:45)
--- NOTE | 2020-10-29 14:34 | Consultation - Hospitalist ---
HPI History of Present Illness: HPI/Chief Complaint Girma Vila is a 75-year-old male with past medical history of hypertension, restless leg syndrome, BPH, who presented for scheduled open prostatectomy. The hospitalist service has been consulted to assist with his care. He underwent the procedure today and is currently getting continuous bladder irrigation. He denies any pain and has no other complaints or concerns at this time. He is thirsty and is asking if he can eat and drink. Source: patient Exam Limitations: no limitations Date Seen 10/29/20 Attending Physician Jose Alberto Clark MD PCP Julien Minor MD Referring Physician Date of Admission Oct 29, 2020 at 05:58 Home Medications & Allergies Home Medications Reviewed patient Home Medication Reconciliation performed by pharmacy medication reconciliations crown and bridge technician and/or nursing. Patients Allergies have been reviewed. Allergies Allergies Coded Allergies NKANo Known Allergies (Unverified Allergy, Mild, 03/14/09) Past Heyauzd-Tfippf-Yqcszm Hx Patient Social History Tobacco Use?: No Smoking Status: Former Smoker Substance use?: No Alcohol Use?: No Pt feels they are or have been: No Immunizations Up To Date Tetanus Booster (TDap): Unknown Hepatitis A: No Hepatitis B: No Seasonal Allergies Seasonal Allergies: No Current Status Advance Directives: No Communicates: Verbally Primary Language: Luxembourger Preferred Spoken Language: Luxembourger Is interpretation needed?: No Past Medical History Surgeries: Orthopedic COPD, Emphysema Currently Using CPAP: No Currently Using BIPAP: No Hypertension Benign Prostatic Hyperpl Arthritis, Chronic Back Pain Loss of Vision: Denies Hearing Impairment: Denies Blood Disorders: No Adverse Reaction/Blood Tranf: No Family Medical History Reviewed Nursing Family Hx Hypertension 19 MOTHER Neoplasm 19 FATHER Cancer, CAD Over 55 Years Old Review of Systems Constitutional: no symptoms reported EENTM: no symptoms reported Respiratory: no symptoms reported Cardiovascular: no symptoms reported Gastrointestinal: no symptoms reported Musculoskeletal: no symptoms reported Skin: no symptoms reported Psychiatric/Neurological: No Symptoms Reported Physical Exam Physical Exam Vital Signs Vital Signs - First Documented 10/29/20 06:20 Temp 36.0 Pulse 66 Resp 20 B/P (MAP) 134/81 (98) Pulse Ox 98 O2 Delivery Room Air Capillary Refill : Less Than 3 Seconds Height, Weight, BMI Height: 6'0" Weight: 165lbs. 1.0oz. 74.541949qy; 24.75 BMI Method:Stated General Appearance: No Apparent Distress, WD/WN HEENT: PERRL/EOMI, Pharynx Normal Neck: Normal Inspection, Supple Respiratory: Lungs Clear, Normal Breath Sounds, No Respiratory Distress Cardiovascular: Regular Rate, Rhythm, No Edema, No Murmur Gastrointestinal: Normal Bowel Sounds, Non Tender, Soft Genital/Rectal: Other (Vargas catheter in place with pink urine) Extremity: Normal Inspection, Non Tender, No Pedal Edema Neurologic/Psychiatric: Alert, Oriented x3, No Motor/Sensory Deficits, Normal Mood/Affect Skin: Normal Color, Warm/Dry Results Results/Procedures Labs Laboratory Tests 10/29/20 06:20 Patient resulted labs reviewed. Assessment/Plan Assessment and Plan Assess & Plan/Chief Complaint BPH Status post prostatectomy Dr. Clark performed open prostatectomy 10/29 Currently on continuous bladder irrigation Management per primary Hypertension Restless leg syndrome Continue home meds DVT prophylaxis: begin pharmacologic prophylaxis when ok with primary Thank you for the consult. We will continue to see patient on an as needed basis. Diagnosis/Problems Diagnosis/Problems (1) Benign prostatic hyperplasia with urinary retention Status: Acute (2) S/P prostatectomy Status: Acute (3) HTN (hypertension) Status: Chronic (4) RLS (restless legs syndrome) Status: Chronic (5) Former smoker Status: Chronic NIECY SCHWARTZ MD Oct 29, 2020 14:33
[2020-10-29] MEDS ORDERED: hydrALAZINE (APESOLINE) 20 MG/ML VIAL IV PRN (14:45)
[2020-10-29] MEDS ORDERED: ANTACID SUSP 30 ML UDC (MYLANTA) PO PRN (14:45)
[2020-10-29] MEDS ORDERED: polyethylene glycoL POWDER 17 GM (MIRALAX) PACK PO PRN (14:45)
[2020-10-29] MEDS ORDERED: BISACODYL 10 MG SUPP (DULCOLAX) PR PRN (14:45)
[2020-10-29] MEDS ORDERED: MELATONIN 3 MG TABLET PO PRN (14:45)
--- NOTE | 2020-10-29 16:08 | OPERATIVE REPORT ---
DATE OF SERVICE: 10/29/2020 PREOPERATIVE DIAGNOSIS: Benign prostatic hyperplasia with prostatism and retention, refractory to medical treatment. POSTOPERATIVE DIAGNOSIS: Benign prostatic hyperplasia with prostatism and retention, refractory to medical treatment. OPERATION PERFORMED: Open suprapubic prostatectomy. SURGEON: Jose Alberto Kaufman MD. FIREFIGHTER: Stephan Edwards DO. ANESTHESIA: General. COMPLICATIONS: None. DESCRIPTION OF PROCEDURE: Under satisfactory general anesthesia, the patient in supine position, the abdomen, genitalia and thigh were prepped and draped in the usual sterile fashion. An 18-Citizen Of [place] coude catheter was inserted in the bladder since the straight catheter could not go because of the prostate and bladder was emptied. Then, the bladder was filled with about 300 mL of fluid with antibiotic solution and the catheter was clamped. Incision was made from the symphysis pubis to below the umbilicus, carried through the skin, subcutaneous tissue and fascia. The midline was identified and the recti were retracted laterally. The bladder was identified and was opened anteriorly in a vertical fashion and retractors were applied. The ureteral orifices were visualized at all times for the procedure at the end and were preserved and was seen all the time, spurting clear urine including the end of the procedure and they were well away from the prostatic adenoma. Using the hook blade, I made a circular incision around the adenoma and carried it deeper with the scissors. Then, I dissected with a finger and the surgical capsule and removed the adenoma. The adenoma was found to be stuck in certain areas. Hopefully, no cancer of the prostate and some more were resected sharply after removing the main adenoma and sent together with the specimen. Resection was adequate and the bleeding was really nice and hemostasis was very adequate. There was mild ooze from the prostatic fossa controlled easily with packing and pressure for a minute. I went ahead and tucked the bladder neck down to the posterior capsule of the prostate to make this straight channel again taking care to avoid the ureteral orifices. A 20-Citizen Of [place] three-way 30 mL balloon catheter was inserted in the bladder, the balloon inflated to 90 mL and continued to put on some traction. The suprapubic tube was inserted with a stab wound on the right side of the anterior bladder wall and the balloon inflated to 10 mL. Again, the orifices were spurting clear urine at that time. Closure was performed in two layers, the mucosa with a running 3-0 chromic catgut and the seromuscular layer with 2-0 chromic catgut. CBI was running, started through the suprapubic tube out the Vargas catheter and the return of which was pretty clear even at assisted running. There was some leakage from the bladder, so I reinforced the closure of the anterior bladder wall with few interrupted 2-0 chromic catgut and that slowed down the lead pretty well. The retropubic space was drained with a Hemovac brought through a separate stab wound through the incision and later secured in position with 2-0 silk suture. The suprapubic tube was secured later on with 2-0 silk suture as well. Closure was then performed in layer. The fascia was closed with interrupted 0 Vicryl, the subcutaneous tissue and fascia with few interrupted 3-0 plain, and the skin with tawny. The estimated blood loss was 400, none of which was replaced. Needle, sponge, and instrument counts were correct x2. The patient tolerated the procedure and anesthesia well and was sent to recovery room in stable condition. Urine was clear and tinged as I said with the CBI running assisted. The Hemovac was put on self-suction. The patient tolerated the procedure and anesthesia well and was sent to recovery room in a stable condition. Job ID: [id number] DocumentID: [id number] Dictated Date: 10/29/2020 10:26:57 Rubber Flap Tuber Machine Operator Date: 10/29/2020 16:07:32 Dictated By: JOSE ALBERTO KAUFMAN MD
[2020-10-29] MEDS: fentaNYL INJ 100 MCG/2 ML AMP IVP PRN ×2 (17:53→23:46)
[2020-10-29] MEDS: DOCUSATE SODIUM 100 MG (COLACE) CAP PO SCH (20:16)
[2020-10-29] MEDS: PRAMIPEXOLE 0.5 MG TAB (MIRAPEX) PO SCH (20:16)
[2020-10-29] MEDS: SENNOSIDES 8.6 MG (SENOKOT) TAB PO SCH (20:17)
[2020-10-30 04:40] VITALS: BP 137/67
[2020-10-30] MEDS: LACTATED RINGERS 1,000 ML IV SCH ×2 (04:42→14:35)
[2020-10-30 05:00] LABS: BASOPHILS % (AUTO) 0 % (0-10); EOSINOPHILS % (AUTO) 0 % (0-10); HEMATOCRIT 31 % (40-54); HEMOGLOBIN 10.3 g/dL (13.3-17.7); LYMPHOCYTES # (AUTO) 1.7 10^3/uL (1.0-4.0); LYMPHOCYTES % (AUTO) 12 % (12-44); MEAN CORPUSCULAR HEMOGLOBIN 29 pg (25-34); MEAN CORPUSCULAR HGB CONC 33 g/dL (32-36); MEAN CORPUSCULAR VOLUME 88 fL (80-99); MEAN PLATELET VOLUME 9.7 fL (9.0-12.2); MONOCYTES # (AUTO) 1.2 10^3/uL (0.0-1.0); MONOCYTES % (AUTO) 9 % (0-12); NEUTROPHILS # (AUTO) 11.3 10^3/uL (1.8-7.8); NEUTROPHILS % (AUTO) 79 % (42-75); PLATELET COUNT 193 10^3/uL (130-400); WHITE BLOOD COUNT 14.3 10^3/uL (4.3-11.0)
[2020-10-30 05:09] LABS: CHLORIDE 108 MMOL/L (98-107); POTASSIUM 4.6 MMOL/L (3.6-5.0); SODIUM 140 MMOL/L (135-145)
[2020-10-30 05:10] LABS: CALCIUM 8.2 MG/DL (8.5-10.1); GLUCOSE 127 MG/DL (70-105)
[2020-10-30 05:12] LABS: CARBON DIOXIDE 23 MMOL/L (21-32)
[2020-10-30 05:14] LABS: CREATININE SERUM 1.03 MG/DL (0.60-1.30); GFR ESTIMATED > 60
[2020-10-30 05:15] LABS: BUN/CREATININE RATIO 11
[2020-10-30 05:26] LABS: LYMPHOCYTES % (MANUAL) 13 %; MONOCYTES % (MANUAL) 10 %; NEUTROPHILS % (MANUAL) 77 %; RBC MORPH NORMAL
[2020-10-30] MEDS: DOCUSATE SODIUM 100 MG (COLACE) CAP PO SCH ×2 (07:28→20:13)
[2020-10-30] MEDS: SENNOSIDES 8.6 MG (SENOKOT) TAB PO SCH ×2 (07:28→20:13)
[2020-10-30] MEDS: amLODIPine 10 MG (NORVASC) TAB PO SCH (07:59)
[2020-10-30 08:00] VITALS: BP 135/74
--- NOTE | 2020-10-30 10:59 | Progress Note - Urology ---
Progress Note-Urology Progress Notes/Assess & Plan Progress/Assessment & Plan DOING, LOOKING AND FEELING BETTER. HUNGRY. GOOD BOWEL SOUNDS. LABS REVIEWED. ABDOMEN SOFT. URINE CLEAR ELIGIO. HEMOVAC DRAINAGE MUCH DECREASED. PLAN PER ORDERS Final Diagnosis BPH WITH RETENTION SOHAIL KAUFMAN MD Oct 30, 2020 10:59
[2020-10-30 11:48] VITALS: BP 130/77
[2020-10-30 16:11] VITALS: BP 130/60
[2020-10-30 19:24] VITALS: BP 138/73
[2020-10-30] MEDS: PRAMIPEXOLE 0.5 MG TAB (MIRAPEX) PO SCH (20:14)
[2020-10-30 23:35] VITALS: BP 126/64
[2020-10-31 04:40] VITALS: BP 126/65
[2020-10-31 06:08] LABS: BASOPHILS % (AUTO) 0 % (0-10); EOSINOPHILS # (AUTO) 0.1 10^3/uL (0.0-0.3); EOSINOPHILS % (AUTO) 1 % (0-10); HEMATOCRIT 32 % (40-54); HEMOGLOBIN 10.4 g/dL (13.3-17.7); LYMPHOCYTES # (AUTO) 2.3 10^3/uL (1.0-4.0); LYMPHOCYTES % (AUTO) 20 % (12-44); MEAN CORPUSCULAR HEMOGLOBIN 29 pg (25-34); MEAN CORPUSCULAR HGB CONC 33 g/dL (32-36); MEAN CORPUSCULAR VOLUME 90 fL (80-99); MONOCYTES % (AUTO) 9 % (0-12); NEUTROPHILS # (AUTO) 7.8 10^3/uL (1.8-7.8); NEUTROPHILS % (AUTO) 69 % (42-75); PLATELET COUNT 177 10^3/uL (130-400); WHITE BLOOD COUNT 11.2 10^3/uL (4.3-11.0)
[2020-10-31 07:56] VITALS: BP 131/61
[2020-10-31] MEDS: amLODIPine 10 MG (NORVASC) TAB PO SCH (08:09)
[2020-10-31] MEDS: SENNOSIDES 8.6 MG (SENOKOT) TAB PO SCH ×2 (08:09→20:50)
[2020-10-31] MEDS: DOCUSATE SODIUM 100 MG (COLACE) CAP PO SCH ×2 (08:09→20:50)
--- NOTE | 2020-10-31 09:37 | Progress Note - Urology ---
Progress Note-Urology Progress Notes/Assess & Plan Progress/Assessment & Plan CONTINUES WELL. TOLERATED FLUIDS WELL. ADVANCE TODAY. URINE TINGED ON SLOW CBI DRIP. KEEP IT FOR NOW Final Diagnosis BPH WITH RETENTION SOHAIL KAUFMAN MD Oct 31, 2020 09:37
[2020-10-31] MEDS: LACTATED RINGERS 1,000 ML IV SCH (10:11)
[2020-10-31] MEDS: cefTRIAXone 1,000 MG in WATER (STERILE) FOR INJECTION 10 ML IV SCH (10:59)
[2020-10-31 11:56] VITALS: BP 125/58
[2020-10-31 16:28] VITALS: BP 128/61
[2020-10-31] MEDS: fentaNYL INJ 100 MCG/2 ML AMP IVP PRN (16:41)
[2020-10-31 20:00] VITALS: BP 137/68
[2020-10-31] MEDS: PRAMIPEXOLE 0.5 MG TAB (MIRAPEX) PO SCH (20:50)
[2020-11-01] VITALS (7 sets, daily range): BP systolic 113–138; BP diastolic 62–72
[2020-11-01] MEDS: LACTATED RINGERS 1,000 ML IV SCH ×2 (05:21→09:10)
--- NOTE | 2020-11-01 08:08 | Progress Note - Urology ---
Progress Note-Urology Progress Notes/Assess & Plan Progress/Assessment & Plan PROGRESIING WELL SLOWLY BUT SURELY. TOLERATES PO WELL. PASSING FLATUS BUT NO BM YET. URINE TINGED ON VERY SLOW CBI DRIP. PLAN PER ORDERS Final Diagnosis BPH WITH RETENTION SOHAIL KAUFMAN MD Nov 01, 2020 08:08
[2020-11-01] MEDS ORDERED: MILK OF MAGNESIA 400 MG/5 ML 30 ML UDC PO ONE (08:15)
[2020-11-01] MEDS: SENNOSIDES 8.6 MG (SENOKOT) TAB PO SCH ×2 (09:03→20:01)
[2020-11-01] MEDS: amLODIPine 10 MG (NORVASC) TAB PO SCH (09:03)
[2020-11-01] MEDS: DOCUSATE SODIUM 100 MG (COLACE) CAP PO SCH ×2 (09:03→20:01)
[2020-11-01] MEDS: cefTRIAXone 1,000 MG in WATER (STERILE) FOR INJECTION 10 ML IV SCH (09:03)
[2020-11-01] MEDS: fentaNYL INJ 100 MCG/2 ML AMP IVP PRN (14:37)
[2020-11-01] MEDS: PRAMIPEXOLE 0.5 MG TAB (MIRAPEX) PO SCH (20:21)
[2020-11-02] MEDS: LACTATED RINGERS 1,000 ML IV SCH ×2 (04:10→23:21)
[2020-11-02 04:28] VITALS: BP 128/76
--- NOTE | 2020-11-02 06:45 | Progress Note - Hospitalist ---
Subjective HPI/CC On Admission Date Seen by Provider: Nov 02, 2020 Time Seen by Provider: 10:30 Girma Vila is a 75-year-old male with past medical history of hypertension, restless leg syndrome, BPH, who presented for scheduled open prostatectomy. The hospitalist service has been consulted to assist with his care. He underwent the procedure today and is currently getting continuous bladder irrigation. He denies any pain and has no other complaints or concerns at this time. He is thirsty and is asking if he can eat and drink. Subjective/Events-last exam Patient doing pretty well Hematuria is still requiring continuous bladder irrigation Hemoglobin 10 Walking very well Bowels are moving Having a lot of edema in his penis Output is good Increasing oral intake Labs look good otherwise Review of Systems General: Fatigue Genitourinary: Hematuria, Retention Objective Exam Vital Signs Vital Signs Date Time Temp Pulse Resp B/P (MAP) Pulse Ox O2 Delivery O2 Flow Rate FiO2 11/03/20 02:36 99 Nasal Cannula 2.50 11/02/20 23:54 36.8 64 18 122/66 (84) Capillary Refill : Less Than 3 Seconds General Appearance: No Apparent Distress, WD/WN, Chronically ill Respiratory: Lungs Clear Cardiovascular: Regular Rate, Rhythm Neurologic/Psychiatric: Alert, Oriented x3, No Motor/Sensory Deficits, Normal Mood/Affect Results/Procedures Lab Laboratory Tests 11/02/20 07:26 Patient resulted labs reviewed. Assessment/Plan Assessment and Plan Assess & Plan/Chief Complaint Assessment: Open prostatectomy due to severe BPH Continued hematuria requiring continuous bladder irrigation Postoperative anemia from acute blood loss Hypertension Plan: Close monitoring of fluid intake Monitor closely MARYLU CLAY DO Nov 02, 2020 06:45
[2020-11-02 07:57] LABS: BASOPHILS % (AUTO) 0 % (0-10); EOSINOPHILS # (AUTO) 0.3 10^3/uL (0.0-0.3); EOSINOPHILS % (AUTO) 4 % (0-10); HEMATOCRIT 30 % (40-54); LYMPHOCYTES # (AUTO) 1.8 10^3/uL (1.0-4.0); LYMPHOCYTES % (AUTO) 19 % (12-44); MEAN CORPUSCULAR HEMOGLOBIN 30 pg (25-34); MEAN CORPUSCULAR HGB CONC 34 g/dL (32-36); MEAN CORPUSCULAR VOLUME 88 fL (80-99); MEAN PLATELET VOLUME 9.7 fL (9.0-12.2); MONOCYTES # (AUTO) 0.9 10^3/uL (0.0-1.0); MONOCYTES % (AUTO) 10 % (0-12); NEUTROPHILS # (AUTO) 6.4 10^3/uL (1.8-7.8); NEUTROPHILS % (AUTO) 68 % (42-75); PLATELET COUNT 165 10^3/uL (130-400); WHITE BLOOD COUNT 9.5 10^3/uL (4.3-11.0)
[2020-11-02 08:05] VITALS: BP 138/67
[2020-11-02] MEDS: amLODIPine 10 MG (NORVASC) TAB PO SCH (08:07)
[2020-11-02] MEDS: cefTRIAXone 1,000 MG in WATER (STERILE) FOR INJECTION 10 ML IV SCH (08:07)
[2020-11-02] MEDS: SENNOSIDES 8.6 MG (SENOKOT) TAB PO SCH ×2 (08:08→20:41)
[2020-11-02] MEDS: DOCUSATE SODIUM 100 MG (COLACE) CAP PO SCH ×2 (08:08→20:41)
[2020-11-02 08:11] LABS: ALBUMIN 3.1 GM/DL (3.2-4.5); CHLORIDE 100 MMOL/L (98-107); SODIUM 138 MMOL/L (135-145)
[2020-11-02 08:13] LABS: CALCIUM 8.1 MG/DL (8.5-10.1)
[2020-11-02 08:14] LABS: GLUCOSE 94 MG/DL (70-105); TOTAL PROTEIN 5.7 GM/DL (6.4-8.2)
[2020-11-02 08:15] LABS: BILIRUBIN,TOTAL 0.7 MG/DL (0.1-1.0); CARBON DIOXIDE 27 MMOL/L (21-32)
[2020-11-02 08:17] LABS: ALKALINE PHOSPHATASE 50 U/L (40-136); CREATININE SERUM 0.72 MG/DL (0.60-1.30); GFR ESTIMATED > 60
[2020-11-02 08:18] LABS: BUN/CREATININE RATIO 10
[2020-11-02 08:20] LABS: ALANINE AMINOTRANSFERASE 15 U/L (0-55)
--- NOTE | 2020-11-02 09:57 | Progress Note - Urology ---
Progress Note-Urology Progress Notes/Assess & Plan Progress/Assessment & Plan CONTINUES WELL. LABS STABLE. URINE STILL TINGED ON SLOW CBI DRIP AND CLEARS BY SPEEDING IT. TOLERATES PO WELL. HAD GOOD BM.. VOICES NO COMPLAINTS. AMBULATING VERY WELL Final Diagnosis BPH WITH RETENTION SOHAIL KAUFMAN MD Nov 02, 2020 09:57
[2020-11-02] MEDS: fentaNYL INJ 100 MCG/2 ML AMP IVP PRN ×2 (10:14→20:32)
[2020-11-02 11:48] VITALS: BP 143/71
[2020-11-02 15:44] VITALS: BP 136/67
[2020-11-02] MEDS: PRAMIPEXOLE 0.5 MG TAB (MIRAPEX) PO SCH (20:31)
[2020-11-02 23:54] VITALS: BP 122/66
--- NOTE | 2020-11-03 05:54 | Progress Note - Hospitalist ---
Subjective HPI/CC On Admission Date Seen by Provider: Nov 03, 2020 Time Seen by Provider: 10:00 Giram Vila is a 75-year-old male with past medical history of hypertension, restless leg syndrome, BPH, who presented for scheduled open prostatectomy. The hospitalist service has been consulted to assist with his care. He underwent the procedure today and is currently getting continuous bladder irrigation. He denies any pain and has no other complaints or concerns at this time. He is thirsty and is asking if he can eat and drink. Subjective/Events-last exam Pt doing about the same Partner there at the bedside Bowels are moving Eating and drinking well Hgb stable at 10 Creatinine normal Review of Systems General: Fatigue, Malaise Gastrointestinal: Abdominal Pain Genitourinary: Hematuria Objective Exam Vital Signs Vital Signs Date Time Temp Pulse Resp B/P (MAP) Pulse Ox O2 Delivery O2 Flow Rate FiO2 11/04/20 00:24 36.0 60 18 131/64 (86) 91 Room Air 11/03/20 15:51 0.00 Capillary Refill : Less Than 3 Seconds General Appearance: No Apparent Distress, WD/WN, Chronically ill Respiratory: Lungs Clear Cardiovascular: Regular Rate, Rhythm Neurologic/Psychiatric: Alert, Oriented x3 Results/Procedures Lab Laboratory Tests 11/03/20 05:48 Patient resulted labs reviewed. Assessment/Plan Assessment and Plan Assess & Plan/Chief Complaint Assessment: Open prostatectomy due to severe BPH Continued hematuria requiring continuous bladder irrigation Postoperative anemia from acute blood loss Hypertension Plan: Close monitoring of fluid intake Monitor closely 11/03/2020: Supportive care Monitor closely MARYLU CLAY DO Nov 03, 2020 05:54
[2020-11-03 06:19] LABS: BASOPHILS % (AUTO) 0 % (0-10); EOSINOPHILS # (AUTO) 0.5 10^3/uL (0.0-0.3); EOSINOPHILS % (AUTO) 5 % (0-10); HEMATOCRIT 30 % (40-54); LYMPHOCYTES % (AUTO) 23 % (12-44); MEAN CORPUSCULAR HEMOGLOBIN 29 pg (25-34); MEAN CORPUSCULAR HGB CONC 33 g/dL (32-36); MEAN CORPUSCULAR VOLUME 87 fL (80-99); MEAN PLATELET VOLUME 9.3 fL (9.0-12.2); MONOCYTES # (AUTO) 0.9 10^3/uL (0.0-1.0); MONOCYTES % (AUTO) 10 % (0-12); NEUTROPHILS # (AUTO) 5.2 10^3/uL (1.8-7.8); NEUTROPHILS % (AUTO) 61 % (42-75); PLATELET COUNT 181 10^3/uL (130-400); WHITE BLOOD COUNT 8.5 10^3/uL (4.3-11.0)
[2020-11-03 06:42] LABS: ALANINE AMINOTRANSFERASE 15 U/L (0-55); ALBUMIN 3.1 GM/DL (3.2-4.5); ALKALINE PHOSPHATASE 53 U/L (40-136); BILIRUBIN,TOTAL 0.6 MG/DL (0.1-1.0); BUN/CREATININE RATIO 7; CARBON DIOXIDE 29 MMOL/L (21-32); CHLORIDE 101 MMOL/L (98-107); CREATININE SERUM 0.73 MG/DL (0.60-1.30); GFR ESTIMATED > 60; GLUCOSE 98 MG/DL (70-105); SODIUM 137 MMOL/L (135-145); TOTAL PROTEIN 5.7 GM/DL (6.4-8.2)
[2020-11-03] MEDS: amLODIPine 10 MG (NORVASC) TAB PO SCH (07:48)
[2020-11-03] MEDS: SENNOSIDES 8.6 MG (SENOKOT) TAB PO SCH ×2 (07:48→19:43)
[2020-11-03] MEDS: DOCUSATE SODIUM 100 MG (COLACE) CAP PO SCH ×2 (07:48→19:44)
[2020-11-03] MEDS: cefTRIAXone 1,000 MG in WATER (STERILE) FOR INJECTION 10 ML IV SCH (07:48)
[2020-11-03 08:00] VITALS: BP 131/69
--- NOTE | 2020-11-03 09:09 | Progress Note - Urology ---
Progress Note-Urology Progress Notes/Assess & Plan Progress/Assessment & Plan CONTINUES WELL. URINE CLEAR. DC CBI Final Diagnosis BPH WITH RETENTION SOHAIL KAUFMAN MD Nov 03, 2020 09:08
[2020-11-03 16:00] VITALS: BP 140/68
[2020-11-03] MEDS: LACTATED RINGERS 1,000 ML IV SCH (19:06)
[2020-11-03] MEDS: PRAMIPEXOLE 0.5 MG TAB (MIRAPEX) PO SCH (19:44)
[2020-11-03] MEDS: ACETAMINOPHEN 325 MG TABLET PO PRN (22:00)
[2020-11-04 00:24] VITALS: BP 131/64
--- NOTE | 2020-11-04 05:19 | Progress Note - Hospitalist ---
Subjective HPI/CC On Admission Date Seen by Provider: Nov 04, 2020 Time Seen by Provider: 10:00 Girma Vila is a 75-year-old male with past medical history of hypertension, restless leg syndrome, BPH, who presented for scheduled open prostatectomy. The hospitalist service has been consulted to assist with his care. He underwent the procedure today and is currently getting continuous bladder irrigation. He denies any pain and has no other complaints or concerns at this time. He is thirsty and is asking if he can eat and drink. Subjective/Events-last exam Pt doing a lot better today Removed the suprapubic catheter today and the continuous bladder irrigation Dr. Clark saw him today and he will not go home yet today Eating and drinking well Review of Systems General: Fatigue, Malaise Objective Exam Vital Signs Vital Signs Date Time Temp Pulse Resp B/P (MAP) Pulse Ox O2 Delivery O2 Flow Rate FiO2 11/04/20 23:42 36.8 61 20 117/63 (81) 95 Nasal Cannula 2.00 Capillary Refill : Less Than 3 Seconds General Appearance: No Apparent Distress, WD/WN Respiratory: Lungs Clear, Normal Breath Sounds Cardiovascular: Regular Rate, Rhythm Neurologic/Psychiatric: Alert, Oriented x3, No Motor/Sensory Deficits, Normal Mood/Affect Results/Procedures Lab Patient resulted labs reviewed. Assessment/Plan Assessment and Plan Assess & Plan/Chief Complaint Assessment: Open prostatectomy due to severe BPH Continued hematuria requiring continuous bladder irrigation Postoperative anemia from acute blood loss Hypertension Plan: Close monitoring of fluid intake Monitor closely 11/03/2020: Supportive care Monitor closely 11/04/2020: Supportive care Discharge plan per MARYLU Varela DO Nov 04, 2020 05:19
[2020-11-04 08:00] VITALS: BP 135/69
--- NOTE | 2020-11-04 08:57 | Progress Note - Urology ---
Progress Note-Urology Progress Notes/Assess & Plan Progress/Assessment & Plan CONTINUES VERY WELL. URINE CRYSTAL CLEAR. PLAN PER ORDERS. PATH BPH. PATIENT INFORMED Final Diagnosis BPH WITH RETENTION SOHAIL KAUFMAN MD Nov 04, 2020 08:57
[2020-11-04] MEDS: amLODIPine 10 MG (NORVASC) TAB PO SCH (09:46)
[2020-11-04] MEDS: SENNOSIDES 8.6 MG (SENOKOT) TAB PO SCH ×2 (09:46→19:36)
[2020-11-04] MEDS: DOCUSATE SODIUM 100 MG (COLACE) CAP PO SCH ×2 (09:46→19:36)
[2020-11-04] MEDS: cefTRIAXone 1,000 MG in WATER (STERILE) FOR INJECTION 10 ML IV SCH (09:46)
[2020-11-04] MEDS: LACTATED RINGERS 1,000 ML IV SCH (14:57)
[2020-11-04 16:00] VITALS: BP 129/64
[2020-11-04] MEDS: PRAMIPEXOLE 0.5 MG TAB (MIRAPEX) PO SCH (19:36)
[2020-11-04 23:42] VITALS: BP 117/63
--- NOTE | 2020-11-05 06:05 | Progress Note - Hospitalist ---
Subjective HPI/CC On Admission Date Seen by Provider: Nov 05, 2020 Time Seen by Provider: 10:00 Girma Vila is a 75-year-old male with past medical history of hypertension, restless leg syndrome, BPH, who presented for scheduled open prostatectomy. The hospitalist service has been consulted to assist with his care. He underwent the procedure today and is currently getting continuous bladder irrigation. He denies any pain and has no other complaints or concerns at this time. He is thirsty and is asking if he can eat and drink. Subjective/Events-last exam Pt doing pretty well Sleeping currently Dr. Clark will DC the catheter tomorrow and will likely discharge home Hematuria still continues Review of Systems General: Fatigue Objective Exam Vital Signs Vital Signs Date Time Temp Pulse Resp B/P (MAP) Pulse Ox O2 Delivery O2 Flow Rate FiO2 11/06/20 00:00 36.6 66 22 124/64 (84) 90 Room Air 11/04/20 23:42 2.00 Capillary Refill : Less Than 3 Seconds General Appearance: No Apparent Distress, WD/WN, Other (Sleeping) Respiratory: Lungs Clear Cardiovascular: Regular Rate, Rhythm Results/Procedures Lab Laboratory Tests 11/05/20 05:20 Patient resulted labs reviewed. Assessment/Plan Assessment and Plan Assess & Plan/Chief Complaint Assessment: Open prostatectomy due to severe BPH Continued hematuria requiring continuous bladder irrigation Postoperative anemia from acute blood loss Hypertension Plan: Close monitoring of fluid intake Monitor closely 11/03/2020: Supportive care Monitor closely 11/04/2020: Supportive care Discharge plan per Dr. Clark 11/05/2020: Supportive care Plan for discharge tomorrow MARYLU CLAY DO Nov 05, 2020 06:05
[2020-11-05 06:16] LABS: BASOPHILS % (AUTO) 0 % (0-10); EOSINOPHILS # (AUTO) 0.4 10^3/uL (0.0-0.3); EOSINOPHILS % (AUTO) 5 % (0-10); HEMATOCRIT 28 % (40-54); HEMOGLOBIN 9.4 g/dL (13.3-17.7); LYMPHOCYTES % (AUTO) 26 % (12-44); MEAN CORPUSCULAR HEMOGLOBIN 30 pg (25-34); MEAN CORPUSCULAR HGB CONC 33 g/dL (32-36); MEAN CORPUSCULAR VOLUME 89 fL (80-99); MEAN PLATELET VOLUME 9.2 fL (9.0-12.2); MONOCYTES # (AUTO) 0.9 10^3/uL (0.0-1.0); MONOCYTES % (AUTO) 11 % (0-12); NEUTROPHILS # (AUTO) 4.5 10^3/uL (1.8-7.8); NEUTROPHILS % (AUTO) 57 % (42-75); PLATELET COUNT 215 10^3/uL (130-400); WHITE BLOOD COUNT 7.9 10^3/uL (4.3-11.0)
[2020-11-05 06:42] LABS: ALANINE AMINOTRANSFERASE 14 U/L (0-55); ALKALINE PHOSPHATASE 46 U/L (40-136); BILIRUBIN,TOTAL 0.4 MG/DL (0.1-1.0); BUN/CREATININE RATIO 5; CALCIUM 8.1 MG/DL (8.5-10.1); CARBON DIOXIDE 27 MMOL/L (21-32); CHLORIDE 102 MMOL/L (98-107); CREATININE SERUM 0.75 MG/DL (0.60-1.30); GFR ESTIMATED > 60; GLUCOSE 100 MG/DL (70-105); POTASSIUM 4.2 MMOL/L (3.6-5.0); SODIUM 135 MMOL/L (135-145); TOTAL PROTEIN 5.5 GM/DL (6.4-8.2)
[2020-11-05 07:36] VITALS: BP 121/94
[2020-11-05] MEDS: DOCUSATE SODIUM 100 MG (COLACE) CAP PO SCH ×2 (09:08→19:58)
[2020-11-05] MEDS: amLODIPine 10 MG (NORVASC) TAB PO SCH (09:08)
[2020-11-05] MEDS: SENNOSIDES 8.6 MG (SENOKOT) TAB PO SCH ×2 (09:08→19:58)
[2020-11-05] MEDS: LACTATED RINGERS 1,000 ML IV SCH (09:09)
[2020-11-05] MEDS: ACETAMINOPHEN 325 MG TABLET PO PRN (09:16)
--- NOTE | 2020-11-05 11:18 | Progress Note - Urology ---
Progress Note-Urology Progress Notes/Assess & Plan Progress/Assessment & Plan CONTINUES WELL. VOICES NO COMPLAINTS. URINE CLEAR AND ELIGIO. PLAN PER ORDERS Final Diagnosis BPH WITH RETENTION SOHAIL KAUFMAN MD Nov 05, 2020 11:18
[2020-11-05 16:00] VITALS: BP 129/57
[2020-11-05] MEDS: PRAMIPEXOLE 0.5 MG TAB (MIRAPEX) PO SCH (19:58)
[2020-11-06] VITALS: BP 124/64
[2020-11-06 06:17] LABS: BASOPHILS % (AUTO) 0 % (0-10); EOSINOPHILS # (AUTO) 0.4 10^3/uL (0.0-0.3); EOSINOPHILS % (AUTO) 5 % (0-10); HEMATOCRIT 29 % (40-54); HEMOGLOBIN 9.5 g/dL (13.3-17.7); LYMPHOCYTES # (AUTO) 2.3 10^3/uL (1.0-4.0); LYMPHOCYTES % (AUTO) 28 % (12-44); MEAN CORPUSCULAR HEMOGLOBIN 29 pg (25-34); MEAN CORPUSCULAR HGB CONC 33 g/dL (32-36); MEAN CORPUSCULAR VOLUME 88 fL (80-99); MEAN PLATELET VOLUME 8.9 fL (9.0-12.2); MONOCYTES # (AUTO) 0.7 10^3/uL (0.0-1.0); MONOCYTES % (AUTO) 8 % (0-12); NEUTROPHILS # (AUTO) 4.6 10^3/uL (1.8-7.8); NEUTROPHILS % (AUTO) 58 % (42-75); PLATELET COUNT 249 10^3/uL (130-400); WHITE BLOOD COUNT 8.1 10^3/uL (4.3-11.0)
[2020-11-06 06:24] LABS: ALBUMIN 3.2 GM/DL (3.2-4.5); POTASSIUM 4.2 MMOL/L (3.6-5.0)
[2020-11-06 06:26] LABS: CALCIUM 8.2 MG/DL (8.5-10.1)
[2020-11-06 06:27] LABS: TOTAL PROTEIN 6.1 GM/DL (6.4-8.2)
--- NOTE | 2020-11-06 06:28 | Progress Note - Hospitalist ---
Subjective HPI/CC On Admission Date Seen by Provider: Nov 06, 2020 Time Seen by Provider: 10:30 Girma Vila is a 75-year-old male with past medical history of hypertension, restless leg syndrome, BPH, who presented for scheduled open prostatectomy. The hospitalist service has been consulted to assist with his care. He underwent the procedure today and is currently getting continuous bladder irrigation. He denies any pain and has no other complaints or concerns at this time. He is thirsty and is asking if he can eat and drink. Subjective/Events-last exam Patient doing pretty well Having a bowel movement Partner at bedside denies any issues Removing catheter tomorrow then likely discharge Review of Systems General: Fatigue, Malaise Neurological: Weakness Objective Exam Vital Signs Vital Signs Date Time Temp Pulse Resp B/P (MAP) Pulse Ox O2 Delivery O2 Flow Rate FiO2 11/07/20 00:00 35.8 70 18 130/71 (90) 98 Room Air 11/04/20 23:42 2.00 Capillary Refill : Less Than 3 Seconds General Appearance: No Apparent Distress, WD/WN, Chronically ill Respiratory: Lungs Clear, Normal Breath Sounds Cardiovascular: Regular Rate, Rhythm Neurologic/Psychiatric: Alert, Oriented x3, No Motor/Sensory Deficits, Normal Mood/Affect Results/Procedures Lab Laboratory Tests 11/06/20 05:45 Patient resulted labs reviewed. Assessment/Plan Assessment and Plan Assess & Plan/Chief Complaint Assessment: Open prostatectomy due to severe BPH Continued hematuria requiring continuous bladder irrigation Postoperative anemia from acute blood loss Hypertension Plan: Close monitoring of fluid intake Monitor closely 11/03/2020: Supportive care Monitor closely 11/04/2020: Supportive care Discharge plan per Dr. Clark 11/05/2020: Supportive care Plan for discharge tomorrow 11/06/2020: Discharge tomorrow Monitor closely MARYLU CLAY DO Nov 06, 2020 06:28
[2020-11-06 06:29] LABS: BILIRUBIN,TOTAL 0.3 MG/DL (0.1-1.0)
[2020-11-06 06:30] LABS: CREATININE SERUM 0.73 MG/DL (0.60-1.30)
[2020-11-06 07:28] VITALS: BP 138/70
[2020-11-06] MEDS: DOCUSATE SODIUM 100 MG (COLACE) CAP PO SCH ×2 (08:16→20:38)
[2020-11-06] MEDS: SENNOSIDES 8.6 MG (SENOKOT) TAB PO SCH ×2 (08:16→20:39)
[2020-11-06] MEDS: amLODIPine 10 MG (NORVASC) TAB PO SCH (08:16)
[2020-11-06] MEDS: ACETAMINOPHEN 325 MG TABLET PO PRN ×2 (08:18→19:02)
--- NOTE | 2020-11-06 10:44 | Progress Note - Urology ---
Progress Note-Urology Progress Notes/Assess & Plan Progress/Assessment & Plan DC VILLANUEVA, 3 GLASS TEST Final Diagnosis RETENTION AND BPH SOHAIL KAUFMAN MD Nov 06, 2020 10:44
[2020-11-06 16:00] VITALS: BP 115/66
[2020-11-06] MEDS: PRAMIPEXOLE 0.5 MG TAB (MIRAPEX) PO SCH (20:38)
[2020-11-06] MEDS: LACTATED RINGERS 1,000 ML IV SCH (23:33)
[2020-11-07] VITALS: BP 130/71
[2020-11-07] MEDS: ACETAMINOPHEN 325 MG TABLET PO PRN (01:42)
--- NOTE | 2020-11-07 06:13 | Progress Note - Hospitalist ---
Subjective HPI/CC On Admission Date Seen by Provider: Nov 07, 2020 Time Seen by Provider: 10:00 Girma Vila is a 75-year-old male with past medical history of hypertension, restless leg syndrome, BPH, who presented for scheduled open prostatectomy. The hospitalist service has been consulted to assist with his care. He underwent the procedure today and is currently getting continuous bladder irrigation. He denies any pain and has no other complaints or concerns at this time. He is thirsty and is asking if he can eat and drink. Subjective/Events-last exam Pt doing really well today Catheter removed and he is voiding well Ready for discharge Objective Exam Vital Signs Vital Signs Date Time Temp Pulse Resp B/P (MAP) Pulse Ox O2 Delivery O2 Flow Rate FiO2 11/07/20 13:27 35.8 58 18 124/60 96 Room Air 11/07/20 08:00 Capillary Refill : Less Than 3 Seconds General Appearance: No Apparent Distress, WD/WN, Chronically ill Results/Procedures Lab Patient resulted labs reviewed. Assessment/Plan Assessment and Plan Assess & Plan/Chief Complaint Assessment: Open prostatectomy due to severe BPH Continued hematuria requiring continuous bladder irrigation Postoperative anemia from acute blood loss Hypertension Plan: Close monitoring of fluid intake Monitor closely 11/03/2020: Supportive care Monitor closely 11/04/2020: Supportive care Discharge plan per Dr. Clark 11/05/2020: Supportive care Plan for discharge tomorrow 11/06/2020: Discharge tomorrow Monitor closely 11/07/20: GA MARYLU Sotomayor DO Nov 07, 2020 06:13
[2020-11-07 07:56] VITALS: BP 124/60
[2020-11-07] MEDS: amLODIPine 10 MG (NORVASC) TAB PO SCH (08:49)
[2020-11-07] MEDS: SENNOSIDES 8.6 MG (SENOKOT) TAB PO SCH (08:49)
[2020-11-07] MEDS: DOCUSATE SODIUM 100 MG (COLACE) CAP PO SCH (08:49)
--- NOTE | 2020-11-07 10:12 | Progress Note - Urology ---
Progress Note-Urology Progress Notes/Assess & Plan Progress/Assessment & Plan DOING VERY WELL. VOIDING WELL. EMPTIES WELL. CONTINENT. URINE PINK. HEMOVAC SCANT. HOME WITH INCTRUCTIONS Final Diagnosis RETENTION AND BPH SOHAIL KAUFMAN MD Nov 07, 2020 10:12
--- NOTE | 2020-11-07 10:16 | Discharge Inst-Urology ---
Discharge Inst-Urology Reconcile Patient Problems Problems Reviewed?: Yes Final Diagnosis BPH WITH RETENTION Patient Instructions/Follow Up Plan/Assessment/Instructions Please DC hemovac Discharge patient Please make appointment to been seen in office in 2 weeks to see me, rest till then Patient to come to office tuesday 9am to DC tawny Stay off Proscar and Flomax Keep bowels soft and moving Showers no baths Keep penis up and use hydrocortisone cream bid till swelling gone Increase oral fluids for 48 hours and then as needed. Diet as tolerated. If questions or concerns contact your physician Or seek help at emergency department. SOHAIL KAUFMAN MD Nov 07, 2020 10:16
[2020-11-07 13:27] VITALS: BP 124/60
--- NOTE | 2020-11-08 00:58 | DISCHARGE SUMMARY ---
DATE OF SERVICE: CONDITION ON DISCHARGE: Satisfactory. ADMITTING DIAGNOSIS: Benign prostatic hypertrophy with retention. DISCHARGE DIAGNOSIS: Benign prostatic hyperplasia with retention. Pathology confirmed. OPERATION PERFORMED: Suprapubic prostatectomy on 10/29/2020. SUMMARY: A 75-year-old black male with enlarged prostate with prostatism and retention. History and physical as dictated. The patient underwent a suprapubic prostatectomy on 10/29/2020. His postoperative course was satisfactory. He took some time to clear his urine. The tubes were removed gradually according to that. He tolerated diet well, had good bowel movements, feeling well. No complications. Labs were stable. Catheter was removed the day before discharge, he was voiding freely with good control, emptying well, pink urine. Moving his bowels. The Hemovac scant drainage, this was then removed. The patient was dismissed with the following instructions, refrain from any strenuous activity, heavy lifting, straining, or driving. He will come to my office on Tuesday to remove the tawny and see me in 2 weeks. Keep his bowel soft and moving, showers, no baths, use Tylenol or ibuprofen for pain. Keep his use laxative p.r.n. He is to call or come to the emergency room with any problem. Job ID: [id number] DocumentID: [id number] Dictated Date: 11/07/2020 10:22:53 Sheet Turner Date: 11/08/2020 00:57:08 Dictated By: SOHAIL KAUFMAN MD
== END 2020-11-07 14:04 | disposition home or self-care (01) | DRG 717 ==
LOC: 4TH 05:58 → SURG 05:59 → 4TH 09:51
PROVIDERS: ADMIT Urology; ATTEND Urology
PROC: 0VB00ZZ Excision of Prostate, Open Approach (ICD-10-PCS; principal; 2020-10-29 07:30)
DX: N40.1 Benign prostatic hyperplasia with lower urinary tract symptoms (principal); D62 Acute posthemorrhagic anemia; I10 Essential (primary) hypertension; G25.81 Restless legs syndrome; J43.9 Emphysema, unspecified; M19.90 Unspecified osteoarthritis, unspecified site; G89.29 Other chronic pain; M54.9 Dorsalgia, unspecified; R33.8 Other retention of urine; R31.9 Hematuria, unspecified; Z87.891 Personal history of nicotine dependence
CPT/HCPCS: 36415; 80048; 80053; 85007; 85025; 85027; 86850; 86900; 86901; 87081; 88307; 94640; 94760

== ENCOUNTER → 2021-01-26 | Outpatient (CLI) | payer MEDICARE ==
--- NOTE | 2021-01-26 12:20 | Diagnostic Imaging Report ---
PROCEDURE: MRI lumbar spine. TECHNIQUE: Multiplanar, multisequence MRI of the lumbar spine was performed without contrast. INDICATION: Lower back pain. Left leg pain. COMPARISON: 04/27/2018 FINDINGS: For the purposes of this exam, last well-formed disc space is noted at the L5-S1 level. Static alignment of the lumbar spine is maintained. There is no significant anteroretrolisthesis. There is no evidence of jumped facets. Vertebral body heights are maintained. There is no acute fracture. Evaluation of marrow signal demonstrates benign L2 hemangioma. There also mild multilevel Modic type I changes, greatest involving the endplates at L2-L3. Mild multilevel intervertebral disc height loss also present. Visualized portions of distal cord are unremarkable. Conus terminates at approximately the L1 level. No abnormal intrathecal filling defects are seen. Pre and paravertebral soft tissue structures are unremarkable. Axial images demonstrate the following: T12-L1 and L1-L2: There is no large disc bulge or focal contusion. There is bilateral inflamed laxity and facet arthropathy, but no significant spinal canal or neuroforaminal stenosis. L2-L3: There is mild broad-based posterior disc bulge and bilateral inflamed laxity and facet arthropathy. As result, there is mild narrowing of the spinal canal and bilateral neural foramen. L3-L4: There is mild broad-based posterior disc bulge and bilateral ligamentum flavum laxity and facet arthropathy. As a result, there is mild narrowing of the spinal canal and bilateral neural foramen. L4-L5: There is broad-based posterior disc bulge and prominent bilateral ligamentum flavum laxity and facet arthropathy. As result, there is mild to moderate narrowing of the spinal canal and moderate stenosis of bilateral neural foramen and lateral recesses. L5-S1: There is no large disc bulge or focal protrusion. There is however prominent bilateral ligamentum flavum laxity and facet arthropathy. There is also T2 bright structure extending into the right lateral epidural space. It measures 6 mm in diameter by 1.6 cm in cc dimension. This is felt to most likely represent synovial cyst. This does appear to be new when compared to prior exam and results in significant mass effect on the exiting right S1 nerve root. There is otherwise mild narrowing of the spinal canal and bilateral neural foramen. IMPRESSION: 1. Multilevel degenerative changes, greatest involving the L5-S1 level as described above. 2. No acute fracture or dislocation. Dictated by: Dictated on workstation # [id number]
== END ==
LOC: RAD 01-09 07:33
PROVIDERS: ATTEND Internal Medicine
DX: M47.815 Spondylosis without myelopathy or radiculopathy, thoracolumbar region (principal); M47.26 Other spondylosis with radiculopathy, lumbar region; M47.817 Spondylosis without myelopathy or radiculopathy, lumbosacral region; M51.16 Intervertebral disc disorders with radiculopathy, lumbar region; M48.061 Spinal stenosis, lumbar region without neurogenic claudication; M48.07 Spinal stenosis, lumbosacral region
CPT/HCPCS: 72148

== ENCOUNTER 2021-03-06 06:47 | Emergency (ER) | payer MEDICARE ==
[~2021-03-06] VITALS: Ht 182 cm; Wt 82.0 kg
[2021-03-06] MEDS ORDERED: RT-ALBUTEROL/IPRATROPIUM 3 ML (DUONEB) VIAL INH ONE ×2 (07:00→07:30)
[2021-03-06] MEDS ORDERED: DICL75TA2 (07:00)
[2021-03-06] MEDS ORDERED: cefTRIAXone 1 GM PRE-MIX 50 ML IV ONE (07:00)
[2021-03-06] MEDS ORDERED: LACTATED RINGERS 1,000 ML IV ONE ×2 (07:00)
[2021-03-06] MEDS ORDERED: AZITHROMYCIN INJECTION 500 MG in NS (IVPB) 250 ML IV ONE (07:00)
[2021-03-06] MEDS ORDERED: HYDR-3817 (07:00)
[2021-03-06] MEDS ORDERED: RT-ALBUTEROL/IPRATROPIUM 3 ML (DUONEB) VIAL ONE (07:02)
[2021-03-06 07:08] LABS: BASOPHILS # (AUTO) 0.1 10^3/uL (0.0-0.1); BASOPHILS % (AUTO) 1 % (0-10); EOSINOPHILS # (AUTO) 0.6 10^3/uL (0.0-0.3); EOSINOPHILS % (AUTO) 8 % (0-10); HEMATOCRIT 43 % (40-54); HEMOGLOBIN 14.5 g/dL (13.3-17.7); LYMPHOCYTES # (AUTO) 3.7 10^3/uL (1.0-4.0); LYMPHOCYTES % (AUTO) 48 % (12-44); MEAN CORPUSCULAR HEMOGLOBIN 29 pg (25-34); MEAN CORPUSCULAR HGB CONC 34 g/dL (32-36); MEAN CORPUSCULAR VOLUME 87 fL (80-99); MEAN PLATELET VOLUME 9.5 fL (9.0-12.2); MONOCYTES # (AUTO) 0.5 10^3/uL (0.0-1.0); MONOCYTES % (AUTO) 6 % (0-12); NEUTROPHILS # (AUTO) 2.9 10^3/uL (1.8-7.8); NEUTROPHILS % (AUTO) 37 % (42-75); PLATELET COUNT 241 10^3/uL (130-400); WHITE BLOOD COUNT 7.7 10^3/uL (4.3-11.0)
--- NOTE | 2021-03-06 07:14 | ED Respiratory ---
General Chief Complaint: Respiratory Problems Stated Complaint: SOB Nursing Triage Note: soa/ cough/ wheezing since last night Source: patient Exam Limitations: no limitations History of Present Illness Date Seen by Provider: Mar 06, 2021 Time Seen by Provider: 06:50 Initial Comments Patient presents ER by private conveyance from home with his significant other and chief complaint that this morning he woke up profoundly short of breath. He says is worse when he lays flat. He does not have any increased swelling in his hands or feet. He has a history of COPD but denies a history of heart failure or heart attacks or stents. He is not on blood thinners. He took a couple puffs off of his albuterol MDI and states it did not help much. He says he gets frequent URIs and follows with Dr. Oglesby in the clinic. He does not follow with a senior clinical project manager. He does not have a nebulizer. He says he quit smoking 2 years ago. He has hypertension hyperlipidemia but no diabetes or coronary disease. No chest pain. He does not rely on supplemental oxygen at baseline. He does not wear CPAP at night. His cough is nonproductive. He denies fevers or chills. No sick contacts. No COVID-19 vaccination or influenza vaccination this year. Allergies and Home Medications Allergies Coded Allergies: NKANo Known Allergies (Unverified Allergy, Mild, 03/14/09) Patient Home Medication List Home Medication List Reviewed: Yes Albuterol Sulfate (Proair Hfa) 1 Puff Puff, 2 PUFF IH Q4H PRN for SHORTNESS OF BREATH, (Reported) Entered as Reported by: ANDRA RASHID on 10/27/20 1406 Last Action: Last Taken Edited Amlodipine Besylate (Amlodipine Besylate) 10 Mg Tablet, 10 MG PO DAILY, (Repor dusty) Entered as Reported by: EDGAR MALIK on 11/22/16 1048 Last Action: Last Taken Edited Azithromycin (Azithromycin) 250 Mg Tablet, 250 MG PO UD Prescribed by: POLO GARCES on 03/06/21 0825 Diclofenac Sodium (Diclofenac Sodium) 75 Mg Tablet., (Reported) Entered as Reported by: RACHELE VERMA on 03/06/21 0700 Last Action: New Order Hydrocodone/Acetaminophen (Hydrocodone-Acetamin 7.5-325) 1 Each Tablet, (Reported) Entered as Reported by: RACHELE VERMA on 03/06/21 0700 Last Action: New Order Inhaler,Assist Device,Lg Mask (Procare Spacer with Adult Mask) 1 Each Spacer, EACH MC Q4H PRN for WHEEZING, (DME) Prescribed by: POLO GARCES on 03/06/21 0825 Ipratropium/Albuterol Sulfate (Iprat-Albut 0.5-3(2.5) mg/3 ml) 3 Ml Ampul.neb, 3 ML IH Q6H PRN for WHEEZING Prescribed by: POLO GARCES on 03/06/21 0825 Nebulizer and Compressor (Compressor Nebulizer System) 1 Each Each, EACH MC Q6H PRN for WHEEZING, (DME) Prescribed by: POLO GARCES on 03/06/21 0825 Pramipexole Di-HCl (Mirapex) 0.5 Mg Tablet, 0.5 MG PO DAILY, (Reported) Entered as Reported by: ANDRA RASHID on 10/27/20 1406 Last Action: Last Taken Edited Prednisone (Prednisone) 20 Mg Tab, 40 MG PO DAILY Prescribed by: POOL GARCES on 03/06/21 0825 Review of Systems Review of Systems Constitutional: No chills; malaise, weakness EENTM: No ear discharge, No ear pain Respiratory: cough; No phlegm; short of breath, wheezing Cardiovascular: No chest pain, No edema Gastrointestinal: No abdominal pain, No constipation, No nausea, No vomiting Genitourinary: No discharge, No dysuria Musculoskeletal: No back pain, No joint pain Skin: No change in color, No pruritus, No rash Psychiatric/Neurological: Denies Headache, Denies Numbness All Other Systems Reviewed Negative Unless Noted: Yes Past Lqmqdlg-Anksiq-Plmhoh Hx Patient Social History Tobacco Use?: No Substance use?: No Alcohol Use?: No Pt feels they are or have been: No Immunizations Up To Date Tetanus Booster (TDap): Unknown Seasonal Allergies Seasonal Allergies: No Past Medical History Surgery/Hospitalization HX: htn, asthma Surgeries: Yes (HAND, ORIF L ankle) Orthopedic Respiratory: Yes (recent PFT) COPD, Emphysema Currently Using CPAP: No Currently Using BIPAP: No Cardiac: Yes Hypertension Neurological: No Genitourinary: Yes Benign Prostatic Hyperpl Gastrointestinal: No Musculoskeletal: No Arthritis, Chronic Back Pain Endocrine: No HEENT: No (cataracts removed, ) Loss of Vision: Denies Hearing Impairment: Denies Cancer: No Psychosocial: No Integumentary: No Blood Disorders: No Adverse Reaction/Blood Tranf: No Family Medical History Hypertension 19 MOTHER Neoplasm 19 FATHER Cancer, CAD Over 55 Years Old Physical Exam Vital Signs - First Documented 03/06/21 06:54 Temp 36.2 Pulse 68 Resp 26 B/P (MAP) 190/100 (130) Pulse Ox 100 O2 Delivery Nasal Cannula O2 Flow Rate 5.00 Capillary Refill : Less Than 3 Seconds Height: 6'0" Weight: 165lbs. 1.0oz. 74.810552bg; 24.00 BMI Method:Stated General Appearance: WD/WN, moderate distress Eyes: Bilateral Eye Normal Inspection, Bilateral Eye PERRL, Bilateral Eye EOMI HEENT: PERRL/EOMI, pharynx normal Neck: full range of motion, supple, normal inspection Respiratory: respiratory distress (Moderate distress with hypoxia oxygen saturations 82% on room air, 34 breaths/min, accessory muscle use), accessory muscle use; No rales; wheezing (Audible wheezing all johnson) Cardiovascular: normal peripheral pulses, regular rate, rhythm Gastrointestinal: normal bowel sounds, non tender, soft Neurologic/Psychiatric: alert, normal mood/affect, oriented x 3 Skin: normal color, warm/dry Focused Exam Lactate Level 03/06/21 07:10: Lactic Acid Level 0.88 Lactic Acid Level Laboratory Tests Test 03/06/21 07:10 Lactic Acid Level 0.88 MMOL/L (0.50-2.00) Progress/Results/Core Measures Suspected Sepsis SIRS Temperature: Pulse: 68 Respiratory Rate: 26 Laboratory Tests 03/06/21 07:00: White Blood Count 7.7 Blood Pressure 190 /100 Mean: 130 03/06/21 07:10: Lactic Acid Level 0.88 Laboratory Tests 03/06/21 07:00: Creatinine 1.12, INR Comment 1.1, Platelet Count 241, Total Bilirubin 0.3 Results/Orders Lab Results Laboratory Tests Test 03/06/21 07:00 03/06/21 07:05 03/06/21 07:08 03/06/21 07:10 Range/Units White Blood Count 7.7 4.3-11.0 10^3/uL Red Blood Count 4.96 4.30-5.52 10^6/uL Hemoglobin 14.5 13.3-17.7 g/dL Hematocrit 43 40-54 % Mean Corpuscular Volume 87 80-99 fL Mean Corpuscular Hemoglobin 29 25-34 pg Mean Corpuscular Hemoglobin Concent 34 32-36 g/dL Red Cell Distribution Width 13.0 10.0-14.5 % Platelet Count 241 130-400 10^3/uL Mean Platelet Volume 9.5 9.0-12.2 fL Immature Granulocyte % (Auto) 0 % Neutrophils (%) (Auto) 37 L 42-75 % Lymphocytes (%) (Auto) 48 H 12-44 % Monocytes (%) (Auto) 6 0-12 % Eosinophils (%) (Auto) 8 0-10 % Basophils (%) (Auto) 1 0-10 % Neutrophils # (Auto) 2.9 1.8-7.8 10^3/uL Lymphocytes # (Auto) 3.7 1.0-4.0 10^3/uL Monocytes # (Auto) 0.5 0.0-1.0 10^3/uL Eosinophils # (Auto) 0.6 H 0.0-0.3 10^3/uL Basophils # (Auto) 0.1 0.0-0.1 10^3/uL Immature Granulocyte # (Auto) 0.0 0.0-0.1 10^3/uL Prothrombin Time 14.2 12.2-14.7 SEC INR Comment 1.1 0.8-1.4 Activated Partial Thromboplast Time 30 24-35 SEC Sodium Level 139 135-145 MMOL/L Potassium Level 3.9 3.6-5.0 MMOL/L Chloride Level 102 98-107 MMOL/L Carbon Dioxide Level 25 21-32 MMOL/L Anion Gap 12 5-14 MMOL/L Blood Urea Nitrogen 13 7-18 MG/DL Creatinine 1.12 0.60-1.30 MG/DL Estimat Glomerular Filtration Rate 77 BUN/Creatinine Ratio 12 Glucose Level 97 70-105 MG/DL Calcium Level 8.9 8.5-10.1 MG/DL Corrected Calcium 8.7 8.5-10.1 MG/DL Total Bilirubin 0.3 0.1-1.0 MG/DL Aspartate Amino Transf (AST/SGOT) 17 5-34 U/L Alanine Aminotransferase (ALT/SGPT) 15 0-55 U/L Alkaline Phosphatase 63 40-136 U/L Troponin I < 0.028 <0.028 NG/ML C-Reactive Protein High Sensitivity 0.35 0.00-0.50 MG/DL B-Type Natriuretic Peptide 16.3 <100.0 PG/ML Total Protein 7.4 6.4-8.2 GM/DL Albumin 4.2 3.2-4.5 GM/DL Procalcitonin 0.03 <0.10 NG/ML Blood Gas Puncture Site UNK Blood Gas Patient Temperature 36.2 Arterial Blood pH 7.35 L 7.37-7.43 Arterial Blood Partial Pressure CO2 51 H 35-45 MMHG Arterial Blood Partial Pressure O2 85 79-93 MMHG Arterial Blood HCO3 28 H 23-27 MMOL/L Arterial Blood Total CO2 29.2 21.0-31.0 MMOL/L Arterial Blood Oxygen Saturation 96 94-100 % Arterial Blood Base Excess 2.4 -2.5-2.5 MMOL/L Bipin Test UNK Blood Gas Ventilator Setting NO Blood Gas Inspired Oxygen 3 L Influenza Type A (RT-PCR) Not Detected Not Detecte Influenza Type B (RT-PCR) Not Detected Not Detecte SARS-CoV-2 RNA (RT-PCR) Not Detected Not Detecte Lactic Acid Level 0.88 0.50-2.00 MMOL/L My Orders Orders - POLO GARCES Continuous Ekg Monitoring (03/06/21 06:53) Ekg Tracing (03/06/21 06:53) Albuterol/Ipra Inhalation Soln (Duoneb I (03/06/21 07:00) Chest 1 View, Ap/Pa Only (03/06/21 07:00) Ed Iv/Invasive Line Start (03/06/21 07:00) Lactated Ringers (Lr 1000 Ml Iv Solution (03/06/21 07:00) Svn Small Volume Nebulizer (03/06/21 07:00) Cbc With Automated Diff (03/06/21 07:00) Comprehensive Metabolic Panel (03/06/21 07:00) Blood Culture (03/06/21 07:00) Protime With Inr (03/06/21 07:00) Partial Thromboplastin Time (03/06/21 07:00) Ed Iv/Invasive Line Start (03/06/21 07:00) Ed Iv/Invasive Line Start (03/06/21 07:00) Ekg Tracing (03/06/21 07:00) Troponin I (03/06/21 07:00) Vital Signs Adult Sepsis Patie Q15M (03/06/21 07:00) O2 (03/06/21 07:00) Remove Rings In Anticipation O (03/06/21 07:00) Lactic Acid Analyzer (03/06/21 07:00) Influenza A And B By Pcr (03/06/21 07:00) Lactated Ringers (Lr 1000 Ml Iv Solution (03/06/21 07:00) BNP (03/06/21 07:00) Arterial Blood Gas (03/06/21 07:00) Covid 19 Inhouse Test (03/06/21 07:00) Procalcitonin (Pct) (03/06/21 07:00) Hs C Reactive Protein (03/06/21 07:00) Methylprednisolone Sod Succ (Solu-Medrol (03/06/21 07:15) Albuterol/Ipra Inhalation Soln (Duoneb I (03/06/21 07:02) Albuterol Pre-Mix Nebs (Rt) (Proventil (03/06/21 07:16) Albuterol/Ipra Inhalation Soln (Duoneb I (03/06/21 07:30) Albuterol Pre-Mix Nebs (Rt) (Proventil (03/06/21 07:16) Medications Given in ED Current Medications Medications Dose Ordered Sig/Erwin Route Start Time Stop Time Status Last Admin Dose Admin Albuterol/ Ipratropium 3 ml ONCE ONCE INH 03/06/21 07:00 03/06/21 07:05 DC 03/06/21 07:11 3 ML Albuterol/ Ipratropium 3 ml ONCE ONCE INH 03/06/21 07:30 03/06/21 07:31 DC 03/06/21 07:22 3 ML Lactated Ringer's 1,000 ml @ 0 mls/hr Q0M ONCE IV 03/06/21 07:00 03/06/21 08:15 DC 03/06/21 07:26 1,000 MLS/HR Methylprednisolone Sodium Succinate 125 mg ONCE ONCE IVP 03/06/21 07:15 03/06/21 07:16 DC 03/06/21 07:26 125 MG Vital Signs/I&O 03/06/21 03/06/21 03/06/21 03/06/21 06:54 06:54 07:12 07:20 Temp 36.2 Pulse 68 Resp 26 B/P (MAP) 190/100 (130) Pulse Ox 100 91 100 100 O2 Delivery Nasal Cannula Nasal Cannula Nasal Cannula Nasal Cannula O2 Flow Rate 5.00 3.00 3.00 3.00 03/06/21 08:50 Pulse 89 Resp 20 B/P (MAP) 179/87 Pulse Ox 98 O2 Delivery Room Air Capillary Refill : Less Than 3 Seconds Blood Pressure Mean: 130 Progress Note #1: Time: 07:14 Progress Note DuoNeb, ABG and initiate a septic work-up. We will put him on 3 L by nasal cannula that brought him up to 100%. Suspect COPD exacerbation so we will give him a dose of steroids. Progress Note #2: Time: 07:17 Progress Note After a DuoNeb the patient is visibly more relaxed his respiratory rate is now 24-26 and he is no longer using as much accessory muscle effort however he is still auto- peeping. He still has a wheezes auscultated but not audible to the naked ear. We'll do an hour-long breathing treatment. Other than his respiratory rate he has aseptic vital signs. He does not meet sepsis criteria. Chest x-ray is clear and his white count 7 so we are discontinuing antibiotics and given 1 L of fluids. Progress Note #3: Time: 08:00 Progress Note Hour-long breathing treatment is done. He has been off the oxygen and talking in full sentences for the past 10 minutes with oxygen saturations in the upper 90s. He says he feels much better and is more active. He says he is ready to go home. We did talk about a stay in the hospital and he declined this. ABG show some chronic changes and hypoxemia which is no longer evident on his vital signs. Aseptic vital signs. ECG Initial ECG Impression Date: Mar 06, 2021 Initial ECG Impression Time: 06:56 Initial ECG Rate: 62 Initial ECG Rhythm: Normal Sinus Initial ECG Intervals: Normal Initial ECG Impression: Normal Initial ECG Comparisson: Unchanged Comment Normal sinus rhythm without clinically relevant ST elevation or depression. Diagnostic Imaging Diagonstic Imaging: Xray Plain Films/CT/US/NM/MRI: chest Comments [facility]. [place], [place] NAME: DEEDEE CHISHOLM [facility] REC#: [id number] PT STATUS: REG ER : 1945 PHYSICIAN: POLO GARCES MD ADMIT DATE: 03/06/21/ER Draft Date of Exam:03/06/21 CHEST 1 VIEW, AP/PA ONLY INDICATION: 76-year-old male presents with shortness of breath. COMPARISONS: CT chest 07/01/2020 FINDINGS: Single view of the chest shows the cardiac contour is normal. The senescent chest with emphysematous changes and chronic parenchymal changes. There are prominent central lung markings with some peribronchial cuffing present and perihilar and bibasilar atelectatic infiltrates are seen. There is no confluent consolidations. There is no effusion or pneumothorax. There is slight tortuosity of thoracic aorta. Soft tissues and bony thorax are normal. IMPRESSION: Slight prominent central lung markings with with some peribronchial cuffing suggests an element of bronchitis. There is some superimposed perihilar and bibasilar atelectatic infiltrates. Dictated on workstation # [id number] Dict: 03/06/21 0731 Trans: 03/06/21 0734 CV [id number] Interpreted by: EVA DE LA ROSA MD Electronically signed by: Reviewed: Reviewed by Me Departure Impression Primary Impression: COPD (chronic obstructive pulmonary disease) with acute bronchitis Disposition: 01 HOME, SELF-CARE Condition: Stable Departure-Patient Inst. Decision time for Depature: 08:18 Referrals: MARILUZ ARIAS MD (PCP/Family) Primary Care Physician Patient Instructions: Exacerbation of COPD (DC), Bronchitis, Adult ED, How to Use a Nebulizer ED Add. 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 paramedic supervisor the DuoNeb, azithromycin, Flovent and prednisone from your pharmacy. DuoNeb through the nebulizer every 6 hours for the next week or so until your bronchitis is better. You may take an extra dose in between if necessary for coughing wheezing or shortness of air. Start taking Flovent 2 puffs every morning through the spacer to help prevent bronchitis in the future. Azithromycin take as described, 2 tablets today and 1 tablet every day afterwards until its gone to help with bronchitis. Prednisone 2 tablets daily for the next 5 days starting tomorrow 03/07/2021. Follow-up in the next week or 2 with your primary care provider to discuss setting up pulmonary function tests if indicated as well as continuing the Flovent. Promptly return to the ER for severe shortness of air, chest pain or other worrisome symptoms. All discharge instructions reviewed with patient and/or family. Voiced under standing. Scripts Inhaler,Assist Device,Lg Mask (Procare Spacer with Adult Mask) 1 Each Spacer EACH MC Q4H PRN for WHEEZING, #1 0 Refills Prov: POLO GARCES 03/06/21 Azithromycin (Azithromycin) 250 Mg Tablet 250 MG PO UD, #6 TAB 0 Refills TAKE 2 TABLETS ON DAY ONE THEN TAKE 1 TABLET DAILY FOR FOUR MORE DAYS Prov: POLO GARCES 03/06/21 Prednisone (Prednisone) 20 Mg Tab 40 MG PO DAILY for 5 Days, #10 TAB 0 Refills Prov: POLO GARCES 03/06/21 Ipratropium/Albuterol Sulfate (Iprat-Albut 0.5-3(2.5) mg/3 ml) 3 Ml Ampul.neb 3 ML IH Q6H PRN for WHEEZING, #60 EACH 0 Refills Prov: POLO GARCES 03/06/21 Nebulizer and Compressor (Compressor Nebulizer System) 1 Each Each EACH MC Q6H PRN for WHEEZING, #1 0 Refills Prov: POLO GARCES 03/06/21 Copy Copies To 1: MARILUZ ARIAS MD, TITUS J Mar 06, 2021 07:14
[2021-03-06] MEDS ORDERED: methylPREDNISolone 125 MG (Solu-MEDROL) VIAL IVP ONE (07:15)
[2021-03-06 07:16] LABS: ABG BASE EXCESS 2.4 MMOL/L (-2.5-2.5); ABG OXYGEN SATURATION 96 % (94-100); ABG PCO2 51 MMHG (35-45); ABG PH 7.35 (7.37-7.43); ABG PO2 85 MMHG (79-93); ABG TCO2 29.2 MMOL/L (21.0-31.0)
[2021-03-06] MEDS ORDERED: RT-ALBUTEROL SULF 2.5 MG/3 ML PRE-MIX VIAL ONE (07:16)
[2021-03-06] MEDS ORDERED: RT-ALBUTEROL SULF 2.5 MG/3 ML PRE-MIX VIAL INH STA (07:16)
[2021-03-06 07:17] LABS: INSPIRED O2 3 L; PATIENT TEMP 36.2; VENTILATOR NO
[2021-03-06 07:19] LABS: ALBUMIN 4.2 GM/DL (3.2-4.5); CHLORIDE 102 MMOL/L (98-107); POTASSIUM 3.9 MMOL/L (3.6-5.0); SODIUM 139 MMOL/L (135-145)
[2021-03-06 07:20] LABS: CALCIUM 8.9 MG/DL (8.5-10.1); INR 1.1 (0.8-1.4); PROTHROMBIN TIME PATIENT 14.2 SEC (12.2-14.7)
[2021-03-06 07:22] LABS: GLUCOSE 97 MG/DL (70-105); TOTAL PROTEIN 7.4 GM/DL (6.4-8.2)
[2021-03-06 07:23] LABS: BILIRUBIN,TOTAL 0.3 MG/DL (0.1-1.0); CARBON DIOXIDE 25 MMOL/L (21-32)
[2021-03-06 07:25] LABS: ALKALINE PHOSPHATASE 63 U/L (40-136); CREATININE SERUM 1.12 MG/DL (0.60-1.30); GFR ESTIMATED 77
[2021-03-06 07:26] LABS: BUN/CREATININE RATIO 12
[2021-03-06 07:28] LABS: ALANINE AMINOTRANSFERASE 15 U/L (0-55)
--- NOTE | 2021-03-06 07:34 | Diagnostic Imaging Report ---
INDICATION: 76-year-old male presents with shortness of breath. COMPARISONS: CT chest 07/01/2020 FINDINGS: Single view of the chest shows the cardiac contour is normal. The senescent chest with emphysematous changes and chronic parenchymal changes. There are prominent central lung markings with some peribronchial cuffing present and perihilar and bibasilar atelectatic infiltrates are seen. There is no confluent consolidations. There is no effusion or pneumothorax. There is slight tortuosity of thoracic aorta. Soft tissues and bony thorax are normal. IMPRESSION: Slight prominent central lung markings with with some peribronchial cuffing suggests an element of bronchitis. There is some superimposed perihilar and bibasilar atelectatic infiltrates. Dictated by: Dictated on workstation # [id number]
[2021-03-06] MEDS ORDERED: NEBU-186 MC (08:25)
[2021-03-06] MEDS ORDERED: PRD20T PO (08:25)
[2021-03-06] MEDS ORDERED: INHA1SPA49 MC (08:25)
[2021-03-06] MEDS ORDERED: AZIT250T12 PO (08:25)
[2021-03-06] MEDS ORDERED: IPRA3AMP31 IH (08:25)
[2021-03-06 08:50] VITALS: BP 179/87
== END 2021-03-06 08:49 | disposition home or self-care (01) ==
LOC: EDUNIT# 06:47 → ER 06:49
DX: J44.0 Chronic obstructive pulmonary disease with (acute) lower respiratory infection (principal); I10 Essential (primary) hypertension; G89.29 Other chronic pain; M54.9 Dorsalgia, unspecified; Z20.822 Contact with and (suspected) exposure to COVID-19
CPT/HCPCS: 36415; 71045; 80053; 82805; 83605; 83880; 84145; 84484; 85025; 85610; 85730; 86141; 87040; 87636; 93005; 93041; 94640

== ENCOUNTER 2021-03-24 16:26 | Emergency (ER) | payer MEDICARE ==
[~2021-03-24] VITALS: Ht 187.9 cm; Wt 82.0 kg
[~2021-03-24 16:26] MED LIST changes: +AZIT250T12 PO; +DICL75TA2; +HYDR-3817; +INHA1SPA49 MC; +IPRA3AMP31 IH; -LEVO500T80 PO; +LEVO500T81 PO; +NEBU-186 MC
[2021-03-24] MEDS ORDERED: RT-ALBUTEROL SULF 2.5 MG/3 ML PRE-MIX VIAL INH STA (16:58)
[2021-03-24] MEDS ORDERED: methylPREDNISolone 125 MG (Solu-MEDROL) VIAL IVP ONE (17:00)
[2021-03-24] MEDS ORDERED: RT-ALBUTEROL/IPRATROPIUM 3 ML (DUONEB) VIAL INH ONE (17:00)
[2021-03-24 17:10] LABS: BASOPHILS % (AUTO) 0 % (0-10); EOSINOPHILS # (AUTO) 0.6 10^3/uL (0.0-0.3); EOSINOPHILS % (AUTO) 9 % (0-10); HEMATOCRIT 41 % (40-54); HEMOGLOBIN 13.7 g/dL (13.3-17.7); LYMPHOCYTES % (AUTO) 44 % (12-44); MEAN CORPUSCULAR HEMOGLOBIN 29 pg (25-34); MEAN CORPUSCULAR HGB CONC 33 g/dL (32-36); MEAN CORPUSCULAR VOLUME 87 fL (80-99); MEAN PLATELET VOLUME 9.8 fL (9.0-12.2); MONOCYTES # (AUTO) 0.5 10^3/uL (0.0-1.0); MONOCYTES % (AUTO) 8 % (0-12); NEUTROPHILS # (AUTO) 2.6 10^3/uL (1.8-7.8); NEUTROPHILS % (AUTO) 39 % (42-75); PLATELET COUNT 253 10^3/uL (130-400); POTASSIUM 3.9 MMOL/L (3.6-5.0); WHITE BLOOD COUNT 6.7 10^3/uL (4.3-11.0)
[2021-03-24 17:12] LABS: CALCIUM 8.9 MG/DL (8.5-10.1)
[2021-03-24 17:16] LABS: CREATININE SERUM 0.98 MG/DL (0.60-1.30)
--- NOTE | 2021-03-24 17:45 | Diagnostic Imaging Report ---
INDICATION: Shortness of air and weakness. TIME OF EXAM: 5:38 PM Correlation is made with prior chest from 03/06/2021. The heart size is normal. The pulmonary vascularity is unremarkable. The lungs are clear. No infiltrate, effusion or pneumothorax is detected. IMPRESSION: No acute cardiopulmonary process is detected. Dictated by: Dictated on workstation # [id number]
--- NOTE | 2021-03-24 19:39 | ED Respiratory ---
General Chief Complaint: Respiratory Problems Stated Complaint: WHEEZING/SOA Source: patient, old records Exam Limitations: no limitations (TOM ANGUIANO MD) History of Present Illness Date Seen by Provider: Mar 24, 2021 Time Seen by Provider: 16:50 Initial Comments This 76-year-old gentleman with COPD presents to the emergency room with complaints of shortness of breath and wheezing. He was seen in this ER about 3 weeks ago and was worked up thoroughly. He was found to have COPD exacerbation and was given steroids and antibiotics. This did improve his condition for a while but he has worsened again. He denies fever or significant increase in productive cough. He has used nebulizer treatments at home but is still quite tight and wheezy despite that. Oxygen saturation is in the low 90s on room air. (TOM ANGUIANO MD) Allergies and Home Medications Allergies Coded Allergies: Adarsh Known Allergies (Unverified Allergy, Mild, 03/14/09) Patient Home Medication List Home Medication List Reviewed: Yes (TOM ANGUIANO MD) Albuterol Sulfate (Proair Hfa) 1 Puff Puff, 2 PUFF IH Q4H PRN for SHORTNESS OF BREATH, (Reported) Entered as Reported by: ANDRA RASHID on 10/27/20 1406 Amlodipine Besylate (Amlodipine Besylate) 10 Mg Tablet, 10 MG PO DAILY, (Reported) Entered as Reported by: EDGAR MALIK on 11/22/16 1048 Azithromycin (Azithromycin) 250 Mg Tablet, 250 MG PO UD Prescribed by: POLO GARCES on 03/06/21 0825 Diclofenac Sodium (Diclofenac Sodium) 75 Mg Tablet., (Reported) Entered as Reported by: RACHELE VERMA on 03/06/21 0700 Doxycycline Hyclate (Doxycycline Hyclate) 100 Mg Tablet, 100 MG PO BID Prescribed by: SANA NAYAK on 03/24/212002 Fluticasone/Salmeterol (Advair 250-50 Diskus) 1 Each Blst.w.dev, 1 EACH IH BID Prescribed by: SANA NAYAK on 03/24/212002 Hydrocodone/Acetaminophen (Hydrocodone-Acetamin 7.5-325) 1 Each Tablet, (Reported) Entered as Reported by: RACHELE VERMA on 03/06/21 0700 Inhaler,Assist Device,Lg Mask (Procare Spacer with Adult Mask) 1 Each Spacer, EACH MC Q4H PRN for WHEEZING, (DME) Prescribed by: POLO GARCES on 03/06/21 0825 Ipratropium/Albuterol Sulfate (Iprat-Albut 0.5-3(2.5) mg/3 ml) 3 Ml Ampul.neb, 3 ML IH Q6H PRN for WHEEZING Prescribed by: POLO GARCES on 03/06/21 0825 Nebulizer and Compressor (Compressor Nebulizer System) 1 Each Each, EACH MC Q6H PRN for WHEEZING, (DME) Prescribed by: POLO GARCES on 03/06/21 0825 Pramipexole Di-HCl (Mirapex) 0.5 Mg Tablet, 0.5 MG PO DAILY, (Reported) Entered as Reported by: ANDRA RASHID on 10/27/20 1406 Prednisone (Prednisone) 20 Mg Tab, 40 MG PO DAILY Prescribed by: POLO GARCES on 03/06/21 0825 Prednisone (Prednisone) 20 Mg Tab, 40 MG PO DAILY Prescribed by: SANA NAYAK on 03/24/212002 Review of Systems Review of Systems Constitutional: no symptoms reported EENTM: no symptoms reported Respiratory: see HPI Cardiovascular: no symptoms reported Gastrointestinal: no symptoms reported Genitourinary: no symptoms reported Musculoskeletal: no symptoms reported Skin: no symptoms reported Psychiatric/Neurological: No Symptoms Reported Hematologic/Lymphatic: No Symptoms Reported Immunological/Allergic: no symptoms reported (TOM ANGUIANO MD) Past Kjzrurw-Iesjvb-Ghfcde Hx Patient Social History Tobacco Use?: No Substance use?: No Alcohol Use?: No (TOM ANGUIANO MD) Immunizations Up To Date Tetanus Booster (TDap): Unknown (TOM ANGUIANO MD) Seasonal Allergies Seasonal Allergies: No (TOM ANGUIANO MD) Past Medical History Surgery/Hospitalization HX: htn, asthma Surgeries: Yes (HAND, ORIF L ankle) Orthopedic Respiratory: Yes (recent PFT) COPD, Emphysema Currently Using CPAP: No Currently Using BIPAP: No Cardiac: Yes Hypertension Neurological: No Genitourinary: Yes Benign Prostatic Hyperpl Gastrointestinal: No Musculoskeletal: No Arthritis, Chronic Back Pain Endocrine: No HEENT: No (cataracts removed, ) Loss of Vision: Denies Hearing Impairment: Denies Cancer: No Psychosocial: No Integumentary: No Blood Disorders: No Adverse Reaction/Blood Tranf: No (TOM ANGUIANO MD) Family Medical History Hypertension 19 MOTHER Neoplasm 19 FATHER Cancer, CAD Over 55 Years Old (TOM ANGUIANO MD) Physical Exam Vital Signs - First Documented (SANA NAYAK DO) Capillary Refill : (TOM ANGUIANO MD) Height: 6'0" Weight: 165lbs. 1.0oz. [id number]; 24.00 BMI Method:Stated General Appearance: WD/WN, no apparent distress HEENT: PERRL/EOMI, normal ENT inspection Neck: normal inspection Respiratory: no respiratory distress, no accessory muscle use, wheezing (Tight wheezing throughout with prolonged expiratory phase) Cardiovascular: regular rate, rhythm, no edema, no murmur Gastrointestinal: normal bowel sounds, non tender, soft Extremities: normal inspection, no pedal edema, no calf tenderness Neurologic/Psychiatric: no motor/sensory deficits, alert, normal mood/affect, oriented x 3 Skin: normal color, warm/dry (TOM ANGUIANO MD) Progress/Results/Core Measures Suspected Sepsis SIRS Temperature: Pulse: Respiratory Rate: Laboratory Tests 03/24/21 16:45: White Blood Count 6.7 Blood Pressure / Mean: Laboratory Tests 03/24/21 16:45: Creatinine 0.98, Platelet Count 253 (TOM ANGUIANO MD) Results/Orders Lab Results Laboratory Tests Test 03/24/21 16:43 03/24/21 16:45 Range/Units Influenza Type A (RT-PCR) Not Detected Not Detecte Influenza Type B (RT-PCR) Not Detected Not Detecte SARS-CoV-2 RNA (RT-PCR) Not Detected Not Detecte White Blood Count 6.7 4.3-11.0 10^3/uL Red Blood Count 4.74 4.30-5.52 10^6/uL Hemoglobin 13.7 13.3-17.7 g/dL Hematocrit 41 40-54 % Mean Corpuscular Volume 87 80-99 fL Mean Corpuscular Hemoglobin 29 25-34 pg Mean Corpuscular Hemoglobin Concent 33 32-36 g/dL Red Cell Distribution Width 13.3 10.0-14.5 % Platelet Count 253 130-400 10^3/uL Mean Platelet Volume 9.8 9.0-12.2 fL Immature Granulocyte % (Auto) 0 % Neutrophils (%) (Auto) 39 L 42-75 % Lymphocytes (%) (Auto) 44 12-44 % Monocytes (%) (Auto) 8 0-12 % Eosinophils (%) (Auto) 9 0-10 % Basophils (%) (Auto) 0 0-10 % Neutrophils # (Auto) 2.6 1.8-7.8 10^3/uL Lymphocytes # (Auto) 3.0 1.0-4.0 10^3/uL Monocytes # (Auto) 0.5 0.0-1.0 10^3/uL Eosinophils # (Auto) 0.6 H 0.0-0.3 10^3/uL Basophils # (Auto) 0.0 0.0-0.1 10^3/uL Immature Granulocyte # (Auto) 0.0 0.0-0.1 10^3/uL Sodium Level 138 135-145 MMOL/L Potassium Level 3.9 3.6-5.0 MMOL/L Chloride Level 102 98-107 MMOL/L Carbon Dioxide Level 25 21-32 MMOL/L Anion Gap 11 5-14 MMOL/L Blood Urea Nitrogen 10 7-18 MG/DL Creatinine 0.98 0.60-1.30 MG/DL Estimat Glomerular Filtration Rate 90 BUN/Creatinine Ratio 10 Glucose Level 81 70-105 MG/DL Calcium Level 8.9 8.5-10.1 MG/DL C-Reactive Protein High Sensitivity 0.51 H 0.00-0.50 MG/DL (GERALDO,SANA K DO) Medications Given in ED Current Medications Medications Dose Ordered Sig/Erwin Route Start Time Stop Time Status Last Admin Dose Admin Albuterol/ Ipratropium 3 ml ONCE ONCE INH 03/24/21 17:00 03/24/21 17:01 DC 03/24/21 18:34 3 ML Methylprednisolone Sodium Succinate 125 mg ONCE ONCE IVP 03/24/21 17:00 03/24/21 17:01 DC 03/24/21 17:10 125 MG (GERALDO,SANA K DO) Vital Signs/I&O 03/24/21 03/24/21 03/24/2121 16:40 16:40 18:39 20:10 Temp 36.4 Pulse 70 100 Resp 20 20 B/P (MAP) 151/98 (115) 148/80 Pulse Ox 96 92 94 O2 Delivery Room Air Room Air Room Air Room Air (SANA NAYAK DO) Vital Signs/I&O Capillary Refill : (TOM ANGUIANO MD) Progress Note : Time: 19:38 Progress Note Work-up is unremarkable. Patient received Solu-Medrol and an hour-long nebulizer treatment. Care is being transitioned to Dr. Nayak for reexamination and determination of disposition. (TOM ANGUIANO MD) Diagnostic Imaging Diagonstic Imaging: Xray Plain Films/CT/US/NM/MRI: chest Comments Chest x-ray viewed by me and report reviewed. See report below: NAME: DEEDEE CHISHOLM MED REC#: [id number] PT STATUS: REG ER : 1945 PHYSICIAN: TOM ANGUIANO MD ADMIT DATE: 03/24/21/ER Signed Date of Exam:03/24/21 CHEST 1 VIEW, AP/PA ONLY INDICATION: Shortness of air and weakness. TIME OF EXAM: 5:38 PM Correlation is made with prior chest from 03/06/2021. The heart size is normal. The pulmonary vascularity is unremarkable. The lungs are clear. No infiltrate, effusion or pneumothorax is detected. IMPRESSION: No acute cardiopulmonary process is detected. Dictated by: Dictated on workstation # [id number] Dict: 03/24/21 1736 Trans: 03/24/211750 [facility] [id number] Interpreted by: SABINA SMITH MD Electronically signed by: SABINA SMITH MD 03/24/21 175 (TOM ANGUIANO MD) Departure Impression Primary Impression: COPD exacerbation Disposition: 01 HOME, SELF-CARE Condition: Stable Departure-Patient Inst. Decision time for Depature: 20:00 (SANA NAYAK DO) Referrals: MARILUZ ARIAS MD (PCP/Family) Primary Care Physician Patient Instructions: COPD Exacerbation, Adult ED Add. Discharge Instructions: DUO NEB TREATMENTS EVERY 4 HOURS FOLLOW UP WITH YOUR DR IN 2-3 DAYS FOR FURTHER CARE RETURN TO ER IF WORSE All discharge instructions reviewed with patient and/or family. Voiced understanding. Scripts Fluticasone/Salmeterol (Advair 250-50 Diskus) 1 Each Blst.w.dev 1 EACH IH BID, #1 EA Prov: SANA NAYAK DO 03/24/21 Doxycycline Hyclate (Doxycycline Hyclate) 100 Mg Tablet 100 MG PO BID, #20 TAB 0 Refills Prov: SANA NAYAK DO 03/24/21 Prednisone (Prednisone) 20 Mg Tab 40 MG PO DAILY, #20 TAB 0 Refills Prov: SANA NAYAK DO 03/24/21 ATTENDING PHYSICIAN NOTE: I WAS PHYSICALLY PRESENT ER PHYSICIAN, WHEN THIS PATIENT WAS IN ER, BUT I WAS NOT INVOLVED IN ANY DECISION MAKING OR ANY CARE OF THIS PATIENT. (SANA NAYAK DO) Copy Copies To 1: MARILUZ ARIAS MD, JOSHUA T MD Mar 24, 2021 19:39 SANA NAYAK DO Mar 24, 2021 20:03
[2021-03-24] MEDS ORDERED: DOXY100T2 PO (20:03)
[2021-03-24] MEDS ORDERED: PRD20T PO (20:03)
[2021-03-24] MEDS ORDERED: FLUT1DIS26 IH (20:03)
[2021-03-24 20:10] VITALS: BP 148/80
== END 2021-03-24 20:10 | disposition home or self-care (01) ==
LOC: EDUNIT# 16:26 → ER 16:29
DX: J44.1 Chronic obstructive pulmonary disease with (acute) exacerbation (principal); I10 Essential (primary) hypertension; G89.29 Other chronic pain; M54.9 Dorsalgia, unspecified; Z20.822 Contact with and (suspected) exposure to COVID-19; Z79.891 Long term (current) use of opiate analgesic
CPT/HCPCS: 36415; 71045; 80048; 85025; 86141; 87636; 94640

== ENCOUNTER 2021-04-12 18:53 | Emergency (ER) | payer MEDICARE ==
[~2021-04-12] VITALS: Ht 187 cm; Wt 100.0 kg
[~2021-04-12 18:53] MED LIST changes: +FLUT1DIS26 IH
[2021-04-12] MEDS ORDERED: methylPREDNISolone 125 MG (Solu-MEDROL) VIAL IVP ONE (19:45)
[2021-04-12] MEDS ORDERED: RT-ALBUTEROL SULF 2.5 MG/3 ML PRE-MIX VIAL INH ONE ×2 (19:45→20:45)
[2021-04-12] MEDS ORDERED: RT-ALBUTEROL/IPRATROPIUM 3 ML (DUONEB) VIAL INH ONE (19:45)
[2021-04-12 20:01] LABS: ABG BASE EXCESS 1.6 MMOL/L (-2.5-2.5); ABG OXYGEN SATURATION 99 % (94-100); ABG PCO2 47 MMHG (35-45); ABG PH 7.37 (7.37-7.43); ABG PO2 167 MMHG (79-93); ABG TCO2 27.8 MMOL/L (21.0-31.0)
[2021-04-12 20:04] LABS: ALLENS TEST YES-POS; INSPIRED O2 NOT INDICATED; PATIENT TEMP 99.2; VENTILATOR NO
[2021-04-12 20:08] LABS: BASOPHILS % (AUTO) 0 % (0-10); EOSINOPHILS # (AUTO) 0.2 10^3/uL (0.0-0.3); EOSINOPHILS % (AUTO) 1 % (0-10); HEMATOCRIT 47 % (40-54); HEMOGLOBIN 15.4 g/dL (13.3-17.7); LYMPHOCYTES # (AUTO) 1.6 10^3/uL (1.0-4.0); LYMPHOCYTES % (AUTO) 13 % (12-44); MEAN CORPUSCULAR HEMOGLOBIN 29 pg (25-34); MEAN CORPUSCULAR HGB CONC 33 g/dL (32-36); MEAN CORPUSCULAR VOLUME 88 fL (80-99); MEAN PLATELET VOLUME 9.7 fL (9.0-12.2); MONOCYTES # (AUTO) 0.7 10^3/uL (0.0-1.0); MONOCYTES % (AUTO) 5 % (0-12); NEUTROPHILS # (AUTO) 10.1 10^3/uL (1.8-7.8); NEUTROPHILS % (AUTO) 80 % (42-75); PLATELET COUNT 219 10^3/uL (130-400); WHITE BLOOD COUNT 12.7 10^3/uL (4.3-11.0)
--- NOTE | 2021-04-12 20:24 | ED Respiratory ---
General Chief Complaint: Respiratory Problems Stated Complaint: SOB/WHEEZING Source: patient Exam Limitations: no limitations (JANEE MCKEON APRN) History of Present Illness Date Seen by Provider: Apr 12, 2021 Time Seen by Provider: 20:21 Initial Comments To your private vehicle with reports of shortness of breath and wheezing for a few days. No fever. Has had a cough. Timing/Duration: just prior to arrival Severity: moderate Associated Symptoms: cough, wheezing (JANEE MCKEON APRN) Allergies and Home Medications Allergies Coded Allergies: NKANo Known Allergies (Unverified Allergy, Mild, 03/14/09) Patient Home Medication List Home Medication List Reviewed: Yes (JANEE MCKEON APRN) Albuterol Sulfate (Proair Hfa) 1 Puff Puff, 2 PUFF IH Q4H PRN for SHORTNESS OF BREATH, (Reported) Entered as Reported by: ANDRA RASHID on 10/27/20 1406 Amlodipine Besylate (Amlodipine Besylate) 10 Mg Tablet, 10 MG PO DAILY, (Reported) Entered as Reported by: EDGAR MALIK on 11/22/16 1048 Azithromycin (Azithromycin) 250 Mg Tablet, 250 MG PO UD Prescribed by: POLO GARCES on 03/06/21 0825 Cefuroxime Axetil (Cefuroxime) 250 Mg Tablet, 250 MG PO BID Prescribed by: JANEE MCKEON on 04/12/21 2146 Diclofenac Sodium (Diclofenac Sodium) 75 Mg Tablet., (Reported) Entered as Reported by: RACHELE VERMA on 03/06/21 0700 Doxycycline Hyclate (Doxycycline Hyclate) 100 Mg Tablet, 100 MG PO BID Prescribed by: SANA CHOW on 03/24/212002 Fluticasone/Salmeterol (Advair 250-50 Diskus) 1 Each Blst.w.dev, 1 EACH IH BID Prescribed by: SANA CHOW on 03/24/212002 Hydrocodone/Acetaminophen (Hydrocodone-Acetamin 7.5-325) 1 Each Tablet, (Reported) Entered as Reported by: RACHELE VERMA on 03/06/21 0700 Inhaler,Assist Device,Lg Mask (Procare Spacer with Adult Mask) 1 Each Spacer, EACH MC Q4H PRN for WHEEZING, (DME) Prescribed by: POLO GARCES on 03/06/21 0825 Ipratropium/Albuterol Sulfate (Iprat-Albut 0.5-3(2.5) mg/3 ml) 3 Ml Ampul.neb, 3 ML IH Q6H PRN for WHEEZING Prescribed by: POLO GARCES on 03/06/21 0825 Nebulizer and Compressor (Compressor Nebulizer System) 1 Each Each, EACH MC Q6H PRN for WHEEZING, (DME) Prescribed by: POLO GARCES on 03/06/21 0825 Pramipexole Di-HCl (Mirapex) 0.5 Mg Tablet, 0.5 MG PO DAILY, (Reported) Entered as Reported by: ANDRA RASHID on 10/27/20 1406 Prednisone (Prednisone) 20 Mg Tab, 40 MG PO DAILY Prescribed by: POLO GARCES on 03/06/21 08 Prednisone (Prednisone) 20 Mg Tab, 40 MG PO DAILY Prescribed by: SANA CHOW on 03/24/212002 Prednisone (Prednisone) 10 Mg Tab.ds.pk, 10 MG PO DAILY Prescribed by: JANEE MCKEON on 04/12/212145 Review of Systems Review of Systems Constitutional: see HPI EENTM: see HPI Respiratory: see HPI, cough Cardiovascular: no symptoms reported Genitourinary: no symptoms reported Musculoskeletal: no symptoms reported Skin: no symptoms reported Psychiatric/Neurological: No Symptoms Reported Hematologic/Lymphatic: No Symptoms Reported (JANEE MCKEON APRN) Past Dllukei-Ayfjob-Huqahf Hx Immunizations Up To Date Tetanus Booster (TDap): Unknown (JANEE MCKEON APRN) Seasonal Allergies Seasonal Allergies: No (JANEE MCKEON APRN) Past Medical History Surgery/Hospitalization HX: htn, asthma Surgeries: Yes (HAND, ORIF L ankle) Orthopedic Respiratory: Yes (recent PFT) COPD, Emphysema Currently Using CPAP: No Currently Using BIPAP: No Cardiac: Yes Hypertension Neurological: No Genitourinary: Yes Benign Prostatic Hyperpl Gastrointestinal: No Musculoskeletal: No Arthritis, Chronic Back Pain Endocrine: No HEENT: No (cataracts removed, ) Loss of Vision: Denies Hearing Impairment: Denies Cancer: No Psychosocial: No Integumentary: No Blood Disorders: No Adverse Reaction/Blood Tranf: No (JANEE MCKEON APRN) Family Medical History Hypertension 19 MOTHER Neoplasm 19 FATHER Cancer, CAD Over 55 Years Old (JANEE MCKEON APRN) Physical Exam Vital Signs - First Documented 04/12/21 04/12/21 19:31 20:25 Temp 36.8 Pulse 101 Resp 30 B/P (MAP) 145/95 (112) Pulse Ox 84 O2 Delivery Room Air O2 Flow Rate 50.00 (TOM ANGUIANO MD) Capillary Refill : (JANEE MCKEON APRN) Height: 6'0" Weight: 165lbs. 1.0oz. 74.529017oi; 23.00 BMI Method:Stated General Appearance: WD/WN, severe distress, other (Tachypneic, speaks in short phrases, accessory muscle use. Audible wheezing. ) Eyes: Bilateral Eye Normal Inspection, Bilateral Eye PERRL, Bilateral Eye EOMI HEENT: PERRL/EOMI, normal ENT inspection Neck: non-tender, full range of motion Respiratory: decreased breath sounds, accessory muscle use, wheezing Cardiovascular: regular rate, rhythm, no murmur Gastrointestinal: normal bowel sounds, soft Neurologic/Psychiatric: alert, normal mood/affect, oriented x 3 Skin: normal color, warm/dry (JANEE MCKEON APRN) Progress/Results/Core Measures Suspected Sepsis SIRS Temperature: Pulse: Respiratory Rate: Laboratory Tests 04/12/21 19:55: White Blood Count 12.7H Blood Pressure / Mean: Laboratory Tests 04/12/21 19:55: Creatinine 0.99, Platelet Count 219, Total Bilirubin 0.9 (JANEE MCKEON APRN) Results/Orders Lab Results Laboratory Tests Test 04/12/21 19:31 04/12/21 19:53 04/12/21 19:55 Range/Units Influenza Type A (RT-PCR) Not Detected Not Detecte Influenza Type B (RT-PCR) Not Detected Not Detecte SARS-CoV-2 RNA (RT-PCR) Not Detected Not Detecte Blood Gas Puncture Site LEFT RADIAL Blood Gas Patient Temperature 99.2 Arterial Blood pH 7.37 7.37-7.43 Arterial Blood Partial Pressure CO2 47 H 35-45 MMHG Arterial Blood Partial Pressure O2 167 H 79-93 MMHG Arterial Blood HCO3 26 23-27 MMOL/L Arterial Blood Total CO2 27.8 21.0-31.0 MMOL/L Arterial Blood Oxygen Saturation 99 94-100 % Arterial Blood Base Excess 1.6 -2.5-2.5 MMOL/L Bipin Test YES-POS Blood Gas Ventilator Setting NO Blood Gas Inspired Oxygen NOT INDICATED White Blood Count 12.7 H 4.3-11.0 10^3/uL Red Blood Count 5.34 4.30-5.52 10^6/uL Hemoglobin 15.4 13.3-17.7 g/dL Hematocrit 47 40-54 % Mean Corpuscular Volume 88 80-99 fL Mean Corpuscular Hemoglobin 29 25-34 pg Mean Corpuscular Hemoglobin Concent 33 32-36 g/dL Red Cell Distribution Width 14.1 10.0-14.5 % Platelet Count 219 130-400 10^3/uL Mean Platelet Volume 9.7 9.0-12.2 fL Immature Granulocyte % (Auto) 0 % Neutrophils (%) (Auto) 80 H 42-75 % Lymphocytes (%) (Auto) 13 12-44 % Monocytes (%) (Auto) 5 0-12 % Eosinophils (%) (Auto) 1 0-10 % Basophils (%) (Auto) 0 0-10 % Neutrophils # (Auto) 10.1 H 1.8-7.8 10^3/uL Lymphocytes # (Auto) 1.6 1.0-4.0 10^3/uL Monocytes # (Auto) 0.7 0.0-1.0 10^3/uL Eosinophils # (Auto) 0.2 0.0-0.3 10^3/uL Basophils # (Auto) 0.0 0.0-0.1 10^3/uL Immature Granulocyte # (Auto) 0.1 0.0-0.1 10^3/uL Sodium Level 136 135-145 MMOL/L Potassium Level 4.0 3.6-5.0 MMOL/L Chloride Level 97 L 98-107 MMOL/L Carbon Dioxide Level 23 21-32 MMOL/L Anion Gap 16 H 5-14 MMOL/L Blood Urea Nitrogen 10 7-18 MG/DL Creatinine 0.99 0.60-1.30 MG/DL Estimat Glomerular Filtration Rate 89 BUN/Creatinine Ratio 10 Glucose Level 104 70-105 MG/DL Calcium Level 9.4 8.5-10.1 MG/DL Corrected Calcium 8.5-10.1 MG/DL Total Bilirubin 0.9 0.1-1.0 MG/DL Aspartate Amino Transf (AST/SGOT) 18 5-34 U/L Alanine Aminotransferase (ALT/SGPT) 24 0-55 U/L Alkaline Phosphatase 65 40-136 U/L C-Reactive Protein High Sensitivity 2.57 H 0.00-0.50 MG/DL B-Type Natriuretic Peptide 26.2 <100.0 PG/ML Total Protein 8.4 H 6.4-8.2 GM/DL Albumin 4.7 H 3.2-4.5 GM/DL Procalcitonin 0.07 <0.10 NG/ML (TOM ANGUIANO MD) My Orders Orders - TOM ANGUIANO MD Procalcitonin (Pct) (04/12/21 19:11) Hs C Reactive Protein (04/12/21 19:11) Covid 19 Inhouse Test (04/12/21 19:11) Influenza A And B By Pcr (04/12/21 19:11) Cbc With Automated Diff (04/12/21 19:11) Comprehensive Metabolic Panel (04/12/21 19:11) Ed Iv/Invasive Line Start (04/12/21 19:11) Chest 1 View, Ap/Pa Only (04/12/21 20:19) (TOM ANGUIANO MD) Medications Given in ED Current Medications Medications Dose Ordered Sig/Erwin Route Start Time Stop Time Status Last Admin Dose Admin Albuterol Sulfate 2.5 mg STK-MED ONCE .ROUTE 04/12/21 20:33 04/12/21 20:36 DC 04/12/21 20:37 2.5 MG Albuterol Sulfate 7.5 mg ONCE ONCE INH 04/12/21 20:45 04/12/21 20:46 DC 04/12/21 20:37 7.5 MG Albuterol Sulfate 10 mg ONCE ONCE INH 04/12/21 19:45 04/12/21 19:46 DC 04/12/21 20:00 10 MG Albuterol/ Ipratropium 3 ml ONCE ONCE INH 04/12/21 19:45 04/12/21 19:46 DC 04/12/21 20:00 3 ML Methylprednisolone Sodium Succinate 125 mg ONCE ONCE IVP 04/12/21 19:45 04/12/21 19:46 DC 04/12/21 19:59 125 MG (TOM ANGUIANO MD) Vital Signs/I&O 04/12/21 04/12/21 04/12/21 19:31 20:25 22:06 Temp 36.8 Pulse 101 93 97 Resp 30 27 20 B/P (MAP) 145/95 (112) 139/71 Pulse Ox 84 100 94 O2 Delivery Room Air Room Air O2 Flow Rate 50.00 (TOM ANGUIANO MD) Vital Signs/I&O Capillary Refill : (JANEE MCKEON APRN) Departure Communication (Admissions) 2022-On arrival was then significant distress. Minimal air movement with wheezing. Started him on BiPAP at 16/8 50% FiO2 with great response, he noticed immediate improvement in his symptoms. We then gave an hour-long inline treatment. Oxygen saturation oxana to 100%. 2145-feeling "100% better". Oxygen 92% on room air. Still faint wheezing but minimal. States he would like to go home. He does have a nebulizer at home. He does have enough medication for it. I will put him on a prednisone taper. (JANEE MCKEON APRN) Impression Primary Impression: COPD exacerbation Disposition: 01 HOME, SELF-CARE Condition: Improved Departure-Patient Inst. Decision time for Depature: 21:44 (JANEE MCKEON APRN) Referrals: MARILUZ ARIAS MD (PCP/Family) Primary Care Physician Patient Instructions: COPD Exacerbation, Adult ED Add. Discharge Instructions: 1. Continue to use your breathing treatment every 4 hours at home. Take the steroids as directed. Return to ER for any worsening. Follow-up with your doctor this week. All discharge instructions reviewed with patient and/or family. Voiced understanding. Scripts Cefuroxime Axetil (Cefuroxime) 250 Mg Tablet 250 MG PO BID, #10 TAB Prov: JANEE MCKEON APRN 04/12/21 Prednisone (Prednisone) 10 Mg Tab.ds.pk 10 MG PO DAILY, #42 EA Take 6 tabs(60mg)daily,decrease by 1 tab(10mg)every other day. Prov: JANEE MCKEON APRN 04/12/21 ATTENDING PHYSICIAN NOTE: I was physically present as attending physician in the emergency department during the care of this patient, but I was not directly involved in the decision making or delivery of care for this patient. (TOM ANGUIANO MD) JANEE MCKEON APRN Apr 12, 2021 20:24 TOM ANGUIANO MD Apr 13, 2021 07:36
[2021-04-12 20:25] VITALS: BP 139/71
[2021-04-12 20:27] LABS: ALANINE AMINOTRANSFERASE 24 U/L (0-55); ALBUMIN 4.7 GM/DL (3.2-4.5); ALKALINE PHOSPHATASE 65 U/L (40-136); BILIRUBIN,TOTAL 0.9 MG/DL (0.1-1.0); BUN/CREATININE RATIO 10; CALCIUM 9.4 MG/DL (8.5-10.1); CARBON DIOXIDE 23 MMOL/L (21-32); CHLORIDE 97 MMOL/L (98-107); CREATININE SERUM 0.99 MG/DL (0.60-1.30); GFR ESTIMATED 89; GLUCOSE 104 MG/DL (70-105); SODIUM 136 MMOL/L (135-145); TOTAL PROTEIN 8.4 GM/DL (6.4-8.2)
[2021-04-12] MEDS ORDERED: RT-ALBUTEROL SULF 2.5 MG/3 ML PRE-MIX VIAL ONE (20:33)
--- NOTE | 2021-04-12 20:46 | Diagnostic Imaging Report ---
EXAMINATION: Chest radiograph, portable AP view. DATE: 04/12/2021 8:37 PM. INDICATION: 76-year-old male, shortness of breath. Wheezing. COMPARISON: March 24, 2021. FINDINGS: Heart size and mediastinal contours are unchanged. There is no identified pneumothorax. There is no large pleural effusion. There is no identified interval focal airspace consolidation. IMPRESSION: No identified acute cardiopulmonary abnormality. Dictated by: Dictated on workstation # [id number]
[2021-04-12] MEDS ORDERED: PRED10TA22 PO (21:46)
[2021-04-12] MEDS ORDERED: CEFU250T80 PO (21:46)
[2021-04-12 22:06] VITALS: BP 139/71
== END 2021-04-12 22:14 | disposition home or self-care (01) ==
LOC: EDUNIT# 18:53 → ER 18:55
DX: J43.9 Emphysema, unspecified (principal); I10 Essential (primary) hypertension; Z20.822 Contact with and (suspected) exposure to COVID-19; Z79.51 Long term (current) use of inhaled steroids; Z79.52 Long term (current) use of systemic steroids; Z79.899 Other long term (current) drug therapy
CPT/HCPCS: 36415; 71045; 80053; 82805; 83880; 84145; 85025; 86141; 87636; 94640; 94660

== ENCOUNTER → 2021-05-13 | Outpatient (CLI) | payer MEDICARE ==
[~2021-05-13] MED LIST changes: +CATHETER FLUSH 10 ML SYR IV PRN; +CEFU250T80 PO; +HOLD METFORMIN - RECEIVED CONTRAST 20 ML VIAL IV SCH; +IOHEXOL 350 MG/ML 100 ML (OMNIPAQUE 350) VIAL IV ONE; +NS 100 ML (IVPB) BAG IV ONE; +PRED10TA22 PO
--- NOTE | 2021-05-13 10:58 | Diagnostic Imaging Report ---
CLINICAL INDICATION: Patient with dysphagia for 2 months. EXAM: Axial CT scan of the neck soft tissue performed with 75 mL of Omnipaque 350 IV contrast. Sagittal and coronal reformatted images are created. COMPARISON: None. FINDINGS: There is a 0.6 cm x 2.2 cm measured in AP by transverse dimension lipoma and extracranial right of midline forehead scalp region. Limited visualization intracranial structures are unremarkable. Scleral buckle is seen involving the left globe. There is mild prominence of the posterior nasopharynx with left side slightly more than the right side. There is no measurable mass seen. There is mild prominence of the oral pharyngeal soft tissue and supraglottic laryngeal soft tissue. Epiglottis is unremarkable. There is mild to moderate narrowing of the aerodigestive tract. There is no neck soft tissue inflammation or fluid collection. There is no lymphadenopathy. Salivary glands and thyroid gland are unremarkable. Visualized portions lower cavity, tongue, sublingual and submandibular regions are unremarkable. There is dental streak artifact which obscures portions of the oral cavity. Emphysematous lung disease is seen. There is multilevel hypertrophic spurs and facet arthropathy involving the cervical spine. There is a severely hypertrophic anterior spur at C3-C4 level which causes moderate encroachment upon the hypopharynx. There are also hypertrophic spurs anteriorly at the C5-C6 and C6-C7 levels which encroaches upon the posterior aspect of the upper cervical esophagus. IMPRESSION: 1: There is nonspecific mild soft tissue prominence involving the posterior nasopharynx, oropharynx, supraglottic larynx. There is no neck soft tissue fat stranding or fluid collection. There is no measurable mass seen. There is no lymphadenopathy. 2: There is a severely hypertrophic anterior spur at C3-C4 level which causes moderate encroachment upon the hypopharynx posteriorly. There are also hypertrophic spurs anteriorly at C5-C6 and C6-C7 levels which causes encroachment upon the upper cervical esophagus. Barium swallow study and esophagram would help better evaluate if these spurs are associated with obstruction or encroachment upon the epiglottis. 3: Emphysematous lung disease. 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 Dictated by: Dictated on workstation # [id number]
== END ==
LOC: RAD 08:45
PROVIDERS: ATTEND Otolaryngology Otolaryngology/Facial Plastic Surgery
DX: J43.9 Emphysema, unspecified (principal); D17.0 Benign lipomatous neoplasm of skin and subcutaneous tissue of head, face and neck; M77.8 Other enthesopathies, not elsewhere classified
CPT/HCPCS: 70491

== ENCOUNTER 2021-05-23 23:38 | Observation (INO) | payer MEDICARE ==
[~2021-05-23] VITALS: Ht 182 cm; Wt 83.9 kg
[~2021-05-23 23:38] MED LIST changes: -CATHETER FLUSH 10 ML SYR IV PRN; -DICL75TA2; +DICL75TA2 PO; -HOLD METFORMIN - RECEIVED CONTRAST 20 ML VIAL IV SCH; -HYDR-3817; +HYDR-3817 PO; -IOHEXOL 350 MG/ML 100 ML (OMNIPAQUE 350) VIAL IV ONE; -NS 100 ML (IVPB) BAG IV ONE
[2021-05-24] MEDS ORDERED: methylPREDNISolone 125 MG (Solu-MEDROL) VIAL IVP ONE (00:30)
[2021-05-24] MEDS ORDERED: RT-ALBUTEROL/IPRATROPIUM 3 ML (DUONEB) VIAL INH ONE (00:30)
[2021-05-24] MEDS ORDERED: RT-ALBUTEROL SULF 2.5 MG/3 ML PRE-MIX VIAL INH ONE (00:30)
--- NOTE | 2021-05-24 00:34 | ED Dyspnea ---
General Stated Complaint: SOA - COUGH - BODY ACHES Source of Information: Patient Exam Limitations: No Limitations History of Present Illness Date Seen by Provider: May 24, 2021 Time Seen by Provider: 00:20 Initial Comments Patient is a 76-year-old male who presents to the emergency department today with a chief complaint of worsening shortness of breath over the last 3 days, cough, body aches. No fever reported. No runny nose, sore throat or earache. No chest pain. Cough is minimally productive. Denies abdominal pain, nausea, vomiting or diarrhea. Does endorse a little swelling in his ankles bilaterally. Has a history of hypertension. Is not a diabetic. Quit smoking a couple of years ago. Last use his inhaler at about 11:00 tonight. Is not on daily steroids. Is not COVID vaccinated. Denies being in contact with anyone who is known Covid positive recently. All other review of systems reviewed and negative except as stated. Timing/Duration: Other (3 days) Severity: Severe Activities at Onset: Activity Prior Episodes/Possible Cause: Occasional Episodes Associated Symptoms: Cough, Wheezing Allergies and Home Medications Allergies Coded Allergies: NKANo Known Allergies (Unverified Allergy, Mild, 03/14/09) Patient Home Medication List Home Medication List Reviewed: Yes Albuterol Sulfate (Proair Hfa) 1 Puff Puff, 2 PUFF IH Q4H PRN for SHORTNESS OF BREATH, (Reported) Entered as Reported by: ANDRA RASHID on 10/27/20 1406 Amlodipine Besylate (Amlodipine Besylate) 10 Mg Tablet, 10 MG PO DAILY, (Reported) Entered as Reported by: EDGAR MALIK on 11/22/16 1048 Azithromycin (Azithromycin) 250 Mg Tablet, 250 MG PO UD Prescribed by: POLO GARCES on 03/06/21 0825 Cefuroxime Axetil (Cefuroxime) 250 Mg Tablet, 250 MG PO BID Prescribed by: JANEE MCKEON on 04/12/21 214 Diclofenac Sodium (Diclofenac Sodium) 75 Mg Tablet., (Reported) Entered as Reported by: RACHELE VERMA on 03/06/21 0700 Doxycycline Hyclate (Doxycycline Hyclate) 100 Mg Tablet, 100 MG PO BID Prescribed by: SANA CHOW on 03/24/212002 Fluticasone/Salmeterol (Advair 250-50 Diskus) 1 Each Blst.w.dev, 1 EACH IH BID Prescribed by: SANA CHOW on 03/24/212002 Hydrocodone/Acetaminophen (Hydrocodone-Acetamin 7.5-325) 1 Each Tablet, (Reported) Entered as Reported by: RACHELE VERMA on 03/06/21 0700 Inhaler,Assist Device,Lg Mask (Procare Spacer with Adult Mask) 1 Each Spacer, EACH MC Q4H PRN for WHEEZING, (DME) Prescribed by: POLO GARCES on 03/06/21 0825 Ipratropium/Albuterol Sulfate (Iprat-Albut 0.5-3(2.5) mg/3 ml) 3 Ml Ampul.neb, 3 ML IH Q6H PRN for WHEEZING Prescribed by: POLO GARCES on 03/06/21 0825 Nebulizer and Compressor (Compressor Nebulizer System) 1 Each Each, EACH MC Q6H PRN for WHEEZING, (DME) Prescribed by: POLO GARCES on 03/06/21 0825 Pramipexole Di-HCl (Mirapex) 0.5 Mg Tablet, 0.5 MG PO DAILY, (Reported) Entered as Reported by: ANDRA RASHID on 10/27/20 1406 Prednisone (Prednisone) 20 Mg Tab, 40 MG PO DAILY Prescribed by: POLO GARCES on 03/06/21 0825 Prednisone (Prednisone) 20 Mg Tab, 40 MG PO DAILY Prescribed by: SANA CHOW on 03/24/212002 Prednisone (Prednisone) 10 Mg Tab.ds.pk, 10 MG PO DAILY Prescribed by: JANEE MCKEON on 04/12/212145 Review of Systems Review of Systems Constitutional: see HPI EENTM: no symptoms reported Respiratory: cough, dyspnea on exertion, phlegm, short of breath Cardiovascular: no symptoms reported Gastrointestinal: no symptoms reported Genitourinary: no symptoms reported Musculoskeletal: muscle cramps Skin: no symptoms reported Psychiatric/Neurological: No Symptoms Reported All Other Systems Reviewed Negative Unless Noted: Yes Past Pnipmjs-Rirnic-Xkdkda Hx Immunizations Up To Date Tetanus Booster (TDap): Unknown Seasonal Allergies Seasonal Allergies: No Past Medical History Surgery/Hospitalization HX: htn, asthma Surgeries: Yes (HAND, ORIF L ankle) Orthopedic Respiratory: Yes (recent PFT) COPD, Emphysema Currently Using CPAP: No Currently Using BIPAP: No Cardiac: Yes Hypertension Neurological: No Genitourinary: Yes Benign Prostatic Hyperpl Gastrointestinal: No Musculoskeletal: No Arthritis, Chronic Back Pain Endocrine: No HEENT: No (cataracts removed, ) Loss of Vision: Denies Hearing Impairment: Denies Cancer: No Psychosocial: No Integumentary: No Blood Disorders: No Adverse Reaction/Blood Tranf: No Family Medical History Hypertension 19 MOTHER Neoplasm 19 FATHER Cancer, CAD Over 55 Years Old Physical Exam Vital Signs Vital Signs - First Documented 05/24/21 00:46 Temp 35.8 Pulse 80 Resp 37 B/P (MAP) 172/94 (120) Pulse Ox 74 O2 Delivery Nasal Cannula O2 Flow Rate 3.00 Capillary Refill : Height, Weight, BMI Height: 6'0" Weight: 165lbs. 1.0oz. 74.087461fr; 28.00 BMI Method:Stated General Appearance: No Apparent Distress, WD/WN, Other (smiling, interactive; Nontoxic in appearance.) HEENT: PERRL/EOMI Neck: Normal Inspection Respiratory: Wheezing, Other (Increased work of breathing, coarse diffuse wheezes throughout, room air sats 76% prior to arrival into room 9) Cardiovascular: Regular Rate, Rhythm, Normal Peripheral Pulses Gastrointestinal: Normal Bowel Sounds, Non Tender, Soft Extremity: Normal Capillary Refill, Normal Inspection, Normal Range of Motion, Pedal Edema (1-2+PE bilateral lower legs/ankles) Neurologic/Psychiatric: Alert, Oriented x3, No Motor/Sensory Deficits, Normal Mood/Affect, magneto electrician II-XII Norm as Tested Skin: Normal Color, Warm/Dry Focused Exam Lactate Level 05/24/21 00:36: Lactic Acid Level 1.05 Lactic Acid Level Laboratory Tests Test 05/24/21 00:36 Lactic Acid Level 1.05 MMOL/L (0.50-2.00) Progress/Results/Core Measures Results/Orders Lab Results Laboratory Tests Test 05/24/21 00:24 05/24/21 00:36 Range/Units Influenza Type A Antigen NEGATIVE NEGATIVE Influenza Type B Antigen NEGATIVE NEGATIVE SARS-CoV-2 RNA (RT-PCR) Not Detected Negative White Blood Count 7.5 4.3-11.0 10^3/uL Red Blood Count 4.90 4.30-5.52 10^6/uL Hemoglobin 14.5 13.3-17.7 g/dL Hematocrit 44 40-54 % Mean Corpuscular Volume 89 80-99 fL Mean Corpuscular Hemoglobin 30 25-34 pg Mean Corpuscular Hemoglobin Concent 33 32-36 g/dL Red Cell Distribution Width 13.3 10.0-14.5 % Platelet Count 259 130-400 10^3/uL Mean Platelet Volume 10.3 9.0-12.2 fL Immature Granulocyte % (Auto) 0 % Neutrophils (%) (Auto) 48 42-75 % Lymphocytes (%) (Auto) 34 12-44 % Monocytes (%) (Auto) 7 0-12 % Eosinophils (%) (Auto) 10 0-10 % Basophils (%) (Auto) 1 0-10 % Neutrophils # (Auto) 3.6 1.8-7.8 10^3/uL Lymphocytes # (Auto) 2.5 1.0-4.0 10^3/uL Monocytes # (Auto) 0.6 0.0-1.0 10^3/uL Eosinophils # (Auto) 0.7 H 0.0-0.3 10^3/uL Basophils # (Auto) 0.1 0.0-0.1 10^3/uL Immature Granulocyte # (Auto) 0.0 0.0-0.1 10^3/uL Blood Gas Puncture Site LEFT RADIAL Blood Gas Patient Temperature 35.8 Arterial Blood pH 7.29 *L 7.37-7.43 Arterial Blood Partial Pressure CO2 57 H 35-45 MMHG Arterial Blood Partial Pressure O2 176 H 79-93 MMHG Arterial Blood HCO3 27 23-27 MMOL/L Arterial Blood Total CO2 29.0 21.0-31.0 MMOL/L Arterial Blood Oxygen Saturation 100 94-100 % Arterial Blood Base Excess 1.1 -2.5-2.5 MMOL/L Bipin Test YES-POS Blood Gas Ventilator Setting NO Blood Gas Inspired Oxygen 10L Sodium Level 135 135-145 MMOL/L Potassium Level 4.2 3.6-5.0 MMOL/L Chloride Level 99 98-107 MMOL/L Carbon Dioxide Level 23 21-32 MMOL/L Anion Gap 13 5-14 MMOL/L Blood Urea Nitrogen 14 7-18 MG/DL Creatinine 1.18 0.60-1.30 MG/DL Estimat Glomerular Filtration Rate 64 BUN/Creatinine Ratio 12 Glucose Level 111 H 70-105 MG/DL Lactic Acid Level 1.05 0.50-2.00 MMOL/L Calcium Level 8.9 8.5-10.1 MG/DL B-Type Natriuretic Peptide 15.9 <100.0 PG/ML Procalcitonin 0.04 <0.10 NG/ML My Orders Orders - RADHA PEOPLES MD Ed Iv/Invasive Line Start (05/24/21:27) Cbc With Automated Diff (05/24/21:) Basic Metabolic Panel (05/24/21:) Bnp Claudine (05/24/21:) Chest 1 View, Ap/Pa Only (05/24/21:) Blood Culture (05/24/21:) Ekg Tracing (05/24/21) Lactic Acid Analyzer (05/24/21:) Procalcitonin (Pct) (05/24/21:) Methylprednisolone Sod Succ (Solu-Medrol (05/24/21 00:30) Albuterol/Ipra Inhalation Soln (Duoneb I (05/24/21:30) Albuterol Pre-Mix Nebs (Rt) (Proventil (05/24/21 00:30) Svn Small Volume Nebulizer (05/24/21:27) Svn Small Volume Nebulizer (05/24/21:27) Covid 19 Inhouse Test (05/24/21 00:30) Coronavirus Sars-Cov-2 So 2018 (05/24/21 00:30) Isolation Central Supply Req (05/24/21 00:30) Influenza A & B Antigens (05/24/21 00:35) Arterial Blood Gas (05/24/21 00:42) Medications Given in ED Current Medications Medications Dose Ordered Sig/Erwin Route Start Time Stop Time Status Last Admin Dose Admin Albuterol Sulfate 2.5 mg ONCE ONCE INH 05/24/21 00:30 05/24/21 00:31 DC 05/24/21 01:09 2.5 MG Albuterol/ Ipratropium 3 ml ONCE ONCE INH 05/24/21 00:30 05/24/21 00:31 DC 05/24/21 01:09 3 ML Methylprednisolone Sodium Succinate 125 mg ONCE ONCE IVP 05/24/21 00:30 05/24/21 00:31 DC 2/6/22 00:42 125 MG Vital Signs/I&O 05/24/21 05/24/21 05/24/21 00:46 00:46 01:09 Temp 35.8 Pulse 80 65 Resp 37 23 B/P (MAP) 172/94 (120) Pulse Ox 74 97 O2 Delivery Nasal Cannula Room Air O2 Flow Rate 3.00 30.00 Progress Progress Note : Time: 02:06 Progress Note Discussed with Dr. Sullivan, recommends holding off on antibiotics at this time. Agreeable to Solu-Medrol 60 mg IV every 6. Continue his antihypertensives. Maintain on BiPAP. Patient is tolerating the BiPAP well. Will place in cardiac stepdown. Initial ECG Impression Date: May 24, 2021 Initial ECG Impression Time: 00:42 Initial ECG Rate: 80 Initial ECG Rhythm: Normal Sinus Initial ECG Intervals DC 194 QRS 105 QTc 443 Initial ECG Impression: Normal Comment Multiple PVCs noted, no ST segment elevation or depression, normal sinus rhythm Critical Care Note Critical Care Start Time: 00:20 Stop Time: 02:00 Total Time (minutes) 45 minutes critical care time in the evaluation and management of this patient was in acute exacerbation of COPD and hypoxemia. Time includes initial evaluation, management of COPD with oxygen supplementation and breathing treatments. BiPAP, review of labs, imaging studies, medical records. Discussion with admitting provider. Departure Communication (Admissions) Time/Spoke to Admitting Phy: 02:06 Dr Sullivan Impression Primary Impression: Acute exacerbation of chronic obstructive pulmonary disease (COPD) Disposition: ADMITTED INPATIENT Condition: Stable Admissions Decision to Admit Reason: Admit from ER (General) Decision to Admit/Date: May 24, 2021 Time/Decision to Admit Time: 02:07 Departure-Patient Inst. Referrals: MARILUZ ARIAS MD (PCP/Family) Primary Care Physician RADHA PEOPLES MD May 24, 2021 00:34
[2021-05-24 00:50] LABS: ABG BASE EXCESS 1.1 MMOL/L (-2.5-2.5); ABG OXYGEN SATURATION 100 % (94-100); ABG PCO2 57 MMHG (35-45); ABG PO2 176 MMHG (79-93)
[2021-05-24 00:51] LABS: BASOPHILS # (AUTO) 0.1 10^3/uL (0.0-0.1); BASOPHILS % (AUTO) 1 % (0-10); EOSINOPHILS # (AUTO) 0.7 10^3/uL (0.0-0.3); EOSINOPHILS % (AUTO) 10 % (0-10); HEMATOCRIT 44 % (40-54); HEMOGLOBIN 14.5 g/dL (13.3-17.7); LYMPHOCYTES # (AUTO) 2.5 10^3/uL (1.0-4.0); LYMPHOCYTES % (AUTO) 34 % (12-44); MEAN CORPUSCULAR HEMOGLOBIN 30 pg (25-34); MEAN CORPUSCULAR HGB CONC 33 g/dL (32-36); MEAN CORPUSCULAR VOLUME 89 fL (80-99); MEAN PLATELET VOLUME 10.3 fL (9.0-12.2); MONOCYTES # (AUTO) 0.6 10^3/uL (0.0-1.0); MONOCYTES % (AUTO) 7 % (0-12); NEUTROPHILS # (AUTO) 3.6 10^3/uL (1.8-7.8); NEUTROPHILS % (AUTO) 48 % (42-75); PLATELET COUNT 259 10^3/uL (130-400); WHITE BLOOD COUNT 7.5 10^3/uL (4.3-11.0)
[2021-05-24 00:52] LABS: ABG PH 7.29 (7.37-7.43); ALLENS TEST YES-POS
[2021-05-24 00:53] LABS: INSPIRED O2 10L; PATIENT TEMP 35.8; VENTILATOR NO
[2021-05-24 00:59] LABS: POTASSIUM 4.2 MMOL/L (3.6-5.0)
[2021-05-24 01:01] LABS: CALCIUM 8.9 MG/DL (8.5-10.1)
[2021-05-24 01:05] LABS: CREATININE SERUM 1.18 MG/DL (0.60-1.30)
[2021-05-24 01:09] VITALS: BP 172/94
[2021-05-24 02:50] VITALS: BP 131/100
[2021-05-24] MEDS ORDERED: CATHETER FLUSH 10 ML SYR IV PRN (03:15)
[2021-05-24 03:17] VITALS: BP 131/100
[2021-05-24] MEDS ORDERED: RT-ALBUTEROL SULF 2.5 MG/3 ML PRE-MIX VIAL INH PRN (03:45)
[2021-05-24] MEDS: CATHETER FLUSH 10 ML SYR IV SCH ×2 (06:12→14:55)
[2021-05-24] MEDS: methylPREDNISolone 125 MG (Solu-MEDROL) VIAL IV SCH ×3 (06:12→18:00)
[2021-05-24 06:31] VITALS: BP 136/110
[2021-05-24] MEDS: RT-ALBUTEROL SULF 2.5 MG/3 ML PRE-MIX VIAL INH SCH ×5 (06:31→22:26)
--- NOTE | 2021-05-24 06:50 | Diagnostic Imaging Report ---
INDICATION: SOB wheezing COMPARISON: 04/12/2021 FINDINGS: Single frontal view of the chest demonstrates normal heart size and pulmonary vascularity. The lungs are well aerated and clear. No large pleural effusion or pneumothorax is seen. The visualized osseous structures show no acute abnormalities. IMPRESSION: 1. No acute cardiopulmonary process. Dictated by: Dictated on workstation # [id number]
[2021-05-24] MEDS: amLODIPine 10 MG (NORVASC) TAB PO SCH (08:06)
--- NOTE | 2021-05-24 09:30 | History & Physical-Hospitalist ---
History of Present Illness HPI/Chief Complaint Patient is a 76-year-old male who presents to the emergency department today with a chief complaint of worsening shortness of breath over the last 3 days, cough, body aches. No fever reported. No runny nose, sore throat or earache. No chest pain. Cough is minimally productive. Denies abdominal pain, nausea, vomiting or diarrhea. Does endorse a little swelling in his ankles bilaterally. Has a history of hypertension. Is not a diabetic. Quit smoking a couple of years ago. Last use his inhaler at about 11:00 tonight. Is not on daily steroids. Is not COVID vaccinated. Denies being in contact with anyone who is known Covid positive recently Patient reports feeling less short of breath but still can tell that he is wheezing. Mild cough has been nonproductive denies night sweats chills or fever. After I left his called and got permission to talk with her to update him on his status. She mention for the past year sometime after a fall where he fractured his left ankle he has had pain in the low back area radiating all the way down to the toes. He did not mention this to me. This is been s table without reported progression but worse with weightbearing. Date Seen 05/24/21 Time Seen by a Provider: 09:27 Attending Physician Jarrett Friedman MD PCP Julien Minor MD Referring Physician Date of Admission May 24, 2021 at 02:05 Home Medications & Allergies Home Medications Reviewed patient Home Medication Reconciliation performed by pharmacy medication reconciliations survey cad technician and/or nursing. Patients Allergies have been reviewed. Allergies Allergies Coded Allergies NKANo Known Allergies (Unverified Allergy, Mild, 03/14/09) Past Usqexoh-Isckxd-Kjocen Hx Patient Social History Tobacco Use?: No Smoking Status: Former Smoker Smokeless Tobacco Frequency: Never a User Use of E-Cig and/or Vaping dev: No Substance use?: No Alcohol Use?: No Additional Alcohol Comments: PAST ETOH Pt feels they are or have been: No Immunizations Up To Date Tetanus Booster (TDap): Unknown Hepatitis A: No Hepatitis B: No Seasonal Allergies Seasonal Allergies: No Current Status Advance Directives: No Advance Directive Location: Family to bring in copy Communicates: Verbally Primary Language: Vincentian Preferred Spoken Language: Vincentian Is interpretation needed?: No Implanted or Applied Medical D: None Past Medical History Surgeries: Orthopedic COPD, Emphysema Currently Using CPAP: No Currently Using BIPAP: No Hypertension Benign Prostatic Hyperpl Arthritis, Chronic Back Pain Loss of Vision: Denies Hearing Impairment: Denies Blood Disorders: No Adverse Reaction/Blood Tranf: No Family Medical History Hypertension 19 MOTHER Neoplasm 19 FATHER Cancer, CAD Over 55 Years Old Review of Systems Constitutional: see HPI Physical Exam Physical Exam Vital Signs Vital Signs - First Documented 05/24/21 05/24/21 00:46 02:45 Temp 35.8 Pulse 80 Resp 37 B/P (MAP) 172/94 (120) Pulse Ox 74 O2 Delivery Nasal Cannula O2 Flow Rate 3.00 FiO2 30 Capillary Refill : Less Than 3 Seconds Height, Weight, BMI Height: 6'0" Weight: 165lbs. 1.0oz. 74.415522wt; 26.65 BMI Method:Stated General Appearance: No Apparent Distress Respiratory: No Accessory Muscle Use, No Respiratory Distress, Wheezing (Mild inspiratory and more significant expiratory wheezing throughout no segment rales or rhonchi or focal consolidative findings noted.) Cardiovascular: Regular Rate, Rhythm, No Edema, No Gallop, No JVD, No Murmur, Normal Peripheral Pulses Extremity: Normal Inspection, No Pedal Edema Results Results/Procedures Labs Laboratory Tests 05/24/21 00:36 Patient resulted labs reviewed. Assessment/Plan Admission Diagnosis 1. Acute exacerbation of underlying COPD likely virally mediated in an individual who is negative for Covid as well as influenza a and B. We will continue bronchodilator therapy and Solu-Medrol. 2. Description from compatible with left lumbar radiculopathy discussed that steroids may temporarily improve this with further work-up that can be done as an outpatient later. 3. reports that they were in the process of getting home oxygen set up but it is not at the house yet. She was advised to call the vendor on Tuesday and get this done so that it is waiting for him when he is discharged. 3. Hypertension resume amlodipine. Admission Status: Inpatient Order (span 2 midnights) Reason for Inpatient Admission: See admission diagnosis JARRETT FRIEDMAN MD May 24, 2021 09:30
[2021-05-24] MEDS ORDERED: ACETAMINOPHEN 500 MG TAB (TYLENOL) PO PRN (09:45)
[2021-05-24] MEDS ORDERED: PRAMIPEXOLE 0.5 MG TAB (MIRAPEX) PO PRN (09:45)
[2021-05-24 22:26] VITALS: BP 145/90
[2021-05-25] MEDS: CATHETER FLUSH 10 ML SYR IV SCH ×4 (01:22→22:13)
[2021-05-25] MEDS: methylPREDNISolone 125 MG (Solu-MEDROL) VIAL IV SCH ×4 (01:22→18:14)
[2021-05-25] MEDS: RT-ALBUTEROL SULF 2.5 MG/3 ML PRE-MIX VIAL INH SCH ×6 (02:16→22:18)
[2021-05-25 02:20] VITALS: BP 152/84
[2021-05-25] MEDS: amLODIPine 10 MG (NORVASC) TAB PO SCH (08:10)
[2021-05-25] MEDS ORDERED: PRAM0.5T9 PO (10:57)
[2021-05-25] MEDS ORDERED: FLUT16SP22 NSEACH (10:57)
[2021-05-25] MEDS ORDERED: IPRA3AMP31 IH (10:57)
[2021-05-25] MEDS ORDERED: CETI10TA17 PO (10:57)
--- NOTE | 2021-05-25 13:42 | Progress Note ---
Subjective Subjective/Events-last exam Patient states that he is feeling better this AM. He has not been up and out of bed for several days. in the room this AM. States that he does not have a prior O2 requirement but they had been working on getting him some for PM. Patient states that he has smoked since his 20s but has not been smoking for the last 2 years. He has been in and out of the ER for the last month but this is his first admission. Review of Systems General: No Chills, No Fatigue Pulmonary: Dyspnea, Cough Cardiovascular: No: Chest Pain, Palpitations, Edema Gastrointestinal: No: Nausea, Vomiting, Abdominal Pain, Diarrhea, Constipation Neurological: Weakness, Incoordination; No: Change in speech, Confusion Focused Exam Lactate Level 05/24/21 00:36: Lactic Acid Level 1.05 Objective Exam Last Set of Vital Signs Vital Signs Date Time Temp Pulse Resp B/P (MAP) Pulse Ox O2 Delivery O2 Flow Rate FiO2 05/25/21 12:20 77 05/25/21 12:00 36.5 18 144/75 92 High Flow N/C 2.00 05/25/21 03:11 30 Capillary Refill : Less Than 3 Seconds I&O Intake and Output 05/25/21 00:00 Intake Total 2200 ml Output Total 2350 ml Balance -150 ml Intake Oral 2200 ml Output Urine Total 2350 ml Daily Weight Change No General: Alert, Oriented X3, Mild Distress ( with minimal activity) HEENT: Mucous Memb Moist/[place]ouke Lungs: Other (Diffuse wheezing with insp/Exp, increased work of breathing with minimal activity) Heart: Regular Rate, No Murmurs Abdomen: Normal Bowel Sounds, Soft, No Tenderness, No Masses Extremities: No Edema, No Tenderness/Swelling Psych/Mental Status: Mental Status NL, Mood NL Results/Procedures Lab Microbiology 05/24/21 Blood Culture - Preliminary, Resulted No growth Assessment/Plan Assessment/Plan (1) Acute exacerbation of chronic obstructive pulmonary disease (COPD) Status: Acute Assessment & Plan: 05/25: Continue Steroids, MAT protocol, home oxygen study ordered today (2) HTN (hypertension) Status: Chronic Assessment & Plan: - Continue home meds (3) DVT prophylaxis Status: Acute Assessment & Plan: - PABLO Patino MD May 25, 2021 13:42
--- NOTE | 2021-05-25 13:58 | Physical Therapy Evaluation ---
PT Evaluation-General Medical Diagnosis Admission Date May 24, 2021 at 02:05 Medical Diagnosis: Acute exacerbation of chronic obstructive pulmonary disease (COPD) Onset Date: May 24, 2021 Therapy Diagnosis Therapy Diagnosis: Weakness, debility Height/Weight Height (Feet): 6 Height (Inches): 0 Weight (Pounds): 165 Weight (Ounces): 1.0 Precautions Precautions/Isolations: Fall Prevention, Standard Precautions Referral Physician: Dominic Reason for Referral: Evaluation/Treatment Medical History Pertinent Medical History: COPD, HTN Additional Medical History Arthritis Emphysema Asthma Current History Patient presented to ED via family member due to SOA. Reviewed History: Yes Social History Home: Single Level Current Living Status: Spouse Entry Into Home: Stairs With Railing PT Steps Into Home: 2 Prior Prior Level of Function SCALE: Activities may be completed with or without assistive devices. 4-Wkddjfrote-bqhxbty completes the activity by him/herself with no assistance from a helper. 5-Set-up or Clean-up Assistance-helper sets up or cleans up; patient completes activity. [place] assists only prior to or following the activity. 4-Supervision or Touching Assistance-helper provides verbal cues and/or touching/steadying and/or contact guard assistance as patient completes activity. Assistance may be provided throughout the activity or intermittently. 3-Partial/Moderate Assistance-helper does LESS THAN HALF the effort. [place] lifts, holds or supports trunk or limbs, but provides less than half the effort. 2-Substantial/Maximal Assistance-helper does MORE THAN HALF the effort. [place] lifts or holds trunk or limbs and provides more than half the effort. 6-Xbpxxngfu-poeiiq does ALL the effort. Patient does none of the effort to complete the activity. Or, the assistance of 2 or more helpers is required for the patient to complete the activity. If activity was not attempted, code reason: 7-Patient Refused. 9-Not Applicable-not attempted and the patient did not perform the activity before the current illness, exacerbation or injury. 10-Not Attempted due to Environmental Limitations-(lack of equipment, weather restraints, etc.). 88-Not Attempted due to Medical Conditions or Safety Concerns. Bed Mobility: 6 Transfers (B,C,W/C): 6 Gait: 6 Stairs: 6 Indoor Mobility (Ambulation): Independent Stairs: Independent Prior Devices Use: None PT Evaluation-Current Subjective Patient presented in bed and agreed to walk with therapy. Objective Patient Orientation: Person, Situation Attachments: Oxygen (1L HF NC) ROM/Strength ROM Lower Extremities WFL Strength Lower Extremities 4/5 strength bilaterally grossly Integumentary/Posture Bowel Incontinence: No Bladder Incontinence: No Neuromuscular (Tone, Coordination, Reflexes) grossly intact Sensory Vision: Functional Hearing: Functional Transfers Lying to Sitting/Side of Bed(Q: 4 Sit to Stand (QC): 4 Chair/Kqb-is-Yqckn Xfer(QC): 4 Gait Does the Patient Walk?: Yes Mode of Locomotion: Walk Anticipated Mode of Locomotion: Walk Walk 10 feet (QC): 4 Walk 50 ft with 2 Turns(QC): 4 Walk 150 ft (QC): 4 Distance: 200' Gait Assistive Device: FWW Comments/Gait Description Patient ambulated with FWW for 200' with CGA. Patient reported minimal fatigue or SOA with ambulation. Balance Sitting Static: Normal Sitting Dynamic: Normal Standing Static: Normal Standing Dynamic: Fair Assessment/Needs Patient performed bed mobility and ambulation with CGA FWW. Patient reported minimal fatigue with ambulation. Patient requires skilled therapy to return home at [facility]. Rehab Potential: Good PT Process Tech Goals Assisted Goals PT Assisted Goals Time Frame: Jun 06, 2021 Roll Left & Right (QC): 6 Sit to Lying (QC): 6 Lying-Sitting on Side/Bed(QC): 6 Sit to Stand (QC): 6 Chair/Fsi-uf-Vqmub Xfer(QC): 6 Toilet Transfer (QC): 6 Does the Patient Walk: Yes Walk 10 feet (QC): 6 Walk 50ft with 2 Turns (QC): 6 Walk 150 ft (QC): 6 PT Plan Problem List Problem List: Activity Tolerance, Functional Strength, Safety, Balance, Gait, Transfer, Bed Mobility, ROM Treatment/Plan Treatment Plan: Continue Plan of Care Treatment Plan: Bed Mobility, Education, Functional Activity [place], Functional Strength, Gait, Safety, Therapeutic Exercise, Transfers Treatment Duration: Jun 06, 2021 Frequency: 6 times per week Estimated Hrs Per Day: .25 hour per day Time/GCodes Time In: 1321 Time Out: 1337 Total Billed Treatment Time: 16 Total Billed Treatment 1 Visit EVMod 16 min SANDRO COLEY PT May 25, 2021 13:58
[2021-05-25 22:20] VITALS: BP 150/79
[2021-05-26] MEDS: methylPREDNISolone 125 MG (Solu-MEDROL) VIAL IV SCH ×3 (00:15→12:43)
[2021-05-26] MEDS: RT-ALBUTEROL SULF 2.5 MG/3 ML PRE-MIX VIAL INH SCH ×3 (02:07→10:18)
[2021-05-26] MEDS: CATHETER FLUSH 10 ML SYR IV SCH (06:51)
[2021-05-26] MEDS ORDERED: NS IV 1000 ML 1,000 ML ONE (08:21)
[2021-05-26] MEDS: amLODIPine 10 MG (NORVASC) TAB PO SCH (09:34)
--- NOTE | 2021-05-26 10:05 | Discharge Summary ---
Diagnosis/Chief Complaint Date of Admission May 24, 2021 at 02:05 Date of Discharge 05/26/21 Admission Diagnosis Admission Diagnosis AECOPD HTN Discharge Diagnosis See Below Problems/Diagnosis: (1) Acute exacerbation of chronic obstructive pulmonary disease (COPD) Assessment & Plan: 05/25: Continue Steroids, MAT protocol, home oxygen study ordered today Status: Acute (2) HTN (hypertension) Assessment & Plan: - Continue home meds Status: Chronic (3) DVT prophylaxis Assessment & Plan: - lovenox Status: Acute Discharge Summary-Simple/Stand Consultations Discharge Physical Examination Allergies: Coded Allergies: NKANo Known Allergies (Unverified Allergy, Mild, 03/14/09) Vitals & I&Os Vital Sign - Last 12Hours Date Time Temp Pulse Resp B/P (MAP) Pulse Ox O2 Delivery O2 Flow Rate FiO2 05/26/21 07:29 36.8 79 22 163/92 95 High Flow N/C 2.00 05/25/21 03:11 30 Intake and Output 05/26/21 00:00 Intake Total 1050 ml Output Total 1275 ml Balance -225 ml Hospital Course See final discharge diagnosis. Discharge Instructions to patient/family Please see electronic discharge instructions given to patient. Discharge Medications Reviewed and agree with Discharge Medication list on patient's Discharge Instruction sheet PABLO PAYTON MD May 26, 2021 10:05
[2021-05-26] MEDS ORDERED: IPRA3AMP31 IH (10:08)
[2021-05-26] MEDS ORDERED: PRD20T PO (10:08)
[2021-05-26] MEDS ORDERED: RT-ALBUINH IH (10:08)
--- NOTE | 2021-05-26 10:09 | Discharge Summary ---
Discharge [facility] Reconcile Patient Problems Problems Reviewed?: Yes Discharge Medications New, Converted or Re-Newed RX: Transmitted to Pharmacy New Medications: Prednisone (Prednisone) 20 Mg Tab 20 MG PO DAILY, #22 TAB Take 3 tabs(60mg)daily x 3 days then take 2 tab daily x 3 days then take 1 tab daily x 3 days then 1/2 tab daily x 4 days Changed Medications: Ipratropium/Albuterol Sulfate (Iprat-Albut 0.5-3(2.5) mg/3 ml) 3 Ml Ampul.neb 3 ML IH Q6H PRN for SHORTNESS OF BREATH, #1 EACH (Medication details modified) Dispense box Continued Medications: Albuterol Sulfate (Proair Hfa) 1 Puff Puff 2 PUFF IH Q4H PRN for SHORTNESS OF BREATH, #1 EACH (This prescription has been renewed) Amlodipine Besylate (Amlodipine Besylate) 10 Mg Tablet 10 MG PO DAILY Cetirizine HCl (Cetirizine HCl) 10 Mg Tablet 10 MG PO DAILY, TAB Diclofenac Sodium (Diclofenac Sodium) 75 Mg Tablet.dr 75 MG PO BIDPC, TAB Fluticasone Propionate (Fluticasone Propionate) 16 Gm Risco.susp 1-2 SPRAYS NSEACH DAILY PRN for CONGESTION, EA Hydrocodone/Acetaminophen (Hydrocodone-Acetamin 7.5-325) 1 Each Tablet 1 EA PO Q8H PRN for PAIN-MODERATE (5-7), TAB Pramipexole Di-HCl (Pramipexole Dihydrochloride) 0.5 Mg Tablet 0.5 MG PO DAILY, TAB Patient Instructions Goal/Follow Up Appt: 1-2 weeks with PCP Activity & Diet Discharge Diet: No Restrictions Activity as Tolerated: Yes Orders-Post D/C & Referrals New Order for oxygen placed to 2 L with exercise PABLO PAYTON MD May 26, 2021 10:09
[2021-05-26 13:00] VITALS: BP 147/78
== END 2021-05-26 13:00 | disposition home or self-care (01) ==
LOC: EDUNIT# 23:38 → ER 23:39 → CSD 05-24 02:05
PROVIDERS: ADMIT Internal Medicine; ATTEND Family Medicine
DX: J44.1 Chronic obstructive pulmonary disease with (acute) exacerbation (principal); M19.90 Unspecified osteoarthritis, unspecified site; G89.29 Other chronic pain; M54.9 Dorsalgia, unspecified; I49.3 Ventricular premature depolarization; I11.9 Hypertensive heart disease without heart failure; Z87.891 Personal history of nicotine dependence; Z79.899 Other long term (current) drug therapy; Z79.891 Long term (current) use of opiate analgesic; Z79.2 Long term (current) use of antibiotics
CPT/HCPCS: 36415; 71045; 80048; 82805; 83605; 83880; 84145; 85025; 87040; 87635; 87636; 87804; 93005; 94640; 94660; 94761

== ENCOUNTER → 2021-06-29 | Outpatient (CLI) | payer MEDICARE ==
[~2021-06-29] MED LIST changes: +CETI10TA17 PO; +FLUT16SP22 NSEACH; +PRAM0.5T9 PO
--- NOTE | 2021-06-29 13:30 | Diagnostic Imaging Report ---
INDICATION: Dysphagia. Patient ingested effervescent crystals as well as thin and thick barium and imaging of the esophagus was performed in multiple obliquities. A total of 1.1 minute of fluoroscopic time was utilized. Preliminary radiograph of the chest is unremarkable. Esophagus has fairly smooth contour. No mass or stricture is identified. There are occasional tertiary contractions. No hiatal hernia or gastroesophageal reflux was demonstrated. IMPRESSION: Generalized esophageal dysmotility with occasional tertiary contractions present. No other significant abnormalities detected. Dictated by: Dictated on workstation # [id number]
== END ==
LOC: RAD 11:15
PROVIDERS: ATTEND Otolaryngology Otolaryngology/Facial Plastic Surgery
DX: R13.10 Dysphagia, unspecified (principal)
CPT/HCPCS: 74220

== ENCOUNTER 2021-07-09 18:40 | Inpatient (IN) | payer MEDICARE ==
[~2021-07-09] VITALS: Ht 182.8 cm; Wt 83.1 kg
[2021-07-09] MEDS ORDERED: methylPREDNISolone 125 MG (Solu-MEDROL) VIAL IV STA (18:43)
[2021-07-09] MEDS ORDERED: RT-ALBUTEROL SULF 2.5 MG/3 ML PRE-MIX VIAL INH STA (18:43)
[2021-07-09] MEDS ORDERED: RT-ALBUTEROL/IPRATROPIUM 3 ML (DUONEB) VIAL INH ONE (18:45)
--- NOTE | 2021-07-09 18:51 | ED Respiratory ---
General Chief Complaint: Respiratory Problems Stated Complaint: SOB Source: patient ( ), old records History of Present Illness Date Seen by Provider: Jul 09, 2021 Time Seen by Provider: 18:40 Initial Comments PT ARRIVES VIA POV FROM HOME C/O SHORTNESS OF BREATH --FOR A COUPLE OF DAYS. PT HAS COPD AND IS ON O2 AT 2L/NC CONTINUOUSLY PT WENT TO [facility] YESTERDAY FOR THIS PROBLEM ( ACTUALLY 07/07/21) . HE STATES NO TESTS WERE DONE, BUT WAS PRESCRIBED AN UNKNOWN ANTIBIOTIC, NO STEROIDS--WAS PRESCRIBED CIPRO, PER MED RECONCILIATION PT LAST USED HIS INHALER AT 1800 WITHOUT RELIEF. DENIES FEVER HAS MILD CHRONIC COUGH CHEST HURTS TO BREATHE. NO SWELLING IN LEGS / FEET PT WAS ADMITTED 05/23-05/26/21 FOR COPD EXACERBATION PT HAS HAD MULTIPLE VISITS/ADMITS FOR SAME. ALSO HAS HISTORY OF HTN, NO HISTORY OF CARDIAC PROBLEMS OR DIABETES. PT IS A FORMER SMOKER--QUIT A COUPLE OF YEARS AGO PT HAS NOT HAD COVID OR FLU VACCINES. PCP: [facility] Allergies and Home Medications Allergies Coded Allergies: FRANCEANo Known Allergies (Unverified Allergy, Mild, 03/14/09) Patient Home Medication List Home Medication List Reviewed: Yes Albuterol Sulfate (Proair Hfa) 1 Puff Puff, 2 PUFF IH Q4H PRN for SHORTNESS OF BREATH Prescribed by: PABLO PAYTON on 05/26/21 1008 Amlodipine Besylate (Amlodipine Besylate) 10 Mg Tablet, 10 MG PO DAILY, (Reported) Entered as Reported by: EDGAR MALIK on 11/22/16 1048 Cetirizine HCl (Cetirizine HCl) 10 Mg Tablet, 10 MG PO DAILY, (Reported) Entered as Reported by: PRATIBHA AMOS on 05/25/21 1057 Diclofenac Sodium (Diclofenac Sodium) 75 Mg Tablet.dr, 75 MG PO BIDPC, (Reported) Entered as Reported by: RACHELE VERMA on 03/06/21 0700 Fluticasone Propionate (Fluticasone Propionate) 16 Gm Prim.susp, 1-2 SPRAYS NSEACH DAILY PRN for CONGESTION, (Reported) Entered as Reported by: PRATIBHA AMOS on 05/25/21 1057 Hydrocodone/Acetaminophen (Hydrocodone-Acetamin 7.5-325) 1 Each Tablet, 1 EA PO Q8H PRN for PAIN-MODERATE (5-7), (Reported) Entered as Reported by: RACHELE VERMA on 03/06/21 0700 Ipratropium/Albuterol Sulfate (Iprat-Albut 0.5-3(2.5) mg/3 ml) 3 Ml Ampul.neb, 3 ML IH Q6H PRN for SHORTNESS OF BREATH Prescribed by: PABLO PAYTON on 05/26/21 1008 Pramipexole Di-HCl (Pramipexole Dihydrochloride) 0.5 Mg Tablet, 0.5 MG PO DAILY, (Reported) Entered as Reported by: PRATIBHA AMOS on 05/25/21 1057 Prednisone (Prednisone) 20 Mg Tab, 20 MG PO DAILY Prescribed by: PABLO PAYTON on 05/26/21 1008 Review of Systems Review of Systems Constitutional: no symptoms reported; No fever EENTM: no symptoms reported Respiratory: see HPI, cough, short of breath Past Hjmekoz-Scfzcp-Cgnotb Hx Patient Social History Tobacco Use?: Yes Tobacco type used: Cigarettes Smoking Status: Former Smoker Use of E-Cig and/or Vaping dev: No Substance use?: Yes Additional substance use comme: UDS + FOR COCAINE ON PREVIOUS VISIT Alcohol Use?: No Pt feels they are or have been: No Immunizations Up To Date Tetanus Booster (TDap): Unknown Seasonal Allergies Seasonal Allergies: No Past Medical History Surgery/Hospitalization HX: PMH;HYPERTENSION. SURGERY; ORTHO. Surgeries: Yes (HAND, ORIF L ankle) Eye Surgery, Orthopedic, Prostatectomy Respiratory: Yes (O2 AT 2L/NC CONTINUOUSLY) COPD, Emphysema Currently Using CPAP: No Currently Using BIPAP: No Cardiac: Yes High Cholesterol, Hypertension Neurological: Yes (RESTLESS LEG SYNDROME. ) Genitourinary: Yes (S/P PROSTATECTOMY FOR BPH) Benign Prostatic Hyperpl, Prostate Problems, Bladder Infection Gastrointestinal: Yes (SBO 2017-NO SURGERY; DIVERTICULAR DISEASE NOTED ON COLONOSCOPY) Obstructive Bowel, Chronic Constipation, Diverticulosis Musculoskeletal: Yes (CHRONIC BACK PAIN WITH RADICULOPATHY;L ANKLE FX/ORIF;HAND SURGERY;RLS) Degenerate Disk Disease, Arthritis, Chronic Back Pain, Fractures Endocrine: No HEENT: Yes Cataract Loss of Vision: Denies Hearing Impairment: Denies Cancer: No Psychosocial: No Integumentary: No Blood Disorders: No Adverse Reaction/Blood Tranf: No Family Medical History Hypertension 19 MOTHER Neoplasm 19 FATHER Cancer, CAD Over 55 Years Old SOCIAL HISTORY: -SMOKED 1 PPD, QUIT AROUND 2019 -DENIES ETOH -DENIES DRUG USE, BUT HAD UDS + FOR COCAINE ON PRIOR VISIT PAST SURGICAL HISTORY: -10/29/20--OPEN PROSTATECTOMY FOR BPH BY DR. KAUFMAN ---COLONOSCOPY BY DR. FRIEDMAN--DIVERTICULAR DISEASE NOTED. -LEFT ANKLE FRACTURE/ORIF -HAND SURGERY -BILATERAL CATARACT SURGERY Physical Exam Vital Signs - First Documented Capillary Refill : Height: 6'0" Weight: 165lbs. 1.0oz. 74.320120yy; 26.65 BMI Method:Stated General Appearance: moderate distress (DYSPNEIC WITH AUDIBLE WHEEZING FROM ACROSS THE ER. ) Respiratory: respiratory distress, decreased breath sounds (DECREASED AERATION BILATERALLY), accessory muscle use, wheezing, other (AUDIBLE EXPIRATORY WHEEZING WITH MODERATE DISTRESS ON ARRIVAL) Cardiovascular: no murmur, irregularly irregular Gastrointestinal: non tender, soft Extremities: normal inspection, no pedal edema, normal capillary refill Neurologic/Psychiatric: veneer cutter II-XII nml as tested, no motor/sensory deficits, alert, normal mood/affect, oriented x 3 Skin: normal color (PT IS BLACK), warm/dry Focused Exam Lactate Level 07/09/21 18:49: Lactic Acid Level 1.15 Lactic Acid Level Laboratory Tests Test 07/09/21 18:49 Lactic Acid Level 1.15 MMOL/L (0.50-2.00) Progress/Results/Core Measures Suspected Sepsis SIRS Temperature: Pulse: Respiratory Rate: Laboratory Tests 07/09/21 18:49: White Blood Count 7.9 Blood Pressure / Mean: 07/09/21 18:49: Lactic Acid Level 1.15 Laboratory Tests 07/09/21 18:49: Creatinine 0.96, INR Comment 1.0, Platelet Count 268, Total Bilirubin 0.4 Results/Orders Lab Results Laboratory Tests Test 07/09/21 18:49 07/09/21 19:15 07/09/21 19:32 Range/Units White Blood Count 7.9 4.3-11.0 10^3/uL Red Blood Count 4.79 4.30-5.52 10^6/uL Hemoglobin 14.1 13.3-17.7 g/dL Hematocrit 42 40-54 % Mean Corpuscular Volume 89 80-99 fL Mean Corpuscular Hemoglobin 29 25-34 pg Mean Corpuscular Hemoglobin Concent 33 32-36 g/dL Red Cell Distribution Width 13.0 10.0-14.5 % Platelet Count 268 130-400 10^3/uL Mean Platelet Volume 9.9 9.0-12.2 fL Immature Granulocyte % (Auto) 0 % Neutrophils (%) (Auto) 38 L 42-75 % Lymphocytes (%) (Auto) 47 H 12-44 % Monocytes (%) (Auto) 7 0-12 % Eosinophils (%) (Auto) 8 0-10 % Basophils (%) (Auto) 1 0-10 % Neutrophils # (Auto) 3.0 1.8-7.8 10^3/uL Lymphocytes # (Auto) 3.7 1.0-4.0 10^3/uL Monocytes # (Auto) 0.5 0.0-1.0 10^3/uL Eosinophils # (Auto) 0.6 H 0.0-0.3 10^3/uL Basophils # (Auto) 0.0 0.0-0.1 10^3/uL Immature Granulocyte # (Auto) 0.0 0.0-0.1 10^3/uL Prothrombin Time 14.0 12.2-14.7 SEC INR Comment 1.0 0.8-1.4 Activated Partial Thromboplast Time 31 24-35 SEC D-Dimer 0.43 0.00-0.49 UG/ML Sodium Level 136 135-145 MMOL/L Potassium Level 4.1 3.6-5.0 MMOL/L Chloride Level 103 98-107 MMOL/L Carbon Dioxide Level 23 21-32 MMOL/L Anion Gap 10 5-14 MMOL/L Blood Urea Nitrogen 9 7-18 MG/DL Creatinine 0.96 0.60-1.30 MG/DL Estimat Glomerular Filtration Rate 82 BUN/Creatinine Ratio 9 Glucose Level 102 70-105 MG/DL Lactic Acid Level 1.15 0.50-2.00 MMOL/L Calcium Level 9.2 8.5-10.1 MG/DL Corrected Calcium 9.0 8.5-10.1 MG/DL Magnesium Level 2.1 1.6-2.4 MG/DL Total Bilirubin 0.4 0.1-1.0 MG/DL Aspartate Amino Transf (AST/SGOT) 15 5-34 U/L Alanine Aminotransferase (ALT/SGPT) 14 0-55 U/L Alkaline Phosphatase 63 40-136 U/L Total Creatine Kinase 178 30-200 U/L Creatine Kinase MB 2.3 <6.6 NG/ML Myoglobin 42.4 10.0-92.0 NG/ML Troponin I < 0.028 <0.028 NG/ML C-Reactive Protein High Sensitivity 0.52 H 0.00-0.50 MG/DL B-Type Natriuretic Peptide 30.6 <100.0 PG/ML Total Protein 7.4 6.4-8.2 GM/DL Albumin 4.2 3.2-4.5 GM/DL Procalcitonin 0.04 <0.10 NG/ML Serum Alcohol < 10 <10 MG/DL Influenza Type A (RT-PCR) Not Detected Not Detecte Influenza Type B (RT-PCR) Not Detected Not Detecte SARS-CoV-2 RNA (RT-PCR) Not Detected Not Detecte Blood Gas Puncture Site LEFT RADIAL Blood Gas Patient Temperature 37.0 Arterial Blood pH 7.32 *L 7.37-7.43 Arterial Blood Partial Pressure CO2 55 H 35-45 MMHG Arterial Blood Partial Pressure O2 88 79-93 MMHG Arterial Blood HCO3 27 23-27 MMOL/L Arterial Blood Total CO2 29.1 21.0-31.0 MMOL/L Arterial Blood Oxygen Saturation 96 94-100 % Arterial Blood Base Excess 1.9 -2.5-2.5 MMOL/L Bipin Test YES-POS Blood Gas Ventilator Setting NO Blood Gas Inspired Oxygen 4 Urine Color YELLOW Urine Clarity CLEAR Urine pH 7.0 5-9 Urine Specific [place] 1.020 1.016-1.022 Urine Protein TRACE H NEGATIVE Urine Glucose (UA) NEGATIVE NEGATIVE Urine Ketones NEGATIVE NEGATIVE Urine Nitrite NEGATIVE NEGATIVE Urine Bilirubin NEGATIVE NEGATIVE Urine Urobilinogen 0.2 < = 1.0 MG/DL Urine Leukocyte Esterase TRACE H NEGATIVE Urine RBC (Auto) TRACE-I H NEGATIVE Urine RBC NONE /HPF Urine WBC 5-10 H /HPF Urine Squamous Epithelial Cells NONE /HPF Urine Renal Epithelial Cells NONE /HPF Urine Crystals NONE /LPF Urine Bacteria NEGATIVE /HPF Urine Casts NONE /LPF Urine Mucus NEGATIVE /LPF Urine Culture Indicated NO Urine Opiates Screen NEGATIVE NEGATIVE Urine Oxycodone Screen NEGATIVE NEGATIVE Urine Methadone Screen NEGATIVE NEGATIVE Urine Propoxyphene Screen NEGATIVE NEGATIVE Urine Barbiturates Screen NEGATIVE NEGATIVE Ur Tricyclic Antidepressants Screen NEGATIVE NEGATIVE Urine Phencyclidine Screen NEGATIVE NEGATIVE Urine Amphetamines Screen NEGATIVE NEGATIVE Urine Methamphetamines Screen NEGATIVE NEGATIVE Urine Benzodiazepines Screen NEGATIVE NEGATIVE Urine Cocaine Screen NEGATIVE NEGATIVE Urine Cannabinoids Screen NEGATIVE NEGATIVE My Orders Orders - SANA CHOW DO Ed Iv/Invasive Line Start (07/09/21 18:43) Ekg Tracing (07/09/21 18:43) O2 (07/09/21 18:43) Monitor-Rhythm Ecg Trace Only (07/09/21 18:43) Chest 1 View, Ap/Pa Only (07/09/21 18:43) Arterial Blood Gas (07/09/21 18:43) Bnp Claudine (07/09/21 18:43) Cbc With Automated Diff (07/09/21 18:43) Comprehensive Metabolic Panel (07/09/21 18:43) Creatine Kinase (07/09/21 18:43) Creatine Kinase Mb (07/09/21 18:43) Hs C Reactive Protein (07/09/21 18:43) Fibrin Degradation Products (07/09/21 18:43) Lactic Acid Analyzer (07/09/21 18:43) Magnesium (07/09/21 18:43) Procalcitonin (Pct) (07/09/21 18:43) Protime With Inr (07/09/21 18:43) Partial Thromboplastin Time (07/09/21 18:43) Ua Culture If Indicated (07/09/21 18:43) Myoglobin Serum (07/09/21 18:43) Troponin I Claudine (07/09/21 18:43) Albuterol Pre-Mix Nebs (Rt) (Proventil (07/09/21 18:43) Albuterol/Ipra Inhalation Soln (Duoneb I (07/09/21 18:45) Dexamethasone Injection (Decadron Injec (07/09/21 18:45) Rt Request For Service (07/09/21 18:43) Methylprednisolone Sod Succ (Solu-Medrol (07/09/21 18:43) Covid 19 Inhouse Test (07/09/21 18:43) Svn Small Volume Nebulizer (07/09/21 18:43) Svn Small Volume Nebulizer (07/09/21 18:43) Influenza A And B By Pcr (07/09/21 18:43) Isolation Central Supply Req (07/09/21 18:43) Alcohol (07/09/21 19:04) Drug Screen Stat (Urine) (07/09/21 19:04) Ceftriaxone 1 Gm Pre-Mix (Rocephin 1 Gm (07/09/21 20:00) Azithromycin Injection (Zithromax Inject (07/09/21 20:00) Ed Admission (Communication) (07/09/21 20:04) Medications Given in ED Current Medications Medications Dose Ordered Sig/Erwin Route Start Time Stop Time Status Last Admin Dose Admin Albuterol/ Ipratropium 3 ml ONCE ONCE INH 07/09/21 18:45 07/09/21 18:46 DC 07/09/21 18:49 3 ML Azithromycin 500 mg/Sodium Chloride 255 ml @ 250 mls/hr ONCE ONCE IV 07/09/21 20:00 07/09/21 21:01 DC 07/09/21 20:50 250 MLS/HR Ceftriaxone Sodium/Dextrose 50 ml @ 100 mls/hr ONCE ONCE IV 07/09/21 20:00 07/09/21 20:29 DC 07/09/21 20:07 100 MLS/HR Dexamethasone Sodium Phosphate 20 mg ONCE ONCE IH 07/09/21 18:45 07/09/21 18:46 DC 07/09/21 19:04 20 MG Vital Signs/I&O 07/09/21 07/09/21 07/09/21 18:40 18:40 19:16 Temp 35.8 Pulse 72 Resp 28 B/P (MAP) 198/104 (135) Pulse Ox 91 99 O2 Delivery Nasal Cannula Nasal Cannula Nasal Cannula O2 Flow Rate 2.00 2.00 4.00 Capillary Refill : Progress Note : Progress Note PLACED IN ISOLATION ROOM PPE WORN COVID AND FLU TESTING DONE INITIAL O2 SAT 92-93% ON 2L/NC, THEN UP TO 98% ON 2L/NC AT REST A SHORT WHILE AFTER ARRIVAL BP INITIALLY ELEVATED ON ARRIVAL, THEN DOWN TO 140'S/90'S WITH REST. PT WITH VERY LONG RUNS OF BIGEMINY AND VERY FREQUENT PVC'S WITH UNDERLYING SINUS RHYTHM. GIVEN HOUR LONG NEB TREATMENT, IV STEROIDS AND ANTIBIOTICS. SYMPTOMS IMPROVED, WITH DECREASED WHEEZING AND INCREASED AERATION, BUT STILL WITH AUDIBLE WHEEZING FROM BEDSIDE AND STILL WITH LABORED BREATHING PLACED IN BIPAP WITH ABG RESULTS. O2 SATS 98% NO DETERIORATION IN PT'S CONDITION DURING ER STAY ECG Initial ECG Impression Date: Jul 09, 2021 Initial ECG Impression Time: 19:54 Initial ECG Rate: 99 Initial ECG Rhythm: Normal Sinus (BIGEMINY AND PVC'S ) Diagnostic Imaging Comments CXR--PER RADIOLOGIST REPORT AT 1950 FINDINGS: Normal heart size and central pulmonary vascularity. Airspace consolidation in the medial right lung base and right perihilar region. No pleural effusion or pneumothorax. No acute osseous findings. IMPRESSION: Atelectasis or infiltrate in the lung base and perihilar region on the right. Reviewed: Reviewed by Me Departure Communication (Admissions) 1947--CALLED DR. CLAY, HOSPITALIST FOR [facility]. MESSAGE LEFT ON CELL. 1999--SPOKE WITH DR. CLAY, ACCEPTS PT FOR ADMIT. SHE WILL DO ADMIT ORDERS. SHE ADVISES TO CONSULT DR. MARIE 2003--SPOKE WITH DR. MARIE, [employer], FOR CONSULT. HE ADVISES TOPROL XL 100 MG NOW AND DAILY. Impression Primary Impression: Acute exacerbation of chronic obstructive pulmonary disease (COPD) Additional Impressions: Acute on chronic respiratory failure with hypoxia and hypercapnia Respiratory acidosis HTN (hypertension) UTI (urinary tract infection) RLL pneumonia Bigeminy Frequent PVCs Disposition: ADMITTED INPATIENT Condition: Improved Admissions Decision to Admit Reason: Admit from ER (General) Decision to Admit/Date: Jul 09, 2021 Time/Decision to Admit Time: 20:00 Departure-Patient Inst. Referrals: MARILUZ ARIAS MD (PCP/Family) Primary Care Physician SANA CHOW DO Jul 09, 2021 18:51
[2021-07-09 19:00] LABS: BASOPHILS % (AUTO) 1 % (0-10); EOSINOPHILS # (AUTO) 0.6 10^3/uL (0.0-0.3); EOSINOPHILS % (AUTO) 8 % (0-10); HEMATOCRIT 42 % (40-54); HEMOGLOBIN 14.1 g/dL (13.3-17.7); LYMPHOCYTES # (AUTO) 3.7 10^3/uL (1.0-4.0); LYMPHOCYTES % (AUTO) 47 % (12-44); MEAN CORPUSCULAR HEMOGLOBIN 29 pg (25-34); MEAN CORPUSCULAR HGB CONC 33 g/dL (32-36); MEAN CORPUSCULAR VOLUME 89 fL (80-99); MEAN PLATELET VOLUME 9.9 fL (9.0-12.2); MONOCYTES # (AUTO) 0.5 10^3/uL (0.0-1.0); MONOCYTES % (AUTO) 7 % (0-12); NEUTROPHILS % (AUTO) 38 % (42-75); PLATELET COUNT 268 10^3/uL (130-400); WHITE BLOOD COUNT 7.9 10^3/uL (4.3-11.0)
[2021-07-09 19:14] LABS: FIBRIN DEGRADATION PRODUCTS 0.43 UG/ML (0.00-0.49)
[2021-07-09 19:20] LABS: ABG BASE EXCESS 1.9 MMOL/L (-2.5-2.5); ABG OXYGEN SATURATION 96 % (94-100); ABG PCO2 55 MMHG (35-45); ABG PO2 88 MMHG (79-93); ABG TCO2 29.1 MMOL/L (21.0-31.0)
[2021-07-09 19:21] LABS: ALBUMIN 4.2 GM/DL (3.2-4.5); CHLORIDE 103 MMOL/L (98-107); POTASSIUM 4.1 MMOL/L (3.6-5.0); SODIUM 136 MMOL/L (135-145)
[2021-07-09 19:22] LABS: ABG PH 7.32 (7.37-7.43); ALLENS TEST YES-POS; INSPIRED O2 4; VENTILATOR NO
[2021-07-09 19:22] LABS: CALCIUM 9.2 MG/DL (8.5-10.1)
[2021-07-09 19:23] LABS: GLUCOSE 102 MG/DL (70-105); TOTAL PROTEIN 7.4 GM/DL (6.4-8.2)
[2021-07-09 19:24] LABS: CARBON DIOXIDE 23 MMOL/L (21-32)
[2021-07-09 19:25] LABS: BILIRUBIN,TOTAL 0.4 MG/DL (0.1-1.0)
[2021-07-09 19:27] LABS: ALKALINE PHOSPHATASE 63 U/L (40-136); CREATININE SERUM 0.96 MG/DL (0.60-1.30); GFR ESTIMATED 82
[2021-07-09 19:28] LABS: BUN/CREATININE RATIO 9
[2021-07-09 19:30] LABS: ALANINE AMINOTRANSFERASE 14 U/L (0-55); CREATINE KINASE 178 U/L (30-200); MAGNESIUM 2.1 MG/DL (1.6-2.4)
[2021-07-09 19:38] LABS: CREATINE KINASE MB 2.3 NG/ML (<6.6)
[2021-07-09 19:39] LABS: BILIRUBIN,URINE NEGATIVE (NEGATIVE); CLARITY,URINE CLEAR; COLOR,URINE YELLOW; GLUCOSE, URINE (UA) NEGATIVE (NEGATIVE); KETONES,URINE NEGATIVE (NEGATIVE); LEUKOCYTE ESTERASE ,URINE TRACE (NEGATIVE); NITRITE,URINE NEGATIVE (NEGATIVE); PROTEIN,URINE TRACE (NEGATIVE)
[2021-07-09 19:47] LABS: BACTERIA,URINE NEGATIVE /HPF
--- NOTE | 2021-07-09 19:48 | Diagnostic Imaging Report ---
EXAM: Chest (PA and lateral). INDICATION: Dyspnea. COMPARISON: Chest radiograph 05/24/2021. FINDINGS: Normal heart size and central pulmonary vascularity. Airspace consolidation in the medial right lung base and right perihilar region. No pleural effusion or pneumothorax. No acute osseous findings. IMPRESSION: Atelectasis or infiltrate in the lung base and perihilar region on the right. Dictated by: Dictated on workstation # [id number]
[2021-07-09 19:50] LABS: AMPHETAMINE SCREEN, URINE NEGATIVE (NEGATIVE); BARBITURATE SCREEN URINE NEGATIVE (NEGATIVE); BENZODIAZEPINES SCREEN URINE NEGATIVE (NEGATIVE); CANNABINOID SCREEN, URINE NEGATIVE (NEGATIVE); COCAINE SCREEN URINE NEGATIVE (NEGATIVE); METHADONE STAT NEGATIVE (NEGATIVE); METHAMPHETAMINE SCREEN URINE S NEGATIVE (NEGATIVE); OPIATE SCREEN URINE NEGATIVE (NEGATIVE); OXYCODONE STAT NEGATIVE (NEGATIVE); PROPOXYPHENE STAT NEGATIVE (NEGATIVE); TRICYCLIC ANTIDEPRESSANTS SCRE NEGATIVE (NEGATIVE)
[2021-07-09] MEDS ORDERED: AZITHROMYCIN INJECTION 500 MG in NS (IVPB) 250 ML IV ONE (20:00)
[2021-07-09] MEDS ORDERED: cefTRIAXone 1 GM PRE-MIX 50 ML IV ONE (20:00)
[2021-07-09] MEDS ORDERED: meTOprolol SUCCINATE 100 MG (TOPROL XL) TAB PO ONE (20:15)
[2021-07-09] MEDS ORDERED: meTOproloL SUCCINATE 50 MG (TOPROL XL) TAB PO ONE (20:36)
[2021-07-09] MEDS ORDERED: AZITHROMYCIN INJECTION 500 MG/5 ML VIAL ONE (20:40)
[2021-07-09] MEDS ORDERED: CALCIUM CARBONATE 500 MG (TUMS) TAB.CHEW PO PRN (21:15)
[2021-07-09] MEDS ORDERED: LACTULOSE SYRUP 10GM/15ML (ENULOSE) 30ML UDC PO PRN (21:15)
[2021-07-09] MEDS ORDERED: ONDANSETRON 4 MG (ZOFRAN) ORAL DISSOLVE TAB PO PRN (21:15)
[2021-07-09] MEDS ORDERED: BISACODYL 10 MG SUPP (DULCOLAX) PR PRN (21:15)
[2021-07-09] MEDS ORDERED: morphine INJ 4 MG/ML 1 ML (VIAL/SYRINGE) IV PRN (21:15)
[2021-07-09] MEDS ORDERED: diphenhydrAMINE 50 MG/ML INJ (BENADRYL) IVP PRN (21:15)
[2021-07-09] MEDS ORDERED: NALOXONE 0.4 MG/ML 1 ML (NARCAN) VIAL IV PRN (21:15)
[2021-07-09] MEDS ORDERED: MELATONIN 3 MG TABLET PO PRN (21:15)
[2021-07-09] MEDS ORDERED: ONDANSETRON 4 MG/2 ML (SDV) Z0FRAN IV PRN (21:15)
[2021-07-09] MEDS ORDERED: guaiFENesin/CODEINE (ROBITUSSIN AC) 10ML UDC PO PRN (21:15)
[2021-07-09] MEDS ORDERED: HYDROcodone/APAP 5 MG/325 MG (LORTAB) TAB PO PRN (21:15)
[2021-07-09] MEDS ORDERED: diphenhydrAMINE 25 MG TAB (BENADRYL) PO PRN (21:15)
[2021-07-09] MEDS ORDERED: ANTACID SUSP 30 ML UDC (MYLANTA) PO PRN (21:15)
[2021-07-09] MEDS ORDERED: ACETAMINOPHEN 325 MG TABLET PO PRN (21:15)
[2021-07-09] MEDS ORDERED: NS IV 1000 ML 1,000 ML IV SCH (21:15)
[2021-07-09] MEDS ORDERED: MILK OF MAGNESIA 400 MG/5 ML 30 ML UDC PO PRN (21:15)
[2021-07-09] MEDS ORDERED: polyethylene glycoL POWDER 17 GM (MIRALAX) PACK PO PRN (21:15)
[2021-07-09] MEDS ORDERED: ALPRAZolam 0.25 MG (XANAX) TAB PO PRN (21:15)
--- NOTE | 2021-07-09 21:31 | Tele-ICU Progress Note ---
Subjective Date Seen by a Provider: Jul 09, 2021 Time Seen by a Provider: 19:05 Subjective/Events-last exam This virtual visit was conducted using real time audio/video. Thank you for asking us to see this patient for respiratory insufficiency due to AECOPD, possible RLL pna. PMH: COPD on home O2 2 LPM, htn., RLS SH: smoking history: quit 2 years ago. ROS: as in HPI. PE: VSS. O2 sat 98% on 4LPM NC. HEENT: No obvious masses, adenopathy or JVD. Chest: wheezing B CV: RRR S1 S2 No murmur or added sounds. Abd: Non-tender. Bowel sounds Y. : Unremarkable. Vargas N. SAFE EXPERT/psychiatric: Grossly intact. No obvious focal findings. Extremities: No edema. Capillary refill < 3 seconds. Skin: unremarkable. Results: B.32/55/88 on 4 LPM. CXR: Hyperinflated, possible small RLL infilt. Available chart/ vitals / labs / images reviewed. Video assessment done using teleICU camera, rest of exam as per RN. A/P: Respiratory insufficiency: Continue present management with NC, Duonebs, Advair, medrol, singulair. Monitor for increasing oxygenation needs and/or need for intubation. Critical Care: critically ill patient. Cont. Rocephin, AZT, Latasha. Discussed with GIACOMO Lindo. Asked RN to reach out to eICU if any questions or concerns later. Time spent with patient/coordination of care with other health professionals (mins) 26: Sepsis Event Evaluation Height, Weight, BMI Height: 6'0" Weight: 165lbs. 1.0oz. 74.986613gg; 25.00 BMI Method:Stated Focused Exam Lactate Level 07/09/21 18:49: Lactic Acid Level 1.15 Lactic Acid Level Laboratory Tests Test 07/09/21 18:49 Lactic Acid Level 1.15 MMOL/L (0.50-2.00) Exam Exam Patient acknowledged, consented, and participated in this virtual visit which was conducted using real time audio/video Vital Signs Date Time Temp Pulse Resp B/P (MAP) Pulse Ox O2 Delivery O2 Flow Rate FiO2 07/09/21 21:03 89 16 109/85 92 07/09/21 19:16 99 Nasal Cannula 4.00 07/09/21 18:40 Nasal Cannula 2.00 07/09/21 18:40 35.8 72 28 198/104 (135) 91 Nasal Cannula 2.00 Height & Weight Height: 6'0" Weight: 165lbs. 1.0oz. 74.298862ad; 25.00 BMI Method:Stated General Appearance: Mild Distress Respiratory: Wheezing Capillary Refill: Less Than 3 Seconds Peripheral Pulses: 1+ Dorsalis Pedis (R), 1+ Left Dors-Pedis (L) Gastrointestinal: non tender, soft Results Lab Laboratory Tests 07/09/21 18:49 Assessment/Plan Assessment/Plan See free text. Critical Care: Critically Ill Patient SHANTE MORENO MD Jul 09, 2021 21:31
[2021-07-09] MEDS ORDERED: RT-ALBUTEROL/IPRATROPIUM 3 ML (DUONEB) VIAL INH SCH (22:00)
[2021-07-09 22:13] LABS: ABG BASE EXCESS -0.4 MMOL/L (-2.5-2.5); ABG OXYGEN SATURATION 95 % (94-100); ABG PCO2 49 MMHG (35-45); ABG PO2 81 MMHG (79-93); ABG TCO2 26.4 MMOL/L (21.0-31.0)
[2021-07-09 22:15] LABS: ABG PH 7.32 (7.37-7.43); ALLENS TEST YES-POS; VENTILATOR NO
[2021-07-09 22:16] LABS: PATIENT TEMP 97.2
[2021-07-09] MEDS ORDERED: NS IV 1000 ML 1,000 ML ONE (22:48)
[2021-07-09] MEDS ORDERED: methylPREDNISolone 40 MG/ML (Solu-MEDROL) VIAL ONE (22:48)
[2021-07-09 23:03] VITALS: BP 198/104
[2021-07-09] MEDS: ENOXAPARIN 40 MG/0.4 ML (LOVENOX) SYR SC SCH (23:17)
[2021-07-09] MEDS: methylPREDNISolone 40 MG/ML (Solu-MEDROL) VIAL IV SCH (23:17)
[2021-07-09] MEDS ORDERED: RT-ALBUTEROL SULF 2.5 MG/3 ML PRE-MIX VIAL INH PRN (23:30)
[2021-07-10] MEDS: RT-ALBUTEROL/IPRATROPIUM 3 ML (DUONEB) VIAL INH SCH ×6 (02:34→21:48)
[2021-07-10 04:51] LABS: BASOPHILS % (AUTO) 0 % (0-10); EOSINOPHILS % (AUTO) 0 % (0-10); HEMATOCRIT 42 % (40-54); HEMOGLOBIN 13.9 g/dL (13.3-17.7); LYMPHOCYTES # (AUTO) 0.9 10^3/uL (1.0-4.0); LYMPHOCYTES % (AUTO) 16 % (12-44); MEAN CORPUSCULAR HEMOGLOBIN 29 pg (25-34); MEAN CORPUSCULAR HGB CONC 33 g/dL (32-36); MEAN CORPUSCULAR VOLUME 87 fL (80-99); MONOCYTES % (AUTO) 1 % (0-12); NEUTROPHILS # (AUTO) 4.8 10^3/uL (1.8-7.8); NEUTROPHILS % (AUTO) 83 % (42-75); PLATELET COUNT 247 10^3/uL (130-400); WHITE BLOOD COUNT 5.8 10^3/uL (4.3-11.0)
[2021-07-10 05:04] LABS: POTASSIUM 4.3 MMOL/L (3.6-5.0)
[2021-07-10 05:05] LABS: CALCIUM 9.2 MG/DL (8.5-10.1)
[2021-07-10 05:08] LABS: BILIRUBIN,TOTAL 0.4 MG/DL (0.1-1.0)
[2021-07-10 05:10] LABS: CREATININE SERUM 0.93 MG/DL (0.60-1.30)
[2021-07-10] MEDS: methylPREDNISolone 40 MG/ML (Solu-MEDROL) VIAL IV SCH ×4 (05:39→23:22)
[2021-07-10] MEDS ORDERED: KCL 20 MEQ TAB (K-DUR) PO SCH (06:00)
[2021-07-10] MEDS ORDERED: POTASSIUM CL 10MEQ/50ML IVPB 50 ML IV SCH (06:00)
[2021-07-10] MEDS ORDERED: MAGNESIUM 1 GM/100 ML IVPB 100 ML IV SCH (06:00)
--- NOTE | 2021-07-10 06:13 | History & Physical-Hospitalist ---
History of Present Illness HPI/Chief Complaint CC: SOB HPI: 76 yr old male who presented to the ER with SOB. He was found to have exacerbation of COPD and pneumonia. He required oxygen and IV steroids. He is doing much better and is at the bedside. Currently is doing well and will transfer down the floor. Source: patient, family Exam Limitations: clinical condition Date Seen 07/10/21 Time Seen by a Provider: 11:30 Attending Physician Sia Clay DO PCP Julien Minor MD Referring Physician Date of Admission Jul 09, 2021 at 20:05 Home Medications & Allergies Home Medications Reviewed patient Home Medication Reconciliation performed by pharmacy medication reconciliations histology technician and/or nursing. Patients Allergies have been reviewed. Allergies Allergies Coded Allergies NKANo Known Allergies (Unverified Allergy, Mild, 03/14/09) Past Peuaiii-Zshmdf-Ihugls Hx Patient Social History Marrital Status: Employed/Student: retired Tobacco Use?: No Tobacco type used: Cigarettes Smoking Status: Former Smoker Use of E-Cig and/or Vaping dev: No Substance use?: No Additional substance use comme: UDS + FOR COCAINE ON PREVIOUS VISIT Alcohol Use?: No Pt feels they are or have been: No Immunizations Up To Date Tetanus Booster (TDap): Unknown Hepatitis A: No Hepatitis B: No Seasonal Allergies Seasonal Allergies: No Current Status Advance Directives: No Communicates: Verbally Primary Language: Monegasque Preferred Spoken Language: Monegasque Is interpretation needed?: No Implanted or Applied Medical D: Other Past Medical History Surgeries: Eye Surgery, Orthopedic, Prostatectomy COPD, Emphysema Currently Using CPAP: No Currently Using BIPAP: No High Cholesterol, Hypertension Benign Prostatic Hyperpl, Prostate Problems, Bladder Infection Obstructive Bowel, Chronic Constipation, Diverticulosis Degenerate Disk Disease, Arthritis, Chronic Back Pain, Fractures Cataract Loss of Vision: Denies Hearing Impairment: Denies Blood Disorders: No Adverse Reaction/Blood Tranf: No Family Medical History Hypertension 19 MOTHER Neoplasm 19 FATHER Cancer, CAD Over 55 Years Old SOCIAL HISTORY: -SMOKED 1 PPD, QUIT AROUND 2019 -DENIES ETOH -DENIES DRUG USE, BUT HAD UDS + FOR COCAINE ON PRIOR VISIT PAST SURGICAL HISTORY: -10/29/20--OPEN PROSTATECTOMY FOR BPH BY DR. KAUFMAN ---COLONOSCOPY BY DR. FRIEDMAN--DIVERTICULAR DISEASE NOTED. -LEFT ANKLE FRACTURE/ORIF -HAND SURGERY -BILATERAL CATARACT SURGERY Review of Systems Constitutional: see HPI, malaise, weakness EENTM: no symptoms reported Respiratory: cough, dyspnea on exertion Cardiovascular: no symptoms reported Gastrointestinal: no symptoms reported Genitourinary: no symptoms reported Musculoskeletal: no symptoms reported Skin: no symptoms reported Psychiatric/Neurological: No Symptoms Reported All Other Systems Reviewed Negative Unless Noted: Yes Physical Exam Physical Exam Vital Signs Vital Signs - First Documented 07/09/21 23:03 FiO2 28 Capillary Refill : Less Than 3 Seconds Height, Weight, BMI Height: 6'0" Weight: 165lbs. 1.0oz. 74.520722xk; 26.09 BMI Method:Stated General Appearance: No Apparent Distress Eyes: Right Eye Normal Inspection, Right Eye PERRL HEENT: PERRL/EOMI, TMs Normal, Normal ENT Inspection, Pharynx Normal, Moist Mucous Membranes Neck: Full Range of Motion, Normal Inspection, Non Tender Respiratory: Chest Non Tender, No Accessory Muscle Use, No Respiratory Distress, Crackles, Wheezing Cardiovascular: Regular Rate, Rhythm, No Edema, No Gallop, No JVD, No Murmur, Normal Peripheral Pulses Gastrointestinal: Normal Bowel Sounds, No Organomegaly, No Pulsatile Mass, Non Tender, Soft Back: Normal Inspection, No CVA Tenderness, No Vertebral Tenderness Extremity: Normal Capillary Refill, Normal Inspection, Normal Range of Motion, Non Tender, No Calf Tenderness, No Pedal Edema Neurologic/Psychiatric: Alert, Oriented x3, No Motor/Sensory Deficits, Normal Mood/Affect Skin: Normal Color, Warm/Dry Lymphatic: No Adenopathy Results Results/Procedures Labs Laboratory Tests 07/09/21 18:49 07/10/21 04:30 Patient resulted labs reviewed. Assessment/Plan Admission Diagnosis Assessment: Acute hypoxic respiratory failure Exacerbation COPD Cardiac arrhythmia consulted cardiology Plan: IV steroids Nebs Moved to floor Admission Status: Inpatient Order (span 2 midnights) Reason for Inpatient Admission: Respiratory failure SIA CLAY DO Jul 10, 2021 06:13
--- NOTE | 2021-07-10 07:02 | Diagnostic Imaging Report ---
INDICATION: Followup pneumonia. EXAMINATION: Chest 07/10/2021 COMPARISON: 07/09/2021 FINDINGS: There are improving infiltrates at the lung bases. Minimal residual noted. No pneumothorax or effusions. Heart and pulmonary vasculature normal. IMPRESSION: 1. Improving bibasilar infiltrates. Dictated by: Dictated on workstation # [id number]
--- NOTE | 2021-07-10 08:26 | Consultation-Cardiology ---
HPI-Cardiology Cardiology Consultation: Date of Consultation 07/10/21 Time Seen by a Provider: 08:15 Date of Admission 07-09-21 Attending Physician Sia Clay DO Admitting Physician Julien Minor MD Consulting Physician Julio Garcia MD HPI: Chief Complaint: SOB Mr. Vila is a 76 yr old male who has been admitted to ICU 9 from the ED with increasing SOB over the course of the last 2-3 months. He states usually he will take a breathing treatment from his nebulizer and that helps his symptoms, but yesterday the SOB did not improved so he came to the ED. His family reports he has had frequent visits to the ED for exacerbation of COPD over the last several months. He is oxygen dependant. He denies any c/o CP, palpitations, syncope,near syncope or LE swelling. He has frequent lose, productive cough. No c/o n/v/d. No c/o fever or chills. He currently states he is feeling much better this morning. His PCP is Dr. Minor at [facility]. Review of Systems-Cardiology Review of Systems Constitutional: No chills, No fever, No lightheadedness, No malaise Eyes: No vision change Ears/Nose/Throat: No epistaxis, No recent hearing loss Respiratory: As described under HPI Cardiovascular: As described under HPI Gastrointestinal: As described under HPI Genitourinary: No dysuria, No hematuria Musculoskeletal: joint pain Skin: No rash on exposed areas, No ulcerations on exposed areas Psychiatric/Neurological: No anxiety, No depression, No seizure, No focal weakness, No syncope Hematologic: No bleeding abnormalities HMA-Nrpmck-Wcvduw Hx Patient Social History Smoking Status: Former Smoker 2nd Hand Smoke Exposure: No Have you traveled recently?: No Alcohol Use?: No Pt feels they are or have been: No Tobacco type used: Cigarettes Immunizations Up To Date Tetanus Booster (TDap): Unknown Past Medical History PMH As described under Assessment. Family Medical History Family Medical History: He reports his mothe had high blood pressure. No reported family h/o CAD. Family History: Hypertension 19 MOTHER Neoplasm 19 FATHER Allergies and Home Medications Allergies Coded Allergies: NKANo Known Allergies (Unverified Allergy, Mild, 03/14/09) Patient Home Medication List Albuterol Sulfate (Ventolin Hfa) 18 Gm Hfa.aer.ad, 2 PUFF INH Q4H PRN for SHORTNESS OF BREATH, (Reported) Entered as Reported by: PRATIBHA AMOS on 07/10/211242 Last Action: Held Amlodipine Besylate (Amlodipine Besylate) 10 Mg Tablet, 10 MG PO DAILY, (Reported) Entered as Reported by: EDGAR MALIK on 11/22/16 1048 Last Action: Continued Cetirizine HCl (Cetirizine HCl) 10 Mg Tablet, 10 MG PO DAILY, (Reported) Entered as Reported by: PRATIBHA AMOS on 05/25/211056 Last Action: Held Ciprofloxacin HCl (Ciprofloxacin HCl) 500 Mg Tablet, 500 MG PO Q12H, (Reported) Entered as Reported by: PRATIBHA AMOS on 07/10/211242 Last Action: Reviewed Diclofenac Sodium (Diclofenac Sodium) 75 Mg Tablet.dr, 75 MG PO BIDPC, (Reported) Entered as Reported by: RACHELE VERMA on 03/06/21 0700 Last Action: Held Fluticasone Propionate (Fluticasone Propionate) 16 Gm [place]itt.susp, 1-2 SPRAYS NSEACH DAILY PRN for CONGESTION, (Reported) Entered as Reported by: PRATIBHA AMOS on 05/25/211056 Last Action: Reviewed Hydrocodone/Acetaminophen (Hydrocodone-Acetamin 7.5-325) 1 Each Tablet, 1 EA PO Q8H PRN for PAIN-MODERATE (5-7), (Reported) Entered as Reported by: RACHELE VERMA on 03/06/21 0700 Last Action: Reviewed Ipratropium/Albuterol Sulfate (Iprat-Albut 0.5-3(2.5) mg/3 ml) 3 Ml Ampul.neb, 3 ML IH Q6H, (Reported) Entered as Reported by: PRATIBHA AMOS on 07/10/211242 Last Action: Reviewed Pramipexole Di-HCl (Pramipexole Dihydrochloride) 0.5 Mg Tablet, 0.5 MG PO DAILY, (Reported) Entered as Reported by: PRATIBHA AMOS on 05/25/211056 Last Action: Continued Discontinued Medications Albuterol Sulfate (Proair Hfa) 1 Puff Puff, 2 PUFF IH Q4H PRN for SHORTNESS OF BREATH Discontinued Reason: Duplicate Order Prescribed by: PABLO PAYTON on 2/8/22 1008 Last Action: Discontinued Ipratropium/Albuterol Sulfate (Iprat-Albut 0.5-3(2.5) mg/3 ml) 3 Ml Ampul.neb, 3 ML IH Q6H PRN for SHORTNESS OF BREATH Discontinued Reason: Duplicate Order Prescribed by: PABLO PAYTON on 05/26/211007 Last Action: Discontinued Prednisone (Prednisone) 20 Mg Tab, 20 MG PO DAILY Discontinued Reason: No Longer Taking Prescribed by: PABLO PAYTON on 05/26/211007 Last Action: Discontinued Physical Exam-Cardiology Physical Exam Vital Signs/I&O 07/10/21 07/10/21 07/10/21 07/10/21 02:35 03:00 03:00 04:00 Temp 36.6 Pulse 77 75 Resp 18 18 B/P (MAP) 142/88 112/84 Pulse Ox 93 92 93 O2 Delivery Room Air High Flow N/C High Flow N/C High Flow N/C O2 Flow Rate 4.00 4.00 4.00 07/10/21 07/10/21 07/10/21 07/10/21 04:00 05:00 06:00 07:00 Pulse 75 71 74 Resp 21 17 17 B/P (MAP) 159/98 132/80 Pulse Ox 93 94 96 O2 Delivery High Flow N/C High Flow N/C High Flow N/C Room Air O2 Flow Rate 4.00 4.00 4.00 07/10/21 07/10/21 07/10/21 07/10/21 07:00 07:36 08:00 08:00 Pulse 73 78 Resp 18 B/P (MAP) 159/98 Pulse Ox 94 94 O2 Delivery Room Air High Flow N/C Room Air O2 Flow Rate 4.00 07/10/21 07/10/21 07/10/21 07/10/21 08:00 09:00 10:00 11:00 Temp 36.8 Pulse 74 78 Resp 21 31 B/P (MAP) 144/97 144/102 Pulse Ox 94 96 93 O2 Delivery Room Air Room Air Room Air 07/10/21 12:00 Pulse 70 Resp 13 B/P (MAP) 133/85 Pulse Ox 94 O2 Delivery Room Air 07/09/21 23:59 Intake Total 300 ml Balance 300 ml Capillary Refill : Less Than 3 Seconds Constitutional: AAO x 3, well-developed HEENT: PERRL, hearing is well preserved Neck: No carotid bruit; carotid pulses are 2 + bilaterally Respiratory: No accessory muscle use, No respiratory distress; chest expansion is symmetric, chest is bilaterally symmetric, rhonchi (scattered with prolonged exp phase) Cardiovascular: regular rate-rhythm; No JVD; S1 and S2 Gastrointestinal: No tender; soft, round, audible bowel sounds Extremities: no lower extremity edema bilateral Neurologic/Psychiatric: grossly intact (moves all extremities) Skin: No rash on exposed areas, No ulcerations on exposed areas Data Review Labs Laboratory Tests 07/09/21 18:49: White Blood Count 7.9, Red Blood Count 4.79, Hemoglobin 14.1, Hematocrit 42, Me an Corpuscular Volume 89, Mean Corpuscular Hemoglobin 29, Mean Corpuscular Hemoglobin Concent 33, Red Cell Distribution Width 13.0, Platelet Count 268, Mean Platelet Volume 9.9, Immature Granulocyte % (Auto) 0, Neutrophils (%) (Auto) 38L, Lymphocytes (%) (Auto) 47H, Monocytes (%) (Auto) 7, Eosinophils (%) (Auto) 8, Basophils (%) (Auto) 1, Neutrophils # (Auto) 3.0, Lymphocytes # (Auto) 3.7, Monocytes # (Auto) 0.5, Eosinophils # (Auto) 0.6H, Basophils # (Auto) 0.0, Immature Granulocyte # (Auto) 0.0, Prothrombin Time 14.0, INR Comment 1.0, Activated Partial Thromboplast Time 31, D-Dimer 0.43, Sodium Level 136, Potassium Level 4.1, Chloride Level 103, Carbon Dioxide Level 23, Anion Gap 10, Blood Urea Nitrogen 9, Creatinine 0.96, Estimat Glomerular Filtration Rate 82, BUN/Creatinine Ratio 9, Glucose Level 102, Lactic Acid Level 1.15, Calcium Level 9.2, Corrected Calcium 9.0, Magnesium Level 2.1, Total Bilirubin 0.4, Aspartate Amino Transf (AST/SGOT) 15, Alanine Aminotransferase (ALT/SGPT) 14, Alkaline Phosphatase 63, Total Creatine Kinase 178, Creatine Kinase MB 2.3, Myoglobin 42.4, Troponin I < 0.028, C-Reactive Protein High Sensitivity 0.52H, B-Type Natriuretic Peptide 30.6, Total Protein 7.4, Albumin 4.2, Procalcitonin 0.04, Serum Alcohol < 10, Influenza Type A (RT-PCR) Not Detected, Influenza Type B (RT-PCR) Not Detected, SARS-CoV-2 RNA (RT-PCR) Not Detected 07/09/21 19:15: Blood Gas Puncture Site LEFT RADIAL, Blood Gas Patient Temperature 37.0, Arterial Blood pH 7.32*L, Arterial Blood Partial Pressure CO2 55H, Arterial Blood Partial Pressure O2 88, Arterial Blood HCO3 27, Arterial Blood Total CO2 29.1, Arterial Blood Oxygen Saturation 96, Arterial Blood Base Excess 1.9, Bipin Test YES-POS, Blood Gas Ventilator Setting NO, Blood Gas Inspired Oxygen 4 07/09/21 19:32: Urine Color YELLOW, Urine Clarity CLEAR, Urine pH 7.0, Urine Specific [place] 1.020, Urine Protein TRACEH, Urine Glucose (UA) NEGATIVE, Urine Ketones NEGATIVE, Urine Nitrite NEGATIVE, Urine Bilirubin NEGATIVE, Urine Urobilinogen 0.2, Urine Leukocyte Esterase TRACEH, Urine RBC (Auto) TRACE-IH, Urine RBC NONE, Urine WBC 5-10H, Urine Squamous Epithelial Cells NONE, Urine Renal Epithelial Cells NONE, Urine Crystals NONE, Urine Bacteria NEGATIVE, Urine Casts NONE, Urine Mucus NEGATIVE, Urine Culture Indicated NO, Urine Opiates Screen NEGATIVE, Urine Oxycodone Screen NEGATIVE, Urine Methadone Screen NEGATIVE, Urine Propoxyphene Screen NEGATIVE, Urine Barbiturates Screen NEGATIVE, Ur Tricyclic Antidepressants Screen NEGATIVE, Urine Phencyclidine Screen NEGATIVE, Urine Amphetamines Screen NEGATIVE, Urine Methamphetamines Screen NEGATIVE, Urine Benzodiazepines Screen NEGATIVE, Urine Cocaine Screen NEGATIVE, Urine Cannabinoids Screen NEGATIVE 07/09/21 21:30: Blood Gas Puncture Site RIGHT RADIAL, Blood Gas Patient Temperature 97.2, Arterial Blood pH 7.32*L, Arterial Blood Partial Pressure CO2 49H, Arterial Blood Partial Pressure O2 81, Arterial Blood HCO3 25, Arterial Blood Total CO2 26.4, Arterial Blood Oxygen Saturation 95, Arterial Blood Base Excess -0.4, Bipin Test YES-POS, Blood Gas Ventilator Setting NO, Blood Gas Inspired Oxygen UNK 07/10/21 04:30: White Blood Count 5.8, Red Blood Count 4.77, Hemoglobin 13.9, Hematocrit 42, Mean Corpuscular Volume 87, Mean Corpuscular Hemoglobin 29, Mean Corpuscular Hemoglobin Concent 33, Red Cell Distribution Width 12.8, Platelet Count 247, Mean Platelet Volume 10.0, Immature Granulocyte % (Auto) 0, Neutrophils (%) (Auto) 83H, Lymphocytes (%) (Auto) 16, Monocytes (%) (Auto) 1, Eosinophils (%) (Auto) 0, Basophils (%) (Auto) 0, Neutrophils # (Auto) 4.8, Lymphocytes # (Auto) 0.9L, Monocytes # (Auto) 0.0, Eosinophils # (Auto) 0.0, Basophils # (Auto) 0.0, Immature Granulocyte # (Auto) 0.0, Sodium Level 138, Potassium Level 4.3, Chloride Level 105, Carbon Dioxide Level 21, Anion Gap 12, Blood Urea Nitrogen 9, Creatinine 0.93, Estimat Glomerular Filtration Rate 86, BUN/Creatinine Ratio 10, Glucose Level 172H, Calcium Level 9.2, Corrected Calcium 9.2, Magnesium Level 2.0, Total Bilirubin 0.4, Aspartate Amino Transf (AST/SGOT) 14, Alanine Aminotransferase (ALT/SGPT) 13, Alkaline Phosphatase 61, Total Protein 7.0, Albumin 4.0 Radiology NAME: DEEDEE VILA MED REC#: [id number] PT STATUS: ADM IN : 1945 PHYSICIAN: SIA CLAY DO ADMIT DATE: 07/09/21/ICU Draft Date of Exam:07/10/21 CHEST 1 VIEW, AP/PA ONLY INDICATION: Followup pneumonia. EXAMINATION: Chest 07/10/2021 COMPARISON: 07/09/2021 FINDINGS: There are improving infiltrates at the lung bases. Minimal residual noted. No pneumothorax or effusions. Heart and pulmonary vasculature normal. IMPRESSION: 1. Improving bibasilar infiltrates. 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
[2021-07-10] MEDS: LORATADINE (CLARITIN) 10 MG TAB PO SCH (08:36)
[2021-07-10] MEDS: DOCUSATE SODIUM 100 MG (COLACE) CAP PO SCH ×2 (08:36→21:41)
--- NOTE | 2021-07-10 08:36 | Physical Therapy Evaluation ---
PT Evaluation-General Medical Diagnosis Admission Date Jul 09, 2021 at 20:05 Medical Diagnosis: Respiratory failure with hypoxia Onset Date: Jul 09, 2021 Therapy Diagnosis Therapy Diagnosis: Impaired activity tolerance, strength, blance. Height/Weight Height (Feet): 6 Height (Inches): 0 Weight (Pounds): 165 Weight (Ounces): 1.0 Precautions Precautions/Isolations: Standard Precautions Weight Bear Status Full Weight Bearing Full Weight Bearing Referral Physician: Sia Davis DO Medical History Pertinent Medical History: COPD, HTN Current History ER admission secondary to SOA Reviewed History: Yes Social History Home: Single Level Current Living Status: Spouse Entry Into Home: Level Entry Prior Prior Level of Function SCALE: Activities may be completed with or without assistive devices. 3-Neqxdysslh-ttulzdv completes the activity by him/herself with no assistance from a helper. 5-Set-up or Clean-up Assistance-helper sets up or cleans up; patient completes activity. Bradford assists only prior to or following the activity. 4-Supervision or Touching Assistance-helper provides verbal cues and/or touching/steadying and/or contact guard assistance as patient completes activity. Assistance may be provided throughout the activity or intermittently. 3-Partial/Moderate Assistance-helper does LESS THAN HALF the effort. Bradford lifts, holds or supports trunk or limbs, but provides less than half the effort. 2-Substantial/Maximal Assistance-helper does MORE THAN HALF the effort. Bradford lifts or holds trunk or limbs and provides more than half the effort. 8-Kfjjinqyn-qfonxu does ALL the effort. Patient does none of the effort to complete the activity. Or, the assistance of 2 or more helpers is required for the patient to complete the activity. If activity was not attempted, code reason: 7-Patient Refused. 9-Not Applicable-not attempted and the patient did not perform the activity befo re the current illness, exacerbation or injury. 10-Not Attempted due to Environmental Limitations-(lack of equipment, weather re straints, etc.). 88-Not Attempted due to Medical Conditions or Safety Concerns. Bed Mobility: 6 Transfers (B,C,W/C): 6 Gait: 6 Stairs: 6 Indoor Mobility (Ambulation): Independent Stairs: Independent Prior Devices Use: Walker PT Evaluation-Current Subjective Patient was getting a respiratory treatment upon entering room. Patient consented to start PT Pain Location: No Pain Reported Objective Patient Orientation: Person, Place, Time, Situation ROM/Strength ROM Lower Extremities Grossly Bilateral WFL Strength Lower Extremities Grossly Bilateral WFL Integumentary/Posture Bowel Incontinence: No Bladder Incontinence: No Neuromuscular (Tone, Coordination, Reflexes) grossly intact Sensory Vision: Functional Hearing: Functional Sensation Right Lower Extremit: Intact Sensation Left Lower Extremity: Intact Transfers Lying to Sitting/Side of Bed(Q: 6 Sit to Stand (QC): 6 Gait Does the Patient Walk?: Yes Mode of Locomotion: Walk Anticipated Mode of Locomotion: Walk Walk 10 feet (QC): 5 Walk 50 ft with 2 Turns(QC): 5 Walk 150 ft (QC): 5 Distance: 400' Gait Assistive Device: FWW Wheelchair Training Does the Pt Use a Wheelchair?: No Type of Wheelchair: N/A Balance Sitting Static: Normal Sitting Dynamic: Normal Standing Static: Normal Standing Dynamic: Normal Treatment Ambulation Assessment/Needs Patient is currently at prior level of function, with all gross motor skills, and does not require skilled PT intervention at this time. Rehab Potential: Good PT Plan Treatment/Plan Treatment Plan: Discontinue PT, goals met Treatment Duration: Jul 10, 2021 Frequency: 1 time per week Estimated Hrs Per Day: .25 hour per day Time/GCodes Time In: 0735 Time Out: 0748 Total Billed Treatment Time: 13 Total Billed Treatment 1 Visit Martina 13min SANDRO COLEY PT Jul 10, 2021 08:35
[2021-07-10] MEDS: SENNOSIDES 8.6 MG (SENOKOT) TAB PO SCH ×2 (08:37→21:41)
--- NOTE | 2021-07-10 08:39 | Tele-ICU Progress Note ---
Subjective Date Seen by a Provider: Jul 10, 2021 Time Seen by a Provider: 09:45 Subjective/Events-last exam Admitted for exacerbation of COPD, bilateral PNA on azithromycin, Rocephin.Also on IV Medrol Mild CO2 retention Still has wheezing Only mild resp distress Review of Systems General: No Chills, No Night Sweats, No Fatigue, No Malaise HEENT: No Head Aches, No Eye Pain, No Ear Pain, No Dysphasia, No Sinus Congestion, No Post Nasal Drip, No Sore Throat Pulmonary: No Dyspnea, No Cough, No Pleuritic Chest Pain Cardiovascular: No: Chest Pain, Palpitations, Orthopnea, Paroxysmal Noc. Dyspnea, Edema, Lt Headedness Gastrointestinal: No: Nausea, Vomiting, Abdominal Pain, Diarrhea, Constipation, Melena, Hematochezia Genitourinary: No Dysuria, No Frequency, No Incontinence, No Hematuria, No Retention Musculoskeletal: No: other, neck pain, shoulder pain, arm pain, back pain, hand pain, leg pain, foot pain Neurological: No: Weakness, Numbness, Incoordination, Change in speech, Confusion, Seizures, Other Sepsis Event Evaluation Height, Weight, BMI Height: 6'0" Weight: 165lbs. 1.0oz. 74.654764gm; 26.09 BMI Method:Stated Focused Exam Lactate Level 07/09/21 18:49: Lactic Acid Level 1.15 Exam Exam Patient acknowledged, consented, and participated in this virtual visit which was conducted using real time audio/video Vital Signs Date Time Temp Pulse Resp B/P (MAP) Pulse Ox O2 Delivery O2 Flow Rate FiO2 07/10/21 08:00 36.8 07/10/21 08:00 78 18 159/98 94 Room Air 07/10/21 07:36 94 Room Air 07/10/21 07:00 73 07/10/21 07:00 74 17 132/80 96 Room Air 07/10/21 06:00 71 17 94 High Flow N/C 4.00 07/10/21 05:00 75 21 159/98 93 High Flow N/C 4.00 07/10/21 04:00 High Flow N/C 4.00 07/10/21 04:00 75 18 112/84 93 High Flow N/C 4.00 07/10/21 03:00 77 18 142/88 92 High Flow N/C 4.00 07/10/21 03:00 36.6 High Flow N/C 4.00 07/10/21 02:35 93 Room Air 07/10/21 02:00 80 23 129/108 93 High Flow N/C 4.00 07/10/21 01:00 69 14 135/99 97 High Flow N/C 4.00 07/10/21 01:00 69 07/10/21 00:39 High Flow N/C 4.00 07/10/21 00:00 69 20 133/62 98 High Flow N/C 4.00 07/09/21 23:30 76 19 152/94 95 High Flow N/C 4.00 07/09/21 23:03 35.8 77 91 28 07/09/21 23:00 73 20 126/74 96 High Flow N/C 4.00 07/09/21 22:45 71 17 147/94 97 High Flow N/C 4.00 07/09/21 22:30 70 17 123/71 98 High Flow N/C 4.00 07/09/21 22:15 71 20 117/63 97 High Flow N/C 4.00 07/09/21 22:10 High Flow N/C 4.00 07/09/21 22:10 36.5 High Flow N/C 4.00 07/09/21 22:08 74 07/09/21 21:03 89 16 109/85 92 07/09/21 19:16 99 Nasal Cannula 4.00 07/09/21 18:40 Nasal Cannula 2.00 07/09/21 18:40 35.8 72 28 198/104 (135) 91 Nasal Cannula 2.00 I & O 07/10/21 07:00 Intake Total 1800 ml Output Total 1600 ml Balance 200 ml Height & Weight Height: 6'0" Weight: 165lbs. 1.0oz. 74.487254xm; 26.09 BMI Method:Stated General Appearance: Mild Distress Respiratory: Wheezing Cardiovascular: Regular Rate, Rhythm, No Edema Capillary Refill: Less Than 3 Seconds Peripheral Pulses: 1+ Dorsalis Pedis (R), 1+ Left Dors-Pedis (L) Gastrointestinal: non tender, soft Results Lab Laboratory Tests 07/09/21 18:49 07/10/21 04:30 Assessment/Plan Assessment/Plan COPD exacerbation, PNA will continue abx, oxygen, Medrol Critical Care: Critically Ill Patient Time spent with patient (mins): 25 KARIN MÉNDEZ MD Jul 10, 2021 08:39
--- NOTE | 2021-07-10 10:37 | Occupational Therapy Eval ---
OT Evaluation-General/PLF Medical Diagnosis Admission Date Jul 09, 2021 at 20:05 Medical Diagnosis: Respiratory failure with hypoxia Onset Date: Jul 09, 2021 Therapy Diagnosis Therapy Diagnosis: n/a Height/Weight Height (Feet): 6 Height (Inches): 0 Weight (Pounds): 165 Weight (Ounces): 1.0 Precautions Precautions/Isolations: Standard Precautions Referral Physician: Sia Davis DO Referral Reason: Evaluation/Treatment Medical History Pertinent Medical History: COPD, HTN Additional Medical History COPD, emphysema, HTN, BPH, diverticulosis, DDD, arthritis, fracture L ankle, chronic back pain Current History ED due to SOB for a couple of days Social History Home: Single Level Current Living Status: Spouse Entry Into Home: Level Entry ADL-Prior Level of Function SCALE: Activities may be completed with or without assistive devices. 3-Sdxohpazgv-npnpchb completes the activity by him/herself with no assistance from a helper. 5-Set-up or Clean-up Assistance-helper sets up or cleans up; patient completes activity. Universal assists only prior to or following the activity. 4-Supervision or Touching Assistance-helper provides verbal cues and/or touching /steadying and/or contact guard assistance as patient completes activity. Assistance may be provided throughout the activity or intermittently. 3-Partial/Moderate Assistance-helper does LESS THAN HALF the effort. Universal lifts, holds or supports trunk or limbs, but provides less than half the effort. 2-Substantial/Maximal Assistance-helper does MORE THAN HALF the effort. Universal lifts or holds trunk or limbs and provides more than half the effort. 9-Gfnfprtjk-dqqukp does ALL the effort. Patient does none of the effort to complete the activity. Or, the assistance of 2 or more helpers is required for the patient to complete the activity. If activity was not attempted, code reason: 7-Patient Refused. 9-Not Applicable-not attempted and the patient did not perform the activity before the current illness, exacerbation or injury. 10-Not Attempted due to Environmental Limitations-(lack of equipment, weather restraints, etc.). 88-Not Attempted due to Medical Conditions or Safety Concerns. ADL PLOF Comments Pt reports IND with ADLs and functional mobility at PLOF Self Care: Independent Functional Cognition: Independent DME/Equipment: Bath Chair, Shower OT Current Status Subjective Pt seated EOB upon OT arrival, family member present. Pt agreeable to OT evaluation Mental Status/Objective Patient Orientation: Person, Place, Situation Current Upper Extremity ROM WFL Upper Extremity Strength WFL ADL-Treatment Eating (QC): 6 On/Off Footwear (QC): 6 Other Treatments Pt seated EOB, agreeable to OT evaluation. Pt provided information about PLOF And home set up. Pt able to doff/don gripper socks on EOB, O2 dropped into the low 80%s while pt bent forward, but once pt returned upright, O2 returned above 90% after a couple of seconds. Pt and family member indicate pt is at his PLOF and they have no concerns with his ability to complete self care tasks at discharge. Per PT report, pt performed functional mobility 400' with FWW this morning after set up assistance. Post tx, pt at EOB, call light in reach and all needs met, nurse aware. Education OT Patient Education: Correct positioning, Energy conservation, Modified ADL techniques, Progress toward Goal/Update tx plan, Purpose of tx/functional activities, Rehab process Teaching Recipient: Patient Teaching Methods: Discussion Response to Teaching: Verbalize Understanding OT Prison Goals Athletic Team Physician Goals 1=Demonstrate adherence to instructed precautions during ADL tasks. 2=Patient will verbalize/demonstrate understanding of assistive devices /modifications for ADL. 3=Patient will improve strength/tolerance for activity to enable patient to perform ADL's. OT Education/Plan Problem List/Assessment Assessment: No Skilled OT Needs ID'd No skilled OT services indicated as pt is at PLOF with self care tasks and functional mobility. D/C from OT. Discharge Recommendations Plan/Recommendations: Discharge/Goals Met Treatment Plan/Plan of Care Patient would benefit from OT for education, treatment and training to promote independence in ADL's, mobility, safety and/or upper extremity function for ADL's. Plan of Care: ADL Retraining, Functional Mobility, UE Funct Exercise/Act Treatment Duration: Jul 10, 2021 Frequency: 1 time per week (eval only) Rehab Potential: Good Time/GCodes Start Time: 09:35 Stop Time: 09:45 Total Time Billed (hr/min): 10 Billed Treatment Time 1, EVJANIE BARNETT OT Jul 10, 2021 10:37
[2021-07-10] MEDS: RT--FLUTICASONE/SALMETEROL 113-14 (AIRDUO RespiCLICK) IH SCH ×2 (10:59→21:54)
--- NOTE | 2021-07-10 11:31 | Consultation-Cardiology ---
HPI-Cardiology Cardiology Consultation: Date of Consultation 07/10/21 Time Seen by a Provider: 09:10 Date of Admission Attending Physician Sia Davis DO Admitting Physician Julien Minor MD Consulting Physician OZ MARIE MD, MA, FACP, FACC, FSCAI, CCDS HPI: Chief Complaint: Shortness of breath Mr. Vila is a 76 yr old male who has been admitted to ICU 9 from the ED with increasing SOB over the course of the last 2-3 months. He states usually he will take a breathing treatment from his nebulizer and that helps his symptoms, but yesterday the SOB did not improved so he came to the ED. His family reports he has had frequent visits to the ED for exacerbation of COPD over the last several months. He is oxygen dependant. He denies any c/o CP, palpitations, syncope,near syncope or LE swelling. He has frequent lose, productive cough. No c/o n/v/d. No c/o fever or chills. He currently states he is feeling much better this morning. His PCP is Dr. Mionr at [facility]. Review of Systems-Cardiology Review of Systems Constitutional: No chills, No fever, No lightheadedness, No malaise Eyes: No vision change Ears/Nose/Throat: No epistaxis, No recent hearing loss Respiratory: As described under HPI Cardiovascular: As described under HPI Gastrointestinal: As described under HPI Genitourinary: No dysuria, No hematuria Musculoskeletal: joint pain Skin: No rash on exposed areas, No ulcerations on exposed areas Psychiatric/Neurological: No anxiety, No depression, No seizure, No focal weakness, No syncope Hematologic: No bleeding abnormalities PJS-Vxqmie-Ybndmz Hx Patient Social History Smoking Status: Former Smoker 2nd Hand Smoke Exposure: No Have you traveled recently?: No Alcohol Use?: No Pt feels they are or have been: No Tobacco type used: Cigarettes Immunizations Up To Date Tetanus Booster (TDap): Unknown Past Medical History PMH As described under Assessment. Family Medical History Family Medical History: He reports his mothe had high blood pressure. No reported family h/o CAD. Family History: Hypertension 19 MOTHER Neoplasm 19 FATHER Allergies and Home Medications Allergies Coded Allergies: NKANo Known Allergies (Unverified Allergy, Mild, 03/14/09) Patient Home Medication List Home Medication List Reviewed: Yes Albuterol Sulfate (Proair Hfa) 1 Puff Puff, 2 PUFF IH Q4H PRN for SHORTNESS OF BREATH Prescribed by: PABLO PAYTON on 05/26/21 1008 Amlodipine Besylate (Amlodipine Besylate) 10 Mg Tablet, 10 MG PO DAILY, (Reported) Entered as Reported by: EDGAR MALIK on 11/22/16 1048 Cetirizine HCl (Cetirizine HCl) 10 Mg Tablet, 10 MG PO DAILY, (Reported) Entered as Reported by: PRATIBHA AMOS on 05/25/21 1057 Diclofenac Sodium (Diclofenac Sodium) 75 Mg Tablet.dr, 75 MG PO BIDPC, (Reported) Entered as Reported by: RACHELE VERMA on 03/06/21 0700 Fluticasone Propionate (Fluticasone Propionate) 16 Gm [place].susp, 1-2 SPRAYS NSEACH DAILY PRN for CONGESTION, (Reported) Entered as Reported by: PRATIBHA AMOS on 05/25/21 1057 Hydrocodone/Acetaminophen (Hydrocodone-Acetamin 7.5-325) 1 Each Tablet, 1 EA PO Q8H PRN for PAIN-MODERATE (5-7), (Reported) Entered as Reported by: RACHELE VERAM on 03/06/21 0700 Ipratropium/Albuterol Sulfate (Iprat-Albut 0.5-3(2.5) mg/3 ml) 3 Ml Ampul.neb, 3 ML IH Q6H PRN for SHORTNESS OF BREATH Prescribed by: PABLO PAYTON on 05/26/21 1008 Pramipexole Di-HCl (Pramipexole Dihydrochloride) 0.5 Mg Tablet, 0.5 MG PO DAILY, (Reported) Entered as Reported by: PRATIBHA AMOS on 05/25/21 1057 Prednisone (Prednisone) 20 Mg Tab, 20 MG PO DAILY Prescribed by: PABLO PAYTON on 05/26/21 1008 Physical Exam-Cardiology Physical Exam Vital Signs/I&O 07/09/21 07/10/21 07/10/21 07/10/21 23:30 00:00 00:39 01:00 Pulse 76 69 69 Resp 19 20 B/P (MAP) 152/94 133/62 Pulse Ox 95 98 O2 Delivery High Flow N/C High Flow N/C High Flow N/C O2 Flow Rate 4.00 4.00 4.00 07/10/21 07/10/21 07/10/21 07/10/21 01:00 02:00 02:35 03:00 Temp 36.6 Pulse 69 80 Resp 14 23 B/P (MAP) 135/99 129/108 Pulse Ox 97 93 93 O2 Delivery High Flow N/C High Flow N/C Room Air High Flow N/C O2 Flow Rate 4.00 4.00 4.00 07/10/21 07/10/21 07/10/21 07/10/21 03:00 04:00 04:00 05:00 Pulse 77 75 75 Resp 18 18 21 B/P (MAP) 142/88 112/84 159/98 Pulse Ox 92 93 93 O2 Delivery High Flow N/C High Flow N/C High Flow N/C High Flow N/C O2 Flow Rate 4.00 4.00 4.00 4.00 07/10/21 07/10/21 07/10/21 07/10/21 06:00 07:00 07:00 07:36 Pulse 71 74 73 Resp 17 17 B/P (MAP) 132/80 Pulse Ox 94 96 94 O2 Delivery High Flow N/C Room Air Room Air O2 Flow Rate 4.00 07/10/21 07/10/21 07/10/21 07/10/21 08:00 08:00 08:00 09:00 Temp 36.8 Pulse 78 74 Resp 18 21 B/P (MAP) 159/98 144/97 Pulse Ox 94 94 O2 Delivery High Flow N/C Room Air Room Air O2 Flow Rate 4.00 07/10/21 07/10/21 10:00 11:00 Pulse 78 Resp 31 B/P (MAP) 144/102 Pulse Ox 96 93 O2 Delivery Room Air Room Air 07/10/21 00:00 Intake Total 300 ml Balance 300 ml Capillary Refill : Less Than 3 Seconds Constitutional: AAO x 3, well-developed HEENT: PERRL, hearing is well preserved Neck: No carotid bruit; carotid pulses are 2 + bilaterally Respiratory: No accessory muscle use, No respiratory distress; chest expansion is symmetric, chest is bilaterally symmetric, rhonchi (scattered with prolonged exp phase) Cardiovascular: regular rate-rhythm; No JVD; S1 and S2 Gastrointestinal: No tender; soft, round, audible bowel sounds Extremities: no lower extremity edema bilateral Neurologic/Psychiatric: grossly intact (moves all extremities) Skin: No rash on exposed areas, No ulcerations on exposed areas Data Review Labs Laboratory Tests 07/09/21 18:49: White Blood Count 7.9, Red Blood Count 4.79, Hemoglobin 14.1, Hematocrit 42, Mean Corpuscular Volume 89, Mean Corpuscular Hemoglobin 29, Mean Corpuscular Hemoglobin Concent 33, Red Cell Distribution Width 13.0, Platelet Count 268, Mean Platelet Volume 9.9, Immature Granulocyte % (Auto) 0, Neutrophils (%) (Auto) 38L, Lymphocytes (%) (Auto) 47H, Monocytes (%) (Auto) 7, Eosinophils (%) (Auto) 8, Basophils (%) (Auto) 1, Neutrophils # (Auto) 3.0, Lymphocytes # (Auto) 3.7, Monocytes # (Auto) 0.5, Eosinophils # (Auto) 0.6H, Basophils # (Auto) 0.0, Immature Granulocyte # (Auto) 0.0, Prothrombin Time 14.0, INR Comment 1.0, Activated Partial Thromboplast Time 31, D-Dimer 0.43, Sodium Level 136, Potassium Level 4.1, Chloride Level 103, Carbon Dioxide Level 23, Anion Gap 10, Blood Urea Nitrogen 9, Creatinine 0.96, Estimat Glomerular Filtration Rate 82, BUN/Creatinine Ratio 9, Glucose Level 102, Lactic Acid Level 1.15, Calcium Level 9.2, Corrected Calcium 9.0, Magnesium Level 2.1, Total Bilirubin 0.4, Aspartate Amino Transf (AST/SGOT) 15, Alanine Aminotransferase (ALT/SGPT) 14, Alkaline Phosphatase 63, Total Creatine Kinase 178, Creatine Kinase MB 2.3, Myoglobin 42.4, Troponin I < 0.028, C-Reactive Protein High Sensitivity 0.52H, B-Type [place] riuretic Peptide 30.6, Total Protein 7.4, Albumin 4.2, Procalcitonin 0.04, Serum Alcohol < 10, Influenza Type A (RT-PCR) Not Detected, Influenza Type B (RT-PCR) Not Detected, SARS-CoV-2 RNA (RT-PCR) Not Detected 07/09/21 19:15: Blood Gas Puncture Site LEFT RADIAL, Blood Gas Patient Temperature 37.0, Arterial Blood pH 7.32*L, Arterial Blood Partial Pressure CO2 55H, Arterial Blood Partial Pressure O2 88, Arterial Blood HCO3 27, Arterial Blood Total CO2 29.1, Arterial Blood Oxygen Saturation 96, Arterial Blood Base Excess 1.9, Bipin Test YES-POS, Blood Gas Ventilator Setting NO, Blood Gas Inspired Oxygen 4 07/09/21 19:32: Urine Color YELLOW, Urine Clarity CLEAR, Urine pH 7.0, Urine Specific [place] 1.020, Urine Protein TRACEH, Urine Glucose (UA) NEGATIVE, Urine Ketones NEGATIVE, Urine Nitrite NEGATIVE, Urine Bilirubin NEGATIVE, Urine Urobilinogen 0.2, Urine Leukocyte Esterase TRACEH, Urine RBC (Auto) TRACE-IH, Urine RBC NONE, Urine WBC 5-10H, Urine Squamous Epithelial Cells NONE, Urine Renal Epithelial Cells NONE, Urine Crystals NONE, Urine Bacteria NEGATIVE, Urine Casts NONE, Urine Mucus NEGATIVE, Urine Culture Indicated NO, Urine Opiates Screen NEGATIVE, Urine Oxycodone Screen NEGATIVE, Urine Methadone Screen NEGATIVE, Urine Propoxyphene Screen NEGATIVE, Urine Barbiturates Screen NEGATIVE, Ur Tricyclic Antidepressants Screen NEGATIVE, Urine Phencyclidine Screen NEGATIVE, Urine Amphetamines Screen NEGATIVE, Urine Methamphetamines Screen NEGATIVE, Urine Benzodiazepines Screen NEGATIVE, Urine Cocaine Screen NEGATIVE, Urine Cannabinoids Screen NEGATIVE 07/09/21 21:30: Blood Gas Puncture Site RIGHT RADIAL, Blood Gas Patient Temperature 97.2, Arterial Blood pH 7.32*L, Arterial Blood Partial Pressure CO2 49H, Arterial Blood Partial Pressure O2 81, Arterial Blood HCO3 25, Arterial Blood Total CO2 26.4, Arterial Blood Oxygen Saturation 95, Arterial Blood Base Excess -0.4, Bipin Test YES-POS, Blood Gas Ventilator Setting NO, Blood Gas Inspired Oxygen UNK 07/10/21 04:30: White Blood Count 5.8, Red Blood Count 4.77, Hemoglobin 13.9, Hematocrit 42, Mean Corpuscular Volume 87, Mean Corpuscular Hemoglobin 29, Mean Corpuscular Hemoglobin Concent 33, Red Cell Distribution Width 12.8, Platelet Count 247, Mean Platelet Volume 10.0, Immature Granulocyte % (Auto) 0, Neutrophils (%) (Auto) 83H, Lymphocytes (%) (Auto) 16, Monocytes (%) (Auto) 1, Eosinophils (%) (Auto) 0, Basophils (%) (Auto) 0, Neutrophils # (Auto) 4.8, Lymphocytes # (Auto) 0.9L, Monocytes # (Auto) 0.0, Eosinophils # (Auto) 0.0, Basophils # (Auto) 0.0, Immature Granulocyte # (Auto) 0.0, Sodium Level 138, Potassium Level 4.3, Chloride Level 105, Carbon Dioxide Level 21, Anion Gap 12, Blood Urea Nitrogen 9, Creatinine 0.93, Estimat Glomerular Filtration Rate 86, BUN/Creatinine Ratio 10, Glucose Level 172H, Calcium Level 9.2, Corrected Calcium 9.2, Magnesium Level 2.0, Total Bilirubin 0.4, Aspartate Amino Transf (AST/SGOT) 14, Alanine Aminotransferase (ALT/SGPT) 13, Alkaline Phosphatase 61, Total Protein 7.0, Albumin 4.0 A/P-Cardiology Assessment/Admission Diagnosis Acute on chronic resp failure d/t acute exacerbation of COPD and pneumonia - management per medical services - Normal LVEF on echo of 07-10-21 Isolated PVCs and hypertension - controlled with initiation of beta-kacy therapy during this admission Acute exacerbation of COPD - management per medical services - oxygen dependant HTN - continue home medication regimen 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
[2021-07-10] MEDS ORDERED: meTOproloL SUCCINATE 50 MG (TOPROL XL) TAB PO NR (11:45)
[2021-07-10] MEDS ORDERED: CIPR500T5 PO (12:43)
[2021-07-10] MEDS ORDERED: IPRA3AMP31 IH (12:43)
[2021-07-10] MEDS ORDERED: ALBU18HF2 INH (12:43)
[2021-07-10] MEDS ORDERED: AZITHROMYCIN INJECTION 250 MG in NS (IVPB) 250 ML IV SCH (20:00)
[2021-07-10] MEDS ORDERED: cefTRIAXone 1 GM PRE-MIX 50 ML IV SCH (20:00)
[2021-07-10] MEDS ORDERED: MONTELUKAST 10 MG (SINGULAIR) TAB PO SCH (21:00)
[2021-07-10] MEDS: ENOXAPARIN 40 MG/0.4 ML (LOVENOX) SYR SC SCH (21:40)
[2021-07-11] MEDS: RT-ALBUTEROL/IPRATROPIUM 3 ML (DUONEB) VIAL INH SCH ×3 (02:10→10:52)
[2021-07-11] MEDS: methylPREDNISolone 40 MG/ML (Solu-MEDROL) VIAL IV SCH ×2 (05:56→12:15)
[2021-07-11 06:08] LABS: BASOPHILS % (AUTO) 0 % (0-10); EOSINOPHILS % (AUTO) 0 % (0-10); HEMATOCRIT 42 % (40-54); HEMOGLOBIN 13.8 g/dL (13.3-17.7); LYMPHOCYTES # (AUTO) 1.8 10^3/uL (1.0-4.0); LYMPHOCYTES % (AUTO) 16 % (12-44); MEAN CORPUSCULAR HEMOGLOBIN 29 pg (25-34); MEAN CORPUSCULAR HGB CONC 33 g/dL (32-36); MEAN CORPUSCULAR VOLUME 88 fL (80-99); MEAN PLATELET VOLUME 9.8 fL (9.0-12.2); MONOCYTES # (AUTO) 0.2 10^3/uL (0.0-1.0); MONOCYTES % (AUTO) 2 % (0-12); NEUTROPHILS # (AUTO) 9.5 10^3/uL (1.8-7.8); NEUTROPHILS % (AUTO) 82 % (42-75); PLATELET COUNT 269 10^3/uL (130-400); WHITE BLOOD COUNT 11.5 10^3/uL (4.3-11.0)
[2021-07-11 06:25] LABS: ALBUMIN 4.2 GM/DL (3.2-4.5)
[2021-07-11 06:26] LABS: POTASSIUM 4.3 MMOL/L (3.6-5.0)
[2021-07-11 06:27] LABS: CALCIUM 9.5 MG/DL (8.5-10.1)
[2021-07-11 06:30] LABS: BILIRUBIN,TOTAL 0.4 MG/DL (0.1-1.0)
[2021-07-11 06:32] LABS: CREATININE SERUM 1.15 MG/DL (0.60-1.30)
[2021-07-11] MEDS: LORATADINE (CLARITIN) 10 MG TAB PO SCH (08:08)
[2021-07-11] MEDS: DOCUSATE SODIUM 100 MG (COLACE) CAP PO SCH (08:12)
[2021-07-11] MEDS: SENNOSIDES 8.6 MG (SENOKOT) TAB PO SCH (08:12)
[2021-07-11] MEDS ORDERED: meTOproloL SUCCINATE 50 MG (TOPROL XL) TAB PO SCH (09:00)
[2021-07-11] MEDS ORDERED: amLODIPine 10 MG (NORVASC) TAB PO SCH (09:00)
[2021-07-11] MEDS ORDERED: PRAMIPEXOLE 0.5 MG TAB (MIRAPEX) PO SCH (09:00)
[2021-07-11] MEDS: RT--FLUTICASONE/SALMETEROL 113-14 (AIRDUO RespiCLICK) IH SCH (10:55)
[2021-07-11] MEDS ORDERED: PRD20T PO (11:41)
--- NOTE | 2021-07-11 12:55 | Discharge Summary ---
Diagnosis/Chief Complaint Date of Admission Jul 09, 2021 at 20:05 Date of Discharge Jul 11, 2021 at 12:35 Discharge Date: Jul 11, 2021 Admission Diagnosis Assessment: Acute hypoxic respiratory failure Exacerbation COPD Cardiac arrhythmia consulted cardiology Plan: IV steroids Nebs Moved to floor Primary Care Julien Arias MD Discharge Summary Discharge Physical Exam Allergies: Coded Allergies: NKANo Known Allergies (Unverified Allergy, Mild, 03/14/09) Vitals & I&Os Vital Signs Date Time Temp Pulse Resp B/P (MAP) Pulse Ox O2 Delivery O2 Flow Rate FiO2 07/11/21 12:35 07/11/21 11:35 37.0 76 20 96 Room Air 07/11/21 10:52 2.00 07/09/21 23:03 28 General Appearance: No Apparent Distress Respiratory: Chest Non Tender, Lungs Clear, Normal Breath Sounds, No Accessory Muscle Use, No Respiratory Distress Cardiovascular: Regular Rate, Rhythm, No Edema, No Gallop, No JVD, No Murmur, Normal Peripheral Pulses Hospital Course HPI: 76 yr old male who presented to the ER with SOB. He was found to have exacerbation of COPD and pneumonia. He required oxygen and IV steroids. He is doing much better and is at the bedside. Currently is doing well and will transfer down the floor.Patient was transferred to the floor where he continued to do well on steroids. Upon my arrival the late morning of his discharge she was ambulating with his in the halls at a quick tempo reporting no shortness of breath he denied purulent sputum production and his chest upright in the hallway revealed normal breath sounds. He reports his been several years since his last cigarette. Diagnosis of pneumonia was questionable that he had just started Cipro prior to admission which I will have him finish up as an outpatient as well as a steroid taper 40 mg for 3 days 20 mg for 3 days then off. He will continue his other home medications and he was advised to follow-up with Dr. Arias in 1 to 2 weeks. Labs (last 24 hrs) Laboratory Tests 07/11/21 05:58: White Blood Count 11.5H, Red Blood Count 4.74, Hemoglobin 13.8, Hematocrit 42, Mean Corpuscular Volume 88, Mean Corpuscular Hemoglobin 29, Mean Corpuscular Hemoglobin Concent 33, Red Cell Distribution Width 13.1, Platelet Count 269, Mean Platelet Volume 9.8, Immature Granulocyte % (Auto) 0, Neutrophils (%) (Auto) 82H, Lymphocytes (%) (Auto) 16, Monocytes (%) (Auto) 2, Eosinophils (%) (Auto) 0, Basophils (%) (Auto) 0, Neutrophils # (Auto) 9.5H, Lymphocytes # ( Auto) 1.8, Monocytes # (Auto) 0.2, Eosinophils # (Auto) 0.0, Basophils # (Auto) 0.0, Immature Granulocyte # (Auto) 0.0, Sodium Level 142, Potassium Level 4.3, Chloride Level 106, Carbon Dioxide Level 22, Anion Gap 14, Blood Urea Nitrogen 19H, Creatinine 1.15, Estimat Glomerular Filtration Rate 66, BUN/Creatinine Ratio 17, Glucose Level 173H, Calcium Level 9.5, Corrected Calcium 9.3, Total Bilirubin 0.4, Aspartate Amino Transf (AST/SGOT) 15, Alanine Aminotransferase (ALT/SGPT) 15, Alkaline Phosphatase 61, Total Protein 7.0, Albumin 4.2 Microbiology 07/09/21 MRSA Screen - Final, Complete MRSA not isolated Patient resulted labs reviewed. Pending Labs Laboratory Tests 07/11/21 05:58: White Blood Count 11.5, Red Blood Count 4.74, Hemoglobin 13.8, Hematocrit 42, Me an Corpuscular Volume 88, Mean Corpuscular Hemoglobin 29, Mean Corpuscular Hemoglobin Concent 33, Red Cell Distribution Width 13.1, Platelet Count 269, Mean Platelet Volume 9.8, Immature Granulocyte % (Auto) 0, Neutrophils (%) (Auto) 82, Lymphocytes (%) (Auto) 16, Monocytes (%) (Auto) 2, Eosinophils (%) (Auto) 0, Basophils (%) (Auto) 0, Neutrophils # (Auto) 9.5, Lymphocytes # (Auto) 1.8, Monocytes # (Auto) 0.2, Eosinophils # (Auto) 0.0, Basophils # (Auto) 0.0, Immature Granulocyte # (Auto) 0.0, Sodium Level 142, Potassium Level 4.3, Chloride Level 106, Carbon Dioxide Level 22, Anion Gap 14, Blood Urea Nitrogen 19, Creatinine 1.15, Estimat Glomerular Filtration Rate 66, BUN/Creatinine Ratio 17, Glucose Level 173, Calcium Level 9.5, Corrected Calcium 9.3, Total Bilirubin 0.4, Aspartate Amino Transf (AST/SGOT) 15, Alanine Aminotransferase (ALT/SGPT) 15, Alkaline Phosphatase 61, Total Protein 7.0, Albumin 4.2 Discussion & Recommendations Discharge Planning: <30 minutes discharge planning Discharge Home Medications: Active Scripts Active Prednisone 20 Mg Tab 40 Mg PO DAILY 7 Days 40mg with breakfast for 3 days then 20mg for 4 days. Disp 20mg tabs Reported Ventolin Hfa (Albuterol Sulfate) 18 Gm Hfa.aer.ad 2 Puff INH Q4H PRN Iprat-Albut 0.5-3(2.5) mg/3 ml (Ipratropium/Albuterol Sulfate) 3 Ml Ampul.neb 3 Ml IH Q6H Ciprofloxacin HCl 500 Mg Tablet 500 Mg PO Q12H FILLED 07-07-2021 #14/7 DAY SUPPLY Pramipexole Dihydrochloride (Pramipexole Di-HCl) 0.5 Mg Tablet 0.5 Mg PO DAILY Fluticasone Propionate 16 Gm [place].susp 1-2 Sprays NSEACH DAILY PRN Cetirizine HCl 10 Mg Tablet 10 Mg PO DAILY Hydrocodone-Acetamin 7.5-325 (Hydrocodone/Acetaminophen) 1 Each Tablet 1 Ea PO Q8H PRN Amlodipine Besylate 10 Mg Tablet 10 Mg PO DAILY Instructions to patient/family Please see electronic discharge instructions given to patient. Copy Copies To 1: JULIEN ARIAS MD, MARK D MD Jul 11, 2021 12:55
== END 2021-07-11 12:35 | disposition home or self-care (01) | DRG 193 ==
LOC: EDUNIT# 18:40 → ER 18:42 → ICU 20:05 → 4TH 07-10 13:26
PROVIDERS: ADMIT Internal Medicine; ATTEND Internal Medicine
PROC: 5A0945A Assistance with Respiratory Ventilation, 24-96 Consecutive Hours, High Flow/Velocity Cannula (ICD-10-PCS; principal; 2021-07-09)
DX: J18.9 Pneumonia, unspecified organism (principal); J96.21 Acute and chronic respiratory failure with hypoxia; J96.22 Acute and chronic respiratory failure with hypercapnia; J44.1 Chronic obstructive pulmonary disease with (acute) exacerbation; J44.0 Chronic obstructive pulmonary disease with (acute) lower respiratory infection; E87.2 Acidosis; N39.0 Urinary tract infection, site not specified; G25.81 Restless legs syndrome; N40.0 Benign prostatic hyperplasia without lower urinary tract symptoms; K57.90 Diverticulosis of intestine, part unspecified, without perforation or abscess without bleeding; G89.29 Other chronic pain; M54.9 Dorsalgia, unspecified; I10 Essential (primary) hypertension; I49.9 Cardiac arrhythmia, unspecified; I49.3 Ventricular premature depolarization; Z20.822 Contact with and (suspected) exposure to COVID-19; Z87.891 Personal history of nicotine dependence; Z79.899 Other long term (current) drug therapy
CPT/HCPCS: 36415; 71045; 80053; 80306; 80320; 81000; 82550; 82553; 82805; 83605; 83735; 83874; 83880; 84145; 84484; 85025; 85379; 85610; 85730; 86141; 87081; 87636; 93005; 93041; 93306; 94640; 94760

== ENCOUNTER 2021-08-18 12:23 | Emergency (ER) | payer MEDICARE ==
[~2021-08-18] VITALS: Ht 182.8 cm; Wt 88.5 kg
[~2021-08-18 12:23] MED LIST changes: +ALBU18HF2 INH; +CIPR500T5 PO
--- NOTE | 2021-08-18 13:06 | ED Abdominal Pain ---
General Chief Complaint: Abdominal/GI Problems Stated Complaint: CONSTIPATION Source of Information: Patient Exam Limitations: No Limitations History of Present Illness Date Seen by Provider: August 18, 2021 Time Seen by Provider: 13:04 Initial Comments Patient is a 76-year-old male who presents the ED for constipation. Last bowel movement was 2 or 3 days ago described as hard. He states has been having intermittent constipation over the past 5 years. Patient does take MiraLAX, Colace, magnesium citrate at home but states his bowel movements are never regular. This all started after colonoscopy 5 years ago. No vomiting. Generalized abdominal discomfort. Denies of any change in urination. Does wear oxygen at home for COPD. Denies fever, chest pain, shortness of breath, visual changes, headache, lower extremity weakness or sensory changes. Allergies and Home Medications Allergies Coded Allergies: Adarsh Known Allergies (Unverified Allergy, Mild, 03/14/09) Patient Home Medication List Home Medication List Reviewed: Yes Albuterol Sulfate (Ventolin Hfa) 18 Gm Hfa.aer.ad, 2 PUFF INH Q4H PRN for SHORTNESS OF BREATH, (Reported) Entered as Reported by: PRATIBHA AMOS on 07/10/21 1243 Amlodipine Besylate (Amlodipine Besylate) 10 Mg Tablet, 10 MG PO DAILY, (Reported) Entered as Reported by: EDGAR MALIK on 11/22/16 1048 Cetirizine HCl (Cetirizine HCl) 10 Mg Tablet, 10 MG PO DAILY, (Reported) Entered as Reported by: PRATIBHA AMOS on 05/25/21 1057 Ciprofloxacin HCl (Ciprofloxacin HCl) 500 Mg Tablet, 500 MG PO Q12H, (Reported) Entered as Reported by: PRATIBHA AMOS on 07/10/21 1243 Fluticasone Propionate (Fluticasone Propionate) 16 Gm [place].susp, 1-2 SPRAYS NSEACH DAILY PRN for CONGESTION, (Reported) Entered as Reported by: PRATIBHA AMOS on 05/25/21 1057 Hydrocodone/Acetaminophen (Hydrocodone-Acetamin 7.5-325) 1 Each Tablet, 1 EA PO Q8H PRN for PAIN-MODERATE (5-7), (Reported) Entered as Reported by: RACHELE VERMA on 03/06/21 0700 Ipratropium/Albuterol Sulfate (Iprat-Albut 0.5-3(2.5) mg/3 ml) 3 Ml Ampul.neb, 3 ML IH Q6H, (Reported) Entered as Reported by: PRATIBHA AMOS on 07/10/21 1243 Pramipexole Di-HCl (Pramipexole Dihydrochloride) 0.5 Mg Tablet, 0.5 MG PO DAILY, (Reported) Entered as Reported by: PRATIBHA AMOS on 05/25/21 1057 Prednisone (Prednisone) 20 Mg Tab, 40 MG PO DAILY Prescribed by: JEFRY FRIEDMAN on 07/11/21 1141 Review of Systems Review of Systems Constitutional: No chills, No diaphoresis, No malaise, No weakness EENTM: No Eye Pain, No Ear Pain, No Mouth Pain Respiratory: Denies Cough, Denies Orthopnea, Denies Shortness of Air, Denies SOA With Exertion Cardiovascular: Denies Chest Pain Gastrointestinal: Abdominal Pain, Constipated; Denies Diarrhea, Denies Difficulty Swallowing, Denies Nausea, Denies Vomiting Genitourinary: Denies Burning, Denies Discharge Musculoskeletal: No back pain, No joint pain Skin: No change in color, No change in hair/nails All Other Systems Reviewed Negative Unless Noted: Yes Past Nocflkd-Qtikcu-Pttmsv Hx Patient Social History Tobacco Use?: No Use of E-Cig and/or Vaping dev: No Substance use?: No Alcohol Use?: No Pt feels they are or have been: No Immunizations Up To Date Tetanus Booster (TDap): Unknown Seasonal Allergies Seasonal Allergies: No Past Medical History Surgery/Hospitalization HX: PMH;HYPERTENSION. SURGERY; ORTHO. Surgeries: Yes (HAND, ORIF L ankle) Eye Surgery, Orthopedic, Prostatectomy Respiratory: Yes (O2 AT 2L/NC CONTINUOUSLY) COPD, Emphysema Currently Using CPAP: No Currently Using BIPAP: No Cardiac: Yes High Cholesterol, Hypertension Neurological: Yes (RESTLESS LEG SYNDROME. ) Genitourinary: Yes (S/P PROSTATECTOMY FOR BPH) Benign Prostatic Hyperpl, Prostate Problems, Bladder Infection Gastrointestinal: Yes (SBO 2017-NO SURGERY; DIVERTICULAR DISEASE NOTED ON COLON OSCOPY) Obstructive Bowel, Chronic Constipation, Diverticulosis Musculoskeletal: Yes (CHRONIC BACK PAIN WITH RADICULOPATHY;L ANKLE FX/ORIF;HAND SURGERY;RLS) Degenerate Disk Disease, Arthritis, Chronic Back Pain, Fractures Endocrine: No HEENT: Yes Cataract Loss of Vision: Denies Hearing Impairment: Denies Cancer: No Psychosocial: No Integumentary: No Blood Disorders: No Adverse Reaction/Blood Tranf: No Family Medical History Hypertension 19 MOTHER Neoplasm 19 FATHER Cancer, CAD Over 55 Years Old SOCIAL HISTORY: -SMOKED 1 PPD, QUIT AROUND 2019 -DENIES ETOH -DENIES DRUG USE, BUT HAD UDS + FOR COCAINE ON PRIOR VISIT PAST SURGICAL HISTORY: -10/29/20--OPEN PROSTATECTOMY FOR BPH BY DR. KAUFMAN ---COLONOSCOPY BY DR. FRIEDMAN--DIVERTICULAR DISEASE NOTED. -LEFT ANKLE FRACTURE/ORIF -HAND SURGERY -BILATERAL CATARACT SURGERY Physical Exam Vital Signs Vital Signs - First Documented 08/18/21 13:01 Temp 35.9 Pulse 64 Resp 14 B/P (MAP) 156/88 (110) Pulse Ox 95 O2 Delivery Room Air Capillary Refill : Height/Weight/BMI Height: 6'0" Weight: 165lbs. 1.0oz. 74.907325kf; 26.09 BMI Method:Stated General Appearance: WD/WN, no apparent distress HEENT: PERRL/EOMI, normal ENT inspection, TMs normal, pharynx normal Neck: non-tender, full range of motion, supple, normal inspection Respiratory: chest non-tender, lungs clear, normal breath sounds, no respiratory distress, no accessory muscle use Cardiovascular: regular rate, rhythm, no edema, no gallop Gastrointestinal: normal bowel sounds, non tender, soft, no organomegaly, no pulsatile mass Extremities: normal range of motion, non-tender, normal inspection, no pedal edema, no calf tenderness Back: normal inspection, no CVA tenderness Skin: normal color, warm/dry Progress/Results/Core Measures Results/Orders My Orders Orders - DANIEL BRIAN Abdomen/Kub 1view (08/18/21 13:03) Na Phos/Na Biphos Enema (Fleet Enema Ramon (08/18/21 13:15) Medications Given in ED Current Medications Medications Dose Ordered Sig/Erwin Route Start Time Stop Time Status Last Admin Dose Admin Sodium Biphosphate/ Sodium Phosphate 1 ea ONCE ONCE VT 08/18/21 13:15 08/18/21 13:16 DC 08/18/21 13:27 1 EA Vital Signs/I&O 08/18/21 13:01 Temp 35.9 Pulse 64 Resp 14 B/P (MAP) 156/88 (110) Pulse Ox 95 O2 Delivery Room Air Departure Communication (PCP) Patient presents ED constipation. Last bowel movement 2 to 3 days ago. States he is currently on laxatives without much improvement. States his stool is hard. On exam did note large amount of stool. Was able to disimpact with digital exam. Successful bowel movement here with Fleet enema. Patient symptoms improved. Was able to have a bowel movement here with relief. Was not able to obtain x-ray. Patient states he is requesting to go. He states he will incorporate fluids and fiber. Discussed outpatient follow-up with PCP. Continue with laxatives. If any worsening symptoms return back to ED. Patient had no abdominal tenderness on palpation. No vomiting. Bowel sounds noted throughout. Impression Primary Impression: Constipation Disposition: 01 HOME, SELF-CARE Condition: Stable Departure-Patient Inst. Decision time for Depature: 15:08 Referrals: MARILUZ ARIAS MD (PCP/Family) Primary Care Physician Patient Instructions: Constipation, Adult (DC) DANIEL BRIAN August 18, 2021 13:06
[2021-08-18] MEDS ORDERED: FLEET ENEMA ADULT 1 EA BTL PR ONE (13:15)
[2021-08-18 15:30] VITALS: BP 113/66
== END 2021-08-18 15:30 | disposition home or self-care (01) ==
LOC: EDUNIT# 12:23 → ER 12:25
DX: K59.00 Constipation, unspecified (principal); J44.9 Chronic obstructive pulmonary disease, unspecified; Z99.81 Dependence on supplemental oxygen
CPT/HCPCS: 99281

== ENCOUNTER 2021-10-08 15:10 | Emergency (ER) | payer MEDICARE ==
[~2021-10-08] VITALS: Ht 183 cm; Wt 86.2 kg
--- NOTE | 2021-10-08 15:34 | ED Respiratory ---
General Chief Complaint: Respiratory Problems Stated Complaint: SOA Nursing Triage Note: PT AMB TO ED BY POV WITH C/O INCREASED SOB, COUGH. PT REPORTS INCRASED SOB AND COUGH OVER THE LAST COUPLE OF DAYS, WORSE LAST NIGHT AT MIDNIGHT, WORSE UPON EXERTION. REPORTS CHEST WALL PAIN WHEN COUGHING. DENIES N/V/D, FEVER, SORE THROAT, GAMA. Source: patient, family () Exam Limitations: no limitations History of Present Illness Date Seen by Provider: Oct 08, 2021 Time Seen by Provider: 15:22 Initial Comments Patient is a 76-year-old male who presents to the emergency room with a chief complaint of increasing shortness of breath since about midnight last night. Patient states that he has used breathing treatments and his inhalers throughout the night, did not sleep very well. He has had a little bit of productive cough he states its bluish-green. He has a known history of COPD. He denies chest pain. No fevers or chills. He has had a little swelling in his lower extremities noticed by his . He denies problems with bowel or bladder. No headache no COVID concerns. No sore throat or runny nose or congestion. He is a former smoker. He does not require the use of home oxygen. No sick co ntacts that he is aware of. He is not COVID vaccinated. All other review of systems reviewed and negative except as stated. Timing/Duration: other (last night) Severity: moderate Prior Episodes/Possible Cause: occasional episodes Modifying Factors: Improves With Albuterol Inhaler, Improves With Albuterol Nebulizer, Improves With Coughing Associated Symptoms: cough, shortness of breath Allergies and Home Medications Allergies Coded Allergies: NKANo Known Allergies (Unverified Allergy, Mild, 03/14/09) Patient Home Medication List Home Medication List Reviewed: Yes Albuterol Sulfate (Ventolin Hfa) 18 Gm Hfa.aer.ad, 2 PUFF INH Q4H PRN for SHORTNESS OF BREATH, (Reported) Entered as Reported by: PRATIBHA AMOS on 07/10/21 1243 Amlodipine Besylate (Amlodipine Besylate) 10 Mg Tablet, 10 MG PO DAILY, (Reported) Entered as Reported by: EDGAR MALIK on 11/22/16 1048 Azithromycin (Azithromycin) 250 Mg Tablet, 250 MG PO UD Prescribed by: RADHA PEOPLES on 10/08/21 1738 Cetirizine HCl (Cetirizine HCl) 10 Mg Tablet, 10 MG PO DAILY, (Reported) Entered as Reported by: PRATIBHA AMOS on 05/25/21 1057 Ciprofloxacin HCl (Ciprofloxacin HCl) 500 Mg Tablet, 500 MG PO Q12H, (Reported) Entered as Reported by: PRATIBHA AMOS on 07/10/21 1243 Fluticasone Propionate (Fluticasone Propionate) 16 Gm [place].susp, 1-2 SPRAYS NSEACH DAILY PRN for CONGESTION, (Reported) Entered as Reported by: PRATIBHA AMOS on 05/25/21 1057 Hydrocodone/Acetaminophen (Hydrocodone-Acetamin 7.5-325) 1 Each Tablet, 1 EA PO Q8H PRN for PAIN-MODERATE (5-7), (Reported) Entered as Reported by: RACHELE VERMA on 03/06/21 0700 Ipratropium/Albuterol Sulfate (Iprat-Albut 0.5-3(2.5) mg/3 ml) 3 Ml Ampul.neb, 3 ML IH Q6H, (Reported) Entered as Reported by: PRATIBHA AMOS on 07/10/21 1243 Pramipexole Di-HCl (Pramipexole Dihydrochloride) 0.5 Mg Tablet, 0.5 MG PO DAILY, (Reported) Entered as Reported by: PRATIBHA AMOS on 05/25/21 1057 Prednisone (Prednisone) 20 Mg Tab, 40 MG PO DAILY Prescribed by: JEFRY FRIEDMAN on 07/11/21 1141 Prednisone (Prednisone) 50 Mg Tab, 50 MG PO DAILY Prescribed by: RADHA PEOPLES on 10/08/21 1738 Review of Systems Review of Systems Constitutional: see HPI EENTM: no symptoms reported Respiratory: phlegm, short of breath, wheezing Cardiovascular: no symptoms reported Gastrointestinal: no symptoms reported Genitourinary: no symptoms reported Musculoskeletal: no symptoms reported Skin: no symptoms reported Psychiatric/Neurological: No Symptoms Reported All Other Systems Reviewed Negative Unless Noted: Yes Past Pdsribh-Bbeqsy-Ujnbeb Hx Patient Social History Tobacco Use?: No Smoking Status: Former Smoker Use of E-Cig and/or Vaping dev: No Substance use?: No Alcohol Use?: No Pt feels they are or have been: No Immunizations Up To Date Tetanus Booster (TDap): Unknown Influenza Vaccine Up-to-Date: No; Not Current First/Initial COVID19 Vaccinat: DENIES Seasonal Allergies Seasonal Allergies: No Past Medical History Surgery/Hospitalization HX: PMH;HYPERTENSION, COPD SURGERY; ORTHO. Surgeries: Yes (HAND, ORIF L ankle) Eye Surgery, Orthopedic, Prostatectomy Respiratory: Yes (O2 AT 2L/NC CONTINUOUSLY) COPD, Emphysema Currently Using CPAP: No Currently Using BIPAP: No Cardiac: Yes High Cholesterol, Hypertension Neurological: Yes (RESTLESS LEG SYNDROME. ) Genitourinary: Yes (S/P PROSTATECTOMY FOR BPH) Benign Prostatic Hyperpl, Prostate Problems, Bladder Infection Gastrointestinal: Yes (SBO 2017-NO SURGERY; DIVERTICULAR DISEASE NOTED ON COLONOSCOPY) Obstructive Bowel, Chronic Constipation, Diverticulosis Musculoskeletal: Yes (CHRONIC BACK PAIN WITH RADICULOPATHY;L ANKLE FX/ORIF;HAND SURGERY;RLS) Degenerate Disk Disease, Arthritis, Chronic Back Pain, Fractures Endocrine: No HEENT: Yes Cataract Loss of Vision: Denies Hearing Impairment: Denies Cancer: No Psychosocial: No Integumentary: No Blood Disorders: No Adverse Reaction/Blood Tranf: No Family Medical History Hypertension 19 MOTHER Neoplasm 19 FATHER Cancer, CAD Over 55 Years Old SOCIAL HISTORY: -SMOKED 1 PPD, QUIT AROUND 2019 -DENIES ETOH -DENIES DRUG USE, BUT HAD UDS + FOR COCAINE ON PRIOR VISIT PAST SURGICAL HISTORY: -10/29/20--OPEN PROSTATECTOMY FOR BPH BY DR. KAUFMAN ---COLONOSCOPY BY DR. FRIEDMAN--DIVERTICULAR DISEASE NOTED. -LEFT ANKLE FRACTURE/ORIF -HAND SURGERY -BILATERAL CATARACT SURGERY Physical Exam Vital Signs - First Documented Capillary Refill : Height: 6'0" Weight: 165lbs. 1.0oz. 74.830792al; 25.00 BMI Method:Stated General Appearance: WD/WN, no apparent distress Eyes: Bilateral Eye Normal Inspection HEENT: PERRL/EOMI, pharynx normal Respiratory: chest non-tender, no respiratory distress, wheezing Cardiovascular: regular rate, rhythm Gastrointestinal: non tender, soft Extremities: normal range of motion, non-tender, pedal edema Neurologic/Psychiatric: alert, normal mood/affect, oriented x 3 Skin: normal color, warm/dry Progress/Results/Core Measures Suspected Sepsis SIRS Temperature: Pulse: 80 Respiratory Rate: 24 Laboratory Tests 10/08/21 15:30: White Blood Count 6.5 Blood Pressure 149 /111 Mean: 124 Laboratory Tests 10/08/21 15:30: Creatinine 0.91, INR Comment 1.0, Platelet Count 247, Total Bilirubin 0.6 Results/Orders Lab Results Laboratory Tests Test 10/08/21 15:17 10/08/21 15:30 Range/Units Influenza Type A (RT-PCR) Not Detected Not Detecte Influenza Type B (RT-PCR) Not Detected Not Detecte SARS-CoV-2 RNA (RT-PCR) Not Detected Not Detecte White Blood Count 6.5 4.3-11.0 10^3/uL Red Blood Count 5.17 4.30-5.52 10^6/uL Hemoglobin 15.0 13.3-17.7 g/dL Hematocrit 45 40-54 % Mean Corpuscular Volume 86 80-99 fL Mean Corpuscular Hemoglobin 29 25-34 pg Mean Corpuscular Hemoglobin Concent 34 32-36 g/dL Red Cell Distribution Width 13.2 10.0-14.5 % Platelet Count 247 130-400 10^3/uL Mean Platelet Volume 9.2 9.0-12.2 fL Immature Granulocyte % (Auto) 0 % Neutrophils (%) (Auto) 43 42-75 % Lymphocytes (%) (Auto) 39 12-44 % Monocytes (%) (Auto) 6 0-12 % Eosinophils (%) (Auto) 11 H 0-10 % Basophils (%) (Auto) 1 0-10 % Neutrophils # (Auto) 2.8 1.8-7.8 10^3/uL Lymphocytes # (Auto) 2.5 1.0-4.0 10^3/uL Monocytes # (Auto) 0.4 0.0-1.0 10^3/uL Eosinophils # (Auto) 0.7 H 0.0-0.3 10^3/uL Basophils # (Auto) 0.0 0.0-0.1 10^3/uL Immature Granulocyte # (Auto) 0.0 0.0-0.1 10^3/uL Prothrombin Time 13.3 12.2-14.7 SEC INR Comment 1.0 0.8-1.4 Activated Partial Thromboplast Time 32 24-35 SEC Sodium Level 139 135-145 MMOL/L Potassium Level 4.2 3.6-5.0 MMOL/L Chloride Level 100 98-107 MMOL/L Carbon Dioxide Level 28 21-32 MMOL/L Anion Gap 11 5-14 MMOL/L Blood Urea Nitrogen 8 7-18 MG/DL Creatinine 0.91 0.60-1.30 MG/DL Estimat Glomerular Filtration Rate 88 BUN/Creatinine Ratio 9 Glucose Level 139 H 70-105 MG/DL Calcium Level 9.3 8.5-10.1 MG/DL Corrected Calcium 8.9 8.5-10.1 MG/DL Magnesium Level 2.0 1.6-2.4 MG/DL Total Bilirubin 0.6 0.1-1.0 MG/DL Aspartate Amino Transf (AST/SGOT) 15 5-34 U/L Alanine Aminotransferase (ALT/SGPT) 15 0-55 U/L Alkaline Phosphatase 62 40-136 U/L Myoglobin 68.5 10.0-92.0 NG/ML Troponin I < 0.028 <0.028 NG/ML B-Type Natriuretic Peptide 29.2 <100.0 PG/ML Total Protein 7.9 6.4-8.2 GM/DL Albumin 4.5 3.2-4.5 GM/DL My Orders Orders - RADHA PEOPLES MD Cbc With Automated Diff (10/08/21 15:28) Magnesium (10/08/21 15:28) Chest 1 View, Ap/Pa Only (10/08/21 15:28) Ekg Tracing (10/08/21 15:28) Comprehensive Metabolic Panel (10/08/21 15:28) Myoglobin Serum (10/08/21 15:28) Protime With Inr (10/08/21 15:28) Partial Thromboplastin Time (10/08/21 15:28) O2 (10/08/21 15:28) Monitor-Rhythm Ecg Trace Only (10/08/21 15:28) Ed Iv/Invasive Line Start (10/08/21 15:28) Bnp [place] (10/08/21 15:28) Troponin I [place] (10/08/21 15:28) Covid 19 Inhouse Test (10/08/21 15:34) Influenza A And B By Pcr (10/08/21 15:34) Isolation Central Supply Req (10/08/21 15:34) Methylprednisolone Sod Succ (Solu-Medrol (10/08/21 16:15) Albuterol Pre-Mix Nebs (Rt) (Proventil (10/08/21 16:15) Ipratropium 0.02% Neb Solution (Atrovent (10/08/21 16:15) Svn Small Volume Nebulizer (10/08/21 16:12) Svn Small Volume Nebulizer (10/08/21 16:12) Communication For Respiratory (10/08/21 16:12) Medications Given in ED Vital Signs/I&O 10/08/21 10/08/21 10/08/21 10/08/21 15:13 15:13 15:13 18:01 Temp 36.2 Pulse 80 51 Resp 24 17 B/P (MAP) 149/111 (124) 121/65 Pulse Ox 97 97 96 O2 Delivery Nasal Cannula Nasal Cannula Nasal Cannula Nasal Cannula O2 Flow Rate 4.00 4.00 4.00 4.00 Capillary Refill : Blood Pressure Mean: 124 ECG Initial ECG Impression Date: Oct 08, 2021 Initial ECG Impression Time: 15:38 Initial ECG Rate: 68 Initial ECG Rhythm: Normal Sinus Initial ECG Intervals: Normal Initial ECG Impression: Normal Comment Sinus rhythm with sinus arrhythmia, no evidence of ST segment elevation or depression or other unusual ectopy Diagnostic Imaging Diagonstic Imaging: Xray Plain Films/CT/US/NM/MRI: chest Comments [facility]. [place], [place] NAME: DEEDEE CHISHOLM [facility] REC#: [id number] PT STATUS: REG ER : 1945 PHYSICIAN: RADHA PEOPLES MD ADMIT DATE: 10/08/21/ER Draft Date of Exam:10/08/21 CHEST 1 VIEW, AP/PA ONLY CLINICAL INDICATION: Patient with increasing shortness of breath and cough. EXAM: Portable chest x-ray upright view. COMPARISON: Chest x-ray dated 07/10/2021. FINDINGS: Lungs/pleura: Lungs are clear. There is no pneumothorax. There is no pleural effusion. Mediastinum: Unremarkable. Pulmonary vasculature: Unremarkable. Heart: Unremarkable. Bones/extrathoracic soft tissue: There are degenerative spurs involving the thoracic spine. IMPRESSION: There is no radiographic evidence of acute cardiopulmonary process. Dictated on workstation # [id number] Dict: 10/08/21 1551 Trans: 10/08/21 1553 [facility] [id number] Interpreted by: LARISA LEIGH MD Electronically signed by: Departure Impression Primary Impression: Acute exacerbation of chronic obstructive pulmonary disease (COPD) Additional Impression: Bronchitis Disposition: 01 HOME, SELF-CARE Condition: Improved Departure-Patient Inst. Decision time for Depature: 17:36 Referrals: MARILUZ ARIAS MD (PCP/Family) Primary Care Physician Patient Instructions: COPD Exacerbation, Adult ED Add. Discharge Instructions: Start taking the azithromycin this evening. Take as directed on the packaging you will take 2 pills today and then 1 pill once a day for the next 4 days. Continue to use your breathing treatments every 4-6 hours as needed for shortness of breath and wheezing. Start taking the prednisone daily tomorrow. Avoid smoke/cigarette smoke/fumes as much as possible. Please come back to the emergency department for worsening symptoms, fever, increasing shortness of breath or any other emergent concerns. Please follow-up with Dr. Arias next week. Scripts Azithromycin (Azithromycin) 250 Mg Tablet 250 MG PO UD, #6 TAB TAKE 2 TABLETS ON DAY ONE THEN TAKE 1 TABLET DAILY FOR FOUR MORE DAYS Prov: RADHA PEOPLES MD 10/08/21 Prednisone (Prednisone) 50 Mg Tab 50 MG PO DAILY, #5 TAB Prov: RADHA PEOPLES MD 10/08/21 Copy Copies To 1: PAULINE CANALES KATHRYN M MD Oct 08, 2021 15:34
[2021-10-08 15:40] LABS: BASOPHILS % (AUTO) 1 % (0-10); EOSINOPHILS # (AUTO) 0.7 10^3/uL (0.0-0.3); EOSINOPHILS % (AUTO) 11 % (0-10); HEMATOCRIT 45 % (40-54); LYMPHOCYTES # (AUTO) 2.5 10^3/uL (1.0-4.0); LYMPHOCYTES % (AUTO) 39 % (12-44); MEAN CORPUSCULAR HEMOGLOBIN 29 pg (25-34); MEAN CORPUSCULAR HGB CONC 34 g/dL (32-36); MEAN CORPUSCULAR VOLUME 86 fL (80-99); MEAN PLATELET VOLUME 9.2 fL (9.0-12.2); MONOCYTES # (AUTO) 0.4 10^3/uL (0.0-1.0); MONOCYTES % (AUTO) 6 % (0-12); NEUTROPHILS # (AUTO) 2.8 10^3/uL (1.8-7.8); NEUTROPHILS % (AUTO) 43 % (42-75); PLATELET COUNT 247 10^3/uL (130-400); WHITE BLOOD COUNT 6.5 10^3/uL (4.3-11.0)
--- NOTE | 2021-10-08 15:54 | Diagnostic Imaging Report ---
CLINICAL INDICATION: Patient with increasing shortness of breath and cough. EXAM: Portable chest x-ray upright view. COMPARISON: Chest x-ray dated 07/10/2021. FINDINGS: Lungs/pleura: Lungs are clear. There is no pneumothorax. There is no pleural effusion. Mediastinum: Unremarkable. Pulmonary vasculature: Unremarkable. Heart: Unremarkable. Bones/extrathoracic soft tissue: There are degenerative spurs involving the thoracic spine. IMPRESSION: There is no radiographic evidence of acute cardiopulmonary process. Dictated by: Dictated on workstation # [id number]
[2021-10-08 16:05] LABS: ALBUMIN 4.5 GM/DL (3.2-4.5); POTASSIUM 4.2 MMOL/L (3.6-5.0)
[2021-10-08 16:06] LABS: CALCIUM 9.3 MG/DL (8.5-10.1)
[2021-10-08 16:08] LABS: TOTAL PROTEIN 7.9 GM/DL (6.4-8.2)
[2021-10-08 16:09] LABS: BILIRUBIN,TOTAL 0.6 MG/DL (0.1-1.0)
[2021-10-08 16:11] LABS: CREATININE SERUM 0.91 MG/DL (0.60-1.30)
[2021-10-08 16:13] LABS: PROTHROMBIN TIME PATIENT 13.3 SEC (12.2-14.7)
[2021-10-08] MEDS ORDERED: RT-ALBUTEROL SULF 2.5 MG/3 ML PRE-MIX VIAL INH ONE (16:15)
[2021-10-08] MEDS ORDERED: RT-IPRATROPIUM (ATROVENT) 0.5MG/2.5ML AMP IH ONE (16:15)
[2021-10-08] MEDS ORDERED: methylPREDNISolone 125 MG (Solu-MEDROL) VIAL IVP ONE (16:15)
[2021-10-08] MEDS ORDERED: PRD50T PO (17:38)
[2021-10-08] MEDS ORDERED: AZIT250T12 PO (17:38)
[2021-10-08 18:01] VITALS: BP 121/65
== END 2021-10-08 17:58 | disposition home or self-care (01) ==
LOC: EDUNIT# 15:10 → ER 15:11
DX: J43.9 Emphysema, unspecified (principal); Z99.81 Dependence on supplemental oxygen; Z87.891 Personal history of nicotine dependence; Z20.822 Contact with and (suspected) exposure to COVID-19; Z28.310 Unvaccinated for COVID-19
CPT/HCPCS: 36415; 71045; 80053; 83735; 83874; 83880; 84484; 85025; 85610; 85730; 87636; 93005; 93041